=== PATIENT | female | born 1940 | race Caucasian/White ===

== ENCOUNTER 2016-11-27 14:12 | Observation (INO) | payer BC, MEDICARE ==
[~2016-11-27] VITALS: Ht 142.2 cm; Wt 46.0 kg
[~2016-11-27 14:12] MED LIST: ALBU0.63 NEB; BUDE0.5S NEB; DENO60P SQ; IPRASOL INH; OXYGENTANK NAS.CANULA; PRED20 PO; ROBIDM5S PO; TUSSSUS2 PO; ZITH500T PO
[2016-11-27 14:28] VITALS: BP 124/76; PULSE 84; RESP 18; TEMP 98.4; O2SAT 95
[2016-11-27 14:47] VITALS: BP 116/56; PULSE 105; RESP 16; TEMP 98; O2SAT 99
[2016-11-27 14:51] VITALS: BP 116/56; PULSE 107; RESP 16; O2SAT 99
--- NOTE | 2016-11-27 15:49 | RADRPT ---
EXAM DATE/TIME: 11/27/2016 15:01 [facility] COMPARISON: CHEST SINGLE AP, November 10, 2016, 5:28. CT PULMONARY ANGIOGRAM, November 11, 2016, 15:36. INDICATIONS : Short of breath MEDICAL HISTORY : Chronic obstructive pulmonary disease. Hiatal hernia. Lung infection SURGICAL HISTORY : None. ENCOUNTER: Initial ACUITY: 2 weeks PAIN SCORE: 0/10 LOCATION: Bilateral chest FINDINGS: There is extensive subcutaneous emphysema over the visualized neck and chest. Diffuse coarse fibrotic parenchymal lung disease is noted. Cardiomediastinal contours are grossly stable. CONCLUSION: Extensive subcutaneous emphysema. Extensive chronic lung disease Zane Clifford MD on November 27, 2016 at 15:44 Board Certified Radiologist. This report was verified electronically.
[2016-11-27 16:10] VITALS: BP 124/74; PULSE 102; RESP 16; O2SAT 100
--- NOTE | 2016-11-27 16:31 | PD ---
HPI Chief Complaint: Facial Pain or Swelling Time Seen by Provider: 15:51 Travel History International Travel<30 days: No Contact w/Intl Traveler<30days: No Traveled to known affect area: No History of Present Illness HPI 76-year-old female with history of pulmonary fibrosis, recent pneumonia, presents to the ER today because she states that she woke up this morning with swelling under her neck and her chin area, feels discomfort in her throat. She has baseline problems breathing and has been put on oxygen recently. She had been seen by nurse practitioner at her doctor's office and sent in for concern of air under the skin. She denies any fevers, difficulty swallowing, or other symptoms. Modifying Factors: None Associated Signs & Symptoms: Swelling of the neck and chin Risk Factors: Recent use of oxygen PFSH Past Medical History Cancer: No Cardiovascular Problems: No COPD: Yes Diabetes: No Endocrine: No Gastrointestinal Disorders: Yes (GERD) GERD: Yes Genitourinary: No Hepatitis: No Hiatal Hernia: Yes Hypertension: No Immune Disorder: No Musculoskeletal: Yes (OSTEOPEROSIS) Neurologic: No Psychiatric: No Reproductive: No Respiratory: Yes (FIBROSIS) Thyroid Disease: No Influenza Vaccination: Yes ?: Not Past Surgical History AICD: No Body Medical Devices: PINS IN L WRIST Eye Surgery: Yes Gynecologic Surgery: No Joint Replacement: No Pacemaker: No Other Surgery: Yes Social History Alcohol Use: Yes (VERY RARELY) Tobacco Use: No Substance Use: No Allergies-Medications (Allergen,Severity, Reaction): Coded Allergies: No Known Allergies (Unverified , 11/27/16) Reported Meds & Prescriptions Reported Meds & Active Scripts Active Zithromax (Azithromycin) 500 Mg Tab 500 Mg PO DAILY Guaifenesin-Dm Liq (Guaifenesin/Dextromethorphan) 100-10 Mg/5 Ml Syrp 10 Ml PO Q4H PRN 7 Days Prednisone 20 Mg Tab 40 Mg PO DAILY 1 TAB BY MOUTH TWICE A DAY FOR THREE DAYS THEN ONE TABLET DAILT UNTIL GONE Oxygen tank (Oxygen) 1 Ea Tank 2 Liter GRADY.CANULA CONTINUOUS Oxygen Concentrator Portable Gaseous 2 L/min via Nasal Cannula Continuous For 99 months Reported Budesonide Neb 0.5 Mg/2 Ml Neb 0.5 Mg NEB Q12HR NEB Duoneb (Ipratropium-Albuterol Neb) 0.5-2.5 Mg/3 Ml Neb 1 Nebule INH Q4-6H Tussionex Pennkinetic Ext 12 HR Liq (Hydrocodone-Chlorpheniramine 12 HR Liq) 10- 8 Mg/5 Ml Susp 5 Ml PO Q12H PRN Albuterol Neb (Albuterol Sulfate) 0.63 Mg/3 Ml Neb 0.63 Mg NEB BID PRN Prolia Inj (Denosumab) 60 Mg/Ml Inj 60 Mg SQ Q 6 MONTHS PRN Review of Systems Except as stated in HPI: all other systems reviewed are Neg Physical Exam Narrative GENERAL: Well-nourished, well-developed elderly white female patient in no acute distress at rest. No drooling. Airway intact. SKIN: Warm and dry. HEAD: Normocephalic. EYES: No scleral icterus. No injection or drainage. ENT: Mucosa pink and moist. No erythema or exudates. No uvular edema. No uvular , palatal, or tonsillar deviation. Airway patent. NECK: Supple, trachea midline. There is mild notable edema of the throat area, no crepitus. CARDIOVASCULAR: Regular rate and rhythm without murmurs, gallops, or rubs. RESPIRATORY: Breath sounds equal with crackles throughout bilaterally. No accessory muscle use. GASTROINTESTINAL: Abdomen soft, non-tender, nondistended. MUSCULOSKELETAL: No cyanosis, or edema. BACK: Nontender without obvious deformity. No CVA tenderness. Data Data Last Documented VS Vital Signs Date Time Temp Pulse Resp B/P Pulse Ox O2 Delivery O2 Flow Rate FiO2 11/27/16 16:10 102 16 124/74 100 Nasal Cannula 3 11/27/16 14:47 98.0 Orders Chest, Single Ap (11/27/16 14:43) Complete Blood Count With Diff (11/27/16 16:27) Basic Metabolic Panel (Bmp) (11/27/16 16:27) Prothrombin Time / Inr (Pt) (11/27/16 16:27) Act Partial Throm Time (Ptt) (11/27/16 16:27) Labs Laboratory Tests Test 11/27/16 16:30 White Blood Count 12.3 TH/MM3 Red Blood Count 3.95 MIL/MM3 Hemoglobin 11.0 GM/DL Hematocrit 34.3 % Mean Corpuscular Volume 86.8 FL Mean Corpuscular Hemoglobin 27.9 PG Mean Corpuscular Hemoglobin 32.1 % Concent Red Cell Distribution Width 16.3 % Platelet Count 254 TH/MM3 Mean Platelet Volume 8.5 FL Neutrophils (%) (Auto) 89.9 % Lymphocytes (%) (Auto) 5.8 % Monocytes (%) (Auto) 3.4 % Eosinophils (%) (Auto) 0.4 % Basophils (%) (Auto) 0.5 % Neutrophils # (Auto) 11.1 TH/MM3 Lymphocytes # (Auto) 0.7 TH/MM3 Monocytes # (Auto) 0.4 TH/MM3 Eosinophils # (Auto) 0.1 TH/MM3 Basophils # (Auto) 0.1 TH/MM3 CBC Comment DIFF FINAL Differential Comment Prothrombin Time 10.0 SEC Prothromb Time International 0.9 RATIO Ratio Activated Partial 26.3 SEC Thromboplast Time MDM Medical Decision Making Medical Screen Exam Complete: Yes Emergency Medical Condition: Yes Medical Record Reviewed: Yes Interpretation(s) Laboratory Tests Test 11/27/16 16:30 White Blood Count 12.3 TH/MM3 (4.0-11.0) Red Blood Count 3.95 MIL/MM3 (4.00-5.30) Hemoglobin 11.0 GM/DL (11.6-15.3) Hematocrit 34.3 % (35.0-46.0) Neutrophils (%) (Auto) 89.9 % (16.0-70.0) Lymphocytes (%) (Auto) 5.8 % (9.0-44.0) Neutrophils # (Auto) 11.1 TH/MM3 (1.8-7.7) Lymphocytes # (Auto) 0.7 TH/MM3 (1.0-4.8) Last 24 hours Impressions Chest X-Ray 11/27/16 1443 Signed Impressions: Service Date/Time: November 15:01 - CONCLUSION: Extensive subcutaneous emphysema. Extensive chronic lung disease Zane Clifford MD Differential Diagnosis Allergic reaction versus pneumomediastinum versus pneumothorax versus steroid side effect Narrative Course Chest x-ray shows extensive subcutaneous emphysema without signs of pneumothoraces or other acute pulmonary processes. Case was discussed with Dr. rodrigues who is the patient's work force advisor was suggested that the patient be admitted as an observation especially considering her chronic lung disease. He states that he will see the patient tomorrow and states that patient should get follow-up chest x-ray as well. Case was then discussed with Dr. Barron for admission Diagnosis Primary Impression: TRAUMATIC SUBCUTANEOUS EMPHYSEMA, INITIAL ENCOUNTER Admitting Information Admitting Physician Requests: Admit Edwin Santos MD Nov 27, 2016 16:31
[2016-11-27 16:52] LABS: AUTOMATED NEUTROPHIL # 11.1 TH/MM3 (1.8-7.7); BASOPHIL # 0.1 TH/MM3 (0-0.2); BASOPHIL % 0.5 % (0.0-2.0); EOSINOPHIL # 0.1 TH/MM3 (0-0.4); EOSINOPHIL % 0.4 % (0.0-4.0); HEMATOCRIT 34.3 % (35.0-46.0); HEMO FLAGS DIFF FINAL; LYMPH % 5.8 % (9.0-44.0); LYMPHOCYTE # 0.7 TH/MM3 (1.0-4.8); MEAN CELL VOLUME 86.8 FL (80.0-100.0); MEAN CORPUSCULAR HEMOGLOBIN 27.9 PG (27.0-34.0); MEAN CORPUSCULAR HGB CONC 32.1 % (32.0-36.0); MONO % 3.4 % (0.0-8.0); NEUT % 89.9 % (16.0-70.0); PLATELET COUNT 254 TH/MM3 (150-450); RED BLOOD COUNT 3.95 MIL/MM3 (4.00-5.30); RED CELL DISTRIBUTION WIDTH 16.3 % (11.6-17.2); WHITE BLOOD COUNT 12.3 TH/MM3 (4.0-11.0)
[2016-11-27 17:05] LABS: APTT (PATIENT) 26.3 SEC (24.3-30.1); INTERNATIONAL NORMALIZED RATIO 0.9 RATIO
[2016-11-27 17:25] LABS: BICARBONATE 30.1 MEQ/L (21.0-32.0); POTASSIUM 4.6 MEQ/L (3.5-5.1)
[2016-11-27] MEDS ORDERED: NALOXONE HCL 0.4 MG/ML AMP IV PRN (17:45)
[2016-11-27] MEDS ORDERED: ACETAMINOPHEN 325 MG TAB PO PRN (17:45)
[2016-11-27] MEDS ORDERED: ONDANSETRON HCL 4 MG/2 ML VIAL IVP PRN (17:45)
[2016-11-27] MEDS ORDERED: guaiFENesin/DEXTROMETHORPHAN 200 MG/20 MG/10 ML CUP PO PRN (18:00)
[2016-11-27] MEDS ORDERED: NON-FORMULARY DRUG (Denosumab Inj (Prolia Inj) 60 MG) SQ PRN (18:00)
[2016-11-27] MEDS ORDERED: CHLORPHENIR/HYDROCOD LIQUID 8 MG/10 MG/5 ML CUP PO PRN (18:00)
[2016-11-27] MEDS ORDERED: RESP: ALBUTEROL 0.63 MG/3 ML NEB (PRN) NEB (18:00)
[2016-11-27] MEDS ORDERED: SODIUM CHLOR 0.9% 1000 ML INJ 1,000 ML IV SCH (18:00)
--- NOTE | 2016-11-27 18:58 | MB ---
cc: Sunshine CARDENAS M.D. DATE OF CONSULTATION 11/27/16 HISTORY OF PRESENT ILLNESS Miss French is a 76-year-old white female well-known to me with extensive pulmonary fibrosis who was recently admitted with a severe exacerbation. I saw her in the office yesterday at which time she was doing much better. She was on 10 mg of prednisone, continuous oxygen and things had settled down very nicely. In addition, she has a cavity in the right upper lobe that we have been investigating. She awoke today and noticed that her voice had changed and her face felt full. She really was not any more short of breath. She had had no cough or unusual symptoms. She had no chest pain, but she went to see her primary care physician and they also noticed these changes and felt a fullness in her neck. They sent her into the ER because they also felt that she had some crepitance. She did in fact have crepitance in the neck and supraclavicular regions and a chest x-ray reveals subcutaneous emphysema. There is no pneumothorax. No real change in her x-rays otherwise. For further review of a prior history, social history, etc., please refer to recent inpatient notes. PHYSICAL EXAMINATION GENERAL: She is awake, alert. She does have a noticeable change in her voice as is common with subcu air. She is afebrile. VITAL SIGNS: Her pulse is 100, respirations are very comfortable at 16-18 and her sat on 3 liters is 100%. HEENT: Sclerae anicteric. No adenopathy palpable in the neck. She does have crepitance palpable in the neck and supraclavicular region, very little in the anterior and lateral chest regions. LUNGS: Coarse rales throughout. This is standard for her, no harsh murmur. EXTREMITIES: No edema or cyanosis. DISCUSSION Ms. French presented today with probably a spontaneous rupture of a bleb in her lung. No evidence of pneumothorax on either side and most of the air is subcutaneous without much obvious mediastinal air. She has no respiratory compromise and her sats are excellent. In light of the recent severe exacerbation and her rather marginal pulmonary status, I have recommended at least an overnight observation with a followup chest x-ray in the morning. If there is no progression, I think she could probably be safely monitored at home. Hopefully, this will seal and the air will eventually reabsorb. I have reviewed this with she and her this evening and I will see her back again tomorrow. R. MD BOUCHRA Yin/ /5:50 PM /6:36 PM
[2016-11-27] MEDS: SODIUM CHLORIDE 0.9% FLUSH 5 ML FLUSH FLUSH SCH (21:00)
[2016-11-27 22:04] VITALS: BP 115/62; PULSE 98; RESP 20; O2SAT 99
[2016-11-27] MEDS: RESP: ALBUTEROL 2.5 MG/IPRATROPIUM 0.5 MG NEB (SCH) INH (22:26)
[2016-11-27] MEDS: RESP: BUDESONIDE 0.5 MG/2 ML NEB NEB SCH (23:18)
[2016-11-28] VITALS (7 sets, daily range): BP systolic 110–137; BP diastolic 58–77; PULSE 95–108; RESP 18–20; TEMP 98–98.5; O2SAT 94–99
[2016-11-28] MEDS: RESP: ALBUTEROL 2.5 MG/IPRATROPIUM 0.5 MG NEB (SCH) INH ×2 (04:30→10:01)
[2016-11-28 05:30] LABS: AUTOMATED NEUTROPHIL # 7.6 TH/MM3 (1.8-7.7); BASOPHIL % 0.3 % (0.0-2.0); EOSINOPHIL # 0.3 TH/MM3 (0-0.4); EOSINOPHIL % 2.7 % (0.0-4.0); HEMATOCRIT 31.3 % (35.0-46.0); HEMO FLAGS DIFF FINAL; LYMPH % 11.5 % (9.0-44.0); LYMPHOCYTE # 1.1 TH/MM3 (1.0-4.8); MEAN CELL VOLUME 86.1 FL (80.0-100.0); MEAN CORPUSCULAR HEMOGLOBIN 28.5 PG (27.0-34.0); MEAN CORPUSCULAR HGB CONC 33.1 % (32.0-36.0); MONO % 5.8 % (0.0-8.0); NEUT % 79.7 % (16.0-70.0); PLATELET COUNT 218 TH/MM3 (150-450); RED BLOOD COUNT 3.63 MIL/MM3 (4.00-5.30); RED CELL DISTRIBUTION WIDTH 16.2 % (11.6-17.2); WHITE BLOOD COUNT 9.5 TH/MM3 (4.0-11.0)
[2016-11-28] MEDS: SODIUM CHLORIDE 0.9% FLUSH 5 ML FLUSH FLUSH SCH (08:18)
--- NOTE | 2016-11-28 08:44 | MH ---
cc: KAMILA BARRON DATE OF ADMISSION: 11/27/2016 DATE OF [address] Barron. REASON FOR ADMISSION Facial swelling and some hoarseness and voice change. HISTORY OF PRESENT ILLNESS The patient is a very pleasant 76-year-old patient seen and is known to me from past admission when she was admitted because of a COPD exacerbation. The patient was recently discharged . This time the patient came to the ER because she had woke up this morning with some swelling under her neck and her chin area and she is feeling some discomfort and some difference in voice. So she went to her primary care doctor who sent her over here because of the crepitance in her skin. She was evaluated by the ER physician and found out the patient has emphysema in the neck but there is no pneumothorax. The ER physician talked to a candle wicker and as per candle wicker because of her condition and her underlying pulmonary fibrosis and this spontaneous emphysema she needs to be observed further. The patient was seen in the ER. At present she has some different voice than before but she has no pain. She had some fullness in her neck which is the same as this morning. She denies any shortness of breath. There is no difficulty in swallowing. There is no nausea or vomiting. She denies any chest pain or any back pain. She denies any abdominal pain. PAST MEDICAL HISTORY/PAST SURGICAL HISTORY/FAMILY HISTORY Please see last . MEDICATIONS Reviewed. The patient ALLERGIES THE PATIENT HAS NO KNOWN DRUG ALLERGIES. REVIEW OF SYSTEMS As described in the History of Present Illness otherwise negative for 10 systems. PHYSICAL EXAMINATION GENERAL: The patient is alert and oriented, thin-built, lying on bed without any apparent distress. VITAL SIGNS: pulse between 90-100, respiratory rate 16, blood pressure 124/74, pulse ox 100 on 3 liters nasal cannula. HEENT: Head is atraumatic, normocephalic. Eyes: Negative conjunctival injection. No icterus. Mouth unremarkable. NECK: Supple. Trachea is midline. There is no lymphadenopathy noted. There is no tenderness. There is notable fullness under the chin and the neck area with crepitus positive mostly on the right side and supraclavicular area as well. Normal range of motion of neck. CHEST: Good air entry but dry crepitations which is normal for her as I remember from last time. CARDIOVASCULAR: S1 and S2 audible. Unable to hear any S3 gallop. GASTROINTESTINAL: Abdomen soft, nontender. No organomegaly. Positive bowel sounds. EXTREMITIES: No cyanosis or pedal edema appreciated. LABORATORY DATA WBC count 12.3, hemoglobin 11.0, hematocrit 34.3. Sodium 135 otherwise BMP within normal limit. PT, INR, APTT within normal limit. IMAGING Chest x-ray was done which showed extensive subcutaneous emphysema, extensive chronic lung disease. ASSESSMENT 1. Spontaneous emphysema subcutaneous on the neck and the supraclavicular area in a patient with pulmonary fibrosis. 2. Pulmonary fibrosis. 3. Recent pneumonia. 4. GERD. 5. History of malnourishment. 6. Osteoporosis. PLAN Admit under observation. Appreciate Pulmonary input. Repeat x-ray in the morning. Continue some of home medications as indicated. Monitor heart rate. Condition discussed with the patient. Further recommendation to follow as per patient progress. Kamila Barron MD JP/WINSOME /8:21 PM /8:37 AM
[2016-11-28] MEDS: SODIUM CHLORIDE 0.9% FLUSH 5 ML FLUSH FLUSH PRN (09:00)
[2016-11-28] MEDS ORDERED: AZITHROMYCIN 250 MG TAB PO SCH (09:00)
[2016-11-28] MEDS ORDERED: predniSONE 20 MG TAB PO SCH (09:00)
--- NOTE | 2016-11-28 09:39 | HHI.PR ---
Subjective Subjective Remarks resting comfortably no cp no sob, some with activity no fever subq emphysema improving, less on anterior neck no distress overnight Review of Systems Constitutional Constitutional Remarks 12 point ROS completed, negative except as noted above Vitals/Results Vital Signs Vital Signs Date Time Temp Pulse Resp B/P Pulse Ox O2 Delivery O2 Flow Rate FiO2 11/28/16 07:20 98.5 102 20 119/66 99 Nasal Cannula 3 11/28/16 07:20 102 20 11/28/16 06:33 95 20 114/69 96 Nasal Cannula 3 11/28/16 02:41 97 18 112/66 97 Nasal Cannula 3 11/27/16 22:04 98 20 115/62 99 Nasal Cannula 3 11/27/16 16:10 102 16 124/74 100 Nasal Cannula 3 11/27/16 14:51 107 16 116/56 99 Nasal Cannula 3 11/27/16 14:47 98.0 105 16 116/56 99 11/27/16 14:28 98.4 84 18 124/76 95 Nasal Cannula 3 CBC/BMP: 11/28/16 0503 11/27/16 1630 Lab Results Laboratory Tests Test 11/27/16 11/28/16 16:30 05:03 White Blood Count 12.3 TH/MM3 9.5 TH/MM3 Red Blood Count 3.95 MIL/MM3 3.63 MIL/MM3 Hemoglobin 11.0 GM/DL 10.4 GM/DL Hematocrit 34.3 % 31.3 % Mean Corpuscular Volume 86.8 FL 86.1 FL Mean Corpuscular Hemoglobin 27.9 PG 28.5 PG Mean Corpuscular Hemoglobin 32.1 % 33.1 % Concent Red Cell Distribution Width 16.3 % 16.2 % Platelet Count 254 TH/MM3 218 TH/MM3 Mean Platelet Volume 8.5 FL 7.7 FL Neutrophils (%) (Auto) 89.9 % 79.7 % Lymphocytes (%) (Auto) 5.8 % 11.5 % Monocytes (%) (Auto) 3.4 % 5.8 % Eosinophils (%) (Auto) 0.4 % 2.7 % Basophils (%) (Auto) 0.5 % 0.3 % Neutrophils # (Auto) 11.1 TH/MM3 7.6 TH/MM3 Lymphocytes # (Auto) 0.7 TH/MM3 1.1 TH/MM3 Monocytes # (Auto) 0.4 TH/MM3 0.5 TH/MM3 Eosinophils # (Auto) 0.1 TH/MM3 0.3 TH/MM3 Basophils # (Auto) 0.1 TH/MM3 0.0 TH/MM3 CBC Comment DIFF FINAL DIFF FINAL Differential Comment Prothrombin Time 10.0 SEC Prothromb Time International 0.9 RATIO Ratio Activated Partial 26.3 SEC Thromboplast Time Sodium Level 135 MEQ/L Potassium Level 4.6 MEQ/L Chloride Level 98 MEQ/L Carbon Dioxide Level 30.1 MEQ/L Anion Gap 7 MEQ/L Blood Urea Nitrogen 14 MG/DL Creatinine 0.55 MG/DL Estimat Glomerular Filtration 108 ML/MIN Rate Random Glucose 96 MG/DL Calcium Level 8.5 MG/DL Physical Exam General General Appearance: Well Developed, No Acute Distress, Comfortable Eyes Eye Exam: Pupils Equal, Pupils Reactive Ears & Nose Ears & Nose Exam: Nasal Mucosa Hartwick Throat Throat Exam: Oral Mucosa Hartwick & Moist Neck Neck Remarks sub q emphysema, neck, improved Pulmonary Resp Exam: Rhonchi Resp Remarks coarse, mild wheezing Cardiology CV Exam: Regular, Good Perfusion, Tachycardia Gastrointestinal/Abdomen GI Exam: Soft, Non-Tender, Bowel Sounds Present, Non-Distended Musculoskeletal MS Exam: Joints Intact Integumentary Skin Exam: Warm, Dry Extremeties Extremities Exam: No Edema, Pedal Pulses Palpable Neurologic Neuro Exam: Alert, Awake, Oriented, Speech Clear, No Focal Deficits Psychiatric Psych Exam: Appropriate Responses VTE Prophylaxis VTE Prophylaxis Device: SCDs Assessment/Plan Problem List: (1) Nontraumatic subcutaneous emphysema (2) Interstitial fibrosis (3) COPD exacerbation (4) GERD (gastroesophageal reflux disease) (5) Osteoporosis Assessment/Plan appreciate pulm input continue with oxygen 2L/NC Duonebs PO steroids repeat CXR today, f/u results overall improved, less subq emphysema HR elevated, telemetry monitoring Continue empiric abx Possible discharge today D/W RN D/W Dr. Barron D/W pt. This pt. was seen by myself and Dr. Barron, this note is written on his behalf Problem Qualifiers (1) GERD (gastroesophageal reflux disease): Qualified Code: K21.9 - Gastroesophageal reflux disease without esophagitis Samreen Serrano Nov 28, 2016 09:39
[2016-11-28] MEDS: RESP: BUDESONIDE 0.5 MG/2 ML NEB NEB SCH (10:01)
--- NOTE | 2016-11-28 10:26 | RADRPT ---
EXAM DATE/TIME: 11/28/2016 09:42 [facility] COMPARISON: CHEST SINGLE AP, November 27, 2016, 15:01. INDICATIONS : Cough, subcutaneous,emphysema MEDICAL HISTORY : Chronic obstructive pulmonary disease. Lung infections SURGICAL HISTORY : None. ENCOUNTER: Subsequent ACUITY: 1 day PAIN SCORE: 0/10 LOCATION: Bilateral chest FINDINGS: There is extensive subcutaneous air which is stable to slightly increased from November 27. Extensive l jackeline fibrotic changes are present with patchy airspace disease and stable cavitary lesion on the right identified on recent chest CT. Aorta tortuous and atherosclerotic. Capsular calcifications around br east implants. CONCLUSION: 1. Extensive subcutaneous emphysema, stable to increased since prior exam. Stable lung fibrotic chaves es and cavitary lesion on the right since November 27. No infiltrate. No effusion. Jaylan Jimenez MD on November 28, 2016 at 10:20 Board Certified Radiologist. This report was verified electronically.
--- NOTE | 2016-11-28 13:37 | HHI.DCPOC ---
Discharge Care Plan Diagnosis: (1) Nontraumatic subcutaneous emphysema (2) COPD exacerbation (3) Interstitial fibrosis Your Health Problems Are: Cough Shortness of Breath Goals to Promote Your Health * To prevent worsening of your condition and complications * To maintain your health at the optimal level Directions to Meet Your Goals Take your medications as prescribed Follow your dietary instruction Follow activity as directed Keep your appointments as scheduled Take your immunizations and boosters as scheduled If your symptoms worsen call your PCP, if no PCP go to Urgent Care Center or Emergency Room Smoking is Dangerous to Your Health. Avoid second hand smoke Call the 24-hour hour crisis hotline for domestic abuse at Samreen Serrano Nov 28, 2016 13:37
--- NOTE | 2016-12-01 08:49 | MD ---
cc: Sunshine CARDENAS ADMISSION DATE: 11/27/2016 DISCHARGE DATE: 11/28/2016 PULMONARY DISCHARGE: Miss French was kept in observation last night for subcutaneous air noted on chest x-ray and on exam. She is a 76-year-old white female known to me with pulmonary fibrosis and a cavity in the right upper lobe that we been evaluating recently. She presented with change in voice feeling of swelling in her neck and subcutaneous crepitance as well as the subcutaneous emphysema noted on x-rays. She was kept overnight her vitals were stable. Her sats have remained stable at 100% on 3 liters. She has oxygen at home and we taper down to 10 mg of prednisone for recent acute severe exacerbation of her underlying pulmonary fibrosis. I spoke to Dr. Barron there really is not any reason to keep her in the hospital. She knows that if she develops increasing subcutaneous emphysema or shortness of breath. She has returned the emergency room. We have her scheduled to be seen at the [facility] for further evaluation later this month. In the meantime we will keep her on a low dose of prednisone and her oxygen and I have told her not to be involved in any heavy physical activities. We will see her back in the office if stable after the [facility] evaluation, but she knows she can call prior to that if problems arise. MD BOUCHRA Cardoso/stewart /1:38 PM /8:50 AM
[2017-05-11] MEDS ORDERED: DENOSUMAB 60 MG SQ PRN (09:00)
== END 2016-11-28 14:05 | disposition home or self-care (01) ==
LOC: NEPE 14:12 → NEDA 17:09 → NEDH 21:09
PROVIDERS: ADMIT Specialist; ATTEND Specialist
DX: J98.2 Interstitial emphysema (principal); J44.1 Chronic obstructive pulmonary disease with (acute) exacerbation; J84.10 Pulmonary fibrosis, unspecified; K21.9 Gastro-esophageal reflux disease without esophagitis; M81.0 Age-related osteoporosis without current pathological fracture; J98.4 Other disorders of lung; R22.1 Localized swelling, mass and lump, neck; J02.9 Acute pharyngitis, unspecified; R49.0 Dysphonia; Z87.01 Personal history of pneumonia (recurrent); Z99.81 Dependence on supplemental oxygen
CPT/HCPCS: 71010; 71020; 80048; 85025; 85610; 85730; 94640; 94664; 99285; G0378; J7030; J7512; J7626

== ENCOUNTER 2016-12-09 15:30 | Inpatient (IN) | payer BC, MEDICARE ==
[2016-12-09] VITALS (9 sets, daily range): BP systolic 93–124; BP diastolic 62–73; PULSE 106–137; RESP 18–28; TEMP 97.5; O2SAT 85–97
[~2016-12-09] VITALS: Ht 142.2 cm; Wt 50.0 kg
[~2016-12-09 15:30] MED LIST changes: -ZITH500T PO
[2016-12-09 16:15] LABS: BASOPHIL # 0.1 TH/MM3 (0-0.2); BASOPHIL % 0.7 % (0.0-2.0); EOSINOPHIL % 0.1 % (0.0-4.0); HEMATOCRIT 28.8 % (35.0-46.0); LYMPH % 6.3 % (9.0-44.0); LYMPHOCYTE # 1.1 TH/MM3 (1.0-4.8); MEAN CELL VOLUME 83.6 FL (80.0-100.0); MEAN CORPUSCULAR HEMOGLOBIN 27.1 PG (27.0-34.0); MEAN CORPUSCULAR HGB CONC 32.4 % (32.0-36.0); MONO % 5.8 % (0.0-8.0); NEUT % 87.1 % (16.0-70.0); PLATELET COUNT 20 TH/MM3 (150-450); RED BLOOD COUNT 3.45 MIL/MM3 (4.00-5.30); RED CELL DISTRIBUTION WIDTH 15.9 % (11.6-17.2); WHITE BLOOD COUNT 17.2 TH/MM3 (4.0-11.0)
[2016-12-09 16:17] LABS: HEMO FLAGS AUTO DIFF
--- NOTE | 2016-12-09 16:25 | RADRPT ---
EXAM DATE/TIME: 12/09/2016 16:07 [facility] COMPARISON: CHEST PA & LAT, November 28, 2016, 9:42. CT PULMONARY ANGIOGRAM, November 11, 2016, 15:36. CHEST SIN GLE AP, November 27, 2016, 15:01. INDICATIONS : Shortness of breath. MEDICAL HISTORY : Chronic obstructive pulmonary disease. Pulmonary fibrosis. SURGICAL HISTORY : None. ENCOUNTER: Initial ACUITY: 4 - 6 days PAIN SCORE: 0/10 LOCATION: Bilateral chest FINDINGS: Diffuse parenchymal lung disease remains evident. There are chronic interstitial lung changes and pat lucy areas of airspace disease. A cavitary lesion remains evident laterally within the right upper lob e. Subcutaneous emphysema described on previous study has completely resolved. There is no evidence of pneumothorax. 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 Moderate congestion would be difficult to exclude. Paramjit Parada MD on December 09, 2016 at 16:20 Board Certified Radiologist. This report was verified electronically.
[2016-12-09 16:28] LABS: BANDS 18 % (0-6); METAMYELOCYTES 1 % (0-1); POLYS (SEG NEUTROPHILS) 74 % (16-70); WBC DIFF SAMPLE 100
[2016-12-09 16:29] LABS: PLATELET ESTIMATE SMEAR LOW (NORMAL); PLATELET MORPHOLOGY NORMAL (NORMAL); SCAN/DIFF FINAL DIFF MANUAL
[2016-12-09 17:13] LABS: ALKALINE PHOSPHATASE 86 U/L (45-117); ALT (GPT) 45 U/L (10-53); ANION GAP 9 MEQ/L (5-15); AST (GOT) 53 U/L (15-37); BICARBONATE 26.2 MEQ/L (21.0-32.0); BLOOD UREA NITROGEN 15 MG/DL (7-18); CHLORIDE 97 MEQ/L (98-107); GLOMERULAR FILTRATION RATE 69 ML/MIN (>89); SODIUM (NA) 132 MEQ/L (136-145); TOTAL BILIRUBIN ADULT 0.4 MG/DL (0.2-1.0)
[2016-12-09 17:14] LABS: POTASSIUM 4.5 MEQ/L (3.5-5.1)
[2016-12-09] MEDS ORDERED: methylPREDNISolone SOD SUCC 125 MG/2 ML VIAL IV PUSH ONE (17:30)
[2016-12-09] MEDS ORDERED: LEVOFLOXACIN 750 MG PREMIX INJ 150 ML IV ONE (17:30)
--- NOTE | 2016-12-09 18:51 | PD ---
HPI Chief Complaint: Respiratory Distress Time Seen by Provider: 15:37 Travel History International Travel<30 days: No Contact w/Intl Traveler<30days: No History of Present Illness HPI To 76 year-old woman presents to the emergency department with worsening of breath. She is a history of pulmonary fibrosis. This began progressively worse over the past several weeks. She was admitted to the emergency department recently with symptoms is emphysema thought to be related to pulmonary fibrosis. This resolved. She is on home oxygen. She's been having nosebleeds probably related to the oxygen. She just started humidified oxygen today. States she's got progressively more short of breath with cough and dropping down into the 70s even with her oxygen with movement. She sees Dr. José Antonio rodrigues. She was referred to the emergency department by his office. Some cough, no fevers or chills. Otherwise well. History Past Medical History Narrative Medical Pulmonary fibrosis Osteoporosis GERD Malnourishment Tetanus Vaccination: Unknown Influenza Vaccination: Yes : 4 Para: 3 Social History Alcohol Use: Yes (VERY RARELY) Tobacco Use: No Allergies-Medications (Allergen,Severity, Reaction): Coded Allergies: No Known Allergies (Unverified , 11/27/16) Reported Meds & Prescriptions Reported Meds & Active Scripts Active Guaifenesin-Dm Liq (Guaifenesin/Dextromethorphan) 100-10 Mg/5 Ml Syrp 10 Ml PO Q4H PRN 7 Days Prednisone 20 Mg Tab 40 Mg PO DAILY 1 TAB BY MOUTH TWICE A DAY FOR THREE DAYS THEN ONE TABLET DAILT UNTIL GONE Oxygen tank (Oxygen) 1 Ea Tank 2 Liter GRADY.CANULA CONTINUOUS Oxygen Concentrator Portable Gaseous 2 L/min via Nasal Cannula Continuous For 99 months Reported Budesonide Neb 0.5 Mg/2 Ml Neb 0.5 Mg NEB Q12HR NEB Duoneb (Ipratropium-Albuterol Neb) 0.5-2.5 Mg/3 Ml Neb 1 Nebule INH Q4-6H Tussionex Pennkinetic Ext 12 HR Liq (Hydrocodone-Chlorpheniramine 12 HR Liq) 10- 8 Mg/5 Ml Susp 5 Ml PO Q12H PRN Albuterol Neb (Albuterol Sulfate) 0.63 Mg/3 Ml Neb 0.63 Mg NEB BID PRN Prolia Inj (Denosumab) 60 Mg/Ml Inj 60 Mg SQ Q 6 MONTHS PRN Review of Systems Except as stated in HPI: all other systems reviewed are Neg Physical Exam Narrative GENERAL: Well-appearing 76 year-old woman, moderate respiratory distress. SKIN: Warm and dry. HEAD: Atraumatic. Normocephalic. EYES: Pupils equal and round. No scleral icterus. No injection or drainage. ENT: No nasal bleeding or discharge. Mucous membranes pink and moist. NECK: Trachea midline. No JVD. CARDIOVASCULAR: Regular rate and rhythm. No murmur appreciated. RESPIRATORY: Moderate moderate respiratory distress. Fine Rales throughout the posterior lung davis. GASTROINTESTINAL: Abdomen soft, non-tender, nondistended. Hepatic and splenic margins not palpable. MUSCULOSKELETAL: No obvious deformities. No edema. NEUROLOGICAL: Awake and alert. No obvious cranial nerve deficits. Motor grossly within normal limits. Normal speech. PSYCHIATRIC: Appropriate mood and affect; insight and judgment normal. Data Data Last Documented VS Vital Signs Date Time Temp Pulse Resp B/P Pulse Ox O2 Delivery O2 Flow Rate FiO2 12/09/16 18:48 113 22 93/64 95 Nasal Cannula 6 12/09/16 15:32 97.5 Orders Electrocardiogram (12/09/16 ) Chest, Single Ap (12/09/16 ) Complete Blood Count With Diff (12/09/16 15:49) Comprehensive Metabolic Panel (12/09/16 15:49) Iv Access Insert/Monitor (12/09/16 15:49) Ct Pulmonary Angiogram (12/09/16 ) Methylprednisolone So Succ Inj (Solumedr (12/09/16 17:30) Levofloxacin 750 Mg Premix Inj (Levaquin (12/09/16 17:30) Iohexol 350 Inj (Omnipaque 350 Inj) (12/09/16 19:10) Admit Order (Ed Use Only) (12/09/16 ) Labs Laboratory Tests Test 12/09/16 16:00 White Blood Count 17.2 TH/MM3 Red Blood Count 3.45 MIL/MM3 Hemoglobin 9.3 GM/DL Hematocrit 28.8 % Mean Corpuscular Volume 83.6 FL Mean Corpuscular Hemoglobin 27.1 PG Mean Corpuscular Hemoglobin 32.4 % Concent Red Cell Distribution Width 15.9 % Platelet Count 20 TH/MM3 Mean Platelet Volume 13.8 FL Neutrophils (%) (Auto) 87.1 % Lymphocytes (%) (Auto) 6.3 % Monocytes (%) (Auto) 5.8 % Eosinophils (%) (Auto) 0.1 % Basophils (%) (Auto) 0.7 % Neutrophils # (Auto) 15.0 TH/MM3 Lymphocytes # (Auto) 1.1 TH/MM3 Monocytes # (Auto) 1.0 TH/MM3 Eosinophils # (Auto) 0.0 TH/MM3 Basophils # (Auto) 0.1 TH/MM3 CBC Comment AUTO DIFF Differential Total Cells 100 Counted Neutrophils % (Manual) 74 % Band Neutrophils % 18 % Lymphocytes % 4 % Monocytes % 3 % Neutrophils # (Manual) 16.0 TH/MM3 Metamyelocytes 1 % Differential Comment FINAL DIFF MANUAL Platelet Estimate LOW Platelet Morphology Comment NORMAL Sodium Level 132 MEQ/L Potassium Level 4.5 MEQ/L Chloride Level 97 MEQ/L Carbon Dioxide Level 26.2 MEQ/L Anion Gap 9 MEQ/L Blood Urea Nitrogen 15 MG/DL Creatinine 0.81 MG/DL Estimat Glomerular Filtration 69 ML/MIN Rate Random Glucose 128 MG/DL Calcium Level 8.3 MG/DL Total Bilirubin 0.4 MG/DL Aspartate Amino Transf 53 U/L (AST/SGOT) Alanine Aminotransferase 45 U/L (ALT/SGPT) Alkaline Phosphatase 86 U/L Total Protein 7.0 GM/DL Albumin 2.5 GM/DL [facility] Medical Decision Making Medical Screen Exam Complete: Yes Emergency Medical Condition: Yes Interpretation(s) LABS: CBC remarkable for mild leukocytosis. We have 18%. CMP unremarkable. Chest x-ray: Continued evidence of diffuse bilateral pressure, lung disease there is a chronic unchanged back to pneumonitis. Moderate congestion or be difficult to exclude. Differential Diagnosis Pulmonary fibrosis, pneumonia, PE, other Narrative Course Medical decision making 76-year-old with worsening pulmonary fibrosis. This is likely her underlying pulmonary fibrosis is likely worsening. Some concern for PE. We'll check CT pulmonary angiogram. X-ray shows diffuse infiltrates, difficulttoexcludepneumonia.IspokewithDr.Shasta,oncallforDr.Y.We' lldosteroidsantibiotics.We'llplanonadmission. Diagnosis Primary Impression: Pulmonary fibrosis Additional Impression: Hypoxia Castro Nelson MD Dec 09, 2016 18:51
[2016-12-09] MEDS ORDERED: IOHEXOL 350 MG/ML 10 ML VIAL (for RAD DIAG) IV ONE (19:10)
--- NOTE | 2016-12-09 19:31 | RADRPT ---
EXAM DATE/TIME: 12/09/2016 19:05 [place] COMPARISON: CT PULMONARY ANGIOGRAM, November 11, 2016, 15:36. INDICATIONS : Short of breath. Evaluate for embolism. IV CONTRAST: 65 cc Omnipaque 350 (iohexol) IV RADIATION DOSE: 9.97 CTDIvol (mGy) MEDICAL HISTORY : Chronic obstructive pulmonary disease. Gastroesophageal reflux disease. SURGICAL HISTORY : None. ENCOUNTER: Initial ACUITY: 3 days PAIN SCALE: 0/10 LOCATION: Chest TECHNIQUE: Volumetric scanning of the chest was performed using a pulmonary embolism protocol MIP images were reconstructed. Using automated exposure control and adjustment of the mA and/or kV acco rding to patient size, radiation dose was kept as low as reasonably achievable to obtain optimal diag nostic quality images. FINDINGS: Coarse interstitial changes are present in both lungs that have progressed in the inter sammy. Thin walled cavity with consolidations is again seen in the right upper lobe. The amount of consolida tion has increased. There is no evidence for central pulmonary emboli. Portion of the liver and spl een identified are free of focal defects. CONCLUSION: 1. Increasing mass-like opacity with cavitation right upper lobe. 2. Increasing interstitial changes in both lungs. 3. There is no central pulmonary emboli. José Antonio Hamilton MD FACR on December 09, 2016 at 19:20 Board Certified Radiologist. This report was verified electronically.
[2016-12-09] MEDS: RESP: ALBUTEROL 2.5 MG/IPRATROPIUM 0.5 MG NEB (SCH) NEB ×2 (20:56→23:48)
[2016-12-10] VITALS (13 sets, daily range): BP systolic 96–131; BP diastolic 56–77; PULSE 104–137; RESP 18–45; TEMP 97.4–97.8; O2SAT 87–98
[2016-12-10] MEDS: CHLORPHENIR/HYDROCOD LIQUID 8 MG/10 MG/5 ML CUP PO PRN ×2 (00:29→21:35)
[2016-12-10] MEDS: methylPREDNISolone SOD SUCC 40 MG/1 ML VIAL IV SCH ×4 (02:16→21:10)
[2016-12-10] MEDS: RESP: ALBUTEROL 2.5 MG/IPRATROPIUM 0.5 MG NEB (SCH) NEB ×5 (03:22→19:36)
--- NOTE | 2016-12-10 07:24 | HHI.HP ---
[facility]Staff Admission Diagnosis pulmonary fibrosis, hypoxia Diagnoses: Chief Complaint: sob, low sats (Samreen Serrano) Travel History International Travel<30 Days: No Contact w/Intl Traveler <30 Da: No (Samreen Serrano) History of Present Illness This is a pleasant 76-year-old white female with significant past medical history of COPD, pulmonary fibrosis oxygen dependent,PNA, bronchiectasis. Pt. recently admitted 11/28 with non-traumatic subq emphysema secondary to pulm fibrosis. She follows up with Dr. Lofton. She is on chronic steroids, takes Prednisone and is on oxygen at 3.5L/NC. States she had been doing well, looking forward to seeing pulmonology at [facility] for further work up for pulmonary fibrosis. Over the last couple of day, she had increase SOB, sats 91% at rest. She has had nosebleed possibly due to oxygen as she just obtained humidifier. She has been coughing, little sputum, wheezing. No fever, but has noted waking up sweating at night. Yesterday she got up to go to bathroom and became extremely SOB, sats dropped to 70% on oxygen. She called Dr. Lofton's office and was instructed to come to ED. Denies any CP but has felt her "heart pounding". In the ED, pt. evaluated, laboratory work up remarkable for leukocytosis WBC 17.1, however pt. on steroids, no fever. Platelets 20,000, which is a new finding. BMP unremarkable. Imaging studies done Last Impressions Chest X-Ray 12/09/16 0000 Signed Impressions: Service Date/Time: Friday, December 09, 2016 16:07 - CONCLUSION: Continued evidence of diffuse bilateral parenchymal lung disease characteristic of chronic lung changes with active pneumonitis. Moderate congestion would be difficult to exclude. Paramjit Parada MD CT Angiography 12/09/16 0000 Signed Impressions: Service Date/Time: Friday, December 09, 2016 19:05 - CONCLUSION: 1. Increasing mass-like opacity with cavitation right upper lobe. 2. Increasing interstitial changes in both lungs. 3. There is no central pulmonary emboli. José Antonio Hamilton MD FACR Pt. was given IV steroids, duonebs and empiric antibiotics. Was initially on oxygen at 6L/NC, and was just decreased to 4L/NC. She is still SOB with activity and conversation, able to finish sentences. She has not had any more nosebleeds. She is concerned about missing her appointment at the [facility]. Dr. Lofton has been consulted. Pt. admitted for further evaluation and treatment. (Samreen Serrano) Review of Systems Constitutional: COMPLAINS OF: Diaphoretic episodes, Chills, DENIES: Fatigue, Fever, Weight gain, Weight loss, Dizziness, Change in appetite, Night Sweats Endocrine: DENIES: Abnorml menstrual pattern, Heat/cold intolerance, Polydipsia , Polyuria, Polyphagia Eyes: DENIES: Blurred vision, Diplopia, Eye inflammation, Eye pain, Vision loss , Photosensitivity, Double Vision Ears, nose, mouth, throat: DENIES: Tinnitus, Hearing loss, Vertigo, Nasal discharge, Oral lesions, Throat pain, Hoarseness, Ear Pain, Running Nose, Epistaxis, Sinus Pain, Toothache, Odynophagia Respiratory: COMPLAINS OF: Cough, Shortness of breath, DENIES: Apneas, Snoring , Wheezing, Hemoptysis, Sputum production Cardiovascular: COMPLAINS OF: Chest pain, Palpitations, DENIES: Syncope, Dyspnea on Exertion, PND, Lower Extremity Edema, Orthopnea, Claudication Gastrointestinal: DENIES: Abdominal pain, Black stools, Bloody stools, Constipation, Diarrhea, Nausea, Vomiting, Difficulty Swallowing, Anorexia Genitourinary: DENIES: Abnormal vaginal bleeding, Dysmenorrhea, Dyspareunia, Sexual dysfunction, Urinary frequency, Urinary incontinence, Urgency, Hematuria , Dysuria, Nocturia, Vaginal discharge Musculoskeletal: DENIES: Joint pain, Muscle aches, Stiffness, Joint Swelling, Back pain, Neck pain Integumentary: DENIES: Abnormal pigmentation, Pruritus, Rash, Nail changes, Breast masses, Breast skin changes, Nipple discharge Hematologic/lymphatic: DENIES: Bruising, Lymphadenopathy Immunologic/allergic: DENIES: Eczema, Urticaria Neurologic: DENIES: Abnormal gait, Headache, Localized weakness, Paresthesias, Seizures, Speech Problems, Tremor, Poor Balance Psychiatric: DENIES: Anxiety, Confusion, Mood changes, Depression, Hallucinations, Agitation, Suicidal Ideation, Homicidal Ideation, Delusions ( Samreen Serrano) Past Family Social History Past Medical History COPD Interstitial fibrosis Osteoporosis GERD Cataracts PNA x 3 this year, + pseudomona in sputum recently admitted 11/28/2016 with non traumatic subq emphysema Past Surgical History Recent cataract surgery Pins to left wrist Reported Medications Reported Meds & Active Scripts Active Guaifenesin-Dm Liq (Guaifenesin/Dextromethorphan) 100-10 Mg/5 Ml Syrp 10 Ml PO Q4H PRN 7 Days Prednisone 20 Mg Tab 40 Mg PO DAILY 1 TAB BY MOUTH TWICE A DAY FOR THREE DAYS THEN ONE TABLET DAILT UNTIL GONE Oxygen tank (Oxygen) 1 Ea Tank 2 Liter GRADY.CANULA CONTINUOUS Oxygen Concentrator Portable Gaseous 2 L/min via Nasal Cannula Continuous For 99 months Reported Budesonide Neb 0.5 Mg/2 Ml Neb 0.5 Mg NEB Q12HR NEB Duoneb (Ipratropium-Albuterol Neb) 0.5-2.5 Mg/3 Ml Neb 1 Nebule INH Q4-6H Tussionex Pennkinetic Ext 12 HR Liq (Hydrocodone-Chlorpheniramine 12 HR Liq) 10- 8 Mg/5 Ml Susp 5 Ml PO Q12H PRN Albuterol Neb (Albuterol Sulfate) 0.63 Mg/3 Ml Neb 0.63 Mg NEB BID PRN Prolia Inj (Denosumab) 60 Mg/Ml Inj 60 Mg SQ Q 6 MONTHS PRN (Samreen Serrano) Allergies: Coded Allergies: No Known Allergies (Unverified , 11/27/16) Active Ordered Medications Inpatient Medications Albuterol/ Ipratropium (Duoneb Neb) 1 ampule Q4HR NEB NEB Last administered on 12/10/16 03:22; Start 12/09/16 at 20:20 Chlorphenir/ Hydrocodone Polistirex (Tussionex Liq) 5 ml HS PRN PO COUGH Last administered on 12/10/16 00:29; Start 12/09/16 at 23:45 Levofloxacin/ Dextrose (Levaquin 750 Mg Premix Inj) 150 ml @ 100 mls/hr ONCE ONCE IV Last administered on 12/09/16 18:21; Start 12/09/16 at 17:30; Stop at 18:59; Status DC Methylprednisolone Sodium Succinate (SoluMEDROL INJ) 40 mg Q6H IV Last administered on 1/18/17at 02:16; Start 12/10/16 at 02:00 Methylprednisolone Sodium Succinate 125 mg 125 mg ONCE ONCE IV PUSH Last administered on 12/09/16t 18:22; Start 12/09/16 at 17:30; Stop 12/09/16 at 17:31 ; Status DC Family History Mother, , hx HTN Father , ETOH abuse Social History , has grown children. 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 No ETOH, no substance abuse (Samreen Serrano) Physical Exam Vital Signs Vital Signs Date Time Temp Pulse Resp B/P Pulse Ox O2 Delivery O2 Flow Rate FiO2 12/10/16 04:14 97.6 104 18 97/57 95 12/09/16 23:35 94 Nasal Cannula 6.00 12/09/16 23:30 112 96 12/09/16 23:08 97.5 109 18 110/62 91 12/09/16 21:51 20 97 Nasal Cannula 6 12/09/16 21:13 106 20 124/73 97 Venturi Mask 6 50 12/09/16 19:32 108 22 121/70 95 Nasal Cannula 6 12/09/16 18:48 113 22 93/64 95 Nasal Cannula 6 12/09/16 15:51 123 28 111/63 91 Nasal Cannula 6 12/09/16 15:38 127 28 86 Nasal Cannula 4 12/09/16 15:32 97.5 137 20 123/64 85 Nasal Cannula 4 Physical Exam GENERAL: This is a thin build female, slight SOB with conversation. SKIN: No rashes, ecchymoses or lesions. Cool and dry. HEAD: Atraumatic. Normocephalic. No temporal or scalp tenderness. EYES: Pupils equal round and reactive. Extraocular motions intact. No scleral icterus. No injection or drainage. ENT: Nose without bleeding, purulent drainage or septal hematoma. Throat without erythema, tonsillar hypertrophy or exudate. Oropharynx with small amount of blood. Uvula midline. Airway patent. NECK: Trachea midline. No JVD or lymphadenopathy. Supple, nontender, no meningeal signs. CARDIOVASCULAR: Regular rate and rhythm without murmurs, gallops, or rubs. RESPIRATORY: Coarse breath sounds. GASTROINTESTINAL: Abdomen soft, non-tender, nondistended. No hepato-splenomegaly , or palpable masses. No guarding. MUSCULOSKELETAL: Extremities without clubbing, cyanosis, or edema. No joint tenderness, effusion, or edema noted. No calf tenderness. Negative Homans sign bilaterally. NEUROLOGICAL: Awake and alert. Cranial nerves II through XII intact. Motor and sensory grossly within normal limits. Five out of 5 muscle strength in all muscle groups. Normal speech. Laboratory Laboratory Tests Test 12/09/16 16:00 White Blood Count 17.2 Red Blood Count 3.45 Hemoglobin 9.3 Hematocrit 28.8 Mean Corpuscular Volume 83.6 Mean Corpuscular Hemoglobin 27.1 Mean Corpuscular Hemoglobin 32.4 Concent Red Cell Distribution Width 15.9 Platelet Count 20 Mean Platelet Volume 13.8 Neutrophils (%) (Auto) 87.1 Lymphocytes (%) (Auto) 6.3 Monocytes (%) (Auto) 5.8 Eosinophils (%) (Auto) 0.1 Basophils (%) (Auto) 0.7 Neutrophils # (Auto) 15.0 Lymphocytes # (Auto) 1.1 Monocytes # (Auto) 1.0 Eosinophils # (Auto) 0.0 Basophils # (Auto) 0.1 CBC Comment AUTO DIFF Differential Total Cells 100 Counted Neutrophils % (Manual) 74 Band Neutrophils % 18 Lymphocytes % 4 Monocytes % 3 Neutrophils # (Manual) 16.0 Metamyelocytes 1 Differential Comment FINAL DIFF MANUAL Platelet Estimate LOW Platelet Morphology Comment NORMAL Sodium Level 132 Potassium Level 4.5 Chloride Level 97 Carbon Dioxide Level 26.2 Anion Gap 9 Blood Urea Nitrogen 15 Creatinine 0.81 Estimat Glomerular Filtration 69 Rate Random Glucose 128 Calcium Level 8.3 Total Bilirubin 0.4 Aspartate Amino Transf 53 (AST/SGOT) Alanine Aminotransferase 45 (ALT/SGPT) Alkaline Phosphatase 86 Total Protein 7.0 Albumin 2.5 (Samreen Serrano) Result Diagram: 12/09/16 1600 12/09/16 1600 Imaging Last Impressions Chest X-Ray 12/09/16 0000 Signed Impressions: Service Date/Time: Friday, December 09, 2016 16:07 - CONCLUSION: Continued evidence of diffuse bilateral parenchymal lung disease characteristic of chronic lung changes with active pneumonitis. Moderate congestion would be difficult to exclude. Paramjit Parada MD CT Angiography 12/09/16 0000 Signed Impressions: Service Date/Time: Friday, December 09, 2016 19:05 - CONCLUSION: 1. Increasing mass-like opacity with cavitation right upper lobe. 2. Increasing interstitial changes in both lungs. 3. There is no central pulmonary emboli. José Antonio Hamilton MD FACR (Samreen Serrano) Assessment and Plan Problem List: (1) Pulmonary fibrosis (2) Thrombocytopenia (3) Hypoxia (4) COPD exacerbation (5) Osteoporosis (6) GERD (gastroesophageal reflux disease) (7) Dyspnea Assessment and Plan Admit to Dr. Malave 76 year old female with hx pulmonary fibrosis on oxygen at home, presented to ED with inc. SOB, cough and hypoxia. Evaluated in the ED and now admitted for Pulm. fibrosis exacerbation -Consult Dr. Lofton -Levaquin 500 mg PO daily -Duonebs - Solumedrol 40 mg IV q 6 -Antitussives PRN -Pt. has appointment at [facility] tomorrow, hopefully we can discharge later today if stable and cleared by pulmonology. Thrombocytopenia, platelets 20,000, new finding, unclear etiology. Had recent epistaxis which has stopped. -Monitor CBC -Monitor for bleeding Underweight, malnourished, weight loss -Boost 1 can PO TID Home medications reviewed, initiated as indicated SCD for DVT prophylaxis, avoid anticoagulants on account of low platelets. Pepcid for GI prophylaxis Plan of care has been discussed with the patient and her son, their questions have been answered detail. Plan of care discussed with attending and registered nurse. Further management of the patient will be dependent on the hospital course This patient was seen by myself and . This H&P is written on his behalf (Samreen Serrano) Assessment and Plan pt is seen & examined d/w PT & her family & warehouse unloader at bedside [w her permission ] d/w Samreen RUL cavitary lesion +ve Mycobacterium fortuitum, progressing radiologically & clinically progressive SOB/MADRID/intermittent cough / night sweats/ hypoxemia now worsening leukocytosis w bandemia & severe thrombocytopenia cont Levaquin 750 mg qd/add cefoxitin obtain ID consult will d/w Dr Lofton also repeat CBC pt has appointment at [facility] in am, she is hoping to get out of here today ??? will f/u (Skyla Malave MD) Problem Qualifiers (1) GERD (gastroesophageal reflux disease): Qualified Code: K21.9 - Gastroesophageal reflux disease, esophagitis presence not specified (2) Dyspnea: Qualified Code: R06.09 - Dyspnea on exertion Samreen Serrano Dec 10, 2016 07:24 Skyla Malave MD Dec 10, 2016 10:19
[2016-12-10] MEDS: PANTOPRAZOLE SOD 40 MG DELAYED RELEASE TAB PO SCH (08:31)
[2016-12-10] MEDS ORDERED: LEVOFLOXACIN 500 MG TAB PO SCH (09:00)
[2016-12-10] MEDS ORDERED: RESP: BUDESONIDE 0.5 MG/2 ML NEB NEB SCH (09:00)
[2016-12-10] MEDS: ceFOXitin INJ 2 GM in SODIUM CHLORIDE 0.9% INJ 100 ML IV SCH ×2 (11:52→18:42)
[2016-12-10 12:02] LABS: HEMATOCRIT 28.3 % (35.0-46.0); MEAN CORPUSCULAR HGB CONC 32.2 % (32.0-36.0); RED BLOOD COUNT 3.37 MIL/MM3 (4.00-5.30); RED CELL DISTRIBUTION WIDTH 15.7 % (11.6-17.2); WHITE BLOOD COUNT 20.7 TH/MM3 (4.0-11.0)
[2016-12-10 12:11] LABS: PLATELET COUNT 6 TH/MM3 (150-450); REVIEW FLAG FINAL
[2016-12-10] MEDS ORDERED: SODIUM CHLOR 0.9% 250 ML INJ 250 ML IV ONE (12:30)
[2016-12-10] MEDS: ALPRAZolam 0.25 MG TAB PO PRN ×2 (14:15→21:10)
[2016-12-10 15:32] LABS: APTT (PATIENT) 24.3 SEC (24.3-30.1); PROTHROMBIN TIME - PATIENT 10.7 SEC (9.8-11.6)
--- NOTE | 2016-12-10 17:09 | MB ---
cc: Sunshine CARDENAS M.D. DATE OF : 42 DATE OF CONSULTATION: 12/10/2016 REASON FOR CONSULTATION: HISTORY OF PRESENT ILLNESS: Ms. French is a 76 year-old white female whom I first saw in 5-year-old white female whom I first saw in May of this year with an abnormal CT scan, chronic interstitial fibrosis but a newly developing nodular cavitary density in the right upper lobe. I bronchoscoped her and no specific etiology could be identified. A sputum prior to the bronchoscopy had revealed pseudomonas and once M. Fortuitum. In the midst of the ongoing evaluation she developed what I think is an acute exacerbation of underlying pulmonary fibrosis and she was hospitalized through the , treated with high-dose steroids and improved considerably. At that point she required continuous oxygen which was new. After discharge, we made arrangements to have her seen at the [facility] because it was not at all clear whether she had two distinct diseases and whether the M. Fortuitum was actually an infection related to underlying bronchiectasis or whether or not she merely had pulmonary fibrosis with cystic changes and this was a colonization. She actually had a scheduled appointment to be seen at the [facility] tomorrow but yesterday called and was having what I felt was excessive nasal bleeding even though she had been on oxygen regularly, and so she came into the emergency room at my suggestion. Initial labs were remarkable because she had a platelet count of 20,000 and today her platelet count is down to 6000. We have asked for an urgent hematology consultation as that is dramatic change from previous. She has been on a nebulizer as well, has been clearing some mucous without blood from her chest. She has also been on low dose prednisone after the high-dose steroids in her hospitalization. A subsequent sputum during the last hospital stay has also now been reported and she again has M. Fortuitum. Her breathing has been fairly stable with the current regimen and she has had minimal cough. The real issue that brought her into the ER yesterday was the fact that she was having very extensive nasal bleeding. PAST MEDICAL HISTORY, SOCIAL HISTORY, FAMILY HISTORY: Please refer to prior notes. Those things have not changed. ALLERGIES: NONE. MEDICATIONS: Reviewed in the EMR. PHYSICAL EXAMINATION: Ms. French is comfortable at rest, afebrile. VITAL SIGNS: Blood pressure is 110/60, pulse is 100, respiratory rate 18, sats are adequate on 2 to 3 liters. No active bleeding from the nose now. Neck: No adenopathy in the neck, supraclavicular region. Chest: Bibasilar rales, scattered congestion. Heart: Regular rhythm. No harsh murmur. Abdomen: Soft, no pitting edema or cyanosis. ASSESSMENT AND PLAN: Ms. French presents with severe thrombocytopenia that is new. Hematology has been asked to see her. It may very well be that the oxygen initiated some dryness of the mucous membranes with bleeding. That is not unusual but with the severe thrombocytopenia became quite excessive. Her CT scan on admission here is also worse than previous. 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 How this is related to the M. Fortuitum at this point is not clear, but she has now grown that twice and Infectious Disease is going to see her, consider initiating therapy. Will also reintroduce high-dose steroids which she did do well on during October for the chronic interstitial lung disease with exacerbation. We will have to cancel the appointment at the [facility] for now, that can be followed up later as needed. Further diagnostic and/or therapeutic intervention will depend on her ongoing clinical course and response to therapy. R. MD BOUCHRA Yin/GRADY /4:18 PM /4:29 PM
--- NOTE | 2016-12-10 18:34 | PD.ID.CON ---
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 Primary Care Physician Non-Staff Diagnoses: History of Present Illness Mrs. French is a 76 year-old woman who has had progressive symptoms of shortness of breath. She is under the care of Dr. José Antonio Lofton for working diagnosis of Pulmonary fibrosis. Patient reports that in Aug 2016 she was admitted to the hospital and even prior to admission noticed worsening shortness of breath. She was treated for presumed pneumonia. Sputum cultures from this admission were negative at first but are reported in Sep 2016 as positive for Mycobacterium fortuitum. Patient and spouse report that this was not treated and they have not seen any ID physician prior to this inpatient or outpatient. She was discharge in Aug 2016 on no oxygen, but oral antibiotics. She then reports ongoing worsening of shortness of breath with admission again in Oct 2016 with IV antibiotics and imaging plus bronchoscopy. Again cultures initially did not grow any bacteria but now growing Mycobacterium fortuitum. Mycobacteria can have delayed growth upto [address] scan of the chest on October 30, 2016, showed chronic interstitial lung disease with advancement of the thin walled cavitary lesion in the right upper lobe. Patient reports this time in Oct 2016 she was discharged on home oxygen 3L and oral antibiotics including cephalosporins. There was a 3.8 x 2.4 cm thick walled cavitary lesion in the right upper lobe. She was treated for pneumonia and was placed on antibiotic therapy, combination of azithromycin, Piperacillin/tazobactam. It was also noted she was treated with Levaquin on an outpatient basis which she continued. Upon review of meds it appears she recd antibiotics, heparin and was started on steroids. Patient reports she had an appt with [facility] for further workup scheduled for 12/11/2016. She has been unable to be weaned off the oxygen therapy since being home. She is frustrated with her inability to perform activities of daily living. She becomes very fatigued with activity such as just going to the bathroom or changing position. She noticed nosebleeds related to her oxygen use. Due to significant amount of nasal bleeding and worsening shortness of breath patient was admitted to the hospital for further evaluation. In the emergency room she was found to have a platelet count of 20,000 and later repeat at 7000 only. Review of the electronic medical record shows her platelet count was normal until her admission at 218,000. She describes no fevers, chills or night sweats. Reports eay bruising multiple sites. Denies any bleeding from any other orifices other than nose. Denies fever, chills or night sweats. reports this is her 3rd pneumonia in last 4 months and she is progressively getting worse. ID consulted for M.fortuitum lung infection. Review of Systems Constitutional: COMPLAINS OF: Fatigue, DENIES: Diaphoretic episodes, Fever, Weight gain, Weight loss, Chills, Dizziness, Change in appetite, Night Sweats Endocrine: DENIES: Abnorml menstrual pattern, Heat/cold intolerance, Polydipsia , Polyuria, Polyphagia Eyes: DENIES: Blurred vision, Diplopia, Eye inflammation, Eye pain, Vision loss , Photosensitivity, Double Vision Ears, nose, mouth, throat: COMPLAINS OF: Epistaxis, DENIES: Tinnitus, Hearing loss, Vertigo, Nasal discharge, Oral lesions, Throat pain, Hoarseness, Ear Pain , Running Nose, Sinus Pain, Toothache, Odynophagia Respiratory: COMPLAINS OF: Wheezing, Sputum production, Shortness of breath, DENIES: Apneas, Cough, Snoring, Hemoptysis Cardiovascular: COMPLAINS OF: Dyspnea on Exertion, DENIES: Chest pain, Palpitations, Syncope, PND, Lower Extremity Edema, Orthopnea, Claudication Gastrointestinal: DENIES: Abdominal pain, Black stools, Bloody stools, Constipation, Diarrhea, Nausea, Vomiting, Difficulty Swallowing, Anorexia Genitourinary: DENIES: Abnormal vaginal bleeding, Dysmenorrhea, Dyspareunia, Sexual dysfunction, Urinary frequency, Urinary incontinence, Urgency, Hematuria , Dysuria, Nocturia, Vaginal discharge Musculoskeletal: DENIES: Joint pain, Muscle aches, Stiffness, Joint Swelling, Back pain, Neck pain Integumentary: DENIES: Abnormal pigmentation, Pruritus, Rash, Nail changes, Breast masses, Breast skin changes, Nipple discharge Hematologic/lymphatic: COMPLAINS OF: Bruising, DENIES: Lymphadenopathy Immunologic/allergic: DENIES: Eczema, Urticaria Neurologic: DENIES: Abnormal gait, Headache, Localized weakness, Paresthesias, Seizures, Speech Problems, Tremor, Poor Balance Psychiatric: COMPLAINS OF: Anxiety, DENIES: Confusion, Mood changes, Depression, Hallucinations, Agitation, Suicidal Ideation, Homicidal Ideation, Delusions Past Family Social History Allergies: Coded Allergies: No Known Allergies (Unverified , 11/27/16) Past Medical History 1. COPD. 2. Interstitial fibrosis. 3. Cavitary lung lesion. 4. Severe osteoporosis. 5. Gastroesophageal reflux. 6. Cataract. 7. Pneumonia. Past Surgical History 1. Bronchoscopy. 2. Pins in the left wrist. Reported Medications Reported Meds & Active Scripts Active Guaifenesin-Dm Liq (Guaifenesin/Dextromethorphan) 100-10 Mg/5 Ml Syrp 10 Ml PO Q4H PRN 7 Days Prednisone 20 Mg Tab 40 Mg PO DAILY 1 TAB BY MOUTH TWICE A DAY FOR THREE DAYS THEN ONE TABLET DAILT UNTIL GONE Oxygen tank (Oxygen) 1 Ea Tank 2 Liter [employer] CONTINUOUS Oxygen Concentrator Portable Gaseous 2 L/min via Nasal Cannula Continuous For 99 months Reported Budesonide Neb 0.5 Mg/2 Ml Neb 0.5 Mg NEB Q12HR NEB Duoneb (Ipratropium-Albuterol Neb) 0.5-2.5 Mg/3 Ml Neb 1 Nebule INH Q4-6H Tussionex Pennkinetic Ext 12 HR Liq (Hydrocodone-Chlorpheniramine 12 HR Liq) 10- 8 Mg/5 Ml Susp 5 Ml PO Q12H PRN Albuterol Neb (Albuterol Sulfate) 0.63 Mg/3 Ml Neb 0.63 Mg NEB BID PRN Prolia Inj (Denosumab) 60 Mg/Ml Inj 60 Mg SQ Q 6 MONTHS PRN Active Ordered Medications Current Medications Medications (Trade) Dose Ordered Sig/Sam Route Start Time Stop Time Status Last Admin (SoluMEDROL INJ) 40 mg Q6H IV 12/10/16 02:00 12/10/16 21:10 (Tussionex Liq) 5 ml HS PRN PO 12/09/16 23:45 12/10/16 21:35 Pantoprazole Sodium 40 mg 40 mg DAILY PO 12/10/16 09:00 12/10/16 08:31 (Mefoxin Inj/NS Inj) 100 ml @ 200 mls/hr Q6H IV 12/10/16 12:00 12/10/16 18:42 Levofloxacin 750 mg 750 mg DAILY PO 12/11/16 09:00 (NS 250 ml Inj) 250 ml @ 15 mls/hr ONCE ONCE IV 12/10/16 12:30 12/11/16 05:09 (Xanax) 0.25 mg Q8H PRN PO 12/10/16 14:00 12/10/16 21:10 Miscellaneous Information Patient in critical care unit? Ass... Q361D XX 12/10/16 22:00 (Chlorhexidine 2% Cloth) 3 pack DAILY@04 TOP 12/11/16 04:00 12/15/16 04:01 (Chlorhexidine 2% Cloth) 3 pack UNSCH PRN TOP 12/10/16 22:00 12/15/16 21:53 Family History Significant for mother who with history of hypertension, father of alcohol abuse. Social History Lives with her at home. 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 Past history of smoking 1-2 ppd. No alcohol No IVDA. Physical Exam Vital Signs Vital Signs Date Time Temp Pulse Resp B/P Pulse Ox O2 Delivery O2 Flow Rate FiO2 12/10/16 16:42 97.8 132 20 110/75 98 12/10/16 16:34 97.8 132 18 110/75 98 12/10/16 16:21 97.6 135 18 111/67 96 12/10/16 16:10 97.7 135 18 111/64 98 12/10/16 15:51 97 Non-Rebreather 15.00 12/10/16 12:01 97.8 132 22 105/75 87 12/10/16 10:13 130 22 119/71 91 12/10/16 07:49 97.6 115 24 96/56 92 12/10/16 07:25 98 Nasal Cannula 4.00 12/10/16 04:14 97.6 104 18 97/57 95 12/09/16 23:35 94 Nasal Cannula 6.00 12/09/16 23:30 112 96 12/09/16 23:08 97.5 109 18 110/62 91 12/09/16 21:51 20 97 Nasal Cannula 6 12/09/16 21:13 106 20 124/73 97 Venturi Mask 6 50 12/09/16 19:32 108 22 121/70 95 Nasal Cannula 6 12/09/16 18:48 113 22 93/64 95 Nasal Cannula 6 Physical Exam GENERAL: Thin built CF patient, in no apparent distress. SKIN: No rashes, ecchymoses or lesions. Cool and dry. HEAD: Atraumatic. Normocephalic. No temporal or scalp tenderness. EYES: Pupils equal round and reactive. Extraocular motions intact. No scleral icterus. No injection or drainage. ENT: Nose with dried blood in both nares. Throat without erythema, tonsillar hypertrophy or exudate. Uvula midline. Airway patent. NECK: Trachea midline. Supple, nontender, no meningeal signs. CARDIOVASCULAR: HS audible. No murmur appreciated. RESPIRATORY: Bibasilar crackles posteriorly. GASTROINTESTINAL: Abdomen soft, non-tender, nondistended. MUSCULOSKELETAL: Extremities without clubbing, cyanosis, or edema. No joint tenderness, effusion, or edema noted. No calf tenderness. Negative Homans sign bilaterally. NEUROLOGICAL: Awake and alert. Grossly non focal Psych: cooperative, anxious IV line sites with no e/o infection. Laboratory Laboratory Tests Test 12/10/16 12/10/16 12/10/16 11:14 14:06 14:19 White Blood Count 20.7 Red Blood Count 3.37 Hemoglobin 9.1 Hematocrit 28.3 Mean Corpuscular Volume 84.0 Mean Corpuscular Hemoglobin 27.0 Mean Corpuscular Hemoglobin 32.2 Concent Red Cell Distribution Width 15.7 Platelet Count 6 Mean Platelet Volume 10.6 Blood Smear Pathologist Review Lactate Dehydrogenase 587 Blood Type O POSITIVE O POSITIVE Antibody Screen NEGATIVE Blood Bank Comment Prothrombin Time 10.7 Prothromb Time International 1.0 Ratio Activated Partial 24.3 Thromboplast Time Fibrinogen 539 Result Diagram: 12/10/16 1114 12/09/16 1600 Imaging Last Impressions Chest X-Ray 12/09/16 0000 Signed Impressions: Service Date/Time: Friday, December 09, 2016 16:07 - CONCLUSION: Continued evidence of diffuse bilateral parenchymal lung disease characteristic of chronic lung changes with active pneumonitis. Moderate congestion would be difficult to exclude. Paramjit Parada MD CT Angiography 12/09/16 0000 Signed Impressions: Service Date/Time: Friday, December 09, 2016 19:05 - CONCLUSION: 1. Increasing mass-like opacity with cavitation right upper lobe. 2. Increasing interstitial changes in both lungs. 3. There is no central pulmonary emboli. José Antonio Hamilton MD FACR Assessment and Plan Assessment and Plan Mycobacterium fortuitum lung infection with cavity. 3rd episode of pneumonia in last 4 months. Progressive resp worsening. Pulm fibrosis. 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 HIT. Less likely ITP or antibiotic induced. Leucocytosis: infection, steroids. Recs Will await Hemonc evaluation Will follow platelet trends. Discussed with patient and spouse will likely follow platelet trend. Address etiology. No emergency in starting M.fortuitum treatment although she definitely needs to be treated for it. Continue Cefoxitin and Levaquin for now. Regimen will be with multiple antibiotics and so would like to see better platelet counts. d.w Micro: to call State dept to request susceptibility on M.Fortuitum from 2016 or later cultures. Usually kept in state lab for 6 months. Follow cultures Follow clinically Dw pt, spouse and Samreen DE LEÓN. Beatriz Dodson MD Dec 10, 2016 18:33
--- NOTE | 2016-12-10 20:11 | MB ---
cc: Sunshine CARDENAS RUBY ANNE E. M.D. DATE OF : 1940 DATE OF CONSULTATION: 12/10/2016 REFERRING PHYSICIAN: Dr. José Antonio Cardenas REASON FOR CONSULTATION: Dr. Cardenas requested consultation for Mrs. French regarding new thrombocytopenia. HISTORY OF PRESENT ILLNESS: Mrs. French is a 76 year-old woman who has had progressive symptoms of shortness of breath. She came under the care of Dr. José Antonio Cardenas. Dr. Cardenas coordinated imaging study on an outpatient basis. CT scan of the chest on October 30, 2016, showed chronic interstitial lung disease. There is a thin walled cavitary lesion in the right upper lobe. There is new consolidation and traction bronchiectasis in the inferior aspect of the right upper lobe. The cavitary lesion has been compared to CT scan of the chest from July 23, 2016, has not changed. She had a bronchoscopic evaluation, cytology from September 30, which was negative. She is pending a consultation at [facility] in [place]. She had decompensation with increasing shortness of breath, November 10, 2016. She was admitted to the hospital. CT angiogram then showed no pulmonary embolus. There is, however, advanced interstitial fibrotic change within the pulmonary parenchyma, 3.8 x 2.4 cm thick walled cavitary lesion in the right upper lobe. She was treated for pneumonia and was placed on antibiotic therapy, combination of azithromycin, Piperacillin/tazobactam. It was also noted she was treated with Levaquin on an outpatient basis which she continued. She has cefoxitin antibiotic therapy. During her hospitalization she was given unfractionated heparin 5000 units q12 hours as DVT prophylaxis. She is maintained on steroids. After going home, she continued her antibiotic therapy as prescribed and her steroids. She was placed on oxygen therapy. She has been unable to wean off the oxygen therapy since being home. She is frustrated with her inability to perform activities of daily living. She becomes very fatigued with activity such as just going to the bathroom. She noticed nosebleeds related to her oxygen use. She and her describe a significant amount of nose bleeds, bleeding for over a day. She noted some bruising and with the above was referred to the hospital for evaluation by Dr. Cardenas. In the emergency room she was found to have a platelet count of 20,000 at 4 p.m. This shows leukocytosis predominantly neutrophils, hemoglobin 9.3. Review of the electronic medical record available at [facility] shows baseline anemia dating back to October 2016. Her hemoglobin was normal on September 30, 2016. She had mild anemia in 2012. Her platelet count was normal until her admission. Her platelet count on discharge was 218,000. She was admitted with a platelet count of 420,000 in October. PT/PTT are normal. D-Dimer is significantly elevated. Fibrinogen is elevated. Her LDH is high. BUN and creatinine are normal. Bilirubin is normal. She describes no fevers, chills or night sweats. She is disappointed about missing her appointment at [facility]. She denies any bowel changes. She denies having a propensity for bleeding. She has no change in bowel habits, no diarrhea. No melena, no bright red blood per rectum. She is bruised at the site where she was given her unfractionated heparin injection. She has noticed more bruising with pubic area bruising, bruising in her right arm where she wears her watch. She has bruising in her chin where she is wearing her mask. She denies any other bleeding episode. The rest of her review of systems is negative. PAST MEDICAL HISTORY: 1. COPD. 2. Interstitial fibrosis. 3. Cavitary lung lesion. 4. Severe osteoporosis. 5. Gastroesophageal reflux. 6. Cataract. 7. Pneumonia. PAST SURGICAL HISTORY: 1. Bronchoscopy. 2. Pins in the left wrist. ALLERGIES: NO KNOWN DRUG ALLERGIES. FAMILY HISTORY: Significant for mother who with history of hypertension, father of alcohol abuse. SOCIAL HISTORY: She is , lives with her . 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 She smoked one to two packs per week, quit in . She denies any alcohol or illicit drug use. PHYSICAL EXAMINATION: VITAL SIGNS: Temperature 97.8, heart rate 132, respiratory rate 20, blood pressure 110/75. Saturation 98%. GENERAL: Mrs. French is a slender woman who is in moderate distress when talking. HEENT: Pupils are round, reactive to light and accommodation. Sclera is nonicteric. Oropharynx is dry. NECK: Supple. LUNGS: Diminished breath sounds throughout. CARDIOVASCULAR: Reveals a tachycardia. ABDOMEN: Benign and soft. She has kyphotic posture with head posturing. LOWER EXTREMITIES: No edema, just some calf tenderness. NEUROLOGIC: Nonfocal. She is appropriate. LABORATORY DATA: As described above. Additional labs include sodium of 132, repeat platelet count is 6000. ASSESSMENT AND PLAN: Mrs. French is a 76 year-old woman with history of increasing shortness of breath and COPD with interstitial lung disease. She became progressively worse, presumably from exacerbation and pneumonia. She has not recovered from her pneumonia as yet. Hematology/oncology is consulted for her thrombocytopenia. A review of the electronic medical record showed that her platelet count is 420,000 on admission to the hospital November 10, 2016. Her platelet count on discharge on November 16, was decreased. Her platelet count was 353,000. Further platelet count evaluation showed a continued decline of platelet count to 250,000 on November 27, and 218,000 on November 28. Her platelet count presumably continued to decrease. I am unable to exclude drug effect from the antibiotic therapy. She was given cephalosporin and continued on cephalosporin on an outpatient basis. I am most concerned about unfractionated heparin that she received for DVT prophylaxis. Her platelet count had decreased during her admission and the timing of the thrombocytopenia with the platelet count half that of her presentation, is approximately 7 to 14 days after in keeping with the heparin-induced thrombocytopenia. The thrombocytopenia is severe, however, she did have episodes of bleeding which may have consumed her platelets. She still has bruising. She has been transfused two units of platelets and, therefore, a post transfusion platelet count would be very helpful. Peripheral smear would be reviewed to exclude the possibility of pseudo thrombocytopenia. In light of the bruising and bleeding, it seems that the thrombocytopenia is indeed real. Will await the results of the heparin-induced thrombocytopenia antibody. If she has some recovery of her platelet count after platelet transfusion, I will start her empirically on argatroban, pending heparin-induced thrombocytopenia antibody test. Hypersplenism is unlikely as her liver appears to be normal and spleen is small in size. A microangiopathic process unlikely although her LDH is elevated, the bilirubin is normal. Ahsan will be checked. The possibility of heparin-induced thrombocytopenia is concerning. Doppler ultrasound of the lower extremity will be obtained to rule out the source of DVT. Pulmonary embolism was negative from the CT angiogram as she spent a great deal of time in her recliner which portends immobility and possibility of thrombotic event. Mrs. French's questions were answered to her satisfactory. MD XIMENA Wilson /7:34 PM /7:50 PM
--- NOTE | 2016-12-10 20:35 | EKG ---
Date Performed: 12/09/2016 Time Performed: 15:48:40 PTAGE: 76 years EKG: SINUS TACHYCARDIA WITH SHORT MD INTERVAL ABNORMAL RHYTHM ECG PREVIOUS TRACING : 09/30/2016 12.25 Compared to the previous tracing, rate faster DOCTOR: Conrad Sheridan Interpretating Date/Time 12/10/2016 20:34:29
[2016-12-10] MEDS ORDERED: CHLORHEXIDINE GLUCONATE 2 % 1 PACK (2 CLOTHS)(extra cloths) TOP PRN (22:00)
[2016-12-11] VITALS (14 sets, daily range): BP systolic 105–122; BP diastolic 56–93; PULSE 109–134; RESP 18–27; TEMP 97.2–98.2; O2SAT 86–95
[2016-12-11] MEDS: ceFOXitin INJ 2 GM in SODIUM CHLORIDE 0.9% INJ 100 ML IV SCH ×4 (00:28→17:17)
[2016-12-11] MEDS: methylPREDNISolone SOD SUCC 40 MG/1 ML VIAL IV SCH ×4 (00:29→20:11)
[2016-12-11] MEDS: RESP: ALBUTEROL 2.5 MG/IPRATROPIUM 0.5 MG NEB (SCH) NEB ×3 (04:00→06:29)
[2016-12-11] MEDS: CHLORHEXIDINE GLUCONATE 2 % 1 PACK (2 CLOTHS)(taper/protocol) TOP SCH (04:00)
[2016-12-11] MEDS: ALPRAZolam 0.25 MG TAB PO PRN ×2 (06:14→20:11)
[2016-12-11] MEDS: LEVOFLOXACIN 750 MG TAB PO SCH (08:09)
[2016-12-11] MEDS: PANTOPRAZOLE SOD 40 MG DELAYED RELEASE TAB PO SCH (08:09)
--- NOTE | 2016-12-11 08:55 | HHI.IDPN ---
Subjective Subjective Remarks Mrs. French is a 76 year-old woman who has had progressive symptoms of shortness of breath and nasal bleed on presentation. She is being treated for COPD and Pulm fibrosis by . Reviewed IDSA/ATS recs: patient has clinical symptoms, meets radiological criteria and grew M.fortuitum twice one of which is bronch specimen. Overnight events reviewed. Recd platelets and now counts upto 138. No further active nasal bleed or any other sites. No fevers No rash No diarrhea UO ok. Antibiotics Cefoxitin IV Levaquin Lines Line sites with no evidence of infection. 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 Allergies: Coded Allergies: No Known Allergies (Unverified , 11/27/16) Objective . Vital Signs Date Time Temp Pulse Resp B/P Pulse Ox O2 Delivery O2 Flow Rate FiO2 12/11/16 06:00 117 12/11/16 04:00 109 12/11/16 04:00 97.8 109 18 105/60 95 12/11/16 02:00 116 12/11/16 00:00 97.6 124 20 107/58 95 12/11/16 00:00 124 12/10/16 22:00 129 12/10/16 20:00 137 12/10/16 20:00 97.4 137 45 131/77 90 12/10/16 19:36 92 Nasal Cannula 6.00 12/10/16 16:42 97.8 132 20 110/75 98 12/10/16 16:34 97.8 132 18 110/75 98 12/10/16 16:21 97.6 135 18 111/67 96 12/10/16 16:10 97.7 135 18 111/64 98 12/10/16 15:51 97 Non-Rebreather 15.00 12/10/16 12:01 97.8 132 22 105/75 87 12/10/16 10:13 130 22 119/71 91 12/10/16 12/10/16 12/11/16 15:00 23:00 07:00 Intake Total 692 ml Output Total 1100 ml Balance -408 ml Intake Oral 120 ml IV Total 572 ml Output Urine Total 1100 ml . Laboratory Tests Test 12/09/16 12/10/16 12/10/16 16:00 11:14 19:52 White Blood Count 17.2 TH/MM3 20.7 TH/MM3 Red Blood Count 3.45 MIL/MM3 3.37 MIL/MM3 Hemoglobin 9.3 GM/DL 9.1 GM/DL Hematocrit 28.8 % 28.3 % Mean Corpuscular Volume 83.6 FL 84.0 FL Mean Corpuscular Hemoglobin 27.1 PG 27.0 PG Mean Corpuscular Hemoglobin 32.4 % 32.2 % Concent Red Cell Distribution Width 15.9 % 15.7 % Platelet Count 20 TH/MM3 6 TH/MM3 138 TH/MM3 Mean Platelet Volume 13.8 FL 10.6 FL Neutrophils (%) (Auto) 87.1 % Lymphocytes (%) (Auto) 6.3 % Monocytes (%) (Auto) 5.8 % Eosinophils (%) (Auto) 0.1 % Basophils (%) (Auto) 0.7 % Neutrophils # (Auto) 15.0 TH/MM3 Lymphocytes # (Auto) 1.1 TH/MM3 Monocytes # (Auto) 1.0 TH/MM3 Eosinophils # (Auto) 0.0 TH/MM3 Basophils # (Auto) 0.1 TH/MM3 CBC Comment AUTO DIFF Differential Total Cells 100 Counted Neutrophils % (Manual) 74 % Band Neutrophils % 18 % Lymphocytes % 4 % Monocytes % 3 % Neutrophils # (Manual) 16.0 TH/MM3 Metamyelocytes 1 % Differential Comment FINAL DIFF MANUAL Platelet Estimate LOW Platelet Morphology Comment NORMAL Blood Smear Pathologist Review Laboratory Tests Test 12/09/16 12/10/16 16:00 14:06 Sodium Level 132 MEQ/L Potassium Level 4.5 MEQ/L Chloride Level 97 MEQ/L Carbon Dioxide Level 26.2 MEQ/L Anion Gap 9 MEQ/L Blood Urea Nitrogen 15 MG/DL Creatinine 0.81 MG/DL Estimat Glomerular Filtration 69 ML/MIN Rate Random Glucose 128 MG/DL Calcium Level 8.3 MG/DL Total Bilirubin 0.4 MG/DL Aspartate Amino Transf 53 U/L (AST/SGOT) Alanine Aminotransferase 45 U/L (ALT/SGPT) Alkaline Phosphatase 86 U/L Total Protein 7.0 GM/DL Albumin 2.5 GM/DL Lactate Dehydrogenase 587 U/L Imaging Last Impressions Chest X-Ray 12/09/16 0000 Signed Impressions: Service Date/Time: Friday, December 09, 2016 16:07 - CONCLUSION: Continued evidence of diffuse bilateral parenchymal lung disease characteristic of chronic lung changes with active pneumonitis. Moderate congestion would be difficult to exclude. Paramjit Parada MD CT Angiography 12/09/16 0000 Signed Impressions: Service Date/Time: Friday, December 09, 2016 19:05 - CONCLUSION: 1. Increasing mass-like opacity with cavitation right upper lobe. 2. Increasing interstitial changes in both lungs. 3. There is no central pulmonary emboli. José Antonio Hamilton MD FACR Physical Exam GENERAL: Thin built CF patient, in no apparent distress. SKIN: No rashes, ecchymoses or lesions. Cool and dry. HEAD: Atraumatic. Normocephalic. No temporal or scalp tenderness. EYES: Pupils equal round and reactive. Extraocular motions intact. No scleral icterus. No injection or drainage. ENT: Nose with dried blood in both nares. Throat without erythema, tonsillar hypertrophy or exudate. Uvula midline. Airway patent. NECK: Trachea midline. Supple, nontender, no meningeal signs. CARDIOVASCULAR: HS audible. No murmur appreciated. RESPIRATORY: Bibasilar crackles posteriorly. GASTROINTESTINAL: Abdomen soft, non-tender, nondistended. MUSCULOSKELETAL: Extremities without clubbing, cyanosis, or edema. No joint tenderness, effusion, or edema noted. No calf tenderness. Negative Homans sign bilaterally. NEUROLOGICAL: Awake and alert. Grossly non focal Psych: cooperative, anxious IV line sites with no e/o infection. 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 3rd episode of pneumonia in last 4 months. Progressive resp worsening. Pulm fibrosis. 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 HIT. Less likely ITP or antibiotic induced. Leucocytosis: infection, steroids. Oxygen-dependent respiratory failure Recs Noted hemonc evaluation. Will follow platelet trends. M.fortuitum treatment: she definitely needs to be treated for it. Meets IDSA as well as ATS societies criteria for treatment of Mycobacterium. Continue Cefoxitin and Levaquin for now. d.w Micro: to call State dept to request susceptibility on M.Fortuitum from 2016 or later cultures. Usually kept in state lab for 6 months. Follow cultures Follow clinically Dw pt. Beatriz Dodson MD Dec 11, 2016 08:55
[2016-12-11 10:04] LABS: AUTOMATED NEUTROPHIL # 31.3 TH/MM3 (1.8-7.7); BASOPHIL % 0.1 % (0.0-2.0); HEMATOCRIT 26.3 % (35.0-46.0); LYMPH % 2.5 % (9.0-44.0); LYMPHOCYTE # 0.8 TH/MM3 (1.0-4.8); MEAN CORPUSCULAR HGB CONC 32.2 % (32.0-36.0); MONO % 2.7 % (0.0-8.0); NEUT % 94.7 % (16.0-70.0); PLATELET COUNT 118 TH/MM3 (150-450); RED BLOOD COUNT 3.13 MIL/MM3 (4.00-5.30); RED CELL DISTRIBUTION WIDTH 15.8 % (11.6-17.2)
[2016-12-11 10:09] LABS: HEMO FLAGS AUTO DIFF
--- NOTE | 2016-12-11 10:41 | RADRPT ---
EXAM DATE/TIME: 12/11/2016 09:33 [facility] COMPARISON: No previous studies available for comparison. INDICATIONS : Bilateral leg pain. MEDICAL HISTORY : Gastroesophageal reflux disease. Osteoporosis. Pulmonary fibrosis. Dyspnea. Measles. SURGICAL HISTORY : Cataracts surgery. ENCOUNTER: Initial ACUITY: 1 day PAIN SCORE: 2/10 LOCATION: Bilateral legs. TECHNIQUE: Venous ultrasound of the left and right leg was performed from the inguinal ligament to the proximal calf. Real-time, color Doppler and spectral tracing, compression and augmentation techniques were us ed. FINDINGS: RIGHT LEG: There is normal compressibility of the deep venous system from the inguinal region to the proximal ca lf. No echogenic clot is seen in the lumen of the common femoral, femoral, popliteal, and posterior tibial veins. There is a normal response of the venous system to proximal and distal augmentation an d respiration. LEFT LEG: There is normal compressibility of the deep venous system from the inguinal region to the proximal ca lf. No echogenic clot is seen in the lumen of the common femoral, femoral, popliteal, and posterior tibial veins. There is a normal response of the venous system to proximal and distal augmentation an d respiration. CONCLUSION: Negative exam with no evidence of deep venous thrombosis. Bishop Rivero MD on December 11, 2016 at 10:39 Board Certified Radiologist. This report was verified electronically.
[2016-12-11 10:42] LABS: BANDS 2 % (0-6); MYELOCYTES 3 % (0-0); NEUTROPHIL # MANUAL DIFF 32.3 TH/MM3 (1.8-7.7); POLYS (SEG NEUTROPHILS) 93 % (16-70); SCAN/DIFF FINAL DIFF MANUAL; WBC DIFF SAMPLE 100
[2016-12-11 10:43] LABS: PLATELET ESTIMATE SMEAR LOW (NORMAL); PLATELET MORPHOLOGY NORMAL (NORMAL)
--- NOTE | 2016-12-11 11:52 | PD.ONC.PN ---
Subjective Subjective Remarks Afebrile overnight. Patient denies bleeding today. She is resting comfortably with daughter and at bedside. Objective Data Date Time Temp Pulse Resp B/P Pulse Ox O2 Delivery O2 Flow Rate FiO2 12/11/16 10:00 130 12/11/16 08:00 97.2 124 27 117/60 86 12/11/16 08:00 112 12/11/16 08:00 124 12/11/16 06:00 117 12/11/16 04:00 109 12/11/16 04:00 97.8 109 18 105/60 95 12/11/16 02:00 116 12/11/16 00:00 97.6 124 20 107/58 95 12/11/16 00:00 124 12/10/16 22:00 129 12/10/16 20:00 137 12/10/16 20:00 97.4 137 45 131/77 90 12/10/16 19:36 92 Nasal Cannula 6.00 12/10/16 16:42 97.8 132 20 110/75 98 12/10/16 16:34 97.8 132 18 110/75 98 12/10/16 16:21 97.6 135 18 111/67 96 12/10/16 16:10 97.7 135 18 111/64 98 12/10/16 15:51 97 Non-Rebreather 15.00 12/10/16 12:01 97.8 132 22 105/75 87 Result Diagram: 12/11/16 0923 12/09/16 1600 Laboratory Results Laboratory Tests Test 12/10/16 12/10/16 12/10/16 12/10/16 14:06 14:19 18:00 19:52 Lactate Dehydrogenase 587 U/L Blood Type O POSITIVE O POSITIVE O POSITIVE Antibody Screen NEGATIVE Blood Bank Comment Prothrombin Time 10.7 SEC Prothromb Time International 1.0 RATIO Ratio Activated Partial 24.3 SEC Thromboplast Time Fibrinogen 539 mg/dL Nasal Screen MRSA (PCR) NEGATIVE Platelet Count 138 TH/MM3 Direct Antiglobulin Test NEGATIVE (Mega) Test 12/11/16 09:23 White Blood Count 33.0 TH/MM3 Red Blood Count 3.13 MIL/MM3 Hemoglobin 8.4 GM/DL Hematocrit 26.3 % Mean Corpuscular Volume 84.0 FL Mean Corpuscular Hemoglobin 27.0 PG Mean Corpuscular Hemoglobin 32.2 % Concent Red Cell Distribution Width 15.8 % Platelet Count 118 TH/MM3 Mean Platelet Volume 10.8 FL Neutrophils (%) (Auto) 94.7 % Lymphocytes (%) (Auto) 2.5 % Monocytes (%) (Auto) 2.7 % Eosinophils (%) (Auto) 0.0 % Basophils (%) (Auto) 0.1 % Neutrophils # (Auto) 31.3 TH/MM3 Lymphocytes # (Auto) 0.8 TH/MM3 Monocytes # (Auto) 0.9 TH/MM3 Eosinophils # (Auto) 0.0 TH/MM3 Basophils # (Auto) 0.0 TH/MM3 CBC Comment AUTO DIFF Differential Total Cells 100 Counted Neutrophils % (Manual) 93 % Band Neutrophils % 2 % Monocytes % 2 % Neutrophils # (Manual) 32.3 TH/MM3 Myelocytes 3 % Differential Comment FINAL DIFF MANUAL Platelet Estimate LOW Platelet Morphology Comment NORMAL Imaging Studies Last 24 hours Impressions Lower Extremity Ultrasound 12/11/16 0600 Signed Impressions: Service Date/Time: November 09:33 - CONCLUSION: Negative exam with no evidence of deep venous thrombosis. Bishop Rivero MD Administered Medications Medications (Trade) Dose Ordered Sig/Sam Route PRN Reason Start Time Stop Time Status Last Admin Dose Admin Methylprednisolone Sodium Succinate (SoluMEDROL INJ) 40 mg Q6H IV 12/10/16 02:00 12/11/16 08:09 Chlorphenir/ Hydrocodone Polistirex (Tussionex Liq) 5 ml HS PRN PO COUGH 12/09/16 23:45 12/10/16 21:35 Pantoprazole Sodium 40 mg 40 mg DAILY PO 12/10/16 09:00 12/11/16 08:09 Cefoxitin Sodium/ Sodium Chloride (Mefoxin Inj/NS Inj) 100 ml @ 200 mls/hr Q6H IV 12/10/16 12:00 12/11/16 11:08 Levofloxacin (Levaquin) 750 mg DAILY PO 12/11/16 09:00 12/11/16 08:09 Alprazolam (Xanax) 0.25 mg Q8H PRN PO anxiety 12/10/16 14:00 12/11/16 06:14 Chlorhexidine Gluconate (Chlorhexidine 2% Cloth) 3 pack DAILY@04 TOP 12/11/16 04:00 12/15/16 04:01 12/11/16 04:00 Objective Remarks GENERAL: Elderly female, very kind and polite, sitting up in bed in nad. SKIN: Warm and dry. fading bruise on abdomen. HEAD: Normocephalic. EYES: No injection or drainage. NECK: Supple, trachea midline. CARDIOVASCULAR: +S1/S2 RESPIRATORY: diminished at bases. visibly dyspneic. On 6L O2 via NC GASTROINTESTINAL: Abdomen soft, non-tender, nondistended. EXTREMITIES: No cyanosis NEUROLOGICAL: awake and alert, normal speech. Assessment/Plan Problem List: (1) Thrombocytopenia Status: Acute Plan: --post transfusion platelet count shows response to transfusion --HIT pending --peripheral smear pending. --LDH mildly elevated, but microangiopathic process is unlikely. --mega negative -- No melena, no bright red blood per rectum. --u/s LE, no dvt --Hypersplenism unlikely as her liver appears to be normal and spleen is small in size. Assessment 76y/o admitted with dyspnea. hematology consulted for thrombocytopenia. h/o COPD. Interstitial fibrosis. Cavitary lung lesion. Severe osteoporosis. Gastroesophageal reflux. Cataract. Pneumonia. Bronchoscopy. Pins in the left wrist Plan 1. monitor CBC 2. await HIT, peripheral smear Attending Statement The exam, history, and the medical decision-making described in the above note were completed with the assistance of the mid-level provider. I reviewed and agree with the findings presented. I attest that I had a [id number] encounter with the patient on the same day, and personally performed and documented my assessment and findings in the medical record. Pt seen and examined, clinically much improved, still sob but sat 92% on 2L NC. Platelet count stable. No bleeding. No evidence of DVT. Continue to follow for HIT antibodies. Karolina Gray Dec 11, 2016 11:52 Annamaria Larson MD Dec 11, 2016 14:07
--- NOTE | 2016-12-11 13:20 | HHI.PR ---
Subjective History of Present Illness I am okay "breathing is okay as long as, I stay still", become short of breath after talking Positive cough, no sputum production No fever or chills No hemoptysis No more epistaxis. No hematemesis Denies chest pain Remain slightly anxious Appetite is okay Offers no other complaints Son is at bedside Vitals/Results Intake & Output 12/10/16 12/10/16 12/11/16 15:00 23:00 07:00 Intake Total 692 ml Output Total 1100 ml Balance -408 ml Intake Oral 120 ml IV Total 572 ml Output Urine Total 1100 ml Vital Signs Vital Signs Date Time Temp Pulse Resp B/P Pulse Ox O2 Delivery O2 Flow Rate FiO2 12/11/16 10:00 130 12/11/16 08:00 97.2 124 27 117/60 86 12/11/16 08:00 112 12/11/16 08:00 124 12/11/16 06:00 117 12/11/16 04:00 109 12/11/16 04:00 97.8 109 18 105/60 95 12/11/16 02:00 116 12/11/16 00:00 97.6 124 20 107/58 95 12/11/16 00:00 124 12/10/16 22:00 129 12/10/16 20:00 137 12/10/16 20:00 97.4 137 45 131/77 90 12/10/16 19:36 92 Nasal Cannula 6.00 12/10/16 16:42 97.8 132 20 110/75 98 12/10/16 16:34 97.8 132 18 110/75 98 12/10/16 16:21 97.6 135 18 111/67 96 12/10/16 16:10 97.7 135 18 111/64 98 12/10/16 15:51 97 Non-Rebreather 15.00 CBC/BMP: 12/11/16 0923 12/09/16 1600 Lab Results Laboratory Tests Test 12/10/16 12/10/16 12/10/16 12/10/16 14:06 14:19 18:00 19:52 Lactate Dehydrogenase 587 U/L Blood Type O POSITIVE O POSITIVE O POSITIVE Antibody Screen NEGATIVE Blood Bank Comment Prothrombin Time 10.7 SEC Prothromb Time International 1.0 RATIO Ratio Activated Partial 24.3 SEC Thromboplast Time Fibrinogen 539 mg/dL Nasal Screen MRSA (PCR) NEGATIVE Platelet Count 138 TH/MM3 Direct Antiglobulin Test NEGATIVE (Ahsan) Test 12/11/16 09:23 White Blood Count 33.0 TH/MM3 Red Blood Count 3.13 MIL/MM3 Hemoglobin 8.4 GM/DL Hematocrit 26.3 % Mean Corpuscular Volume 84.0 FL Mean Corpuscular Hemoglobin 27.0 PG Mean Corpuscular Hemoglobin 32.2 % Concent Red Cell Distribution Width 15.8 % Platelet Count 118 TH/MM3 Mean Platelet Volume 10.8 FL Neutrophils (%) (Auto) 94.7 % Lymphocytes (%) (Auto) 2.5 % Monocytes (%) (Auto) 2.7 % Eosinophils (%) (Auto) 0.0 % Basophils (%) (Auto) 0.1 % Neutrophils # (Auto) 31.3 TH/MM3 Lymphocytes # (Auto) 0.8 TH/MM3 Monocytes # (Auto) 0.9 TH/MM3 Eosinophils # (Auto) 0.0 TH/MM3 Basophils # (Auto) 0.0 TH/MM3 CBC Comment AUTO DIFF Differential Total Cells 100 Counted Neutrophils % (Manual) 93 % Band Neutrophils % 2 % Monocytes % 2 % Neutrophils # (Manual) 32.3 TH/MM3 Myelocytes 3 % Differential Comment FINAL DIFF MANUAL Platelet Estimate LOW Platelet Morphology Comment NORMAL Physical Exam General General Appearance: Comfortable, Anxious Appearance Remarks Thinly built elderly frail appearing female Eyes Eye Exam: Pupils Reactive, Sclera White, Extraocular Movement Intact Ears & Nose Ears & Nose Exam: Tympanic Membranes Normal, Auditory Canals Normal Throat Throat Exam: Oral Mucosa Mccoy & Moist Neck Neck Exam: Neck Supple, Trachea Midline Pulmonary Resp Exam: Crackles Resp Remarks Coarse breath sounds scattered fine crackles, Cardiology CV Exam: Regular, Normal Sinus Rhythm, Tachycardia Gastrointestinal/Abdomen GI Exam: Soft, Non-Tender, Bowel Sounds Present Musculoskeletal MS Exam: Joints Intact, Normal Tone Integumentary Skin Exam: Warm, Dry Extremeties Extremities Exam: No Edema, Pedal Pulses Palpable Neurologic Neuro Exam: Alert, Awake, Oriented, Speech Clear, Moving All Extremities Psychiatric Psych Exam: Appropriate Responses VTE Prophylaxis VTE Prophylaxis Device: SCDs PUD Prophylasis PUD Prophylaxis: Protonix Assessment/Plan Assessment/Plan Assessment and Plan Problem List: (1) Progressive Pulmonary fibrosis (2) Thrombocytopenia ? 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 SOB, cough and hypoxia. Evaluated in the ED and now admitted for Pulm. fibrosis exacerbation Rule out superimposed bacterial infection -Levaquin 750 mg PO daily/ IV cefoxicitin -ID input appreciated -Duonebs - Solumedrol 40 mg IV q 6 - Dr. Lofton's input appreciated, discussed with him yesterday -Antitussives PRN . Thrombocytopenia ? etiology platelets dropped yesterday to 6000, Status post platelet transfusion Hematology consultation appreciated , no signs of hemolysis , HIT antibody pending Platelet counts are better no more bleeding - Monitor CBC worsening Leukocytosis,likley d/t steroids IVF Underweight, malnourished, weight loss -Encourage by mouth intake -Boost 1 can PO TID xanax for anxiety Home medications reviewed, initiated as indicated SCD for DVT prophylaxis, avoid anticoagulants on account of low platelets. PPI for GI prophylaxis d/w PT & her son at bedside in detail /answered all of their questions am labs will f/u Skyla Malave MD Dec 11, 2016 13:20
[2016-12-11 15:33] LABS: HEPARIN AB OD 0.183 O.D. (0.000-0.300); HEPARIN INDUCED PLATELET AB NEGATIVE (NEGATIVE)
[2016-12-11] MEDS: RESP: IPRATROPIUM 0.5 MG/2.5 ML NEB NEB SCH ×2 (16:19→20:57)
[2016-12-11] MEDS: RESP: ALBUTEROL 2.5 MG/IPRATROPIUM 0.5 MG NEB (PRN) NEB (18:44)
[2016-12-11] MEDS: CHLORPHENIR/HYDROCOD LIQUID 8 MG/10 MG/5 ML CUP PO PRN (20:10)
[2016-12-12] VITALS (14 sets, daily range): BP systolic 113–133; BP diastolic 63–80; PULSE 101–134; RESP 18–35; TEMP 97.8–98.5; O2SAT 88–97
[2016-12-12] MEDS: ceFOXitin INJ 2 GM in SODIUM CHLORIDE 0.9% INJ 100 ML IV SCH ×2 (00:21→05:50)
[2016-12-12] MEDS: methylPREDNISolone SOD SUCC 40 MG/1 ML VIAL IV SCH ×3 (03:21→21:01)
[2016-12-12] MEDS: RESP: IPRATROPIUM 0.5 MG/2.5 ML NEB NEB SCH ×4 (03:33→20:57)
[2016-12-12] MEDS: CHLORHEXIDINE GLUCONATE 2 % 1 PACK (2 CLOTHS)(taper/protocol) TOP SCH (04:00)
[2016-12-12 05:55] LABS: HEMATOCRIT 24.9 % (35.0-46.0); MEAN CELL VOLUME 84.4 FL (80.0-100.0); MEAN CORPUSCULAR HEMOGLOBIN 27.5 PG (27.0-34.0); MEAN CORPUSCULAR HGB CONC 32.6 % (32.0-36.0); PLATELET COUNT 95 TH/MM3 (150-450); RED BLOOD COUNT 2.95 MIL/MM3 (4.00-5.30); RED CELL DISTRIBUTION WIDTH 16.1 % (11.6-17.2); WHITE BLOOD COUNT 33.5 TH/MM3 (4.0-11.0)
[2016-12-12 06:02] LABS: REVIEW FLAG FINAL
[2016-12-12 06:25] LABS: BICARBONATE 27.3 MEQ/L (21.0-32.0); POTASSIUM 4.7 MEQ/L (3.5-5.1)
[2016-12-12] MEDS: PANTOPRAZOLE SOD 40 MG DELAYED RELEASE TAB PO SCH (08:10)
[2016-12-12] MEDS: ALPRAZolam 0.25 MG TAB PO PRN ×2 (08:10→21:01)
[2016-12-12] MEDS: LEVOFLOXACIN 750 MG TAB PO SCH (08:16)
[2016-12-12] MEDS ORDERED: ASP: Other exception documentation: ( ) XX PRN (08:30)
[2016-12-12] MEDS ORDERED: MISCELLANEOUS PHARMACY INFORMATION XX PRN (08:30)
[2016-12-12] MEDS ORDERED: Amikacin Consult Pharmacy 1 EA OTHER SCH (08:45)
[2016-12-12] MEDS: IMIPENEM/CILASTATIN INJ 500 MG in SODIUM CHLORIDE 0.9% INJ 100 ML IV SCH ×2 (10:05→18:12)
[2016-12-12] MEDS: SODIUM CHLOR 0.9% IV SCH (12:40)
[2016-12-12] MEDS: AMIKACIN IV SCH (12:40)
--- NOTE | 2016-12-12 14:10 | HHI.IDPN ---
Subjective Subjective Remarks Mrs. French is a 76 year-old woman who has had progressive symptoms of shortness of breath and nasal bleed on presentation. She is being treated for COPD and Pulm fibrosis by . Overnight events reviewed. No further active nasal bleed or any other sites. No fevers No rash No diarrhea WBC trending downwards. Sitting in bed with feet dangling, breathing much better appears to be less anxious. Not much cough UO ok. Antibiotics Imipenem IV Amikacin IV Levaquin Lines Line sites with no evidence of infection. 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 Allergies: Coded Allergies: No Known Allergies (Unverified , 11/27/16) Objective . Vital Signs Date Time Temp Pulse Resp B/P Pulse Ox O2 Delivery O2 Flow Rate FiO2 12/12/16 12:00 98.3 124 26 123/76 95 12/12/16 12:00 124 12/12/16 10:00 124 12/12/16 09:48 93 Nasal Cannula 6.00 12/12/16 08:00 115 12/12/16 08:00 98.5 115 26 133/78 88 12/12/16 06:00 101 12/12/16 04:00 111 12/12/16 04:00 98.1 111 21 113/63 97 12/12/16 02:00 118 12/12/16 00:00 98.4 115 18 117/67 97 12/12/16 00:00 115 12/11/16 22:00 133 12/11/16 20:59 93 Nasal Cannula 6.00 12/11/16 20:00 98.2 130 27 122/73 92 12/11/16 20:00 124 12/11/16 18:00 134 12/11/16 16:21 92 Nasal Cannula 6.00 12/11/16 16:00 98.2 124 26 118/93 93 12/11/16 16:00 124 12/11/16 12/11/16 12/12/16 15:00 23:00 07:00 Intake Total 720 ml 676 ml 404 ml Output Total 550 ml 1150 ml 650 ml Balance 170 ml -474 ml -246 ml Intake Oral 480 ml 500 ml 240 ml IV Total 240 ml 176 ml 164 ml Output Urine Total 550 ml 1150 ml 650 ml # Bowel Movements 0 0 . Laboratory Tests Test 12/10/16 12/11/16 12/12/16 19:52 09:23 04:38 Platelet Count 138 TH/MM3 118 TH/MM3 95 TH/MM3 White Blood Count 33.0 TH/MM3 33.5 TH/MM3 Red Blood Count 3.13 MIL/MM3 2.95 MIL/MM3 Hemoglobin 8.4 GM/DL 8.1 GM/DL Hematocrit 26.3 % 24.9 % Mean Corpuscular Volume 84.0 FL 84.4 FL Mean Corpuscular Hemoglobin 27.0 PG 27.5 PG Mean Corpuscular Hemoglobin 32.2 % 32.6 % Concent Red Cell Distribution Width 15.8 % 16.1 % Mean Platelet Volume 10.8 FL 10.3 FL Neutrophils (%) (Auto) 94.7 % Lymphocytes (%) (Auto) 2.5 % Monocytes (%) (Auto) 2.7 % Eosinophils (%) (Auto) 0.0 % Basophils (%) (Auto) 0.1 % Neutrophils # (Auto) 31.3 TH/MM3 Lymphocytes # (Auto) 0.8 TH/MM3 Monocytes # (Auto) 0.9 TH/MM3 Eosinophils # (Auto) 0.0 TH/MM3 Basophils # (Auto) 0.0 TH/MM3 CBC Comment AUTO DIFF Differential Total Cells 100 Counted Neutrophils % (Manual) 93 % Band Neutrophils % 2 % Monocytes % 2 % Neutrophils # (Manual) 32.3 TH/MM3 Myelocytes 3 % Differential Comment FINAL DIFF MANUAL Platelet Estimate LOW Platelet Morphology Comment NORMAL Laboratory Tests Test 12/10/16 12/12/16 14:06 04:38 Lactate Dehydrogenase 587 U/L Sodium Level 136 MEQ/L Potassium Level 4.7 MEQ/L Chloride Level 102 MEQ/L Carbon Dioxide Level 27.3 MEQ/L Anion Gap 7 MEQ/L Blood Urea Nitrogen 18 MG/DL Creatinine 0.80 MG/DL Estimat Glomerular Filtration 70 ML/MIN Rate Random Glucose 123 MG/DL Calcium Level 8.1 MG/DL Microbiology Date/Time Procedure Status Source Growth 12/12/16 09:35 Aerobic Blood Culture Received Blood Other Pending 12/12/16 09:35 Anaerobic Blood Culture Received Blood Other Pending 12/12/16 09:48 Aerobic Blood Culture Received Blood Other Pending 12/12/16 09:48 Anaerobic Blood Culture Received Blood Other Pending Imaging Last Impressions Chest X-Ray 12/09/16 0000 Signed Impressions: Service Date/Time: Friday, December 09, 2016 16:07 - CONCLUSION: Continued evidence of diffuse bilateral parenchymal lung disease characteristic of chronic lung changes with active pneumonitis. Moderate congestion would be difficult to exclude. Paramjit Parada MD CT Angiography 12/09/16 0000 Signed Impressions: Service Date/Time: Friday, December 09, 2016 19:05 - CONCLUSION: 1. Increasing mass-like opacity with cavitation right upper lobe. 2. Increasing interstitial changes in both lungs. 3. There is no central pulmonary emboli. José Antonio Hamilton MD FACR Physical Exam GENERAL: Thin built CF patient, in no apparent distress. SKIN: No rashes, ecchymoses or lesions. Cool and dry. HEAD: Atraumatic. Normocephalic. No temporal or scalp tenderness. EYES: Pupils equal round and reactive. Extraocular motions intact. No scleral icterus. No injection or drainage. ENT: Nose with dried blood in both nares. Throat without erythema, tonsillar hypertrophy or exudate. Uvula midline. Airway patent. NECK: Trachea midline. Supple, nontender, no meningeal signs. CARDIOVASCULAR: HS audible. No murmur appreciated. RESPIRATORY: Bibasilar crackles posteriorly. GASTROINTESTINAL: Abdomen soft, non-tender, nondistended. MUSCULOSKELETAL: Extremities without clubbing, cyanosis, or edema. No joint tenderness, effusion, or edema noted. No calf tenderness. Negative Homans sign bilaterally. NEUROLOGICAL: Awake and alert. Grossly non focal Psych: cooperative, anxious IV line sites with no e/o infection. 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 3rd episode of pneumonia in last 4 months. Progressive resp worsening. Pulm fibrosis. 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 HIT. Less likely ITP or antibiotic induced. Leucocytosis: infection, steroids. Oxygen-dependent respiratory failure Recs M.fortuitum treatment: she definitely needs to be treated for it. Meets IDSA as well as ATS societies criteria for treatment of Mycobacterium. Continue following regimen 1. Imipenem (which will cover MFortutitum plus any resistant GNR; 100% susceptible per review of literature) 2. Amikacin (2nd agent for M.fortuitum: 100% susceptible per review of literature) 3. Continue Levaquin for now (as 3rd agent plus also has atypical as well as some GNR coverage for Stenomalto etc which can be expected in cases with advanced lung disease) patricia Micro: await susceptibility on M.Fortuitum from 08/2016 or later cultures. Usually kept in state lab for 6 months. Follow cultures Follow clinically Discussed with patient and RN. Will follow when necessary over the weekend. If any change in clinical condition or questions please call me sooner. Beatriz Dodson MD Dec 12, 2016 14:10 Discussed plan to monitor with labs and clinically. Time spent in excess of 60 mins,dCoryw RN, pt and family, clinical pharmacist and review of literature (IDSA guidelines and other literature). Critical thinking, decision making and coordination for arrangement of Imipenem and Amikacin (both are in stock despite national shortage). Beatriz Dodson MD Dec 12, 2016 14:10
--- NOTE | 2016-12-12 14:54 | PD.ONC.PN ---
Subjective Subjective Remarks Afebrile overnight. Remains very dyspneic, but states she feels well today. Multiple family members at bedside. No bleeding. No new bruises. Objective Data Date Time Temp Pulse Resp B/P Pulse Ox O2 Delivery O2 Flow Rate FiO2 12/12/16 14:00 134 12/12/16 12:00 98.3 124 26 123/76 95 12/12/16 12:00 124 12/12/16 10:00 124 12/12/16 09:48 93 Nasal Cannula 6.00 12/12/16 08:00 115 12/12/16 08:00 98.5 115 26 133/78 88 12/12/16 06:00 101 12/12/16 04:00 111 12/12/16 04:00 98.1 111 21 113/63 97 12/12/16 02:00 118 12/12/16 00:00 98.4 115 18 117/67 97 12/12/16 00:00 115 12/11/16 22:00 133 12/11/16 20:59 93 Nasal Cannula 6.00 12/11/16 20:00 98.2 130 27 122/73 92 12/11/16 20:00 124 12/11/16 18:00 134 12/11/16 16:21 92 Nasal Cannula 6.00 12/11/16 16:00 98.2 124 26 118/93 93 12/11/16 16:00 124 12/12/16 12/12/16 12/12/16 07:00 15:00 23:00 Intake Total 404 ml 1048 ml Output Total 650 ml 1110 ml Balance -246 ml -62 ml Result Diagram: 12/12/16 0438 12/12/16 0438 Laboratory Results Laboratory Tests Test 12/12/16 04:38 White Blood Count 33.5 TH/MM3 Red Blood Count 2.95 MIL/MM3 Hemoglobin 8.1 GM/DL Hematocrit 24.9 % Mean Corpuscular Volume 84.4 FL Mean Corpuscular Hemoglobin 27.5 PG Mean Corpuscular Hemoglobin 32.6 % Concent Red Cell Distribution Width 16.1 % Platelet Count 95 TH/MM3 Mean Platelet Volume 10.3 FL Sodium Level 136 MEQ/L Potassium Level 4.7 MEQ/L Chloride Level 102 MEQ/L Carbon Dioxide Level 27.3 MEQ/L Anion Gap 7 MEQ/L Blood Urea Nitrogen 18 MG/DL Creatinine 0.80 MG/DL Estimat Glomerular Filtration 70 ML/MIN Rate Random Glucose 123 MG/DL Calcium Level 8.1 MG/DL Culture Results Microbiology Date/Time Procedure Status Source Growth 12/12/16 09:35 Aerobic Blood Culture Received Blood Other Pending 12/12/16 09:35 Anaerobic Blood Culture Received Blood Other Pending 12/12/16 09:48 Aerobic Blood Culture Received Blood Other Pending 12/12/16 09:48 Anaerobic Blood Culture Received Blood Other Pending Administered Medications Medications (Trade) Dose Ordered Sig/Sam Route PRN Reason Start Time Stop Time Status Last Admin Dose Admin Chlorphenir/ Hydrocodone Polistirex (Tussionex Liq) 5 ml HS PRN PO COUGH 12/09/16 23:45 12/11/16 20:10 Pantoprazole Sodium (Protonix) 40 mg DAILY PO 12/10/16 09:00 12/12/16 08:10 Levofloxacin (Levaquin) 750 mg DAILY PO 12/11/16 09:00 12/12/16 08:16 Alprazolam (Xanax) 0.25 mg Q8H PRN PO anxiety 12/10/16 14:00 12/12/16 08:10 Chlorhexidine Gluconate 3 pack 3 pack DAILY@04 TOP 12/11/16 04:00 12/15/16 04:01 12/11/16 04:00 Imipenem/ Cilastatin Sodium 500 mg/Sodium Chloride 100 ml @ 200 mls/hr Q8H IV 12/12/16 11:00 12/12/16 10:05 Amikacin Sulfate/ Sodium Chloride (Amikin Inj/NS 250 ml Inj) 252 ml @ 250 mls/hr Q24H IV 12/12/16 13:00 12/12/16 12:40 Objective Remarks GENERAL: Elderly female, sitting up in bed in [facility]. Jovial atmosphere in room. Multiple family members at bedside. SKIN: Warm and dry. bruise on abdomen, quarter sized, right side. HEAD: Normocephalic. EYES: No injection or drainage. NECK: Supple, trachea midline. CARDIOVASCULAR: +S1/S2 RESPIRATORY: diminished at bases. +crackles all lung davis. GASTROINTESTINAL: Abdomen soft, non-tender, nondistended. EXTREMITIES: No cyanosis NEUROLOGICAL: awake and alert, normal speech. Assessment/Plan Problem List: (1) Thrombocytopenia Status: Acute Plan: ?peripheral consumption, ?drug effect --HIT negative --post transfusion platelet count shows response to transfusion --HIT pending --peripheral smear showed scattered giant platelet forms, leukocytosis, severe thrombocytopenia --LDH mildly elevated, but microangiopathic process is unlikely. --mega negative -- No melena, no bright red blood per rectum. --u/s LE, no dvt --Hypersplenism unlikely as her liver appears to be normal and spleen is small in size. Assessment 76y/o admitted with dyspnea. hematology consulted for thrombocytopenia. h/o COPD. Interstitial fibrosis. Cavitary lung lesion. Severe osteoporosis. Gastroesophageal reflux. Cataract. Pneumonia. Bronchoscopy. Pins in the left wrist Plan 1. monitor CBC 2. check coags today. 3. transfuse for platelet count less than 20K. Attending Statement The exam, history, and the medical decision-making described in the above note were completed with the assistance of the mid-level provider. I reviewed and agree with the findings presented. I attest that I had a [id number] encounter with the patient on the same day, and personally performed and documented my assessment and findings in the medical record. Pt seen and examined, pt family at bedside. Pt denies any bleeding wants to resume her xyral- concern that this and thrombocytopenia contributed to nose bleed. Review her antihistamine with other docs. Discussed bone marrow biopsy if pt cytopenia persist. Unlikely ITP due to response to platelet transfusion, HIT neg, DIC neg pt/ptt, TTP unlikely, renal function stable. Suspect drug effect- monitor. Karolina Gray Dec 12, 2016 14:54 Annamaria Larson MD Dec 12, 2016 20:05
--- NOTE | 2016-12-12 17:58 | HHI.PR ---
Subjective History of Present Illness still sob. remained on 6 lite NC desaturate very easily anxious / xanax is helping Positive cough, no sputum production No fever or chills No hemoptysis No more epistaxis. No hematemesis Denies chest pain scraty throat Offers no other complaints Son is at bedside Vitals/Results Intake & Output 12/11/16 12/11/16 12/12/16 15:00 23:00 07:00 Intake Total 720 ml 676 ml 404 ml Output Total 550 ml 1150 ml 650 ml Balance 170 ml -474 ml -246 ml Intake Oral 480 ml 500 ml 240 ml IV Total 240 ml 176 ml 164 ml Output Urine Total 550 ml 1150 ml 650 ml # Bowel Movements 0 0 Vital Signs Vital Signs Date Time Temp Pulse Resp B/P Pulse Ox O2 Delivery O2 Flow Rate FiO2 12/12/16 16:00 129 12/12/16 16:00 98.3 129 27 121/80 90 12/12/16 14:00 134 12/12/16 12:00 98.3 124 26 123/76 95 12/12/16 12:00 124 12/12/16 10:00 124 12/12/16 09:48 93 Nasal Cannula 6.00 12/12/16 08:00 115 12/12/16 08:00 98.5 115 26 133/78 88 12/12/16 06:00 101 12/12/16 04:00 111 12/12/16 04:00 98.1 111 21 113/63 97 12/12/16 02:00 118 12/12/16 00:00 98.4 115 18 117/67 97 12/12/16 00:00 115 12/11/16 22:00 133 12/11/16 20:59 93 Nasal Cannula 6.00 12/11/16 20:00 98.2 130 27 122/73 92 12/11/16 20:00 124 12/11/16 18:00 134 CBC/BMP: 12/12/16 0438 12/12/16 0438 Lab Results Laboratory Tests Test 12/12/16 04:38 White Blood Count 33.5 TH/MM3 Red Blood Count 2.95 MIL/MM3 Hemoglobin 8.1 GM/DL Hematocrit 24.9 % Mean Corpuscular Volume 84.4 FL Mean Corpuscular Hemoglobin 27.5 PG Mean Corpuscular Hemoglobin 32.6 % Concent Red Cell Distribution Width 16.1 % Platelet Count 95 TH/MM3 Mean Platelet Volume 10.3 FL Sodium Level 136 MEQ/L Potassium Level 4.7 MEQ/L Chloride Level 102 MEQ/L Carbon Dioxide Level 27.3 MEQ/L Anion Gap 7 MEQ/L Blood Urea Nitrogen 18 MG/DL Creatinine 0.80 MG/DL Estimat Glomerular Filtration 70 ML/MIN Rate Random Glucose 123 MG/DL Calcium Level 8.1 MG/DL Microbiology Microbiology 12/12/16 Aerobic Blood Culture, Received Pending 12/12/16 Anaerobic Blood Culture, Received Pending 12/12/16 Aerobic Blood Culture, Received Pending 12/12/16 Anaerobic Blood Culture, Received Pending Physical Exam General General Appearance: Comfortable, Anxious Appearance Remarks Thinly built elderly frail appearing female Eyes Eye Exam: Pupils Reactive, Sclera White, Extraocular Movement Intact Ears & Nose Ears & Nose Exam: Tympanic Membranes Normal, Auditory Canals Normal Throat Throat Exam: Oral Mucosa [place] & Moist Neck Neck Exam: Neck Supple, Trachea Midline Pulmonary Resp Exam: Crackles Resp Remarks Coarse breath sounds scattered fine crackles, Cardiology CV Exam: Regular, Normal Sinus Rhythm, Tachycardia Gastrointestinal/Abdomen GI Exam: Soft, Non-Tender, Bowel Sounds Present Musculoskeletal MS Exam: Joints Intact, Normal Tone Integumentary Skin Exam: Warm, Dry Extremeties Extremities Exam: No Edema, Pedal Pulses Palpable Neurologic Neuro Exam: Alert, Awake, Oriented, Speech Clear, Moving All Extremities Psychiatric Psych Exam: Appropriate Responses VTE Prophylaxis VTE Prophylaxis Device: SCDs PUD Prophylasis PUD Prophylaxis: Protonix Assessment/Plan Assessment/Plan Assessment and Plan Problem List: (1) Progressive Pulmonary fibrosis (2) Thrombocytopenia ? 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 SOB, cough and hypoxia. Evaluated in the ED and now admitted for Pulm. fibrosis exacerbation Rule out superimposed bacterial infection abx changed to Imipenem/Amikacin & levaquin -ID f/u -Duonebs -IV Solumedrol - d/w Dr. Lofton today -Antitussives PRN . Thrombocytopenia ? etiology Status post platelet transfusion Hematology consultation appreciated , no signs of hemolysis , HIT antibody negative Platelet counts are better no more bleeding - Monitor platelet counts worsening Leukocytosis,likley d/t steroids IVF Underweight, malnourished, weight loss -Encourage by mouth intake -Boost 1 can PO TID inc xanax q 6 hrs prn for anxiety chloroseptic spray Home medications reviewed, initiated as indicated SCD for DVT prophylaxis, PPI for GI prophylaxis d/w PT will f/u Skyla Malave MD Dec 12, 2016 17:58
[2016-12-12] MEDS ORDERED: PHENOL 1.4% SOLN 180 ML BTL OROPHARYNG PRN (18:45)
[2016-12-12] MEDS ORDERED: MAGNESIUM HYDROXIDE SUSP 30 ML CUP PO PRN (18:45)
[2016-12-12] MEDS: CHLORPHENIR/HYDROCOD LIQUID 8 MG/10 MG/5 ML CUP PO PRN (21:01)
[2016-12-12 21:03] LABS: INDIRECT BILIRUBIN 0.3 MG/DL (0.0-0.8); TOTAL BILIRUBIN ADULT 0.4 MG/DL (0.2-1.0)
[2016-12-12 21:12] LABS: APTT (PATIENT) 22.1 SEC (24.3-30.1); PROTHROMBIN TIME - PATIENT 10.9 SEC (9.8-11.6)
[2016-12-13] VITALS (14 sets, daily range): BP systolic 103–130; BP diastolic 68–79; PULSE 94–144; RESP 16–27; TEMP 98–98.3; O2SAT 88–99
[2016-12-13] MEDS: RESP: ALBUTEROL 2.5 MG/IPRATROPIUM 0.5 MG NEB (PRN) NEB (00:41)
[2016-12-13] MEDS: IMIPENEM/CILASTATIN INJ 500 MG in SODIUM CHLORIDE 0.9% INJ 100 ML IV SCH ×3 (03:13→18:11)
[2016-12-13] MEDS: CHLORHEXIDINE GLUCONATE 2 % 1 PACK (2 CLOTHS)(taper/protocol) TOP SCH (03:14)
[2016-12-13 05:16] LABS: AUTOMATED NEUTROPHIL # 27.2 TH/MM3 (1.8-7.7); BASOPHIL % 0.1 % (0.0-2.0); EOSINOPHIL % 0.1 % (0.0-4.0); HEMATOCRIT 26.5 % (35.0-46.0); LYMPH % 4.3 % (9.0-44.0); LYMPHOCYTE # 1.3 TH/MM3 (1.0-4.8); MEAN CELL VOLUME 84.5 FL (80.0-100.0); MEAN CORPUSCULAR HEMOGLOBIN 27.6 PG (27.0-34.0); MEAN CORPUSCULAR HGB CONC 32.6 % (32.0-36.0); MONO % 3.2 % (0.0-8.0); NEUT % 92.3 % (16.0-70.0); PLATELET COUNT 97 TH/MM3 (150-450); RED BLOOD COUNT 3.14 MIL/MM3 (4.00-5.30); RED CELL DISTRIBUTION WIDTH 15.8 % (11.6-17.2); WHITE BLOOD COUNT 29.5 TH/MM3 (4.0-11.0)
[2016-12-13 05:45] LABS: BICARBONATE 28.5 MEQ/L (21.0-32.0); POTASSIUM 4.8 MEQ/L (3.5-5.1)
[2016-12-13 06:04] LABS: HEMO FLAGS AUTO DIFF
[2016-12-13] MEDS: RESP: IPRATROPIUM 0.5 MG/2.5 ML NEB NEB SCH ×3 (07:55→20:21)
[2016-12-13 07:58] LABS: BANDS 2 % (0-6); CORRECTED NUCLEATED RBC 3 /100 WBC (0-0); MYELOCYTES 5 % (0-0); NEUTROPHIL # MANUAL DIFF 28.3 TH/MM3 (1.8-7.7); PLATELET ESTIMATE SMEAR LOW (NORMAL); PLATELET MORPHOLOGY NORMAL (NORMAL); POLYS (SEG NEUTROPHILS) 89 % (16-70); SCAN/DIFF FINAL DIFF MANUAL; WBC DIFF SAMPLE 100
[2016-12-13] MEDS: PANTOPRAZOLE SOD 40 MG DELAYED RELEASE TAB PO SCH (08:08)
[2016-12-13] MEDS: LEVOFLOXACIN 750 MG TAB PO SCH (08:08)
[2016-12-13] MEDS: methylPREDNISolone SOD SUCC 40 MG/1 ML VIAL IV SCH ×2 (08:08→20:05)
[2016-12-13] MEDS: ALPRAZolam 0.25 MG TAB PO PRN ×3 (08:09→21:18)
--- NOTE | 2016-12-13 10:23 | RADRPT ---
EXAM DATE/TIME: 12/13/2016 09:03 [place] COMPARISON: CHEST SINGLE AP, November 10, 2016, 5:28. CHEST SINGLE AP, December 09, 2016, 16:07. INDICATIONS : Short of Breath, Evaluate for Pneumonia. MEDICAL HISTORY : Chronic obstructive pulmonary disease. Gastroesophageal reflux disease. SURGICAL HISTORY : None. ENCOUNTER: Initial ACUITY: 1 day PAIN SCORE: 0/10 LOCATION: Bilateral chest FINDINGS: Portable AP view of the chest demonstrates a normal-sized cardiac silhouette. Lungs are underinflated . There is patchy bilateral airspace consolidation diffusely throughout the right lung and in the lef t lower lung zone. No pleural effusion or pneumothorax is identified. Bones demonstrate no acute find ing. Breast implants are present. CONCLUSION: Stable chest x-ray with bilateral patchy airspace consolidation, right greater than left. In the appr opriate clinical setting this could represent infection/pneumonia. There is likely some degree of chr onic background interstitial lung disease as well. Zane Sierra MD on December 13, 2016 at 10:20 Board Certified Radiologist. This report was verified electronically.
--- NOTE | 2016-12-13 10:59 | PD.ONC.PN ---
Subjective Subjective Remarks Afebrile overnight. Patient sitting up on side of bed in moderate respiratory distress. RN states that this is common for her when she does any exertion. Heart rate is in the 140s. She is on 6 L nasal cannula. She denies any chest pain. During my exam she recovered and was less short of breath with O2 sats at 92%. Objective Data Date Time Temp Pulse Resp B/P Pulse Ox O2 Delivery O2 Flow Rate FiO2 12/13/16 08:00 113 12/13/16 08:00 98.3 113 25 119/79 99 12/13/16 07:55 94 Nasal Cannula 5.00 12/13/16 06:00 94 12/13/16 04:00 98.3 102 16 103/68 98 12/13/16 04:00 102 12/13/16 02:00 109 12/13/16 00:00 106 12/13/16 00:00 98.2 106 22 130/74 96 12/12/16 22:00 109 12/12/16 21:01 95 Nasal Cannula 6.00 12/12/16 20:00 123 12/12/16 20:00 97.8 123 35 132/80 94 12/12/16 18:00 118 12/12/16 16:00 129 12/12/16 16:00 98.3 129 27 121/80 90 12/12/16 14:00 134 12/12/16 12:00 98.3 124 26 123/76 95 12/12/16 12:00 124 12/13/16 12/13/16 12/13/16 07:00 15:00 23:00 Intake Total 317 ml Output Total 750 ml Balance -433 ml Result Diagram: 12/13/16 0432 12/13/16 0432 Laboratory Results Laboratory Tests Test 12/12/16 12/12/16 12/13/16 19:25 19:40 04:32 Prothrombin Time 10.9 SEC Prothromb Time International 1.0 RATIO Ratio Activated Partial 22.1 SEC Thromboplast Time Fibrinogen 415 mg/dL Total Bilirubin 0.4 MG/DL Direct Bilirubin 0.1 MG/DL Indirect Bilirubin 0.3 MG/DL Aspartate Amino Transf 40 U/L (AST/SGOT) Alanine Aminotransferase 62 U/L (ALT/SGPT) Alkaline Phosphatase 118 U/L Lactate Dehydrogenase 691 U/L Total Protein 6.4 GM/DL Albumin 2.5 GM/DL White Blood Count 29.5 TH/MM3 Red Blood Count 3.14 MIL/MM3 Hemoglobin 8.7 GM/DL Hematocrit 26.5 % Mean Corpuscular Volume 84.5 FL Mean Corpuscular Hemoglobin 27.6 PG Mean Corpuscular Hemoglobin 32.6 % Concent Red Cell Distribution Width 15.8 % Platelet Count 97 TH/MM3 Mean Platelet Volume 9.9 FL Neutrophils (%) (Auto) 92.3 % Lymphocytes (%) (Auto) 4.3 % Monocytes (%) (Auto) 3.2 % Eosinophils (%) (Auto) 0.1 % Basophils (%) (Auto) 0.1 % Neutrophils # (Auto) 27.2 TH/MM3 Lymphocytes # (Auto) 1.3 TH/MM3 Monocytes # (Auto) 0.9 TH/MM3 Eosinophils # (Auto) 0.0 TH/MM3 Basophils # (Auto) 0.0 TH/MM3 CBC Comment AUTO DIFF Differential Total Cells 100 Counted Neutrophils % (Manual) 89 % Band Neutrophils % 2 % Lymphocytes % 2 % Monocytes % 2 % Neutrophils # (Manual) 28.3 TH/MM3 Myelocytes 5 % Nucleated Red Blood Cells 3 /100 WBC Differential Comment FINAL DIFF MANUAL Platelet Estimate LOW Platelet Morphology Comment NORMAL Red Cell Morphology Comment NORMAL Sodium Level 136 MEQ/L Potassium Level 4.8 MEQ/L Chloride Level 102 MEQ/L Carbon Dioxide Level 28.5 MEQ/L Anion Gap 6 MEQ/L Blood Urea Nitrogen 20 MG/DL Creatinine 0.63 MG/DL Estimat Glomerular Filtration 92 ML/MIN Rate Random Glucose 116 MG/DL Calcium Level 8.1 MG/DL Culture Results Microbiology Date/Time Procedure Status Source Growth 12/12/16 09:35 Aerobic Blood Culture Received Blood Other Pending 12/12/16 09:35 Anaerobic Blood Culture Received Blood Other Pending 12/12/16 09:48 Aerobic Blood Culture Received Blood Other Pending 12/12/16 09:48 Anaerobic Blood Culture Received Blood Other Pending Imaging Studies Last 24 hours Impressions Chest X-Ray 12/13/16 0800 Signed Impressions: Service Date/Time: Tuesday, December 13, 2016 09:03 - CONCLUSION: Stable chest x-ray with bilateral patchy airspace consolidation, right greater than left. In the appropriate clinical setting this could represent infection/pneumonia. There is likely some degree of chronic background interstitial lung disease as well. Zane Sierra MD Administered Medications Medications (Trade) Dose Ordered Sig/Sam Route PRN Reason Start Time Stop Time Status Last Admin Dose Admin Chlorphenir/ Hydrocodone Polistirex (Tussionex Liq) 5 ml HS PRN PO COUGH 12/09/16 23:45 12/12/16 21:01 Pantoprazole Sodium (Protonix) 40 mg DAILY PO 12/10/16 09:00 12/13/16 08:08 Levofloxacin (Levaquin) 750 mg DAILY PO 12/11/16 09:00 12/13/16 08:08 Chlorhexidine Gluconate 3 pack 3 pack DAILY@04 TOP 12/11/16 04:00 12/15/16 04:01 12/13/16 03:14 Imipenem/ Cilastatin Sodium 500 mg/Sodium Chloride 100 ml @ 200 mls/hr Q8H IV 12/12/16 11:00 12/13/16 10:27 Amikacin Sulfate/ Sodium Chloride (Amikin Inj/NS 250 ml Inj) 252 ml @ 250 mls/hr Q24H IV 12/12/16 13:00 12/12/16 12:40 Methylprednisolone Sodium Succinate (SoluMEDROL INJ) 40 mg BID IV 12/12/16 21:00 12/13/16 08:08 Alprazolam (Xanax) 0.25 mg Q6H PRN PO anxiety 12/12/16 20:00 12/13/16 08:09 Objective Remarks GENERAL: Elderly female, sitting up on side of bed in moderate respiratory distress. SKIN: Warm and dry. No ecchymoses noted to bilateral upper arms. HEAD: Normocephalic. EYES: No injection or drainage. NECK: Supple, trachea midline. CARDIOVASCULAR: +S1/S2 RESPIRATORY: diminished at bases. +crackles all lung davis. GASTROINTESTINAL: Abdomen soft, non-tender, nondistended. EXTREMITIES: No cyanosis NEUROLOGICAL: awake and alert, normal speech. Assessment/Plan Problem List: (1) Thrombocytopenia Status: Acute Plan: ?peripheral consumption, ?drug effect --HIT negative --post transfusion platelet count shows response to transfusion --peripheral smear showed scattered giant platelet forms, leukocytosis, severe thrombocytopenia --LDH mildly elevated, but microangiopathic process is unlikely. --mega negative -- No melena, no bright red blood per rectum. --u/s LE, no dvt --Hypersplenism unlikely as her liver appears to be normal and spleen is small in size. Assessment 76y/o admitted with dyspnea. hematology consulted for thrombocytopenia. h/o COPD. Interstitial fibrosis. Cavitary lung lesion. Severe osteoporosis. Gastroesophageal reflux. Cataract. Pneumonia. Bronchoscopy. Pins in the left wrist Plan 1. Platelets 97k today. 2. Monitor daily CBC 3. Transfuse for platelet count less than 20K. 4. Thrombocytopenia is likely medication side effect. If this persists we will do a bone marrow biopsy to determine cause. Attending Statement The exam, history, and the medical decision-making described in the above note were completed with the assistance of the mid-level provider. I reviewed and agree with the findings presented. I attest that I had a [id number] encounter with the patient on the same day, and personally performed and documented my assessment and findings in the medical record. Betty Nicolas Dec 13, 2016 10:59 Zaki Pierce MD Dec 13, 2016 23:37
[2016-12-13] MEDS: SODIUM CHLOR 0.9% IV SCH (12:18)
[2016-12-13] MEDS: AMIKACIN IV SCH (12:18)
[2016-12-13] MEDS ORDERED: PHARMACY ORDERED LAB XX ONE (12:30)
--- NOTE | 2016-12-13 18:26 | HHI.PR ---
Subjective History of Present Illness feels lttle better still on 6 liter NC Positive cough, no sputum production No fever or chills xanax is helping No hemoptysis No more epistaxis. No hematemesis Denies chest pain Offers no other complaints Son is at bedside Vitals/Results Intake & Output 12/12/16 12/12/16 12/13/16 15:00 23:00 07:00 Intake Total 1048 ml 598 ml 317 ml Output Total 1110 ml 950 ml 750 ml Balance -62 ml -352 ml -433 ml Intake Oral 600 ml 400 ml 200 ml IV Total 448 ml 198 ml 117 ml Output Urine Total 1110 ml 950 ml 750 ml # Bowel Movements 1 0 Vital Signs Vital Signs Date Time Temp Pulse Resp B/P Pulse Ox O2 Delivery O2 Flow Rate FiO2 12/13/16 16:00 128 12/13/16 16:00 98.0 128 27 113/77 91 12/13/16 14:00 115 12/13/16 12:00 98.0 127 27 107/72 88 12/13/16 10:00 144 12/13/16 08:00 113 12/13/16 08:00 98.3 113 25 119/79 99 12/13/16 07:55 94 Nasal Cannula 5.00 12/13/16 06:00 94 12/13/16 04:00 98.3 102 16 103/68 98 12/13/16 04:00 102 12/13/16 02:00 109 12/13/16 00:00 106 12/13/16 00:00 98.2 106 22 130/74 96 12/12/16 22:00 109 12/12/16 21:01 95 Nasal Cannula 6.00 12/12/16 20:00 123 12/12/16 20:00 97.8 123 35 132/80 94 CBC/BMP: 12/13/16 0432 12/13/16 0432 Lab Results Laboratory Tests Test 12/12/16 12/12/16 12/13/16 19:25 19:40 04:32 Prothrombin Time 10.9 SEC Prothromb Time International 1.0 RATIO Ratio Activated Partial 22.1 SEC Thromboplast Time Fibrinogen 415 mg/dL Total Bilirubin 0.4 MG/DL Direct Bilirubin 0.1 MG/DL Indirect Bilirubin 0.3 MG/DL Aspartate Amino Transf 40 U/L (AST/SGOT) Alanine Aminotransferase 62 U/L (ALT/SGPT) Alkaline Phosphatase 118 U/L Lactate Dehydrogenase 691 U/L Total Protein 6.4 GM/DL Albumin 2.5 GM/DL White Blood Count 29.5 TH/MM3 Red Blood Count 3.14 MIL/MM3 Hemoglobin 8.7 GM/DL Hematocrit 26.5 % Mean Corpuscular Volume 84.5 FL Mean Corpuscular Hemoglobin 27.6 PG Mean Corpuscular Hemoglobin 32.6 % Concent Red Cell Distribution Width 15.8 % Platelet Count 97 TH/MM3 Mean Platelet Volume 9.9 FL Neutrophils (%) (Auto) 92.3 % Lymphocytes (%) (Auto) 4.3 % Monocytes (%) (Auto) 3.2 % Eosinophils (%) (Auto) 0.1 % Basophils (%) (Auto) 0.1 % Neutrophils # (Auto) 27.2 TH/MM3 Lymphocytes # (Auto) 1.3 TH/MM3 Monocytes # (Auto) 0.9 TH/MM3 Eosinophils # (Auto) 0.0 TH/MM3 Basophils # (Auto) 0.0 TH/MM3 CBC Comment AUTO DIFF Differential Total Cells 100 Counted Neutrophils % (Manual) 89 % Band Neutrophils % 2 % Lymphocytes % 2 % Monocytes % 2 % Neutrophils # (Manual) 28.3 TH/MM3 Myelocytes 5 % Nucleated Red Blood Cells 3 /100 WBC Differential Comment FINAL DIFF MANUAL Platelet Estimate LOW Platelet Morphology Comment NORMAL Red Cell Morphology Comment NORMAL Sodium Level 136 MEQ/L Potassium Level 4.8 MEQ/L Chloride Level 102 MEQ/L Carbon Dioxide Level 28.5 MEQ/L Anion Gap 6 MEQ/L Blood Urea Nitrogen 20 MG/DL Creatinine 0.63 MG/DL Estimat Glomerular Filtration 92 ML/MIN Rate Random Glucose 116 MG/DL Calcium Level 8.1 MG/DL Physical Exam General General Appearance: Comfortable, Anxious Appearance Remarks Thinly built elderly frail appearing female Eyes Eye Exam: Pupils Reactive, Sclera White, Extraocular Movement Intact Ears & Nose Ears & Nose Exam: Tympanic Membranes Normal, Auditory Canals Normal Throat Throat Exam: Oral Mucosa [place] & Moist Neck Neck Exam: Neck Supple, Trachea Midline Pulmonary Resp Exam: Crackles Resp Remarks Coarse breath sounds scattered fine crackles, Cardiology CV Exam: Regular, Normal Sinus Rhythm, Tachycardia Gastrointestinal/Abdomen GI Exam: Soft, Non-Tender, Bowel Sounds Present Musculoskeletal MS Exam: Joints Intact, Normal Tone Integumentary Skin Exam: Warm, Dry Extremeties Extremities Exam: No Edema, Pedal Pulses Palpable Neurologic Neuro Exam: Alert, Awake, Oriented, Speech Clear, Moving All Extremities Psychiatric Psych Exam: Appropriate Responses VTE Prophylaxis VTE Prophylaxis Device: SCDs PUD Prophylasis PUD Prophylaxis: Protonix Assessment/Plan Assessment/Plan Assessment and Plan Problem List: (1) Progressive Pulmonary fibrosis (2) Thrombocytopenia ? 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 SOB, cough and hypoxia. Evaluated in the ED and now admitted for Pulm. fibrosis exacerbation Rule out superimposed bacterial infection abx changed to Imipenem/Amikacin & levaquin -Duonebs -IV Solumedrol - ID f/u -Antitussives PRN . Thrombocytopenia ? etiology Status post platelet transfusion Hematology consultation appreciated , no signs of hemolysis , HIT antibody negative Platelet counts are better no more bleeding - Monitor platelet counts worsening Leukocytosis,likley d/t steroids IVF Underweight, malnourished, weight loss -Encourage by mouth intake -Boost 1 can PO TID xanax q 6 hrs prn for anxiety chloroseptic spray Home medication SCD for DVT prophylaxis, PPI for GI prophylaxis d/w PT will f/u Skyla Malave MD Dec 13, 2016 18:26 Skyla Malave MD Dec 13, 2016 18:26
[2016-12-13] MEDS: CHLORPHENIR/HYDROCOD LIQUID 8 MG/10 MG/5 ML CUP PO PRN (20:05)
[2016-12-14] VITALS (14 sets, daily range): BP systolic 105–119; BP diastolic 66–73; PULSE 96–138; RESP 17–33; TEMP 97.9–98.6; O2SAT 91–100
[2016-12-14] MEDS: ALPRAZolam 0.25 MG TAB PO PRN ×4 (02:42→20:23)
[2016-12-14] MEDS: IMIPENEM/CILASTATIN INJ 500 MG in SODIUM CHLORIDE 0.9% INJ 100 ML IV SCH ×3 (02:42→20:22)
[2016-12-14] MEDS: RESP: ALBUTEROL 2.5 MG/IPRATROPIUM 0.5 MG NEB (PRN) NEB (02:43)
[2016-12-14] MEDS: CHLORHEXIDINE GLUCONATE 2 % 1 PACK (2 CLOTHS)(taper/protocol) TOP SCH ×2 (02:45→20:23)
[2016-12-14 05:20] LABS: AUTOMATED NEUTROPHIL # 24.8 TH/MM3 (1.8-7.7); BASOPHIL # 0.1 TH/MM3 (0-0.2); BASOPHIL % 0.4 % (0.0-2.0); EOSINOPHIL % 0.1 % (0.0-4.0); LYMPH % 4.3 % (9.0-44.0); LYMPHOCYTE # 1.2 TH/MM3 (1.0-4.8); MEAN CELL VOLUME 85.1 FL (80.0-100.0); MEAN CORPUSCULAR HEMOGLOBIN 27.1 PG (27.0-34.0); MEAN CORPUSCULAR HGB CONC 31.8 % (32.0-36.0); MONO % 2.8 % (0.0-8.0); NEUT % 92.4 % (16.0-70.0); PLATELET COUNT 118 TH/MM3 (150-450); RED BLOOD COUNT 3.29 MIL/MM3 (4.00-5.30); WHITE BLOOD COUNT 26.8 TH/MM3 (4.0-11.0)
[2016-12-14 05:30] LABS: HEMO FLAGS AUTO DIFF
[2016-12-14 05:33] LABS: BICARBONATE 28.8 MEQ/L (21.0-32.0); POTASSIUM 4.7 MEQ/L (3.5-5.1)
[2016-12-14] MEDS: RESP: IPRATROPIUM 0.5 MG/2.5 ML NEB NEB SCH ×3 (07:40→20:35)
[2016-12-14] MEDS: PANTOPRAZOLE SOD 40 MG DELAYED RELEASE TAB PO SCH (08:35)
[2016-12-14] MEDS: LEVOFLOXACIN 750 MG TAB PO SCH (08:35)
[2016-12-14] MEDS: methylPREDNISolone SOD SUCC 40 MG/1 ML VIAL IV SCH ×2 (08:35→20:23)
[2016-12-14 10:14] LABS: BANDS 5 % (0-6); CORRECTED NUCLEATED RBC 1 /100 WBC (0-0); MYELOCYTES 9 % (0-0); POLYS (SEG NEUTROPHILS) 72 % (16-70); WBC DIFF SAMPLE 100
[2016-12-14 10:15] LABS: OVALOCYTES 1+ (NORMAL); PLATELET ESTIMATE SMEAR LOW (NORMAL); PLATELET MORPHOLOGY NORMAL (NORMAL); SCAN/DIFF FINAL DIFF MANUAL
[2016-12-14] MEDS: SODIUM CHLOR 0.9% IV SCH (11:50)
[2016-12-14] MEDS: AMIKACIN IV SCH (11:50)
--- NOTE | 2016-12-14 17:43 | HHI.PR ---
Subjective History of Present Illness feels better still on 6 liter NC Positive cough, no sputum production No fever or chills No hemoptysis No more epistaxis. No hematemesis Denies chest pain Offers no other complaints daughter is at bedside Vitals/Results Intake & Output 12/13/16 12/13/16 12/14/16 15:00 23:00 07:00 Intake Total 1122 ml 116 ml Output Total 1950 ml 550 ml Balance -828 ml -434 ml Intake Oral 590 ml 45 ml IV Total 532 ml 71 ml Output Urine Total 1950 ml 550 ml # Bowel Movements 1 0 Vital Signs Vital Signs Date Time Temp Pulse Resp B/P Pulse Ox O2 Delivery O2 Flow Rate FiO2 12/14/16 16:00 128 12/14/16 16:00 98.1 128 32 106/70 100 12/14/16 14:00 131 12/14/16 12:00 98.2 126 20 114/72 100 12/14/16 12:00 126 12/14/16 10:00 138 12/14/16 08:00 113 12/14/16 08:00 98.6 113 18 115/73 100 12/14/16 07:40 91 Nasal Cannula 6.00 12/14/16 06:00 96 12/14/16 04:00 104 12/14/16 04:00 98.2 104 17 119/69 100 12/14/16 02:00 103 12/14/16 00:00 97.9 112 33 105/66 98 12/14/16 00:00 112 12/13/16 22:00 111 12/13/16 20:26 94 Nasal Cannula 6.00 12/13/16 20:00 126 12/13/16 20:00 98.1 126 27 116/69 90 12/13/16 18:00 129 CBC/BMP: 12/14/16 0450 12/14/16 0450 Lab Results Laboratory Tests Test 12/14/16 04:50 White Blood Count 26.8 TH/MM3 Red Blood Count 3.29 MIL/MM3 Hemoglobin 8.9 GM/DL Hematocrit 28.0 % Mean Corpuscular Volume 85.1 FL Mean Corpuscular Hemoglobin 27.1 PG Mean Corpuscular Hemoglobin 31.8 % Concent Red Cell Distribution Width 16.0 % Platelet Count 118 TH/MM3 Mean Platelet Volume 9.3 FL Neutrophils (%) (Auto) 92.4 % Lymphocytes (%) (Auto) 4.3 % Monocytes (%) (Auto) 2.8 % Eosinophils (%) (Auto) 0.1 % Basophils (%) (Auto) 0.4 % Neutrophils # (Auto) 24.8 TH/MM3 Lymphocytes # (Auto) 1.2 TH/MM3 Monocytes # (Auto) 0.8 TH/MM3 Eosinophils # (Auto) 0.0 TH/MM3 Basophils # (Auto) 0.1 TH/MM3 CBC Comment AUTO DIFF Differential Total Cells 100 Counted Neutrophils % (Manual) 72 % Band Neutrophils % 5 % Lymphocytes % 10 % Monocytes % 4 % Neutrophils # (Manual) 23.0 TH/MM3 Myelocytes 9 % Nucleated Red Blood Cells 1 /100 WBC Differential Comment FINAL DIFF MANUAL Platelet Estimate LOW Platelet Morphology Comment NORMAL Basophilic Stippling MOD Ovalocytes 1+ Sodium Level 137 MEQ/L Potassium Level 4.7 MEQ/L Chloride Level 100 MEQ/L Carbon Dioxide Level 28.8 MEQ/L Anion Gap 8 MEQ/L Blood Urea Nitrogen 21 MG/DL Creatinine 0.65 MG/DL Estimat Glomerular Filtration 89 ML/MIN Rate Random Glucose 121 MG/DL Calcium Level 7.7 MG/DL Physical Exam General General Appearance: Comfortable, Anxious Appearance Remarks Thinly built elderly frail appearing female Eyes Eye Exam: Pupils Reactive, Sclera White, Extraocular Movement Intact Ears & Nose Ears & Nose Exam: Tympanic Membranes Normal, Auditory Canals Normal Throat Throat Exam: Oral Mucosa [place] & Moist Neck Neck Exam: Neck Supple, Trachea Midline Pulmonary Resp Exam: Crackles Resp Remarks Coarse breath sounds scattered fine crackles, Cardiology CV Exam: Regular, Normal Sinus Rhythm, Tachycardia Gastrointestinal/Abdomen GI Exam: Soft, Non-Tender, Bowel Sounds Present Musculoskeletal MS Exam: Joints Intact, Normal Tone Integumentary Skin Exam: Warm, Dry Extremeties Extremities Exam: No Edema, Pedal Pulses Palpable Neurologic Neuro Exam: Alert, Awake, Oriented, Speech Clear, Moving All Extremities Psychiatric Psych Exam: Appropriate Responses VTE Prophylaxis VTE Prophylaxis Device: SCDs PUD Prophylasis PUD Prophylaxis: Protonix Assessment/Plan Assessment/Plan Assessment and Plan Problem List: (1) Progressive Pulmonary fibrosis (2) Thrombocytopenia ? 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 SOB, cough and hypoxia. Evaluated in the ED and now admitted for Pulm. fibrosis exacerbation Rule out superimposed bacterial infection abx changed to Imipenem/Amikacin & levaquin -Duonebs -taper IV Solumedrol - ID f/u -Antitussives PRN -d/w Dr Dodson , . Thrombocytopenia ? etiology Status post platelet transfusion Hematology consultation appreciated , no signs of hemolysis , HIT antibody negative Platelet counts are better no more bleeding - Monitor platelet counts Leukocytosis,likley d/t steroids IVF Underweight, malnourished, weight loss -Encourage by mouth intake -Boost 1 can PO TID xanax q 6 hrs prn for anxiety chloroseptic spray Home medication SCD for DVT prophylaxis, PPI for GI prophylaxis transfer to step down d/w PT & her daughter will f/u Skyla Malave MD Dec 14, 2016 17:43
[2016-12-14] MEDS: CHLORPHENIR/HYDROCOD LIQUID 8 MG/10 MG/5 ML CUP PO PRN (20:23)
[2016-12-15] VITALS (11 sets, daily range): BP systolic 96–131; BP diastolic 59–76; PULSE 96–137; RESP 15–33; TEMP 97.3–98.3; O2SAT 95–100
[2016-12-15] MEDS: IMIPENEM/CILASTATIN INJ 500 MG in SODIUM CHLORIDE 0.9% INJ 100 ML IV SCH ×3 (02:57→17:17)
[2016-12-15] MEDS: ALPRAZolam 0.25 MG TAB PO PRN ×3 (02:57→21:10)
[2016-12-15] MEDS: RESP: ALBUTEROL 2.5 MG/IPRATROPIUM 0.5 MG NEB (PRN) NEB (02:59)
[2016-12-15 07:56] LABS: BASOPHIL % 0.2 % (0.0-2.0); EOSINOPHIL # 0.1 TH/MM3 (0-0.4); EOSINOPHIL % 0.4 % (0.0-4.0); HEMATOCRIT 29.7 % (35.0-46.0); LYMPH % 6.5 % (9.0-44.0); LYMPHOCYTE # 1.5 TH/MM3 (1.0-4.8); MEAN CELL VOLUME 85.4 FL (80.0-100.0); MEAN CORPUSCULAR HEMOGLOBIN 27.4 PG (27.0-34.0); MEAN CORPUSCULAR HGB CONC 32.1 % (32.0-36.0); MONO % 3.2 % (0.0-8.0); NEUT % 89.7 % (16.0-70.0); PLATELET COUNT 183 TH/MM3 (150-450); RED BLOOD COUNT 3.48 MIL/MM3 (4.00-5.30); RED CELL DISTRIBUTION WIDTH 16.6 % (11.6-17.2); WHITE BLOOD COUNT 23.4 TH/MM3 (4.0-11.0)
[2016-12-15 07:59] LABS: HEMO FLAGS AUTO DIFF
[2016-12-15] MEDS: RESP: IPRATROPIUM 0.5 MG/2.5 ML NEB NEB SCH (08:46)
[2016-12-15] MEDS: methylPREDNISolone SOD SUCC 40 MG/1 ML VIAL IV SCH (08:58)
[2016-12-15] MEDS: PANTOPRAZOLE SOD 40 MG DELAYED RELEASE TAB PO SCH (08:58)
[2016-12-15] MEDS: LEVOFLOXACIN 750 MG TAB PO SCH (09:00)
--- NOTE | 2016-12-15 09:21 | HHI.PR ---
Subjective Subjective Remarks ambulated to chair, minimal SOB smiling, states she feels much better no cp some cough little wheezing eating okay no N/V no fever Xanax working with anxiety Review of Systems Constitutional Constitutional Remarks 12 point ROS completed, negative except as noted above Vitals/Results Intake & Output 12/14/16 12/14/16 12/15/16 15:00 23:00 07:00 Intake Total 600 ml 961 ml 219 ml Output Total 950 ml 850 ml 650 ml Balance -350 ml 111 ml -431 ml Intake Oral 320 ml 350 ml 90 ml IV Total 280 ml 611 ml 129 ml Output Urine Total 950 ml 850 ml 650 ml # Bowel Movements 1 0 0 Vital Signs Vital Signs Date Time Temp Pulse Resp B/P Pulse Ox O2 Delivery O2 Flow Rate FiO2 12/15/16 06:00 99 12/15/16 04:00 109 12/15/16 04:00 98.0 109 15 96/59 100 12/15/16 02:00 96 12/15/16 00:00 98.1 107 33 109/71 99 12/15/16 00:00 107 12/14/16 22:00 124 12/14/16 20:36 95 Nasal Cannula 6.00 12/14/16 20:00 97.9 125 23 109/67 95 12/14/16 20:00 125 12/14/16 18:00 121 12/14/16 16:00 128 12/14/16 16:00 98.1 128 32 106/70 100 12/14/16 14:00 131 12/14/16 12:00 98.2 126 20 114/72 100 12/14/16 12:00 126 12/14/16 10:00 138 CBC/BMP: 12/15/16 0713 12/15/16 0713 Lab Results Laboratory Tests Test 12/15/16 07:13 White Blood Count 23.4 TH/MM3 Red Blood Count 3.48 MIL/MM3 Hemoglobin 9.6 GM/DL Hematocrit 29.7 % Mean Corpuscular Volume 85.4 FL Mean Corpuscular Hemoglobin 27.4 PG Mean Corpuscular Hemoglobin 32.1 % Concent Red Cell Distribution Width 16.6 % Platelet Count 183 TH/MM3 Mean Platelet Volume 9.0 FL Neutrophils (%) (Auto) 89.7 % Lymphocytes (%) (Auto) 6.5 % Monocytes (%) (Auto) 3.2 % Eosinophils (%) (Auto) 0.4 % Basophils (%) (Auto) 0.2 % Neutrophils # (Auto) 21.0 TH/MM3 Lymphocytes # (Auto) 1.5 TH/MM3 Monocytes # (Auto) 0.7 TH/MM3 Eosinophils # (Auto) 0.1 TH/MM3 Basophils # (Auto) 0.0 TH/MM3 CBC Comment AUTO DIFF Creatinine 0.57 MG/DL Estimat Glomerular Filtration 103 ML/MIN Rate Physical Exam General General Appearance: Well Developed, No Acute Distress, Comfortable Eyes Eye Exam: Pupils Equal, Pupils Reactive Ears & Nose Ears & Nose Exam: Nasal Mucosa [place] Throat Throat Exam: Oral Mucosa [place] & Moist Neck Neck Exam: Neck Supple, Trachea Midline Pulmonary Resp Exam: Crackles, Rhonchi Resp Remarks mild exp. wheeze Cardiology CV Exam: Regular, Normal Sinus Rhythm, Tachycardia Gastrointestinal/Abdomen GI Exam: Soft, Non-Tender, Bowel Sounds Present Genitourinary Exam: Clear Urine Remarks NEWELL Musculoskeletal MS Exam: Joints Intact, Normal Tone Integumentary Skin Exam: Warm, Dry Extremeties Extremities Exam: No Edema, Pedal Pulses Palpable Neurologic Neuro Exam: Alert, Awake, Oriented, Speech Clear, Moving All Extremities, No Focal Deficits Psychiatric Psych Exam: Appropriate Responses VTE Prophylaxis VTE Prophylaxis Device: SCDs PUD Prophylasis PUD Prophylaxis: Protonix Assessment/Plan Problem List: (1) Pulmonary fibrosis Plan: worsening (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 SOB, cough and hypoxia. Evaluated in the ED and now admitted for Pulm. fibrosis exacerbation Rule out superimposed bacterial infection -abx changed to Imipenem/Amikacin & levaquin -Duonebs -taper IV Solumedrol -Appreciate ID input, D/W Dr. Dodson, will need IV abx as OP -Antitussives PRN . Thrombocytopenia ? etiology ? med induced, no more bleeding. Plat. improving. -Status post platelet transfusion -Hematology consultation appreciated , no signs of hemolysis , -HIT antibody negative - Platelet counts are better Leukocytosis,likely d/t steroids -monitor CBC Underweight, malnourished, weight loss -Encourage by mouth intake -Boost 1 can PO TID Anxiety, better -continue with xanax q 6 hrs prn for anxiety Tachycardia -Cardizem PO added Case management consult for IV abx, dc planning, 2-3 days when ok by consultants PT eval and tx D/C newell improving, stable, ok to tx to telemetry SCD for DVT prophylaxis, PPI for GI prophylaxis Labs in am D/W RN D/W Dr. Malave D/W pt. This patient was seen by myself and Dr. Malave, this note is written on his behalf. Problem Qualifiers (1) Dyspnea: Qualified Code: R06.09 - Dyspnea on exertion (2) GERD (gastroesophageal reflux disease): Qualified Code: K21.9 - Gastroesophageal reflux disease, esophagitis presence not specified Samreen Serrano Dec 15, 2016 09:21
[2016-12-15 09:27] LABS: BANDS 7 % (0-6); METAMYELOCYTES 2 % (0-1); MYELOCYTES 5 % (0-0); NEUTROPHIL # MANUAL DIFF 22.2 TH/MM3 (1.8-7.7); PLATELET ESTIMATE SMEAR NORMAL (NORMAL); PLATELET MORPHOLOGY NORMAL (NORMAL); POLYS (SEG NEUTROPHILS) 81 % (16-70); SCAN/DIFF FINAL DIFF MANUAL; WBC DIFF SAMPLE 100
[2016-12-15 10:34] LABS: BLOOD, URINE TRACE (NEG); GLUCOSE,URINE NEG (NEG); KETONE, URINE NEG (NEG); NITRITE,URINE NEG (NEG); URINE COLOR YELLOW (YELLW/STRAW)
[2016-12-15] MEDS: SODIUM CHLOR 0.9% IV SCH (13:07)
[2016-12-15] MEDS: DILTIAZEM HCL 30 MG TAB PO SCH ×3 (13:07→21:10)
[2016-12-15] MEDS: AMIKACIN IV SCH (13:07)
--- NOTE | 2016-12-15 13:50 | PD.ONC.PN ---
Subjective Subjective Remarks Afebrile overnight. Patient resting comfortably. She says she feels well today. No bleeding. Objective Data Date Time Temp Pulse Resp B/P Pulse Ox O2 Delivery O2 Flow Rate FiO2 12/15/16 12:00 130 12/15/16 11:26 95 Nasal Cannula 6.00 12/15/16 10:00 137 12/15/16 08:00 97.3 114 28 107/70 95 12/15/16 08:00 108 12/15/16 06:00 99 12/15/16 04:00 109 12/15/16 04:00 98.0 109 15 96/59 100 12/15/16 02:00 96 12/15/16 00:00 98.1 107 33 109/71 99 12/15/16 00:00 107 12/14/16 22:00 124 12/14/16 20:36 95 Nasal Cannula 6.00 12/14/16 20:00 97.9 125 23 109/67 95 12/14/16 20:00 125 12/14/16 18:00 121 12/14/16 16:00 128 12/14/16 16:00 98.1 128 32 106/70 100 12/14/16 14:00 131 12/15/16 12/15/16 12/15/16 07:00 15:00 23:00 Intake Total 219 ml Output Total 650 ml Balance -431 ml Result Diagram: 12/15/1613 12/15/16712 Laboratory Results Laboratory Tests Test 12/15/16 12/15/16 07:13 09:45 White Blood Count 23.4 TH/MM3 Red Blood Count 3.48 MIL/MM3 Hemoglobin 9.6 GM/DL Hematocrit 29.7 % Mean Corpuscular Volume 85.4 FL Mean Corpuscular Hemoglobin 27.4 PG Mean Corpuscular Hemoglobin 32.1 % Concent Red Cell Distribution Width 16.6 % Platelet Count 183 TH/MM3 Mean Platelet Volume 9.0 FL Neutrophils (%) (Auto) 89.7 % Lymphocytes (%) (Auto) 6.5 % Monocytes (%) (Auto) 3.2 % Eosinophils (%) (Auto) 0.4 % Basophils (%) (Auto) 0.2 % Neutrophils # (Auto) 21.0 TH/MM3 Lymphocytes # (Auto) 1.5 TH/MM3 Monocytes # (Auto) 0.7 TH/MM3 Eosinophils # (Auto) 0.1 TH/MM3 Basophils # (Auto) 0.0 TH/MM3 CBC Comment AUTO DIFF Differential Total Cells 100 Counted Neutrophils % (Manual) 81 % Band Neutrophils % 7 % Lymphocytes % 3 % Monocytes % 2 % Neutrophils # (Manual) 22.2 TH/MM3 Metamyelocytes 2 % Myelocytes 5 % Differential Comment FINAL DIFF MANUAL Platelet Estimate NORMAL Platelet Morphology Comment NORMAL Red Cell Morphology Comment NORMAL Creatinine 0.57 MG/DL Estimat Glomerular Filtration 103 ML/MIN Rate Urine Color YELLOW Urine Turbidity CLEAR Urine pH 7.0 Urine Specific [place] 1.011 Urine Protein NEG mg/dL Urine Glucose (UA) NEG mg/dL Urine Ketones NEG mg/dL Urine Occult Blood TRACE Urine Nitrite NEG Urine Bilirubin NEG Urine Urobilinogen 2.0 MG/DL Urine Leukocyte Esterase NEG Administered Medications Medications (Trade) Dose Ordered Sig/Sam Route PRN Reason Start Time Stop Time Status Last Admin Dose Admin Chlorphenir/ Hydrocodone Polistirex (Tussionex Liq) 5 ml HS PRN PO COUGH 12/09/16 23:45 12/14/16 20:23 Pantoprazole Sodium (Protonix) 40 mg DAILY PO 12/10/16 09:00 12/15/16 08:58 Levofloxacin 750 mg 750 mg DAILY PO 12/11/16 09:00 12/15/16 09:00 Imipenem/ Cilastatin Sodium 500 mg/Sodium Chloride 100 ml @ 200 mls/hr Q8H IV 12/12/16 11:00 12/15/16 10:45 Amikacin Sulfate/ Sodium Chloride (Amikin Inj/NS 250 ml Inj) 252 ml @ 250 mls/hr Q24H IV 12/12/16 13:00 12/15/16 13:07 Alprazolam (Xanax) 0.25 mg Q6H PRN PO anxiety 12/12/16 20:00 12/15/16 10:07 Diltiazem HCl (Cardizem) 30 mg QID PO 12/15/16 13:00 12/15/16 13:07 Objective Remarks GENERAL: Elderly female, sitting up in chair next to bed in nad. SKIN: Warm and dry. occasional bruises on arms. HEAD: Normocephalic. EYES: No injection or drainage. NECK: Supple, trachea midline. CARDIOVASCULAR: +S1/S2 RESPIRATORY: diminished at bases. +coarse rhonchi GASTROINTESTINAL: Abdomen soft, non-tender, nondistended. EXTREMITIES: No cyanosis NEUROLOGICAL: awake and alert, normal speech. Assessment/Plan Problem List: (1) Thrombocytopenia Status: Resolved Plan: -- ?drug effect --HIT negative --post transfusion platelet count shows response to transfusion --peripheral smear showed scattered giant platelet forms, leukocytosis, severe thrombocytopenia --LDH mildly elevated, but microangiopathic process is unlikely. --mega negative -- No melena, no bright red blood per rectum. --u/s LE, no dvt --Hypersplenism unlikely as her liver appears to be normal and spleen is small in size. Assessment 76y/o admitted with dyspnea. hematology consulted for thrombocytopenia. h/o COPD. Interstitial fibrosis. Cavitary lung lesion. Severe osteoporosis. Gastroesophageal reflux. Cataract. Pneumonia. Bronchoscopy. Pins in the left wrist Plan 1. platelet count recovered. Hematology will sign off please call or reconsult if needed. Attending Statement Discussed above, noted platelet recovery which suggest drug effect now resolved. Continue treatment for lung infection per ID. Will sign off. Karolina Gray Dec 15, 2016 13:50 Annamaria Larson MD Dec 15, 2016 19:23
--- NOTE | 2016-12-15 15:01 | HHI.IDPN ---
Subjective Subjective Remarks Mrs. French is a 76 year-old woman who has had progressive symptoms of shortness of breath and nasal bleed on presentation. She is being treated for COPD and Pulm fibrosis by . Overnight events reviewed. No further active nasal bleed or any other sites. No fevers No rash No diarrhea WBC trending downwards. Sitting in chair, Walked in the room. Breathing much better appears to be less anxious. Not much cough UO ok. Antibiotics Imipenem IV Amikacin IV Levaquin Lines Line sites with no evidence of infection. 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 Allergies: Coded Allergies: No Known Allergies (Unverified , 11/27/16) Objective . Vital Signs Date Time Temp Pulse Resp B/P Pulse Ox O2 Delivery O2 Flow Rate FiO2 12/15/16 12:00 97.6 130 24 118/76 98 12/15/16 12:00 130 12/15/16 11:26 95 Nasal Cannula 6.00 12/15/16 10:00 137 12/15/16 08:00 97.3 114 28 107/70 95 12/15/16 08:00 108 12/15/16 06:00 99 12/15/16 04:00 109 12/15/16 04:00 98.0 109 15 96/59 100 12/15/16 02:00 96 12/15/16 00:00 98.1 107 33 109/71 99 12/15/16 00:00 107 12/14/16 22:00 124 12/14/16 20:36 95 Nasal Cannula 6.00 12/14/16 20:00 97.9 125 23 109/67 95 12/14/16 20:00 125 12/14/16 18:00 121 12/14/16 16:00 128 12/14/16 16:00 98.1 128 32 106/70 100 12/14/16 12/14/16 12/15/16 15:00 23:00 07:00 Intake Total 600 ml 961 ml 219 ml Output Total 950 ml 850 ml 650 ml Balance -350 ml 111 ml -431 ml Intake Oral 320 ml 350 ml 90 ml IV Total 280 ml 611 ml 129 ml Output Urine Total 950 ml 850 ml 650 ml # Bowel Movements 1 0 0 . Laboratory Tests Test 12/14/16 12/15/16 04:50 07:13 White Blood Count 26.8 TH/MM3 23.4 TH/MM3 Red Blood Count 3.29 MIL/MM3 3.48 MIL/MM3 Hemoglobin 8.9 GM/DL 9.6 GM/DL Hematocrit 28.0 % 29.7 % Mean Corpuscular Volume 85.1 FL 85.4 FL Mean Corpuscular Hemoglobin 27.1 PG 27.4 PG Mean Corpuscular Hemoglobin 31.8 % 32.1 % Concent Red Cell Distribution Width 16.0 % 16.6 % Platelet Count 118 TH/MM3 183 TH/MM3 Mean Platelet Volume 9.3 FL 9.0 FL Neutrophils (%) (Auto) 92.4 % 89.7 % Lymphocytes (%) (Auto) 4.3 % 6.5 % Monocytes (%) (Auto) 2.8 % 3.2 % Eosinophils (%) (Auto) 0.1 % 0.4 % Basophils (%) (Auto) 0.4 % 0.2 % Neutrophils # (Auto) 24.8 TH/MM3 21.0 TH/MM3 Lymphocytes # (Auto) 1.2 TH/MM3 1.5 TH/MM3 Monocytes # (Auto) 0.8 TH/MM3 0.7 TH/MM3 Eosinophils # (Auto) 0.0 TH/MM3 0.1 TH/MM3 Basophils # (Auto) 0.1 TH/MM3 0.0 TH/MM3 CBC Comment AUTO DIFF AUTO DIFF Differential Total Cells 100 100 Counted Neutrophils % (Manual) 72 % 81 % Band Neutrophils % 5 % 7 % Lymphocytes % 10 % 3 % Monocytes % 4 % 2 % Neutrophils # (Manual) 23.0 TH/MM3 22.2 TH/MM3 Myelocytes 9 % 5 % Nucleated Red Blood Cells 1 /100 WBC Differential Comment FINAL DIFF FINAL DIFF MANUAL MANUAL Platelet Estimate LOW NORMAL Platelet Morphology Comment NORMAL NORMAL Basophilic Stippling MOD Ovalocytes 1+ Metamyelocytes 2 % Red Cell Morphology Comment NORMAL Laboratory Tests Test 12/14/16 12/15/16 04:50 07:13 Sodium Level 137 MEQ/L Potassium Level 4.7 MEQ/L Chloride Level 100 MEQ/L Carbon Dioxide Level 28.8 MEQ/L Anion Gap 8 MEQ/L Blood Urea Nitrogen 21 MG/DL Creatinine 0.65 MG/DL 0.57 MG/DL Estimat Glomerular Filtration 89 ML/MIN 103 ML/MIN Rate Random Glucose 121 MG/DL Calcium Level 7.7 MG/DL Imaging Last Impressions Chest X-Ray 12/09/16 0000 Signed Impressions: Service Date/Time: Friday, December 09, 2016 16:07 - CONCLUSION: Continued evidence of diffuse bilateral parenchymal lung disease characteristic of chronic lung changes with active pneumonitis. Moderate congestion would be difficult to exclude. Paramjit Parada MD CT Angiography 12/09/16 0000 Signed Impressions: Service Date/Time: Friday, December 09, 2016 19:05 - CONCLUSION: 1. Increasing mass-like opacity with cavitation right upper lobe. 2. Increasing interstitial changes in both lungs. 3. There is no central pulmonary emboli. José Antonio Hamilton MD FACR Physical Exam GENERAL: Thin built CF patient, in no apparent distress. SKIN: No rashes, ecchymoses or lesions. Cool and dry. HEAD: Atraumatic. Normocephalic. No temporal or scalp tenderness. EYES: Pupils equal round and reactive. Extraocular motions intact. No scleral icterus. No injection or drainage. ENT: Nose with dried blood in both nares. Throat without erythema, tonsillar hypertrophy or exudate. Uvula midline. Airway patent. NECK: Trachea midline. Supple, nontender, no meningeal signs. CARDIOVASCULAR: HS audible. No murmur appreciated. RESPIRATORY: Bibasilar crackles posteriorly. GASTROINTESTINAL: Abdomen soft, non-tender, nondistended. MUSCULOSKELETAL: Extremities without clubbing, cyanosis, or edema. No joint tenderness, effusion, or edema noted. No calf tenderness. Negative Homans sign bilaterally. NEUROLOGICAL: Awake and alert. Grossly non focal Psych: cooperative, anxious IV line sites with no e/o infection. 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 3rd episode of pneumonia in last 4 months. Progressive resp worsening. Pulm fibrosis. 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 HIT. Less likely ITP or antibiotic induced. Leucocytosis: infection, steroids. Oxygen-dependent respiratory failure Recs M.fortuitum treatment: she definitely needs to be treated for it. Meets IDSA as well as ATS societies criteria for treatment of Mycobacterium. Continue following regimen 1. Imipenem (which will cover MFortutitum plus any resistant GNR; 100% susceptible per review of literature) 2. Amikacin (2nd agent for M.fortuitum: 100% susceptible per review of literature) 3. Continue Levaquin for now (as 3rd agent plus also has atypical as well as some GNR coverage for Stenomalto etc which can be expected in cases with advanced lung disease) d.w Micro: await susceptibility on M.Fortuitum from 08/2016 or later cultures. Usually kept in state lab for 6 months. Follow cultures Follow clinically Discussed with patient and RN and primary team. Transfer to floor today. Asked Micro lab to follow up on AFB susceptibility. Beatriz Dodson MD Dec 15, 2016 15:01
[2016-12-15] MEDS ORDERED: RESP: IPRATROPIUM 0.5 MG/2.5 ML NEB NEB PRN (16:00)
[2016-12-15] MEDS: CHLORPHENIR/HYDROCOD LIQUID 8 MG/10 MG/5 ML CUP PO PRN (21:10)
[2016-12-15] MEDS: predniSONE 20 MG TAB PO SCH (21:10)
[2016-12-16] VITALS (12 sets, daily range): BP systolic 100–121; BP diastolic 57–68; PULSE 95–142; RESP 16–20; TEMP 97.3–98.3; O2SAT 92–99
[2016-12-16] MEDS: RESP: ALBUTEROL 2.5 MG/IPRATROPIUM 0.5 MG NEB (PRN) NEB (00:44)
[2016-12-16] MEDS: IMIPENEM/CILASTATIN INJ 500 MG in SODIUM CHLORIDE 0.9% INJ 100 ML IV SCH ×3 (04:38→19:00)
[2016-12-16 07:21] LABS: AUTOMATED NEUTROPHIL # 19.4 TH/MM3 (1.8-7.7); BASOPHIL # 0.1 TH/MM3 (0-0.2); BASOPHIL % 0.2 % (0.0-2.0); HEMATOCRIT 28.1 % (35.0-46.0); LYMPH % 3.9 % (9.0-44.0); LYMPHOCYTE # 0.8 TH/MM3 (1.0-4.8); MEAN CELL VOLUME 84.5 FL (80.0-100.0); MEAN CORPUSCULAR HEMOGLOBIN 27.1 PG (27.0-34.0); MEAN CORPUSCULAR HGB CONC 32.1 % (32.0-36.0); MONO % 2.2 % (0.0-8.0); NEUT % 93.7 % (16.0-70.0); PLATELET COUNT 191 TH/MM3 (150-450); RED BLOOD COUNT 3.33 MIL/MM3 (4.00-5.30); RED CELL DISTRIBUTION WIDTH 16.5 % (11.6-17.2); WHITE BLOOD COUNT 20.7 TH/MM3 (4.0-11.0)
[2016-12-16 07:26] LABS: HEMO FLAGS AUTO DIFF
[2016-12-16 08:35] LABS: BANDS 6 % (0-6); CORRECTED NUCLEATED RBC 1 /100 WBC (0-0); METAMYELOCYTES 3 % (0-1); MYELOCYTES 2 % (0-0); NEUTROPHIL # MANUAL DIFF 19.3 TH/MM3 (1.8-7.7); PLATELET ESTIMATE SMEAR NORMAL (NORMAL); PLATELET MORPHOLOGY NORMAL (NORMAL); POLYS (SEG NEUTROPHILS) 82 % (16-70); SCAN/DIFF FINAL DIFF MANUAL; WBC DIFF SAMPLE 100
[2016-12-16] MEDS: predniSONE 20 MG TAB PO SCH ×2 (09:27→22:19)
[2016-12-16] MEDS: PANTOPRAZOLE SOD 40 MG DELAYED RELEASE TAB PO SCH (09:27)
[2016-12-16] MEDS: DILTIAZEM HCL 30 MG TAB PO SCH (09:27)
[2016-12-16] MEDS: LEVOFLOXACIN 750 MG TAB PO SCH (09:27)
[2016-12-16] MEDS: ALPRAZolam 0.25 MG TAB PO PRN ×2 (09:27→22:20)
[2016-12-16] MEDS ORDERED: DILTIAZEM HCL 30 MG TAB PO ONE (11:00)
--- NOTE | 2016-12-16 13:55 | HHI.FF ---
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 My clinical findings support the need for the requested home health care services because: Ltd mobility - disease progression Patient has SOB Deconditioned w/ increased weakness I certify that my clinical findings support that this patient is homebound because: Hx COPD- exertion dyspnea/weakness Need for psychosocial assistance Samreen Serrano Dec 16, 2016 13:55
--- NOTE | 2016-12-16 13:55 | HHI.PR ---
Subjective Subjective Remarks tx out of ICU yesterday feels better, optimistic about possible discharge on oxygen at 3L/NC, sats 97% less SOB with activity had small blood clot from nose yesterday, only one, no epistaxis no cp eating okay anxiety improving still tachycardic, HR up to 140s with activity while at rest, HR 110-120s, ST wants to get up and walk around, discussed need to increase activity slowly. Review of Systems Constitutional Constitutional Remarks 12 point ROS completed, negative except as noted above Vitals/Results Intake & Output 12/15/16 12/15/16 12/16/16 15:00 23:00 07:00 Intake Total 876 ml 360 ml 240 ml Output Total 400 ml 150 ml 550 ml Balance 476 ml 210 ml -310 ml Intake Oral 620 ml 360 ml 240 ml IV Total 256 ml Output Urine Total 400 ml 150 ml 550 ml # Voids 1 # Bowel Movements 1 1 Vital Signs Vital Signs Date Time Temp Pulse Resp B/P Pulse Ox O2 Delivery O2 Flow Rate FiO2 12/16/16 12:00 97.3 120 16 121/64 97 12/16/16 10:48 96 Nasal Cannula 3.00 12/16/16 10:11 142 12/16/16 09:00 104 12/16/16 08:00 97.8 95 16 100/62 99 12/16/16 04:00 Nasal Cannula 3.00 Humidified 12/16/16 04:00 97.3 113 20 119/68 92 12/16/16 00:40 97 Nasal Cannula 3.00 12/16/16 00:00 98.1 104 18 115/57 98 12/16/16 00:00 Nasal Cannula 4.00 Humidified 12/15/16 21:48 106 12/15/16 20:00 96 Nasal Cannula 2.00 12/15/16 20:00 Nasal Cannula 5.00 Humidified 12/15/16 20:00 97.6 112 18 113/70 96 12/15/16 16:00 98.3 120 24 111/63 96 12/15/16 16:00 120 12/15/16 16:00 97.6 110 20 131/70 98 CBC/BMP: 12/16/16 0634 12/16/16 0634 Lab Results Laboratory Tests Test 12/16/16 06:34 White Blood Count 20.7 TH/MM3 Red Blood Count 3.33 MIL/MM3 Hemoglobin 9.0 GM/DL Hematocrit 28.1 % Mean Corpuscular Volume 84.5 FL Mean Corpuscular Hemoglobin 27.1 PG Mean Corpuscular Hemoglobin 32.1 % Concent Red Cell Distribution Width 16.5 % Platelet Count 191 TH/MM3 Mean Platelet Volume 8.7 FL Neutrophils (%) (Auto) 93.7 % Lymphocytes (%) (Auto) 3.9 % Monocytes (%) (Auto) 2.2 % Eosinophils (%) (Auto) 0.0 % Basophils (%) (Auto) 0.2 % Neutrophils # (Auto) 19.4 TH/MM3 Lymphocytes # (Auto) 0.8 TH/MM3 Monocytes # (Auto) 0.5 TH/MM3 Eosinophils # (Auto) 0.0 TH/MM3 Basophils # (Auto) 0.1 TH/MM3 CBC Comment AUTO DIFF Differential Total Cells 100 Counted Neutrophils % (Manual) 82 % Band Neutrophils % 6 % Lymphocytes % 4 % Monocytes % 3 % Neutrophils # (Manual) 19.3 TH/MM3 Metamyelocytes 3 % Myelocytes 2 % Nucleated Red Blood Cells 1 /100 WBC Differential Comment FINAL DIFF MANUAL Platelet Estimate NORMAL Platelet Morphology Comment NORMAL Red Cell Morphology Comment NORMAL Creatinine 0.55 MG/DL Estimat Glomerular Filtration 108 ML/MIN Rate Physical Exam General General Appearance: Well Developed, No Acute Distress, Comfortable Eyes Eye Exam: Pupils Equal, Pupils Reactive Ears & Nose Ears & Nose Exam: Nasal Mucosa [place] Throat Throat Exam: Oral Mucosa [place] & Moist Neck Neck Exam: Neck Supple, Trachea Midline Pulmonary Resp Exam: Crackles, Rhonchi Resp Remarks mild exp. 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 SOB, cough and hypoxia. Evaluated in the ED and now admitted for Pulm. fibrosis exacerbation -+ mycobacterium fortuitim in sputum, sens. pending, may take a couple of week. -abx changed to Imipenem/Amikacin & levaquin -Duonebs -Prednisone 30 mg PO BID, taper per pulmonary -Appreciate ID input, D/W Dr. Dodson, will need IV abx as OP -Antitussives PRN . Thrombocytopenia ? etiology ? med induced, no more bleeding. Plat. improving. -Status post platelet transfusion -Hematology consultation appreciated , no signs of hemolysis , -HIT antibody negative - Platelet counts are better-today 191. Had one small blood clot from nose yesterday, none today. Leukocytosis,likely d/t steroids -monitor CBC Underweight, malnourished, weight loss -Encourage by mouth intake -Boost 1 can PO TID Anxiety, better -continue with xanax q 6 hrs prn for anxiety Tachycardia -Cardizem increased to 60 mg PO QID -continue to monitor Case management consult for IV abx, dc planning, 2-3 days when ok by consultants PT eval and tx improving slowly discussed need to adv activity slowly, HR elevated with minimal activity SCD for DVT prophylaxis, PPI for GI prophylaxis improving slowly D/W RN D/W Dr. Malave D/W pt., , hopeful that she can f/u at [facility] with pulmonology. D/W CM This patient was seen by myself and Dr. Malave, this note is written on his behalf. Problem Qualifiers (1) Dyspnea: Qualified Code: R06.09 - Dyspnea on exertion (2) GERD (gastroesophageal reflux disease): Qualified Code: K21.9 - Gastroesophageal reflux disease, esophagitis presence not specified Samreen Serrano Dec 16, 2016 13:55
[2016-12-16] MEDS: SODIUM CHLOR 0.9% IV SCH (15:35)
[2016-12-16] MEDS: AMIKACIN IV SCH (15:35)
[2016-12-16] MEDS: DILTIAZEM HCL 60 MG TAB PO SCH ×2 (16:31→22:19)
[2016-12-16] MEDS: CHLORPHENIR/HYDROCOD LIQUID 8 MG/10 MG/5 ML CUP PO PRN (22:20)
[2016-12-17] VITALS (7 sets, daily range): BP systolic 100–119; BP diastolic 58–66; PULSE 87–104; RESP 16–20; TEMP 97.4–98; O2SAT 93–98
[2016-12-17] MEDS: IMIPENEM/CILASTATIN INJ 500 MG in SODIUM CHLORIDE 0.9% INJ 100 ML IV SCH ×3 (02:45→19:16)
[2016-12-17] MEDS: DILTIAZEM HCL 60 MG TAB PO SCH ×4 (04:42→21:30)
[2016-12-17] MEDS: ALPRAZolam 0.25 MG TAB PO PRN ×2 (09:02→19:16)
[2016-12-17] MEDS: LEVOFLOXACIN 750 MG TAB PO SCH (09:02)
[2016-12-17] MEDS: predniSONE 20 MG TAB PO SCH ×2 (09:02→21:30)
[2016-12-17] MEDS: PANTOPRAZOLE SOD 40 MG DELAYED RELEASE TAB PO SCH (09:02)
--- NOTE | 2016-12-17 15:27 | HHI.PR ---
Subjective History of Present Illness I'm okay breathing is improving No able to ambulate short distance/ on 3 liter NC less cough, no sputum production No fever or chills No hemoptysis No more epistaxis. No hematemesis Denies chest pain Offers no other complaints is at bedside Vitals/Results Intake & Output 12/16/16 12/16/16 12/17/16 15:00 23:00 07:00 Intake Total 571 ml 480 ml 240 ml Output Total 400 ml 150 ml 650 ml Balance 171 ml 330 ml -410 ml Intake Oral 477 ml 480 ml 240 ml IV Total 94 ml Output Urine Total 400 ml 150 ml 650 ml # Bowel Movements 1 0 0 Vital Signs Vital Signs Date Time Temp Pulse Resp B/P Pulse Ox O2 Delivery O2 Flow Rate FiO2 12/17/16 12:00 97.7 91 16 100/59 96 12/17/16 10:37 93 Nasal Cannula 3.00 12/17/16 08:00 87 12/17/16 08:00 97.8 97 16 106/58 97 12/17/16 07:00 Nasal Cannula 3.00 Humidified 12/17/16 04:10 97.4 87 16 103/59 98 12/16/16 23:45 97.7 96 16 109/66 97 12/16/16 22:02 94 Nasal Cannula 3.00 12/16/16 20:07 97.5 108 18 103/61 99 12/16/16 20:00 Nasal Cannula 6.00 Humidified 12/16/16 16:00 98.3 106 16 112/68 97 CBC/BMP: 12/16/16 0634 12/17/16 0748 Lab Results Laboratory Tests Test 12/17/16 07:48 Creatinine 0.58 MG/DL Estimat Glomerular Filtration 101 ML/MIN Rate Physical Exam General General Appearance: Well Developed, No Acute Distress, Comfortable Appearance Remarks Thinly built elderly frail appearing female Eyes Eye Exam: Pupils Equal, Pupils Reactive Ears & Nose Ears & Nose Exam: Nasal Mucosa [place] Throat Throat Exam: Oral Mucosa [place] & Moist Neck Neck Exam: Neck Supple, Trachea Midline Pulmonary Resp Exam: Crackles, Rhonchi Resp Remarks Coarse breath sounds scattered fine crackles, Cardiology CV Exam: Regular, Tachycardia Gastrointestinal/Abdomen GI Exam: Soft, Non-Tender, Bowel Sounds Present Musculoskeletal MS Exam: Joints Intact, Normal Tone Integumentary Skin Exam: Warm, Dry Extremeties Extremities Exam: No Edema, Pedal Pulses Palpable Neurologic Neuro Exam: Alert, Awake, Oriented, Speech Clear, Moving All Extremities, No Focal Deficits Psychiatric Psych Exam: Appropriate Responses VTE Prophylaxis VTE Prophylaxis Device: SCDs PUD Prophylasis PUD Prophylaxis: Protonix Assessment/Plan Problem List: (1) Pulmonary fibrosis Plan: worsening (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 SOB, cough and hypoxia. Evaluated in the ED and now admitted for Pulm. fibrosis exacerbation -+ mycobacterium fortuitim in sputum, sens. pending, may take a couple of week. -IV Abx per ID Imipenem/Amikacin & levaquin -Duonebs -Prednisone 20 mg PO BID, taper per pulmonary --Antitussives PRN . Thrombocytopenia ? etiology ? med induced, no more bleeding. Plat. improving. -Status post platelet transfusion -Hematology consultation appreciated , no signs of hemolysis , -HIT antibody negative - Platelet counts are better-today 191. Had one small blood clot from nose yesterday, none today. Leukocytosis,likely d/t steroids -monitor CBC Underweight, malnourished, weight loss -Encourage by mouth intake -Boost 1 can PO TID Anxiety, better -continue with xanax q 6 hrs prn for anxiety Tachycardia -Cardizem increased to 60 mg PO QID -continue to monitor Case management consult for IV abx, dc planning, 2-3 days when ok by consultants PT freddy and tx improving slowly d/w Dr. Dodson , she is planning to discharge her home on IV imipenem. Trying to get it approved by her insurance Patient also need PICC line will order tomorrow Discussed patient Will follow Problem Qualifiers (1) Dyspnea: Qualified Code: R06.09 - Dyspnea on exertion (2) GERD (gastroesophageal reflux disease): Qualified Code: K21.9 - Gastroesophageal reflux disease, esophagitis presence not specified Skyla Malave MD Dec 17, 2016 15:27 (1) Dyspnea: Qualified Code: R06.09 - Dyspnea on exertion (2) GERD (gastroesophageal reflux disease): Qualified Code: K21.9 - Gastroesophageal reflux disease, esophagitis presence not specified Skyla Malave MD Dec 17, 2016 15:27
[2016-12-17] MEDS: AMIKACIN IV SCH (16:36)
[2016-12-17] MEDS: SODIUM CHLOR 0.9% IV SCH (16:36)
[2016-12-17] MEDS: CHLORPHENIR/HYDROCOD LIQUID 8 MG/10 MG/5 ML CUP PO PRN (19:16)
--- NOTE | 2016-12-17 19:49 | HHI.IDPN ---
Subjective Subjective Remarks Mrs. French is a 76 year-old woman who has had progressive symptoms of shortness of breath and nasal bleed on presentation. She is being treated for COPD and Pulm fibrosis by . Overnight events reviewed. No further active nasal bleed or any other sites. No fevers No rash No diarrhea WBC trending downwards. Sitting in chair, Walked in the room. Breathing much better appears to be less anxious. Not much cough UO ok. Antibiotics Imipenem IV Amikacin IV Levaquin Lines Line sites with no evidence of infection. 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 Allergies: Coded Allergies: No Known Allergies (Unverified , 11/27/16) Objective . Vital Signs Date Time Temp Pulse Resp B/P Pulse Ox O2 Delivery O2 Flow Rate FiO2 12/17/16 16:00 98.0 104 20 116/62 96 12/17/16 12:00 97.7 91 16 100/59 96 12/17/16 10:37 93 Nasal Cannula 3.00 12/17/16 08:00 87 12/17/16 08:00 97.8 97 16 106/58 97 12/17/16 07:00 Nasal Cannula 3.00 Humidified 12/17/16 04:10 97.4 87 16 103/59 98 12/16/16 23:45 97.7 96 16 109/66 97 12/16/16 22:02 94 Nasal Cannula 3.00 12/16/16 20:07 97.5 108 18 103/61 99 12/16/16 20:00 Nasal Cannula 6.00 Humidified 12/16/16 12/16/16 12/17/16 15:00 23:00 07:00 Intake Total 571 ml 480 ml 240 ml Output Total 400 ml 150 ml 650 ml Balance 171 ml 330 ml -410 ml Intake Oral 477 ml 480 ml 240 ml IV Total 94 ml Output Urine Total 400 ml 150 ml 650 ml # Bowel Movements 1 0 0 . Laboratory Tests Test 12/16/16 06:34 White Blood Count 20.7 TH/MM3 Red Blood Count 3.33 MIL/MM3 Hemoglobin 9.0 GM/DL Hematocrit 28.1 % Mean Corpuscular Volume 84.5 FL Mean Corpuscular Hemoglobin 27.1 PG Mean Corpuscular Hemoglobin 32.1 % Concent Red Cell Distribution Width 16.5 % Platelet Count 191 TH/MM3 Mean Platelet Volume 8.7 FL Neutrophils (%) (Auto) 93.7 % Lymphocytes (%) (Auto) 3.9 % Monocytes (%) (Auto) 2.2 % Eosinophils (%) (Auto) 0.0 % Basophils (%) (Auto) 0.2 % Neutrophils # (Auto) 19.4 TH/MM3 Lymphocytes # (Auto) 0.8 TH/MM3 Monocytes # (Auto) 0.5 TH/MM3 Eosinophils # (Auto) 0.0 TH/MM3 Basophils # (Auto) 0.1 TH/MM3 CBC Comment AUTO DIFF Differential Total Cells 100 Counted Neutrophils % (Manual) 82 % Band Neutrophils % 6 % Lymphocytes % 4 % Monocytes % 3 % Neutrophils # (Manual) 19.3 TH/MM3 Metamyelocytes 3 % Myelocytes 2 % Nucleated Red Blood Cells 1 /100 WBC Differential Comment FINAL DIFF MANUAL Platelet Estimate NORMAL Platelet Morphology Comment NORMAL Red Cell Morphology Comment NORMAL Laboratory Tests Test 12/16/16 12/17/16 06:34 07:48 Creatinine 0.55 MG/DL 0.58 MG/DL Estimat Glomerular Filtration 108 ML/MIN 101 ML/MIN Rate C-Reactive Protein 0.41 MG/DL Imaging Last Impressions Chest X-Ray 12/09/16 0000 Signed Impressions: Service Date/Time: Friday, December 09, 2016 16:07 - CONCLUSION: Continued evidence of diffuse bilateral parenchymal lung disease characteristic of chronic lung changes with active pneumonitis. Moderate congestion would be difficult to exclude. Paramjit Parada MD CT Angiography 12/09/16 0000 Signed Impressions: Service Date/Time: Friday, December 09, 2016 19:05 - CONCLUSION: 1. Increasing mass-like opacity with cavitation right upper lobe. 2. Increasing interstitial changes in both lungs. 3. There is no central pulmonary emboli. José Antonio Hamilton MD FACR Physical Exam GENERAL: Thin built CF patient, in no apparent distress. SKIN: No rashes, ecchymoses or lesions. Cool and dry. HEAD: Atraumatic. Normocephalic. No temporal or scalp tenderness. EYES: Pupils equal round and reactive. Extraocular motions intact. No scleral icterus. No injection or drainage. ENT: Nose with dried blood in both nares. Throat without erythema, tonsillar hypertrophy or exudate. Uvula midline. Airway patent. NECK: Trachea midline. Supple, nontender, no meningeal signs. CARDIOVASCULAR: HS audible. No murmur appreciated. RESPIRATORY: Bibasilar crackles posteriorly. GASTROINTESTINAL: Abdomen soft, non-tender, nondistended. MUSCULOSKELETAL: Extremities without clubbing, cyanosis, or edema. No joint tenderness, effusion, or edema noted. No calf tenderness. Negative Homans sign bilaterally. NEUROLOGICAL: Awake and alert. Grossly non focal Psych: cooperative, anxious IV line sites with no e/o infection. 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 3rd episode of pneumonia in last 4 months. Progressive resp worsening. Pulm fibrosis. 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 HIT. Less likely ITP or antibiotic induced. Leucocytosis: infection, steroids. Oxygen-dependent respiratory failure Recs M.fortuitum treatment: she definitely needs to be treated for it. Meets IDSA as well as ATS societies criteria for treatment of Mycobacterium. Continue following regimen 1. Imipenem (which will cover MFortutitum plus any resistant GNR; 100% susceptible per review of literature) 2. Amikacin (2nd agent for M.fortuitum: 100% susceptible per review of literature) 3. Continue Levaquin for now (as 3rd agent plus also has atypical as well as some GNR coverage for Stenomalto etc which can be expected in cases with advanced lung disease) d.w Micro: await susceptibility on M.Fortuitum from 08/2016 or later cultures. Usually kept in state lab for 6 months. Follow cultures Follow clinically Discussed with patient and RN and primary team. Asked Micro lab to follow up on AFB susceptibility. d/w case planner: medication regimen provided to see if we can get insurance approval d/w . Beatriz Dodson MD Dec 17, 2016 19:49
[2016-12-18] VITALS (7 sets, daily range): BP systolic 100–124; BP diastolic 60–74; PULSE 84–111; RESP 18–20; TEMP 97.2–98.5; O2SAT 92–97
[2016-12-18] MEDS: DILTIAZEM HCL 60 MG TAB PO SCH ×4 (03:49→20:35)
[2016-12-18] MEDS: IMIPENEM/CILASTATIN INJ 500 MG in SODIUM CHLORIDE 0.9% INJ 100 ML IV SCH ×3 (03:49→20:35)
[2016-12-18] MEDS: predniSONE 20 MG TAB PO SCH ×2 (09:26→20:35)
[2016-12-18] MEDS: PANTOPRAZOLE SOD 40 MG DELAYED RELEASE TAB PO SCH (09:26)
[2016-12-18] MEDS: LEVOFLOXACIN 750 MG TAB PO SCH (09:26)
[2016-12-18] MEDS: ALPRAZolam 0.25 MG TAB PO PRN ×2 (09:26→15:56)
[2016-12-18] MEDS: AMIKACIN IV SCH (14:20)
[2016-12-18] MEDS: SODIUM CHLOR 0.9% IV SCH (14:20)
--- NOTE | 2016-12-18 15:25 | HHI.PR ---
Subjective History of Present Illness In good spirits able to walk short distance , gets out of breath less cough, no sputum production No fever or chills No hemoptysis No more epistaxis. No hematemesis Denies chest pain good appetite Offers no other complaints Vitals/Results Intake & Output 12/17/16 12/17/16 12/18/16 15:00 23:00 07:00 Intake Total 600 ml 660 ml 120 ml Balance 600 ml 660 ml 120 ml Intake Oral 600 ml 360 ml 120 ml IV Total 300 ml # Voids 5 2 3 # Bowel Movements 0 0 0 Vital Signs Vital Signs Date Time Temp Pulse Resp B/P Pulse Ox O2 Delivery O2 Flow Rate FiO2 12/18/16 12:00 98.4 111 20 100/61 97 12/18/16 09:34 Nasal Cannula 3.00 Humidified 12/18/16 09:34 84 12/18/16 07:40 97.6 96 20 124/66 93 12/18/16 04:00 97.2 87 18 105/60 96 12/18/16 00:00 97.9 90 18 101/65 97 12/17/16 21:22 93 Nasal Cannula 3.00 12/17/16 21:00 Nasal Cannula 3.00 50 12/17/16 20:00 93 12/17/16 20:00 97.9 94 18 119/66 96 12/17/16 16:00 98.0 104 20 116/62 96 CBC/BMP: 12/16/16 0634 12/18/16 0526 Lab Results Laboratory Tests Test 12/17/16 12/18/16 19:35 05:26 Erythrocyte Sedimentation Rate 36 mm/hr Creatinine 0.55 MG/DL Estimat Glomerular Filtration 108 ML/MIN Rate Physical Exam General General Appearance: Well Developed, No Acute Distress, Comfortable Appearance Remarks Thinly built elderly frail appearing female Eyes Eye Exam: Pupils Equal, Pupils Reactive Ears & Nose Ears & Nose Exam: Nasal Mucosa [place] Throat Throat Exam: Oral Mucosa [place] & Moist Neck Neck Exam: Neck Supple, Trachea Midline Pulmonary Resp Exam: Crackles, Rhonchi Resp Remarks Coarse breath sounds scattered fine crackles, Cardiology CV Exam: Regular, Tachycardia Gastrointestinal/Abdomen GI Exam: Soft, Non-Tender, Bowel Sounds Present Musculoskeletal MS Exam: Joints Intact, Normal Tone Integumentary Skin Exam: Warm, Dry Extremeties Extremities Exam: No Edema, Pedal Pulses Palpable Neurologic Neuro Exam: Alert, Awake, Oriented, Speech Clear, Moving All Extremities, No Focal Deficits Psychiatric Psych Exam: Appropriate Responses VTE Prophylaxis VTE Prophylaxis Device: SCDs PUD Prophylasis PUD Prophylaxis: Protonix Assessment/Plan Problem List: (1) Pulmonary fibrosis Plan: worsening (2) GERD (gastroesophageal reflux disease) (3) Dyspnea (4) Thrombocytopenia (5) Hypoxia (6) GERD (gastroesophageal reflux disease) (7) COPD exacerbation (8) Epistaxis (9) Anxiety (10) s/p recent sq emphysema Assessment/Plan 76 year old female with hx pulmonary fibrosis on oxygen at home, presented to ED with inc. SOB, cough and hypoxia. Evaluated in the ED and now admitted for Pulm. fibrosis exacerbation -+ mycobacterium fortuitim in sputum, sens. pending, may take a couple of week. -IV Abx per ID Imipenem/Amikacin -Duonebs -Prednisone 20 mg PO BID, taper per pulmonary --Antitussives PRN . s/p Thrombocytopenia ? etiology ? med induced, no more bleeding. Plat. improving. -Status post platelet transfusion -Hematology consultation appreciated , no signs of hemolysis , -HIT antibody negative - Platelet counts are better-today Leukocytosis,likely d/t steroids -monitor CBC Underweight, malnourished, weight loss -Encourage by mouth intake -Boost 1 can PO TID Anxiety, better -continue with xanax q 6 hrs prn for anxiety Tachycardia -Cardizem increased to 60 mg PO QID -continue to monitor PT eval and tx improving slowly d/w Dr. Dodson again order PICC line ss for d/c planning possible d/c to SNF or Home w HHC Discussed patient again Will follow Problem Qualifiers (1) Dyspnea: Qualified Code: R06.09 - Dyspnea on exertion (2) GERD (gastroesophageal reflux disease): Qualified Code: K21.9 - Gastroesophageal reflux disease, esophagitis presence not specified Skyla Malave MD Dec 18, 2016 15:25 Skyla Malave MD Dec 18, 2016 15:25
--- NOTE | 2016-12-18 18:22 | HHI.IDPN ---
Subjective Subjective Remarks Mrs. French is a 76 year-old woman who has had progressive symptoms of shortness of breath and nasal bleed on presentation. She is being treated for COPD and Pulm fibrosis by . Overnight events reviewed. No further active nasal bleed or any other sites. No fevers No rash No diarrhea WBC trending downwards. Sitting in chair, Walked in the room. Breathing much better appears to be less anxious. Not much cough UO ok. Antibiotics Imipenem IV Amikacin IV Levaquin Lines Line sites with no evidence of infection. 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 Allergies: Coded Allergies: No Known Allergies (Unverified , 11/27/16) Objective . Vital Signs Date Time Temp Pulse Resp B/P Pulse Ox O2 Delivery O2 Flow Rate FiO2 12/18/16 16:00 98.5 109 18 111/64 92 12/18/16 12:00 98.4 111 20 100/61 97 12/18/16 09:34 Nasal Cannula 3.00 Humidified 12/18/16 09:34 84 12/18/16 07:40 97.6 96 20 124/66 93 12/18/16 04:00 97.2 87 18 105/60 96 12/18/16 00:00 97.9 90 18 101/65 97 12/17/16 21:22 93 Nasal Cannula 3.00 12/17/16 21:00 Nasal Cannula 3.00 50 12/17/16 20:00 93 12/17/16 20:00 97.9 94 18 119/66 96 12/17/16 12/17/16 12/18/16 15:00 23:00 07:00 Intake Total 600 ml 660 ml 120 ml Balance 600 ml 660 ml 120 ml Intake Oral 600 ml 360 ml 120 ml IV Total 300 ml # Voids 5 2 3 # Bowel Movements 0 0 0 . Laboratory Tests Test 12/17/16 19:35 Erythrocyte Sedimentation Rate 36 mm/hr Laboratory Tests Test 12/17/16 12/18/16 07:48 05:26 Creatinine 0.58 MG/DL 0.55 MG/DL Estimat Glomerular Filtration 101 ML/MIN 108 ML/MIN Rate C-Reactive Protein 0.41 MG/DL Imaging Last Impressions Chest X-Ray 12/09/16 0000 Signed Impressions: Service Date/Time: Friday, December 09, 2016 16:07 - CONCLUSION: Continued evidence of diffuse bilateral parenchymal lung disease characteristic of chronic lung changes with active pneumonitis. Moderate congestion would be difficult to exclude. Paramjit Parada MD CT Angiography 12/09/16 0000 Signed Impressions: Service Date/Time: Friday, December 09, 2016 19:05 - CONCLUSION: 1. Increasing mass-like opacity with cavitation right upper lobe. 2. Increasing interstitial changes in both lungs. 3. There is no central pulmonary emboli. José Antonio Hamilton MD FACR Physical Exam GENERAL: Thin built CF patient, in no apparent distress. SKIN: No rashes, ecchymoses or lesions. Cool and dry. HEAD: Atraumatic. Normocephalic. No temporal or scalp tenderness. EYES: Pupils equal round and reactive. Extraocular motions intact. No scleral icterus. No injection or drainage. ENT: Nose with dried blood in both nares. Throat without erythema, tonsillar hypertrophy or exudate. Uvula midline. Airway patent. NECK: Trachea midline. Supple, nontender, no meningeal signs. CARDIOVASCULAR: HS audible. No murmur appreciated. RESPIRATORY: Bibasilar crackles posteriorly. GASTROINTESTINAL: Abdomen soft, non-tender, nondistended. MUSCULOSKELETAL: Extremities without clubbing, cyanosis, or edema. No joint tenderness, effusion, or edema noted. No calf tenderness. Negative Homans sign bilaterally. NEUROLOGICAL: Awake and alert. Grossly non focal Psych: cooperative, anxious IV line sites with no e/o infection. 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 3rd episode of pneumonia in last 4 months. Progressive resp worsening. Pulm fibrosis. 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 HIT. Less likely ITP or antibiotic induced. Leucocytosis: infection, steroids. Oxygen-dependent respiratory failure Recs M.fortuitum treatment: she definitely needs to be treated for it. Meets IDSA as well as ATS societies criteria for treatment of Mycobacterium. Continue following regimen 1. Imipenem (which will cover MFortutitum plus any resistant GNR; 100% susceptible per review of literature) 2. Amikacin (2nd agent for M.fortuitum: 100% susceptible per review of literature) DC Levaquin Follow cultures Discussed with patient. d/w employment case manager: medication regimen provided to see if we can get insurance approval d/w . Will visit in am. Would like to discuss discharge plan with : 1. ID follow up with Dr.Reba Lobo 2. Labs and toxicity of meds. 3. Audiogram if patient remains on Amikacin for extended periods of time. 4. possibility of neuropathy with Amikacin. 5. Follow up on Myco fortuitum susceptibility. 6. Need for follow up CT. Need for patient and family to be involved in making sure appointments with are arranged for follow ups. Notified office follow up on Thursday next week. d/w PICC team. Time > 40 mins critical thinking and decision making, DC planning. Beatriz Dodson MD Dec 18, 2016 18:22
--- NOTE | 2016-12-18 18:33 | HHI.FF ---
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 COPD exacerbation. Osteoporosis. Coded Allergies: No Known Allergies (Unverified , 11/27/16) Administer Medication Amikacin 700 mg IV q24hrs Start Treatment: Dec 18, 2016 Stop Treatment: Jan 20, 2017 Administer Medication Imipenem 500 mg IV q8hrs Start Treatment: Dec 18, 2016 Stop Treatment: Jan 20, 2017 Additional Information Venous access: PICC Line Additional Instructions [x] Peripheral flush and dressing changes per protocol [x] Implanted port and central online media buyer: * Implanted port: 10 ml Normal Saline followed by 5 ml Heparin 100 units/ml Heparin flush after each use and monthly to maintain. [] May leave port accessed during therapy. [] May leave peripheral site accessed for duration of therapy. [x] If patient has SOB or respiratory distress, check oxygen saturation. If less than 90% or clinical signs of respiratory distress, administer oxygen at 2 L/min. via nasal cannula and notify physician. [x] Anaphylaxis/Reaction orders: * Stop infusion. * Keep IV line open with saline flush. * Notify physician. * Monitor vital signs every 15 minutes until symptoms resolve. * Check Oxygen saturation; Oxygen at 2 L/min. via nasal cannula if less than 90% or clinical signs of respiratory distress. * Administer diphenhydramine (Benadryl) 25 mg IV STAT, (unless patient has received as pre-med). May repeat once, if necessary. * Solu-Cortef 250 mg IVP over 30-60 seconds, use 100 mg vials for each dissolution. * Epinephrine (1mg/1 ml) 0.3 mg subcutaneously or IVP now with any signs of respiratory distress. * Check with physician for new additional pre-med orders if patient is re- challenged or re-treated. [x] May remove PICC line when treatment complete, after confirming with Physician. [x] If the patient is admitted to the hospital, the ED, or transferred via [facility] , complete transfer form including medication reconciliation order sheet. Laboratory Tests Weekly Labs: Amikacin Level (trough), CBC w/diff, Creatinine, CRP, LFT's ( Hepatic function test) Additional Information Please draw weekly labs and Call with abnormals, change in clinical condition or problems to: Dr.Reba Lobo or or covering ID Physician Follow up appt: Patient to schedule follow up appt with Dr.Reba Lobo within 1 week post discharge. Follow up with PCP Follow up with other MDs as planned. Counseling: Counseled about medication side effects Counseled about PICC line care and hand hygiene. Beatriz Dodson MD Dec 18, 2016 18:32
[2016-12-18] MEDS ORDERED: [UNRECOGNIZED DRUG - CODE] IV (18:38)
[2016-12-18] MEDS ORDERED: AMIK4INJ2 IV (18:38)
[2016-12-18] MEDS ORDERED: EPIN1INJ21 IV PUSH (19:08)
[2016-12-18] MEDS ORDERED: SOLU250I IV PUSH (19:08)
[2016-12-18] MEDS ORDERED: EPIN1INJ21 SQ (19:08)
--- NOTE | 2016-12-18 19:44 | RADRPT ---
EXAM DATE/TIME: 12/18/2016 19:18 [facility] COMPARISON: CHEST SINGLE AP, December 13, 2016, 9:03. INDICATIONS : Picc line placement. MEDICAL HISTORY : Chronic obstructive pulmonary disease. Pulmonary fibrosis. SURGICAL HISTORY : None. ENCOUNTER: Subsequent ACUITY: 1 day PAIN SCORE: 0/10 LOCATION: chest FINDINGS: Prior PICC line is present good position with tip at the atriocaval junction level. There has been li ttle change in diffuse parenchymal lung disease. Cardiac contours are stable. CONCLUSION: PICC line good position. Otherwise stable Zane Clifford MD on December 18, 2016 at 19:42 Board Certified Radiologist. This report was verified electronically.
[2016-12-18] MEDS ORDERED: ADULT - PICC FLUSH PRN FOR HEPARIN ALLERGY OR HIT DIAGNOSIS IVF (19:45)
[2016-12-18] MEDS: CHLORPHENIR/HYDROCOD LIQUID 8 MG/10 MG/5 ML CUP PO PRN (20:36)
[2016-12-18] MEDS: [UNRECOGNIZED DRUG - REMARK] IVF SCH (20:40)
[2016-12-19] VITALS (7 sets, daily range): BP systolic 105–127; BP diastolic 58–67; PULSE 74–110; RESP 18; TEMP 96–98.4; O2SAT 91–97
[2016-12-19] MEDS: IMIPENEM/CILASTATIN INJ 500 MG in SODIUM CHLORIDE 0.9% INJ 100 ML IV SCH ×3 (04:01→18:36)
[2016-12-19] MEDS: DILTIAZEM HCL 60 MG TAB PO SCH ×3 (04:01→15:48)
[2016-12-19] MEDS: ALPRAZolam 0.25 MG TAB PO PRN ×2 (04:10→17:52)
[2016-12-19] MEDS: [UNRECOGNIZED DRUG - REMARK] IVF SCH ×2 (05:01→14:00)
[2016-12-19 05:08] LABS: HEMATOCRIT 25.8 % (35.0-46.0); MEAN CELL VOLUME 84.3 FL (80.0-100.0); MEAN CORPUSCULAR HEMOGLOBIN 27.9 PG (27.0-34.0); MEAN CORPUSCULAR HGB CONC 33.1 % (32.0-36.0); PLATELET COUNT 261 TH/MM3 (150-450); RED BLOOD COUNT 3.06 MIL/MM3 (4.00-5.30); RED CELL DISTRIBUTION WIDTH 17.5 % (11.6-17.2); REVIEW FLAG FINAL; WHITE BLOOD COUNT 17.2 TH/MM3 (4.0-11.0)
[2016-12-19] MEDS: PANTOPRAZOLE SOD 40 MG DELAYED RELEASE TAB PO SCH (08:50)
[2016-12-19] MEDS: predniSONE 20 MG TAB PO SCH (08:50)
--- NOTE | 2016-12-19 11:24 | HHI.IDPN ---
Note Infectious Disease Note I called provided him all contact information for Dr.Reba Lobo as well as the call center here at [place] in case there are any problems. I also d.w him the DC treatment and monitoring plan in detail. He was thankful of care provided. Will sign off please call back if any change in clinical condition or questions, . Vital Signs Date Time Temp Pulse Resp B/P Pulse Ox O2 Delivery O2 Flow Rate FiO2 12/19/16 08:58 91 Nasal Cannula 2.00 12/19/16 08:30 Nasal Cannula 2.00 Humidified 12/19/16 08:00 74 12/19/16 08:00 96.0 93 18 105/62 93 12/19/16 05:07 97 Nasal Cannula 1.00 12/19/16 04:00 97.1 104 18 109/58 94 12/19/16 00:00 98.2 91 18 110/59 96 12/18/16 21:00 Nasal Cannula 3.00 50 Humidified 12/18/16 20:00 107 12/18/16 20:00 97.3 109 18 123/74 97 12/18/16 16:00 98.5 109 18 111/64 92 12/18/16 12:00 98.4 111 20 100/61 97 Laboratory Tests Test 12/19/16 04:50 White Blood Count 17.2 TH/MM3 Red Blood Count 3.06 MIL/MM3 Hemoglobin 8.5 GM/DL Hematocrit 25.8 % Mean Corpuscular Volume 84.3 FL Mean Corpuscular Hemoglobin 27.9 PG Mean Corpuscular Hemoglobin 33.1 % Concent Red Cell Distribution Width 17.5 % Platelet Count 261 TH/MM3 Mean Platelet Volume 8.0 FL Creatinine 0.56 MG/DL Estimat Glomerular Filtration 106 ML/MIN Rate Beatriz Dodson MD Dec 19, 2016 11:24
[2016-12-19] MEDS: SODIUM CHLOR 0.9% IV SCH (12:21)
[2016-12-19] MEDS: AMIKACIN IV SCH (12:21)
--- NOTE | 2016-12-19 13:02 | HHI.PR ---
Subjective History of Present Illness In good spirits able to walk short distance , gets out of breath less cough, no sputum production No fever or chills No hemoptysis No more epistaxis. No hematemesis Denies chest pain good appetite Offers no other complaints Vitals/Results Intake & Output 12/18/16 12/18/16 12/19/16 15:00 23:00 07:00 Intake Total 960 ml 360 ml 240 ml Balance 960 ml 360 ml 240 ml Intake Oral 960 ml 360 ml 240 ml # Voids 3 2 2 # Bowel Movements 1 1 0 Vital Signs Vital Signs Date Time Temp Pulse Resp B/P Pulse Ox O2 Delivery O2 Flow Rate FiO2 12/19/16 12:00 98.1 108 18 127/60 92 12/19/16 08:58 91 Nasal Cannula 2.00 12/19/16 08:30 Nasal Cannula 2.00 Humidified 12/19/16 08:00 74 12/19/16 08:00 96.0 93 18 105/62 93 12/19/16 05:07 97 Nasal Cannula 1.00 12/19/16 04:00 97.1 104 18 109/58 94 12/19/16 00:00 98.2 91 18 110/59 96 12/18/16 21:00 Nasal Cannula 3.00 50 Humidified 12/18/16 20:00 107 12/18/16 20:00 97.3 109 18 123/74 97 12/18/16 16:00 98.5 109 18 111/64 92 CBC/BMP: 12/19/16 0450 12/19/16 0450 Lab Results Laboratory Tests Test 12/19/16 04:50 White Blood Count 17.2 TH/MM3 Red Blood Count 3.06 MIL/MM3 Hemoglobin 8.5 GM/DL Hematocrit 25.8 % Mean Corpuscular Volume 84.3 FL Mean Corpuscular Hemoglobin 27.9 PG Mean Corpuscular Hemoglobin 33.1 % Concent Red Cell Distribution Width 17.5 % Platelet Count 261 TH/MM3 Mean Platelet Volume 8.0 FL Creatinine 0.56 MG/DL Estimat Glomerular Filtration 106 ML/MIN Rate Physical Exam General General Appearance: Well Developed, No Acute Distress, Comfortable Appearance Remarks Thinly built elderly frail appearing female Eyes Eye Exam: Pupils Equal, Pupils Reactive Ears & Nose Ears & Nose Exam: Nasal Mucosa [place] Throat Throat Exam: Oral Mucosa [place] & Moist Neck Neck Exam: Neck Supple, Trachea Midline Pulmonary Resp Exam: Crackles, Rhonchi Resp Remarks Coarse breath sounds scattered fine crackles, Cardiology CV Exam: Regular, Tachycardia Gastrointestinal/Abdomen GI Exam: Soft, Non-Tender, Bowel Sounds Present Musculoskeletal MS Exam: Joints Intact, Normal Tone Integumentary Skin Exam: Warm, Dry Extremeties Extremities Exam: No Edema, Pedal Pulses Palpable Neurologic Neuro Exam: Alert, Awake, Oriented, Speech Clear, Moving All Extremities, No Focal Deficits Psychiatric Psych Exam: Appropriate Responses VTE Prophylaxis VTE Prophylaxis Device: SCDs PUD Prophylasis PUD Prophylaxis: Protonix Assessment/Plan Problem List: (1) Pulmonary fibrosis Plan: worsening (2) GERD (gastroesophageal reflux disease) (3) Dyspnea (4) Thrombocytopenia (5) Hypoxia (6) GERD (gastroesophageal reflux disease) (7) COPD exacerbation (8) Epistaxis (9) Anxiety (10) s/p recent sq emphysema Assessment/Plan 76 year old female with hx pulmonary fibrosis on oxygen at home, presented to ED with inc. SOB, cough and hypoxia. Evaluated in the ED and now admitted for Pulm. fibrosis exacerbation -+ mycobacterium fortuitim in sputum, 1. Amikacin 700 mg IV q24hrs Start Treatment: Dec 18, 2016 Stop Treatment: Jan 20, 2017 2. Imipenem 500 mg IV q8hrs Start Treatment: Dec 18, 2016 Stop Treatment: Jan 20, 2017 Weekly Labs: Amikacin Level (trough), CBC w/diff, Creatinine, CRP, LFT's (Hepatic function test) -Duonebs -Prednisone 20 mg PO BID, -d/w Dr Lofton reduce prednisone to 30 mg po qd x 7 days than 20 mg po daily f/u Dr lofton in 2 wks , he will assess & make further rec --Antitussives PRN . s/p Thrombocytopenia ? etiology ? med induced, no more bleeding. Plat. improving. -Status post platelet transfusion -Hematology consultation appreciated , no signs of hemolysis , -HIT antibody negative - Platelet counts are normal Leukocytosis,likely d/t steroids & infection, improving -monitor CBC Underweight, malnourished, weight loss -Encourage by mouth intake -Boost 1 can PO TID Anxiety, better -continue with xanax q 6 hrs prn for anxiety Tachycardia - change card to CD 180 PO QD PT eval and tx improving slowly d/w Dr. Nemani again / ok to d/c to SNF when arrangements are made PICC line in place RUExt D/c to SNF when arrangements are made d/w [facility] [place],await Insurance authorization Discussed patient again If pt remained In house Dr harris Will follow Problem Qualifiers (1) Dyspnea: Qualified Code: R06.09 - Dyspnea on exertion (2) GERD (gastroesophageal reflux disease): Qualified Code: K21.9 - Gastroesophageal reflux disease, esophagitis presence not specified Skyal Malave MD Dec 19, 2016 13:02
[2016-12-19] MEDS ORDERED: TUSSSUS2 PO (16:07)
[2016-12-19] MEDS ORDERED: ALPR.25 PO (16:07)
[2016-12-19] MEDS ORDERED: PRED20 PO (16:07)
[2016-12-19] MEDS ORDERED: CARD180C5 PO (16:08)
[2016-12-19] MEDS ORDERED: DILTIAZEM-CD 180 MG CAP ER PO ONE (17:00)
[2016-12-19] MEDS: CHLORPHENIR/HYDROCOD LIQUID 8 MG/10 MG/5 ML CUP PO PRN (18:40)
[2016-12-20] MEDS ORDERED: DILTIAZEM-CD 180 MG CAP ER PO SCH (09:00)
--- NOTE | 2016-12-28 10:08 | MD ---
cc: Sunshine CARDENAS M.D. ADMISSION DATE: 12/09/2016 DISCHARGE DATE: 12/19/2016 BRIEF HISTORY Ms. French is a 76-year-old white female whom I have followed now for about 6 months with interstitial lung disease and a developing cavitary infiltrate in the right upper lobe. She was admitted for increasing shortness of breath. She had an exacerbation of her interstitial lung disease in October that was quite significant. We had her set up as an outpatient for review at the [facility] but she missed that due to this admission. HOSPITAL COURSE On admission she was short of breath and febrile. She was also severely thrombocytopenic and was having nasal bleeding. Infectious disease and hematology saw her. Her platelet counts recovered with really no specific intervention and no specific etiology was identified. Platelet count was 261,000 on 12/19. Infectious disease recommended going ahead with treatment for the Mycobacterium fortuitum infection that we had identified now on two or three different specimens. She was also treated with IV corticosteroids for the underlying interstitial lung disease of uncertain significance, although it is felt probably to be idiopathic. At the time of discharge the patient was awake, alert, comfortable on oxygen at 2-3 liters with sats of 94%. She was afebrile. Her blood pressure 112/67, pulse was running a little on the high side throughout the hospital stay 90-110. Chest revealed diffuse dry rales and squeaks, no rhonchi, no wheezes. She had a regular heart rhythm, although rapid, no edema and no cyanosis. Her last chest x-ray was on 12/18 for PICC line placement, nothing new radiographically and the PICC line was in good position. She had blood cultures during this admission which were negative. Hemoglobin was 8 to 9. Nasal screen for MRSA was negative. BUN and creatinine were normal. I will see the patient back in the office in 2 weeks for interstitial lung disease. She is on 30 mg of prednisone to taper to 20 which she will stay on until I see her. Dr. Dodson arranged for her to see Dr. Klaudia Lobo for infectious disease as an outpatient and to continue her IV therapy with Amikacin and Impienem. Arrangements were made for the patient to be at a senior living facility at least initially while she is receiving her IV therapy with Amikacin. R. MD BOUCHRA Yin/PINA /12:22 PM /9:53 AM
== END 2016-12-19 19:12 | DRG 196 ==
LOC: NEPE 15:30 → INTOOBSV 19:14 → UNDOADMOB 19:14 → OBSVTOIN 19:14 → NEDA 19:14 → NEPFCDU 22:02 → NEDA 22:02 → OBSVTOIN 12-10 12:16 → NEPFCDU 12-10 17:05 → HIME 12-10 17:05 → N04B 12-15 18:25 → HIME 12-15 18:25 → N04B 12-15 18:25 → UNDODISOB 12-19 19:12
PROVIDERS: ADMIT Specialist; ATTEND Specialist
PROC: 6A550Z2 Pheresis of Platelets, Single (ICD-10-PCS; principal; 2016-12-10)
PROC: 0T9B70Z Drainage of Bladder with Drainage Device, Via Natural or Artificial Opening (ICD-10-PCS; 2016-12-10)
DX: J84.10 Pulmonary fibrosis, unspecified (principal); J18.9 Pneumonia, unspecified organism; E46 Unspecified protein-calorie malnutrition; D69.6 Thrombocytopenia, unspecified; A31.0 Pulmonary mycobacterial infection; Z99.81 Dependence on supplemental oxygen; D64.9 Anemia, unspecified; J44.1 Chronic obstructive pulmonary disease with (acute) exacerbation; R04.0 Epistaxis; M81.0 Age-related osteoporosis without current pathological fracture; K21.0 Gastro-esophageal reflux disease with esophagitis; Z79.52 Long term (current) use of systemic steroids; Z87.891 Personal history of nicotine dependence; Z57.5 Occupational exposure to toxic agents in other industries; F41.9 Anxiety disorder, unspecified; T38.0X5A Adverse effect of glucocorticoids and synthetic analogues, initial encounter
CPT/HCPCS: 36430; 36569; 71010; 71275; 76937; 80048; 80053; 80076; 80150; 81003; 82565; 83615; 85007; 85027; 85049; 85060; 85384; 85610; 85652; 85730; 86022; 86140; 86850; 86880; 86900; 86901; 87040; 87641; 93005; 93970; 94640; 94664; 96365; 96375; J0278; J0694; J0743; J1956; J2920; J2930; J7050; J7512; J7644; P9035; Q9967

== ENCOUNTER 2017-01-06 12:26 | Inpatient (IN) | payer BC, MEDICARE ==
[~2017-01-06] VITALS: Ht 152.4 cm; Wt 46.5 kg
[2017-01-06] VITALS (11 sets, daily range): BP systolic 89–114; BP diastolic 55–70; PULSE 88–124; RESP 20–36; TEMP 99.1–99.2; O2SAT 95–100
[~2017-01-06 12:26] MED LIST changes: +ALPR.25 PO; +AMIK4INJ2 IV; +CARD180C5 PO; -DENO60P SQ; +EPIN1INJ21 IV PUSH; +EPIN1INJ21 SQ; +SOLU250I IV PUSH; +[UNRECOGNIZED DRUG - CODE] IV
[2017-01-06] MEDS ORDERED: SODIUM CHLORIDE 0.9% FLUSH 5 ML FLUSH IVF PRN (13:00)
--- NOTE | 2017-01-06 13:07 | PD ---
HPI Chief Complaint: Respiratory Distress Time Seen by Provider: 12:49 Travel History International Travel<30 days: No Contact w/Intl Traveler<30days: No Traveled to known affect area: No History of Present Illness HPI This patient was sent from the assisted for shortness of breath. She arrives critically ill. She wears oxygen around the clock and has significant interstitial lung disease and COPD. Currently receiving IV antibiotics through a PICC line for pulmonary infection. She today was 99.8. She denies any chest pain or syncope. Severity is severe. Duration one day. No alleviating factors. PFSH Past Medical History Asthma: No Blood Disorders: No Cancer: No Cardiovascular Problems: No Chemotherapy: No COPD: No Diabetes: No Endocrine: No Gastrointestinal Disorders: Yes (GERD) GERD: Yes Genitourinary: No Hepatitis: No Hiatal Hernia: Yes Hypertension: No Immune Disorder: No Implanted Vascular Access Dvce: No Medical other: No Musculoskeletal: Yes Neurologic: No Psychiatric: No Reproductive: No Respiratory: Yes (pulmonary fibrosis) Radiation Therapy: No Sleep Apnea: No Thyroid Disease: No ?: Not : 4 Para: 3 Miscarriage: 1 Past Surgical History AICD: No Body Medical Devices: PINS IN L WRIST Eye Surgery: Yes (atiya cataracts) Gynecologic Surgery: No Joint Replacement: No Neurologic Surgery: No Pacemaker: No Other Surgery: Yes Social History Alcohol Use: Yes (VERY RARELY) Tobacco Use: No Substance Use: No Allergies-Medications (Allergen,Severity, Reaction): Coded Allergies: No Known Allergies (Unverified , 01/06/17) Reported Meds & Prescriptions Reported Meds & Active Scripts Active Cardizem CD 24 HR (Diltiazem CD 24 HR) 180 Mg Caper 180 Mg PO DAILY Reported Tussionex Pennkinetic Ext 12 HR Liq (Hydrocodone-Chlorpheniramine 12 HR Liq) 10- 8 Mg/5 Ml Susp 5 Ml PO HS PRN Prednisone 10 Mg Tab 10 Mg PO DAILY Primaxin Inj (Imipenem-Cilastatin Inj) 500-500 mg Inj 1 Vial IVPB Q8HR Robafen Dm 100-10 mg/5Ml (Dextromethorphan-Guaifenesin) 1 Syp Syp 5 Ml PO Q4HR PRN Amikacin Inj (Amikacin Sulfate) 500 Mg/2 Ml Inj 500 Mg IVPB Q12HR Xanax (Alprazolam) 0.25 Mg Tab 0.25 Mg PO Q4H PRN Budesonide Neb 0.5 Mg/2 Ml Neb 0.5 Mg NEB Q12HR NEB Albuterol Neb (Albuterol Sulfate) 0.63 Mg/3 Ml Neb 0.63 Mg NEB BID PRN Review of Systems General / Constitutional: Positive: Fever Eyes: No: Visual changes HENT: No: Headaches Cardiovascular: No: Chest Pain or Discomfort Respiratory: Positive: Cough, Shortness of Breath Gastrointestinal: No: Abdominal Pain Genitourinary: No: Dysuria Musculoskeletal: No: Pain Skin: No Rash Neurologic: No: Weakness Psychiatric: No: Depression Endocrine: No: Polydipsia Hematologic/Lymphatic: No: Easy Bruising Physical Exam Narrative GENERAL: Elderly well-developed patient in respiratory distress SKIN: Warm and dry. HEAD: Atraumatic. Normocephalic. EYES: Pupils equal and round. No scleral icterus. No injection or drainage. ENT: No nasal bleeding or discharge. Mucous membranes pink and moist. NECK: Trachea midline. No JVD. CARDIOVASCULAR: Regular rate and rhythm. No murmur appreciated. RESPIRATORY: Positive accessory muscle use. Diffuse crackling noted. Breath sounds equal bilaterally. No wheezing. Respiratory rate is 50 GASTROINTESTINAL: Abdomen soft, non-tender, nondistended. Hepatic and splenic margins not palpable. MUSCULOSKELETAL: No obvious deformities. No clubbing. No cyanosis. No edema. NEUROLOGICAL: Awake and alert. No obvious cranial nerve deficits. Motor grossly within normal limits. Normal speech. PSYCHIATRIC: Appropriate mood and affect; insight and judgment normal. Data Data Last Documented VS Vital Signs Date Time Temp Pulse Resp B/P Pulse Ox O2 Delivery O2 Flow Rate FiO2 01/06/17 13:35 99 BiPAP 01/06/17 13:35 112 24 113/61 15 100 01/06/17 12:44 99.2 Orders Complete Blood Count With Diff (01/06/17 12:59) Basic Metabolic Panel (Bmp) (01/06/17 12:59) Arterial Blood Gas (Abg) (01/06/17 12:59) Iv Access Insert/Monitor (01/06/17 12:59) Electrocardiogram (01/06/17 12:59) Ecg Monitoring (01/06/17 12:59) Oximetry (01/06/17 12:59) Oxygen Administration (01/06/17 12:59) Chest, Single Ap (01/06/17 12:59) Sodium Chloride 0.9% Flush (Ns Flush) (01/06/17 13:00) Albuterol-Ipratropium Neb (Duoneb Neb) (01/06/17 13:00) Resp Bipap / Cpap Non Invas Vt (01/06/17 ) Methylprednisolone So Succ Inj (Solumedr (01/06/17 14:15) Labs Laboratory Tests Test 01/06/17 01/06/17 13:10 13:59 White Blood Count 11.4 TH/MM3 Red Blood Count 3.31 MIL/MM3 Hemoglobin 8.9 GM/DL Hematocrit 27.7 % Mean Corpuscular Volume 83.7 FL Mean Corpuscular Hemoglobin 27.0 PG Mean Corpuscular Hemoglobin 32.3 % Concent Red Cell Distribution Width 17.9 % Platelet Count 271 TH/MM3 Mean Platelet Volume 7.6 FL Neutrophils (%) (Auto) 90.9 % Lymphocytes (%) (Auto) 4.6 % Monocytes (%) (Auto) 2.9 % Eosinophils (%) (Auto) 0.9 % Basophils (%) (Auto) 0.7 % Neutrophils # (Auto) 10.4 TH/MM3 Lymphocytes # (Auto) 0.5 TH/MM3 Monocytes # (Auto) 0.3 TH/MM3 Eosinophils # (Auto) 0.1 TH/MM3 Basophils # (Auto) 0.1 TH/MM3 CBC Comment DIFF FINAL Differential Comment Sodium Level 135 MEQ/L Potassium Level 4.6 MEQ/L Chloride Level 99 MEQ/L Carbon Dioxide Level 27.4 MEQ/L Anion Gap 9 MEQ/L Blood Urea Nitrogen 9 MG/DL Creatinine 0.67 MG/DL Estimat Glomerular Filtration 86 ML/MIN Rate Random Glucose 161 MG/DL Calcium Level 7.8 MG/DL Blood Gas Puncture Site RT RADIAL Blood Gas Patient Temperature 98.6 Blood Gas HCO3 28 mmol/L Blood Gas Base Excess 3.7 mmol/L Blood Gas Oxygen Saturation 95 % Arterial Blood pH 7.44 Arterial Blood Partial 42 mmHg Pressure CO2 Arterial Blood Partial 156 mmHG Pressure O2 Arterial Blood Oxygen Content 11.9 Vol % Arterial Blood 2.5 % Carboxyhemoglobin Arterial Blood Methemoglobin 1.6 % Blood Gas Hemoglobin 8.6 G/DL Oxygen Delivery Device BIPAP Blood Gas Ventilator Setting IPAP10/EPAP5 Blood Gas Inspired Oxygen 50 % MDM Medical Decision Making Medical Screen Exam Complete: Yes Emergency Medical Condition: Yes Medical Record Reviewed: Yes Differential Diagnosis Pneumonia, pneumothorax, COPD Narrative Course I have reviewed the patient's electronic medical record. Reviewed her discharge summary from extensive hospitalization which ended recently Patient is critically ill. IV placed I placed her on BiPAP to try to ease the work of breathing. If that fail she will require mechanical ventilation and intubation CBC shows anemia but no leukocytosis Metabolic profile reasonably normal I Reviewed her chest x-ray which looks bad and has diffuse interstitial pattern. However when I compared to the most recent x-ray looks fairly identical Patient is much improved on BiPAP. She is still needing intensive care and BiPAP support but no longer in danger of intubation Respiratory rate is decreased from 50-30 I reviewed with the shark biologist will admit. He requests CT of the chest without contrast be done as well as a dose of Zosyn given Critical Care Narrative Aggregate critical care time was 40 minutes. Time to perform other separately billable procedures was not included in the critical care time. My time did not include minutes spent treating any other patients simultaneously or on activities that did not directly contribute to the patient's treatment. The services I provided to this patient were to treat and/or prevent clinically significant deterioration that could result in: Cardiopulmonary arrest, respiratory failure, hypoxic brain injury I provided critical care services requiring my management, as noted below: Chart data review, documentation time, medication orders and management, vital sign assessments/reviewing monitor data, ordering and reviewing lab tests, ordering and interpreting/reviewing x-rays and diagnostic studies, care of the patient and discussion of the patient with the admitting physicians. Diagnosis Primary Impression: Acute respiratory failure with hypoxia Additional Impressions: Interstitial fibrosis COPD exacerbation Admitting Information Admitting Physician Requests: Tommie Shelton MD Jan 06, 2017 13:07
[2017-01-06] MEDS ORDERED: ALPR.25 PO (13:09)
[2017-01-06] MEDS ORDERED: AMIK4INJ2 IVPB (13:11)
[2017-01-06] MEDS ORDERED: ROBA100S PO (13:15)
[2017-01-06] MEDS ORDERED: [UNRECOGNIZED DRUG - CODE] IVPB (13:19)
[2017-01-06] MEDS ORDERED: PRED10 PO (13:23)
[2017-01-06] MEDS: RESP: ALBUTEROL 2.5 MG/IPRATROPIUM 0.5 MG NEB (SCH) INH ×3 (13:25→15:46)
[2017-01-06] MEDS ORDERED: TUSSSUS2 PO (13:29)
[2017-01-06 13:44] LABS: AUTOMATED NEUTROPHIL # 10.4 TH/MM3 (1.8-7.7); BASOPHIL # 0.1 TH/MM3 (0-0.2); BASOPHIL % 0.7 % (0.0-2.0); EOSINOPHIL # 0.1 TH/MM3 (0-0.4); EOSINOPHIL % 0.9 % (0.0-4.0); HEMATOCRIT 27.7 % (35.0-46.0); HEMO FLAGS DIFF FINAL; LYMPH % 4.6 % (9.0-44.0); LYMPHOCYTE # 0.5 TH/MM3 (1.0-4.8); MEAN CELL VOLUME 83.7 FL (80.0-100.0); MEAN CORPUSCULAR HGB CONC 32.3 % (32.0-36.0); MONO % 2.9 % (0.0-8.0); NEUT % 90.9 % (16.0-70.0); PLATELET COUNT 271 TH/MM3 (150-450); RED BLOOD COUNT 3.31 MIL/MM3 (4.00-5.30); RED CELL DISTRIBUTION WIDTH 17.9 % (11.6-17.2); WHITE BLOOD COUNT 11.4 TH/MM3 (4.0-11.0)
[2017-01-06 13:57] LABS: BICARBONATE 27.4 MEQ/L (21.0-32.0); POTASSIUM 4.6 MEQ/L (3.5-5.1)
--- NOTE | 2017-01-06 14:04 | RADRPT ---
EXAM DATE/TIME: 01/06/2017 13:23 [facility] COMPARISON: CHEST SINGLE AP, December 18, 2016, 19:18. INDICATIONS : Shortness of breath. MEDICAL HISTORY : Chronic obstructive pulmonary disease. SURGICAL HISTORY : Pulmonary fibrosis ENCOUNTER: Initial ACUITY: 1 day PAIN SCORE: 0/10 LOCATION: Bilateral chest FINDINGS: A single AP erect portable view the chest was obtained and again demonstrates a right-sided PICC line in place. Coarse opacities remain in both lungs greatest in the right upper lobe. The heart size is at the upper limits of normal. There is no definite effusion. Multiple overlying electrocardiogram le ads are present. The bony thorax remains intact. There are atherosclerotic calcifications in the aort a. CONCLUSION: Coarse opacities remain in both lungs. Bishop Rivero MD on January 06, 2017 at 14:00 Board Certified Radiologist. This report was verified electronically.
[2017-01-06 14:07] LABS: BLOOD GAS BASE EXCESS 3.7 mmol/L (-2-2); BLOOD GAS CARBOXYHEMOGLOBIN 2.5 % (0-4); BLOOD GAS HCO3 28 mmol/L (22-26); BLOOD GAS METHEMOGLOBIN 1.6 % (0-2); BLOOD GAS O2 HGB SATURATION 95 % (90-100); BLOOD GAS OXYGEN CONTENT 11.9 Vol % (12.0-20.0); BLOOD GAS PCO2 42 mmHg (38-42); BLOOD GAS PO2 156 mmHG (61-120); BLOOD GAS TOTAL HGB 8.6 G/DL (12.0-16.0); CRITICAL VALUE NO; DRAW SITE RT RADIAL; FIO2 50 %; NUMBER OF ARTERIAL PUNCTURES 1; OXYGEN DEVICE BIPAP; STAT YES; TEMP CORR TO 98.6; ULNAR PULSE PRESENT; VENT SETTINGS IPAP10/EPAP5
[2017-01-06] MEDS ORDERED: methylPREDNISolone SOD SUCC 125 MG/2 ML VIAL IV PUSH ONE (14:15)
[2017-01-06] MEDS ORDERED: PIPERACIL-TAZO 2.25 GM PREMIX 50 ML IV ONE (14:30)
[2017-01-06] MEDS ORDERED: SODIUM CHLOR 0.9% 1000 ML INJ 1,000 ML IV SCH (15:02)
[2017-01-06] MEDS ORDERED: RESP: ALBUTEROL 2.5 MG/IPRATROPIUM 0.5 MG NEB (PRN) INH (15:15)
[2017-01-06] MEDS ORDERED: CHLORHEXIDINE GLUCONATE 2 % 1 PACK (2 CLOTHS) TOP PRN (15:15)
[2017-01-06] MEDS ORDERED: MISCELLANEOUS NURSING INFORMATION XX SCH (15:15)
--- NOTE | 2017-01-06 15:25 | RADRPT ---
EXAM DATE/TIME: 01/06/2017 14:55 [facility] COMPARISON: CT PULMONARY ANGIOGRAM, December 09, 2016, 19:05. CHEST SINGLE AP, January 06, 2017, 13:23. INDICATIONS : Shortness of breath, fever, tachycardia. Coarse infiltrate in both lungs and known chronic lung disea se. RADIATION DOSE: 6.32 CTDIvol (mGy) MEDICAL HISTORY : Hernia, hiatal. SURGICAL HISTORY : None. ENCOUNTER: Initial ACUITY: 1 day PAIN SCALE: 0/10 LOCATION: chest TECHNIQUE: Volumetric scanning of the chest was performed. Using automated exposure control and adjustment of t he mA and/or kV according to patient size, radiation dose was kept as low as reasonably achievable to obtain optimal diagnostic quality images. FINDINGS: LUNGS: There is no pneumothorax. The cavitary lesion in the right upper lobe is not significantly changed an d measures approximately 2.4 x 1.8 cm. This contains a mildly thickened wall with no air-fluid level. There has been interval increase in the diffuse alveolar opacities in both lungs. This remains great est in the right upper lobe and perihilar regions. PLEURAE: There is no pleural thickening or pleural effusion. MEDIASTINUM: The heart and great vessels demonstrate no acute abnormality. There are stable pretracheal lymph node s. Coronary artery calcifications are present. AXILLAE: Within normal limits. No lymphadenopathy. MUSCULOSKELETAL: Within normal limits for patient age. MISCELLANEOUS: The visualized upper abdominal organs demonstrate no acute abnormality. Partially calcified bilateral breast implants are again noted. A small hiatal hernia is again noted. CONCLUSION: 1. Interval worsening of coarse interstitial opacities in both lungs 2. Stable appearance of the cavitary lesion right upper lobe. Bishop Rivero MD on January 06, 2017 at 15:13 Board Certified Radiologist. This report was verified electronically.
[2017-01-06] MEDS ORDERED: POTASSIUM CHLOR 20 MEQ PREMIX 100 ML IV PRN ×2 (15:30)
[2017-01-06] MEDS ORDERED: SODIUM PHOSPHATE INJ 30 MMOL in SODIUM CHLOR 0.9% 250 ML INJ 240 ML IV PRN (15:30)
[2017-01-06] MEDS ORDERED: POTASSIUM CL 40 MEQ/30 ML LIQ UDC PO/TUBE PRN ×2 (15:30)
[2017-01-06] MEDS ORDERED: POTASSIUM CHLOR 40 MEQ PREMIX 100 ML IV PRN ×2 (15:30)
[2017-01-06] MEDS ORDERED: GLUCAGON 1 MG/ML VIAL OTHER PRN (15:30)
[2017-01-06] MEDS ORDERED: POTASSIUM PHOSPHATE MONOBASIC 500 MG TAB PO/TUBE PRN (15:30)
[2017-01-06] MEDS ORDERED: DEXTROSE 50% IN WATER 50 ML VIAL(D50) IV PUSH PRN (15:30)
[2017-01-06] MEDS ORDERED: MAGNESIUM SULFATE INJ 4 GM in SODIUM CHLORIDE 0.9% INJ 92 ML IV PRN (15:30)
[2017-01-06] MEDS ORDERED: MAGNESIUM SULFATE INJ 2 GM in SODIUM CHLORIDE 0.9% INJ 96 ML IV PRN (15:30)
[2017-01-06] MEDS ORDERED: POTASSIUM PHOSPHATE INJ 30 MMOL in SODIUM CHLOR 0.9% 250 ML INJ 250 ML IV PRN (15:30)
[2017-01-06] MEDS ORDERED: MAGNESIUM OXIDE 400 MG TAB PO PRN (15:30)
[2017-01-06] MEDS ORDERED: POTASSIUM PHOSPHATE MONOBASIC 500 MG TAB PO PRN (15:30)
[2017-01-06] MEDS ORDERED: ASP: ID consult, note reason in consult order XX ONE (16:00)
[2017-01-06] MEDS: INSULIN NovoLIN REGULAR SUPPLEMENTAL SCALE SQ SCH ×2 (16:00→18:00)
[2017-01-06] MEDS ORDERED: Amikacin Consult Pharmacy 1 EA OTHER SCH (16:15)
--- NOTE | 2017-01-06 16:28 | MH ---
cc: JAZLYN HOWELL M.D. 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 The patient was transferred from a local nursing facility to [facility] Emergency Department with a one day history of worsening shortness of breath associated with a productive cough. In the emergency room she was placed on BiPAP 10/5 with FIO2 of 50% and an ABG showed a pH of 7.44, CO2 42, paO2 156, bicarbonate 28 and saturations of 95%. On arrival she was tachycardic and tachypneic. The patient had a temperature of 99.2 and her WBC is 11.4. Initial chest x-ray showed coarse opacities bilaterally. The patient subsequently had a CT scan of the chest without contrast which showed interval worsening of coarse interstitial opacities in both lungs and stable appearance of the cavitary lesion measuring 2.4 x 1.8 cm in the right upper lobe. The patient is being followed by Dr. Lofton from pulmonary service. She denies any nausea or vomiting or abdominal pain. In the emergency room she was given Solu-Medrol 60 milligrams IV push, Zosyn and bronchodilator treatments. PAST MEDICAL HISTORY Significant for: 1. Chronic interstitial lung disease. 2. Chronic obstructive pulmonary disease. 3. Gastroesophageal reflux disease. 4. Osteoporosis. PAST SURGICAL HISTORY 1. Previous bilateral cataract surgery. 2. Previous pins in the left wrist. SOCIAL HISTORY A remote history of tobacco use. Non-smoker. The patient is a resident of a local nursing facility. ALLERGIES NO KNOWN DRUG ALLERGIES. FAMILY HISTORY Noncontributory. REVIEW OF SYSTEMS As per the history of present illness. The rest of the review of systems is unremarkable. MEDICATIONS Include: 1. Prednisone 10 milligrams daily. 2. Primaxin. 3. Amikacin. 4. Xanax. 5. Budesonide. 6. Albuterol. 7. Cardizem CD 180 milligrams daily. PHYSICAL EXAMINATION GENERAL: A 76-year-old female lying in bed in mild respiratory distress. VITAL SIGNS: Temperature 99.2, pulse of 112, blood pressure 113/61. Saturation 97% on BiPAP 10/5 with 50% FIO2. HEENT: Atraumatic, normocephalic. Pupils equal, round, reactive to light and accommodation. Extraocular muscles intact. Conjunctivae pink. Nonicteric. Oral mucosa within normal. NECK: Supple. No JVD, adenopathy, or thyromegaly. Trachea is midline. CARDIOVASCULAR: Tachycardic. Normal S1-S2. No murmurs, rubs, or gallops noted. LUNGS: Bilateral equal air entry with scattered coarse breath sounds, rhonchi and crackles. ABDOMEN: Soft and nontender. No distention. Positive bowel sounds. EXTREMITIES: No clubbing, cyanosis or edema. NEUROLOGICAL: No focal sensory deficits. LABORATORY DATA Sodium 135, potassium 4.6. Chloride 99. CO2 27. BUN of 9. Creatinine 0.67. Glucose 161. WBC 11.4, hemoglobin 8.9, hematocrit 27, platelet count 271. IMAGING Radiographic studies CT scan of the chest showed coarse interstitial opacities and stable appearance of a cavitary lesion in the right upper lobe. IMPRESSION 1. Acute hypoxemic respiratory failure. 2. Exacerbation of pulmonary fibrosis. 3. History of chronic interstitial lung disease. 4. Chronic obstructive pulmonary disease, oxygen dependent. 5. Mycobacterium fortuitum infection of the lung. 6. Right upper lobe cavitary lesion measuring 2.4 x 1.8 cm. 7. Mild leukocytosis. 8. Gastroesophageal reflux disease. 9. Osteoporosis. RECOMMENDATIONS 1. [place] [facility] [place]. 2. Monitor neurological status and avoid any sedatives. 3. Wean down oxygen as tolerated and maintain saturations above 92%. 4. Bronchodilators in the form of DuoNeb q.4h plus q.2h as needed for shortness of breath. In addition we will place on Symbicort 160/4.5 two puffs q.12h and IV steroids Solu-Medrol 60 milligrams IV q.6h. 5. We will consult Dr. Lofton from pulmonary service as the patient is known to him. 6. Non invasive positive pressure ventilation as needed for respiratory distress. If there is any worsening in clinical condition we will proceed with intubation and mechanical ventilation. CT scan of the chest and ABG reviewed. 7. Monitor heart rate and blood pressure closely and maintain mean arterial pressure greater than 65 mmHg. 8. Monitor renal function ins and outs and electrolyte replacement per protocol. 9. Place on normal saline 50 ml an hour. 10. Keep n.p.o. until respiratory status improves and place on Protonix 40 milligrams IV daily given history of gastroesophageal reflux disease. 11. Continue with broad-spectrum antibiotics. We will continue with Amikacin 500 milligrams IV q.12h and Primaxin one gram IV q.8h for mycobacterium fortuitum. We will consult infectious disease service and we will obtain a sputum culture with Gram stain. We will check a strep pneumoniae and Legionella urinary antigen. 12. Monitor CBC. 13. Sliding scale insulin with Accu-Chek q.6h for glycemic control while on steroids. 14. GI prophylaxis with Protonix 40 milligrams daily and deep venous thrombosis prophylaxis with sequential compression devices and Lovenox 40 milligrams subcutaneous daily. The case discussed with Dr. Jimmie Dodson from infectious disease. Critical care time of 40 minutes excluding procedures. MD LILY Lopez/YANI /3:36 PM /3:49 PM
--- NOTE | 2017-01-06 16:50 | PD.ID.CON ---
History of Present Illness Service Infectious disease Consult Requested By Dr. Ham Reason for Consult Evaluation and management of Mycobacterium fortuitum lung infection patient with pulmonary fibrosis. Primary Care Physician Non-Staff Diagnoses: History of Present Illness Mrs. Jaramillo is a 76-year-old female with past medical history significant for pulmonary fibrosis, Mycobacterium fortuitum lung infection which was treated on her last admission although identified in August 2016. Patient was seen by me on the last admission which time she was in the ICU admitted for acute respiratory failure. She initially did not respond to cefoxitin and then eventually was switched to a regimen of imipenem as well as amikacin IV. She was discharged to [facility] for physical therapy as well as IV antibiotic administration given the complicated regimen. She has followed up with Dr. Klaudia Lobo as outpatient for infectious disease, I discussed the case with Dr. Lobo. Her last visit with Dr. Lobo was on December 25, 2016 at which time it was determined that susceptibility was still pending the patient be continued on imipenem as well as amikacin IV ~end of December 2016. Reportedly post discharge patient has an okay but hasn't remarkably improved. Patient does report that her sputum had turned white eventually but in the last to 3 days prior to admission and has now again changed to a dark yellow color. She reports she is coughing more frequently now. She also reports that although she would desat even after discharge but more recently seems she seems to be desaturating with the least amount of exertion. She then developed a fever of 102 Fahrenheit and due to concern for new infection patient was sent to [facility]. Dr. Ham critical care medicine and asked me to evaluate the patient since patient is known to me from prior admission. Infectious disease is consulted for evaluation and management of Mycobacterium fortuitum lung infection in a patient with pulmonary fibrosis. Patient's spouse reported that he still hasn't had a chance to take her to [facility] for further evaluation of pulmonary fibrosis. Of note patient is oxygen dependent at 3-4 L at baseline. Patient was not aware of her she had a rash on her torso as well as her back as well as her thighs which is maculopapular and according to the this is new. Patient denies any hearing problems or any gait problems. Patient has not had an audiogram as asked to since she is on amikacin IV. Review of Systems Constitutional: COMPLAINS OF: Fever, DENIES: Diaphoretic episodes, Fatigue, Weight gain, Weight loss, Chills, Dizziness, Change in appetite, Night Sweats Endocrine: DENIES: Abnorml menstrual pattern, Heat/cold intolerance, Polydipsia , Polyuria, Polyphagia Eyes: DENIES: Blurred vision, Diplopia, Eye inflammation, Eye pain, Vision loss , Photosensitivity, Double Vision Ears, nose, mouth, throat: DENIES: Tinnitus, Hearing loss, Vertigo, Nasal discharge, Oral lesions, Throat pain, Hoarseness, Ear Pain, Running Nose, Epistaxis, Sinus Pain, Toothache, Odynophagia Respiratory: COMPLAINS OF: Cough, Sputum production, Shortness of breath, DENIES: Apneas, Snoring, Wheezing, Hemoptysis Cardiovascular: DENIES: Chest pain, Palpitations, Syncope, Dyspnea on Exertion , PND, Lower Extremity Edema, Orthopnea, Claudication Gastrointestinal: DENIES: Abdominal pain, Black stools, Bloody stools, Constipation, Diarrhea, Nausea, Vomiting, Difficulty Swallowing, Anorexia Genitourinary: DENIES: Abnormal vaginal bleeding, Dysmenorrhea, Dyspareunia, Sexual dysfunction, Urinary frequency, Urinary incontinence, Urgency, Hematuria , Dysuria, Nocturia, Vaginal discharge Musculoskeletal: DENIES: Joint pain, Muscle aches, Stiffness, Joint Swelling, Back pain, Neck pain Integumentary: DENIES: Abnormal pigmentation, Pruritus, Rash, Nail changes, Breast masses, Breast skin changes, Nipple discharge Hematologic/lymphatic: DENIES: Bruising, Lymphadenopathy Immunologic/allergic: DENIES: Eczema, Urticaria Neurologic: DENIES: Abnormal gait, Headache, Localized weakness, Paresthesias, Seizures, Speech Problems, Tremor, Poor Balance Psychiatric: DENIES: Anxiety, Confusion, Mood changes, Depression, Hallucinations, Agitation, Suicidal Ideation, Homicidal Ideation, Delusions Except as stated in HPI: all other systems reviewed are Neg Past Family Social History Allergies: Coded Allergies: No Known Allergies (Unverified , 01/06/17) Past Medical History 1. COPD. 2. Interstitial fibrosis. 3. Cavitary lung lesion. 4. Severe osteoporosis. 5. Gastroesophageal reflux. 6. Cataract. 7. Recurrent pneumonia 8. Mycobacterium fortuitum lung infection. Past Surgical History 1. Bronchoscopy. 2. Pins in the left wrist. Reported Medications Reported Meds & Active Scripts Active Cardizem CD 24 HR (Diltiazem CD 24 HR) 180 Mg Caper 180 Mg PO DAILY Reported Tussionex Pennkinetic Ext 12 HR Liq (Hydrocodone-Chlorpheniramine 12 HR Liq) 10- 8 Mg/5 Ml Susp 5 Ml PO HS PRN Prednisone 10 Mg Tab 10 Mg PO DAILY Primaxin Inj (Imipenem-Cilastatin Inj) 500-500 mg Inj 1 Vial IVPB Q8HR Robafen Dm 100-10 mg/5Ml (Dextromethorphan-Guaifenesin) 1 Syp Syp 5 Ml PO Q4HR PRN Amikacin Inj (Amikacin Sulfate) 500 Mg/2 Ml Inj 500 Mg IVPB Q12HR Xanax (Alprazolam) 0.25 Mg Tab 0.25 Mg PO Q4H PRN Budesonide Neb 0.5 Mg/2 Ml Neb 0.5 Mg NEB Q12HR NEB Albuterol Neb (Albuterol Sulfate) 0.63 Mg/3 Ml Neb 0.63 Mg NEB BID PRN Active Ordered Medications Current Medications Medications (Trade) Dose Ordered Sig/Sam Route Start Time Stop Time Status Last Admin IV Flush 2 ml 2 ml UNSCH PRN IVF 01/06/17 13:00 (NS 1000 ml Inj) 1,000 ml @ 50 mls/hr Q20H IV 01/06/17 15:02 01/06/17 15:24 (Protonix Inj) 40 mg DAILY IV 01/06/17 15:30 01/06/17 18:00 (Lovenox Inj) 40 mg Q24H SQ 01/06/17 16:00 01/06/17 18:01 Miscellaneous Information 1 Q361D XX 01/06/17 15:15 (Chlorhexidine 2% Cloth) 3 pack Taper DAILY@04 TOP 01/07/17 04:00 01/03/18 03:59 (Chlorhexidine 2% Cloth) 3 pack UNSCH PRN TOP 01/06/17 15:15 (SoluMEDROL INJ) 60 mg Q6HR IV PUSH 01/06/17 18:00 (D50w (Vial) Inj) 25 ml UNSCH PRN IV PUSH 01/06/17 15:30 (Glucagon Inj) 1 mg UNSCH PRN OTHER 01/06/17 15:30 Insulin Human Regular 1 1 Q6HR SQ 01/06/17 16:00 (Primaxin Inj/NS Inj) 100 ml @ 100 mls/hr Q8H IV 01/06/17 17:00 01/06/17 18:02 Budesonide/ Formoterol Fumarate 2 puff 2 puff Q12HR INH 01/06/17 21:00 Potassium Chloride 100 ml @ 50 mls/hr Q2H PRN IV 01/06/17 15:30 (KCl 20 Meq Premix Inj) 100 ml @ 50 mls/hr Q2H PRN IV 01/06/17 15:30 Potassium Chloride 40 meq 40 meq UNSCH PRN PO/TUBE 01/06/17 15:30 Potassium Chloride 100 ml @ 25 mls/hr UNSCH PRN IV 01/06/17 15:30 Potassium Chloride 100 ml @ 50 mls/hr Q2H PRN IV 01/06/17 15:30 (Magnesium Sulfate Inj/NS Inj) 100 ml @ 50 mls/hr UNSCH PRN IV 01/06/17 15:30 Magnesium Oxide 800 mg 800 mg UNSCH PRN PO 01/06/17 15:30 (Magnesium Sulfate Inj/NS Inj) 100 ml @ 50 mls/hr UNSCH PRN IV 01/06/17 15:30 Potassium Phosphate 2000 mg 2,000 mg Q4H PRN PO 01/06/17 15:30 (Sodium Phosphate Inj/NS 250 ml Inj) 250 ml @ 42 mls/hr UNSCH PRN IV 01/06/17 15:30 (KCl 40 Meq/30 ml Liq) 40 meq UNSCH PRN PO/TUBE 01/06/17 15:30 Potassium Phosphate 2000 mg 2,000 mg UNSCH PRN PO/TUBE 01/06/17 15:30 Potassium Phosphate 30 mmol/ Sodium Chloride 260 ml @ 42 mls/hr UNSCH PRN IV 01/06/17 15:30 Pharmacy Profile Note 0 ml @ 0 mls/hr UNSCH OTHER 01/06/17 16:15 (Amikin Inj/NS 250 ml Inj) 252.76 ml @ 250 mls/ hr Q24H IV 01/06/17 21:00 Miscellaneous Information SPECIFIC LAB TO BE ... ONCE ONCE XX 01/07/17 08:45 01/07/17 08:46 Family History Significant for mother who with history of hypertension, father of alcohol abuse. Social History Admitted from [facility]. at bedside. 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 Past history of smoking 1-2 ppd. No alcohol No IVDA. Physical Exam Vital Signs Vital Signs Date Time Temp Pulse Resp B/P Pulse Ox O2 Delivery O2 Flow Rate FiO2 01/06/17 15:46 97 50 01/06/17 14:30 107 20 112/70 99 BiPAP 15 01/06/17 13:35 99 BiPAP 01/06/17 13:35 112 24 113/61 99 BiPAP 15 100 01/06/17 13:17 100 50 01/06/17 12:44 124 36 96 Non-Rebreather 15 01/06/17 12:44 99.2 120 36 113/61 96 Non-Rebreather 15 01/06/17 12:36 99.1 124 29 110/61 98 Physical Exam GENERAL: Thin built, undernourished female patient, in mild respiratory distress. SKIN: No rashes, ecchymoses or lesions. HEAD: Atraumatic. Normocephalic. No temporal or scalp tenderness. EYES: Pupils equal round and reactive. Extraocular motions intact. No scleral icterus. No injection or drainage. ENT: Was on a BiPAP mask. NECK: Trachea midline.Supple, nontender, no meningeal signs. CARDIOVASCULAR: Heart sounds audible. No murmur appreciated. RESPIRATORY: Bilateral coarse crackles. Air entry decreased in the bases. GASTROINTESTINAL: Abdomen soft, non-tender, nondistended. MUSCULOSKELETAL: Extremities without clubbing, cyanosis, or edema. No joint tenderness, effusion, or edema noted. No calf tenderness. Negative Homans sign bilaterally. NEUROLOGICAL: Awake and alert. Grossly nonfocal. Psych cooperative IV line sites with no evidence of infection. Laboratory Laboratory Tests Test 01/06/17 01/06/17 13:10 13:59 White Blood Count 11.4 Red Blood Count 3.31 Hemoglobin 8.9 Hematocrit 27.7 Mean Corpuscular Volume 83.7 Mean Corpuscular Hemoglobin 27.0 Mean Corpuscular Hemoglobin 32.3 Concent Red Cell Distribution Width 17.9 Platelet Count 271 Mean Platelet Volume 7.6 Neutrophils (%) (Auto) 90.9 Lymphocytes (%) (Auto) 4.6 Monocytes (%) (Auto) 2.9 Eosinophils (%) (Auto) 0.9 Basophils (%) (Auto) 0.7 Neutrophils # (Auto) 10.4 Lymphocytes # (Auto) 0.5 Monocytes # (Auto) 0.3 Eosinophils # (Auto) 0.1 Basophils # (Auto) 0.1 CBC Comment DIFF FINAL Differential Comment Sodium Level 135 Potassium Level 4.6 Chloride Level 99 Carbon Dioxide Level 27.4 Anion Gap 9 Blood Urea Nitrogen 9 Creatinine 0.67 Estimat Glomerular Filtration 86 Rate Random Glucose 161 Calcium Level 7.8 Blood Gas Puncture Site RT RADIAL Blood Gas Patient Temperature 98.6 Blood Gas HCO3 28 Blood Gas Base Excess 3.7 Blood Gas Oxygen Saturation 95 Arterial Blood pH 7.44 Arterial Blood Partial 42 Pressure CO2 Arterial Blood Partial 156 Pressure O2 Arterial Blood Oxygen Content 11.9 Arterial Blood 2.5 Carboxyhemoglobin Arterial Blood Methemoglobin 1.6 Blood Gas Hemoglobin 8.6 Oxygen Delivery Device BIPAP Blood Gas Ventilator Setting IPAP10/EPAP5 Blood Gas Inspired Oxygen 50 Result Diagram: 01/06/17 1310 01/06/17 1310 Imaging Last Impressions Chest X-Ray 01/06/17 1259 Signed Impressions: Service Date/Time: Friday, January 06, 2017 13:23 - CONCLUSION: Coarse opacities remain in both lungs. Bishop Rivero MD Chest CT 01/06/17 0000 Signed Impressions: Service Date/Time: Friday, January 06, 2017 14:55 - CONCLUSION: 1. Interval worsening of coarse interstitial opacities in both lungs 2. Stable appearance of the cavitary lesion right upper lobe. Bishop Rivero MD Assessment and Plan Assessment and Plan Possible Sepsis present on admission (Immune compromised host: Fever 102 F at home, tachycardia, leucocytosis) Community acquired/HCAP associated pneumonia/CABP Mycobacterium fortuitum lung infection Acute COPD exacerbation: advanced Pulm fibrosis Acute resp failure on BiPAP Fever and Rash: ? Drug fever from Imipenem Recs DC Imipenem IV Start Moxifloxacin IV (ASP criteria for CABP/HCAP as well as Myco fortuitum infection Start Zyvox oral (for MRSA pneumonia) Continue Amikacin IV (pharmacy consult: for Mycobacterium fortuitum IV) Mycobacterium fortuitum infection: Cefoxitin I, Azithro R, Imipenem S, Amikacin S, Bactrim S, Cipro S, Moxifloxacin S, Kanamycin S, Clofazimine S. Sputum culture. Blood cultures x 2 Follow cultures Follow clinically. d/w . d.w patient. Beatriz Dodson MD Jan 06, 2017 16:50
[2017-01-06] MEDS ORDERED: IMIPENEM IV SCH (17:00)
[2017-01-06] MEDS ORDERED: CILASTATIN IV SCH (17:00)
[2017-01-06] MEDS ORDERED: SODIUM CHLORIDE 0.9% IV SCH (17:00)
[2017-01-06] MEDS: PANTOPRAZOLE SODIUM 40 MG VIAL IV SCH (18:00)
[2017-01-06] MEDS: ENOXAPARIN SODIUM 40 MG/0.4 ML SYRINGE SQ SCH (18:01)
[2017-01-06] MEDS: methylPREDNISolone SOD SUCC 40 MG/1 ML VIAL IV PUSH SCH (19:24)
--- NOTE | 2017-01-06 20:32 | MB ---
cc: SKIP VALDIVIA M.D. DATE OF CONSULTATION 01/06/2017 REASON FOR CONSULTATION Atypical tuberculosis, chronic obstructive pulmonary disease. HISTORY OF THE PRESENT ILLNESS Mrs. French is a 76-year-old female with known history of chronic pulmonary fibrosis as well as COPD. The patient has mycobacterium fortuitum infection as well. She has been followed by infectious disease for the same and treated as an outpatient since August of 2016. The patient is admitted with increasing shortness of breath and wheezing which has been intermittently worse for two to three days at rehab, however, today has becoming severe when she came to the emergency room. The patient was placed on BiPAP therapy as well as bronchodilator therapy which has resulted in significant improvement. PAST MEDICAL HISTORY Is that of: 1. Chronic obstructive pulmonary disease. 2. Chronic pulmonary fibrosis. 3. Cavitary lesion due to mycobacterium fortuitum infection. 4. Osteoporosis. 5. Acid reflux disease. 6. Previous cataract surgery. 7. Wrist fracture in the past. MEDICATIONS At home: 1. Tussionex. 2. Budesonide. 3. Albuterol nebulizer. 4. Xanax as needed. 5. Prednisone 10 milligrams daily. 6. Presently on Amikacin. 7. Potassium. 8. Magnesium. 9. Formoterol budesonide nebulizer. 10. As needed albuterol inhaler. 11. As needed albuterol. 12. Solu-Medrol intravenously. 13. Protonix. 14. Lovenox. FAMILY HISTORY Noncontributory. SOCIAL HISTORY Does not smoke and does not drink. However, used to smoke 1, 2, 3 packs a day, however, stopped for several years. REVIEW OF SYSTEMS Systems review, a 12 point review of systems as per the history of present illness and past history, otherwise negative. PHYSICAL EXAMINATION GENERAL: The patient is alert. VITAL SIGNS: Temperature 99 degrees Fahrenheit. Pulse 100. Respiratory rate 20. Blood pressure 112/70. Oxygen saturation 97%, 0.5 inspired oxygen fraction. HEENT: Unremarkable. Eyes without icterus. NECK: Without adenopathy or thyroid enlargement. CHEST: Scattered rhonchi bilaterally. CARDIAC: Point of maximal impulse distant. S1, S2 audible. No murmur, no rub. ABDOMEN: Lax. Bowel sounds audible. EXTREMITIES: No clubbing, cyanosis or edema. LABORATORY DATA White count 11,000, hemoglobin 8.9, hematocrit 27. Platelets 271,000. Arterial blood gas pH 7.44, PCO2 42, PO2 156 on BiPAP therapy 0.5 inspired oxygen fraction. IMPRESSION 1. Chronic obstructive pulmonary disease exacerbation. 2. Atypical mycobacterium infection. 3. Pulmonary fibrosis. PLAN The patient will be maintained on bronchodilator therapy, oxygen therapy, antibiotic therapy. Steroids have been helpful as well. We will follow her course along with you. When stable hopefully we will be able to change to oral therapy. I do thank you for asking me to partake in Mrs. French's care. Skip Valdivia MD WWW/YANI /8:02 PM /8:08 PM
[2017-01-06] MEDS ORDERED: AMIKACIN INJ 500 MG in SODIUM CHLORIDE 0.9% INJ 100 ML IV SCH (21:00)
[2017-01-06] MEDS: MOXIFLOXACIN 400 MG PREMIX 250 ML IV SCH (21:11)
[2017-01-06] MEDS: AMIKACIN IV SCH (21:12)
[2017-01-06] MEDS: SODIUM CHLOR 0.9% IV SCH (21:12)
[2017-01-06] MEDS: LINEZOLID 600 MG TAB PO SCH (21:37)
[2017-01-06] MEDS: BUDESONIDE-FORMOTEROL 160/4.5 MCG INHALER INH SCH (22:44)
[2017-01-07] VITALS (16 sets, daily range): BP systolic 85–116; BP diastolic 54–74; PULSE 101–123; RESP 22–32; TEMP 97.5–98.3; O2SAT 92–100
[2017-01-07] MEDS: methylPREDNISolone SOD SUCC 40 MG/1 ML VIAL IV PUSH SCH ×4 (01:06→21:30)
[2017-01-07] MEDS: RESP: ALBUTEROL 2.5 MG/IPRATROPIUM 0.5 MG NEB (SCH) INH ×6 (01:09→20:40)
[2017-01-07] MEDS: CHLORHEXIDINE GLUCONATE 2 % 1 PACK (2 CLOTHS) TOP SCH (03:55)
[2017-01-07 04:20] LABS: AUTOMATED NEUTROPHIL # 8.1 TH/MM3 (1.8-7.7); BASOPHIL % 0.1 % (0.0-2.0); HEMATOCRIT 25.5 % (35.0-46.0); HEMO FLAGS DIFF FINAL; LYMPH % 8.9 % (9.0-44.0); LYMPHOCYTE # 0.8 TH/MM3 (1.0-4.8); MEAN CELL VOLUME 83.4 FL (80.0-100.0); MEAN CORPUSCULAR HEMOGLOBIN 26.9 PG (27.0-34.0); MEAN CORPUSCULAR HGB CONC 32.3 % (32.0-36.0); MONO % 1.2 % (0.0-8.0); NEUT % 89.8 % (16.0-70.0); PLATELET COUNT 269 TH/MM3 (150-450); RED BLOOD COUNT 3.06 MIL/MM3 (4.00-5.30); RED CELL DISTRIBUTION WIDTH 17.8 % (11.6-17.2)
[2017-01-07 04:38] LABS: ALT (GPT) 20 U/L (10-53); ANION GAP 10 MEQ/L (5-15); AST (GOT) 14 U/L (15-37); BICARBONATE 26.5 MEQ/L (21.0-32.0); BLOOD UREA NITROGEN 9 MG/DL (7-18); CHLORIDE 103 MEQ/L (98-107); GLOMERULAR FILTRATION RATE 108 ML/MIN (>89); MAGNESIUM 2.2 MG/DL (1.5-2.5); POTASSIUM 3.4 MEQ/L (3.5-5.1); SODIUM (NA) 139 MEQ/L (136-145)
[2017-01-07 04:40] LABS: ALKALINE PHOSPHATASE 56 U/L (45-117); TOTAL BILIRUBIN ADULT 0.3 MG/DL (0.2-1.0)
[2017-01-07] MEDS: INSULIN NovoLIN REGULAR SUPPLEMENTAL SCALE SQ SCH ×4 (06:00→17:42)
[2017-01-07] MEDS ORDERED: PHARMACY ORDERED LAB XX ONE (08:45)
[2017-01-07] MEDS: PANTOPRAZOLE SODIUM 40 MG VIAL IV SCH (10:21)
[2017-01-07] MEDS: BUDESONIDE-FORMOTEROL 160/4.5 MCG INHALER INH SCH ×2 (10:21→21:30)
[2017-01-07] MEDS: LINEZOLID 600 MG TAB PO SCH ×2 (10:22→21:30)
--- NOTE | 2017-01-07 12:01 | HHI.CCPN ---
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 The patient was transferred from a local nursing facility to [facility] Emergency [facility] with a one day history of worsening shortness of breath associated with a productive cough. In the emergency room she was placed on BiPAP 10/5 with FIO2 of 50% and an ABG showed a pH of 7.44, CO2 42, paO2 156 , bicarbonate 28 and saturations of 95%. On arrival she was tachycardic and tachypneic. The patient had a temperature of 99.2 and her WBC is 11.4. Initial chest x-ray showed coarse opacities bilaterally. The patient subsequently had a CT scan of the chest without contrast which showed interval worsening of coarse interstitial opacities in both lungs and stable appearance of the cavitary lesion measuring 2.4 x 1.8 cm in the right upper lobe. The patient is being followed by Dr. Lofton from pulmonary service. She denies any nausea or vomiting or abdominal pain. In the emergency room she was given Solu-Medrol 60 milligrams IV push, Zosyn and bronchodilator treatments. 01/07 No acute events overnight. On BIPAP 10/5 with 40% FIO2. Afebrile. Objective Vital Signs Date Time Temp Pulse Resp B/P Pulse Ox O2 Delivery O2 Flow Rate FiO2 01/07/17 08:00 118 22 97/62 94 Nasal Cannula 5 01/06/17 15:46 50 01/06/17 12:44 99.2 Result Diagram: 01/07/17 0402 01/07/17 0402 Other Results Laboratory Tests Test 01/06/17 01/06/17 01/07/17 13:10 13:59 04:02 White Blood Count 11.4 TH/MM3 9.0 TH/MM3 Red Blood Count 3.31 MIL/MM3 3.06 MIL/MM3 Hemoglobin 8.9 GM/DL 8.2 GM/DL Hematocrit 27.7 % 25.5 % Mean Corpuscular Volume 83.7 FL 83.4 FL Mean Corpuscular Hemoglobin 27.0 PG 26.9 PG Mean Corpuscular Hemoglobin 32.3 % 32.3 % Concent Red Cell Distribution Width 17.9 % 17.8 % Platelet Count 271 TH/MM3 269 TH/MM3 Mean Platelet Volume 7.6 FL 7.1 FL Neutrophils (%) (Auto) 90.9 % 89.8 % Lymphocytes (%) (Auto) 4.6 % 8.9 % Monocytes (%) (Auto) 2.9 % 1.2 % Eosinophils (%) (Auto) 0.9 % 0.0 % Basophils (%) (Auto) 0.7 % 0.1 % Neutrophils # (Auto) 10.4 TH/MM3 8.1 TH/MM3 Lymphocytes # (Auto) 0.5 TH/MM3 0.8 TH/MM3 Monocytes # (Auto) 0.3 TH/MM3 0.1 TH/MM3 Eosinophils # (Auto) 0.1 TH/MM3 0.0 TH/MM3 Basophils # (Auto) 0.1 TH/MM3 0.0 TH/MM3 CBC Comment DIFF FINAL DIFF FINAL Differential Comment Sodium Level 135 MEQ/L 139 MEQ/L Potassium Level 4.6 MEQ/L 3.4 MEQ/L Chloride Level 99 MEQ/L 103 MEQ/L Carbon Dioxide Level 27.4 MEQ/L 26.5 MEQ/L Anion Gap 9 MEQ/L 10 MEQ/L Blood Urea Nitrogen 9 MG/DL 9 MG/DL Creatinine 0.67 MG/DL 0.55 MG/DL Estimat Glomerular Filtration 86 ML/MIN 108 ML/MIN Rate Random Glucose 161 MG/DL 168 MG/DL Calcium Level 7.8 MG/DL 7.7 MG/DL Blood Gas Puncture Site RT RADIAL Blood Gas Patient Temperature 98.6 Blood Gas HCO3 28 mmol/L Blood Gas Base Excess 3.7 mmol/L Blood Gas Oxygen Saturation 95 % Arterial Blood pH 7.44 Arterial Blood Partial 42 mmHg Pressure CO2 Arterial Blood Partial 156 mmHG Pressure O2 Arterial Blood Oxygen Content 11.9 Vol % Arterial Blood 2.5 % Carboxyhemoglobin Arterial Blood Methemoglobin 1.6 % Blood Gas Hemoglobin 8.6 G/DL Oxygen Delivery Device BIPAP Blood Gas Ventilator Setting IPAP10/EPAP5 Blood Gas Inspired Oxygen 50 % Phosphorus Level 2.1 MG/DL Magnesium Level 2.2 MG/DL Total Bilirubin 0.3 MG/DL Aspartate Amino Transf 14 U/L (AST/SGOT) Alanine Aminotransferase 20 U/L (ALT/SGPT) Alkaline Phosphatase 56 U/L Total Protein 6.2 GM/DL Albumin 2.2 GM/DL Imaging Last Impressions Chest X-Ray 01/06/17 1259 Signed Impressions: Service Date/Time: Friday, January 06, 2017 13:23 - CONCLUSION: Coarse opacities remain in both lungs. Bishop Rivero MD Chest CT 01/06/17 0000 Signed Impressions: Service Date/Time: Friday, January 06, 2017 14:55 - CONCLUSION: 1. Interval worsening of coarse interstitial opacities in both lungs 2. Stable appearance of the cavitary lesion right upper lobe. Bishop Rivero MD Objective Remarks GENERAL: Patient is 76yo on BIPAP 10/5 with 40% FIO2. SKIN: Warm and dry. HEAD: Normocephalic. EYES: No scleral icterus. No injection or drainage. NECK: Supple, trachea midline. No JVD or lymphadenopathy. CARDIOVASCULAR: Tachycardic without murmurs, gallops, or rubs. RESPIRATORY: Breath sounds equal bilaterally. No accessory muscle use. GASTROINTESTINAL: Abdomen soft, non-tender, nondistended. MUSCULOSKELETAL: No cyanosis, or edema. Neuro: Awake and alert A/P Assessment and Plan 1. Acute hypoxemic respiratory failure. 2. Exacerbation of pulmonary fibrosis. 3. History of chronic interstitial lung disease. 4. COPD, oxygen dependent. 5. Mycobacterium fortuitum infection of the lung. 6. Right upper lobe cavitary lesion measuring 2.4 x 1.8 cm. 7. Anemia 8. GERD 9. Osteoporosis. Plan Neuro: Monitor neuro and avoid any sedatives. Pulm: Wean down oxygen as nicole and maintain sats > 92%. Bronchodilators, Symbicort, Solu-Medrol 60 mg IV q.6h. NIPPV PRN for respiratory distress. Pulm is following CV: Monitor HR and BP keep MAP>65 mmHg. : Monitor renal function ins and outs and electrolyte replacement per protocol. d/c IVF, will need K, Phos replacement today GI: on Protonix 40 mg IV daily, on PO diet ID: Continue abx per ID ( Amikacin, Avelox)monitor for signs of infections( Fever, WBC) Strep pneumonia and Legionella urinary Ag negative Heme: Monitor CBC. Endo: SSI with Accu-Chek q.6h for glycemic control while on steroids. GI prophylaxis with Protonix 40 mg daily and DVT prophylaxis with SCD and Lovenox 40mg subq daily Level 3 Adriana Ham MD Jan 07, 2017 12:01
[2017-01-07] MEDS: ENOXAPARIN SODIUM 40 MG/0.4 ML SYRINGE SQ SCH (17:25)
--- NOTE | 2017-01-07 18:21 | HHI.IDPN ---
Subjective Subjective Remarks Mrs. Jaramillo is a 76-year-old female with past medical history significant for pulmonary fibrosis, Mycobacterium fortuitum lung infection. Admitted with resp issues, COPD exacerbation possible pneumonia. Overnight events reviewed. No fever Rash resolved. No diarrhea. Antibiotics Moxifloxacin IV amikacin IV Zyvox oral. Lines Line sites with no e/o infection. Past Medical History reviewed Allergies: Coded Allergies: No Known Allergies (Unverified , 01/06/17) Objective . Vital Signs Date Time Temp Pulse Resp B/P Pulse Ox O2 Delivery O2 Flow Rate FiO2 01/07/17 17:23 119 29 109/74 100 Non-Rebreather 15 01/07/17 15:42 93 40 01/07/17 14:14 119 29 101/59 95 BiPAP 40 01/07/17 13:00 122 32 104/61 96 BiPAP 40 01/07/17 12:00 118 28 102/68 97 BiPAP 40 01/07/17 11:40 97 40 01/07/17 10:00 122 24 101/60 93 Nasal Cannula 2 01/07/17 08:00 118 22 97/62 94 Nasal Cannula 5 01/07/17 07:57 95 Nasal Cannula 4.00 01/07/17 06:01 101 22 99/56 94 Nasal Cannula 5 01/06/17 21:09 88 20 89/55 100 Nasal Cannula 5 01/06/17 18:47 102 20 114/65 95 Nasal Cannula 5 01/06/17 18:43 95 Nasal Cannula 6.00 01/06/17 01/06/17 01/07/17 15:00 23:00 07:00 Output Total 1000 ml Balance -1000 ml Output Urine Total 1000 ml # Voids 5 # Bowel Movements 2 . Laboratory Tests Test 01/06/17 01/07/17 13:10 04:02 White Blood Count 11.4 TH/MM3 9.0 TH/MM3 Red Blood Count 3.31 MIL/MM3 3.06 MIL/MM3 Hemoglobin 8.9 GM/DL 8.2 GM/DL Hematocrit 27.7 % 25.5 % Mean Corpuscular Volume 83.7 FL 83.4 FL Mean Corpuscular Hemoglobin 27.0 PG 26.9 PG Mean Corpuscular Hemoglobin 32.3 % 32.3 % Concent Red Cell Distribution Width 17.9 % 17.8 % Platelet Count 271 TH/MM3 269 TH/MM3 Mean Platelet Volume 7.6 FL 7.1 FL Neutrophils (%) (Auto) 90.9 % 89.8 % Lymphocytes (%) (Auto) 4.6 % 8.9 % Monocytes (%) (Auto) 2.9 % 1.2 % Eosinophils (%) (Auto) 0.9 % 0.0 % Basophils (%) (Auto) 0.7 % 0.1 % Neutrophils # (Auto) 10.4 TH/MM3 8.1 TH/MM3 Lymphocytes # (Auto) 0.5 TH/MM3 0.8 TH/MM3 Monocytes # (Auto) 0.3 TH/MM3 0.1 TH/MM3 Eosinophils # (Auto) 0.1 TH/MM3 0.0 TH/MM3 Basophils # (Auto) 0.1 TH/MM3 0.0 TH/MM3 CBC Comment DIFF FINAL DIFF FINAL Differential Comment Laboratory Tests Test 01/06/17 01/07/17 13:10 04:02 Sodium Level 135 MEQ/L 139 MEQ/L Potassium Level 4.6 MEQ/L 3.4 MEQ/L Chloride Level 99 MEQ/L 103 MEQ/L Carbon Dioxide Level 27.4 MEQ/L 26.5 MEQ/L Anion Gap 9 MEQ/L 10 MEQ/L Blood Urea Nitrogen 9 MG/DL 9 MG/DL Creatinine 0.67 MG/DL 0.55 MG/DL Estimat Glomerular Filtration 86 ML/MIN 108 ML/MIN Rate Random Glucose 161 MG/DL 168 MG/DL Calcium Level 7.8 MG/DL 7.7 MG/DL Phosphorus Level 2.1 MG/DL Magnesium Level 2.2 MG/DL Total Bilirubin 0.3 MG/DL Aspartate Amino Transf 14 U/L (AST/SGOT) Alanine Aminotransferase 20 U/L (ALT/SGPT) Alkaline Phosphatase 56 U/L Total Protein 6.2 GM/DL Albumin 2.2 GM/DL Microbiology Date/Time Procedure Status Source Growth 01/06/17 16:10 Legionella Antigen - Final Complete Urine Catheterized Urine PRESUMPTIVE NEGATIVE FOR LEGIONELLA P... 01/06/17 16:10 Streptococcus pneumoniae Antigen (M - Final Complete Urine Catheterized Urine PRESUMPTIVE NEGATIVE FOR STREPTOCOCCU... 01/06/17 19:15 Aerobic Blood Culture - Preliminary Resulted Blood Line NO GROWTH IN 1 DAY 01/06/17 19:15 Anaerobic Blood Culture - Preliminary Resulted Blood Line NO GROWTH IN 1 DAY 01/06/17 19:20 Aerobic Blood Culture - Preliminary Resulted Blood Peripheral NO GROWTH IN 1 DAY 01/06/17 19:20 Anaerobic Blood Culture - Preliminary Resulted Blood Peripheral NO GROWTH IN 1 DAY 01/07/17 01:00 Cancelled Sputum Expectorated Sputum Imaging Last Impressions Chest X-Ray 01/06/17 1259 Signed Impressions: Service Date/Time: Friday, January 06, 2017 13:23 - CONCLUSION: Coarse opacities remain in both lungs. Bishop Rivero MD Chest CT 01/06/17 0000 Signed Impressions: Service Date/Time: Friday, January 06, 2017 14:55 - CONCLUSION: 1. Interval worsening of coarse interstitial opacities in both lungs 2. Stable appearance of the cavitary lesion right upper lobe. Bishop Rivero MD Physical Exam GENERAL: Thin built, undernourished female patient, in mild respiratory distress. SKIN: No rashes, ecchymoses or lesions. HEAD: Atraumatic. Normocephalic. No temporal or scalp tenderness. EYES: Pupils equal round and reactive. Extraocular motions intact. No scleral icterus. No injection or drainage. ENT: Was on a BiPAP mask. NECK: Trachea midline.Supple, nontender, no meningeal signs. CARDIOVASCULAR: Heart sounds audible. No murmur appreciated. RESPIRATORY: Bilateral coarse crackles. Air entry decreased in the bases. GASTROINTESTINAL: Abdomen soft, non-tender, nondistended. MUSCULOSKELETAL: Extremities without clubbing, cyanosis, or edema. No joint tenderness, effusion, or edema noted. No calf tenderness. Negative Homans sign bilaterally. NEUROLOGICAL: Awake and alert. Grossly nonfocal. Psych cooperative IV line sites with no evidence of infection. Assessment & Plan Remarks Possible Sepsis present on admission (Immune compromised host: Fever 102 F at home, tachycardia, leucocytosis) Community acquired/HCAP associated pneumonia/CABP Mycobacterium fortuitum lung infection Acute COPD exacerbation: advanced Pulm fibrosis Acute resp failure on BiPAP Fever and Rash: ? Drug fever from Imipenem Recs Continue Moxifloxacin IV (ASP criteria for CABP/HCAP as well as Myco fortuitum infection Continue Zyvox oral (for MRSA pneumonia) Continue Amikacin IV (pharmacy consult: for Mycobacterium fortuitum IV) Mycobacterium fortuitum infection: Cefoxitin I, Azithro R, Imipenem S, Amikacin S, Bactrim S, Cipro S, Moxifloxacin S, Kanamycin S, Clofazimine S. Sputum culture cancel. Follow blood cultures x 2 Follow cultures. Follow clinically. d.w patient: that I would like her to talk to palliative care team to address some goals of care such as code status, intubation, tracheostomy and PEG tube. I d/w her that given her advanced disease if she were to get intubated she would be hard to extubate and may end up getting trach and PEG. Beatriz Dodson MD Jan 07, 2017 18:21
--- NOTE | 2017-01-07 19:13 | HHI.PR ---
Subjective Remarks ON O2 LESS SOB NRMASK SAT 100% Objective GENERAL: SKIN: Warm and dry. HEAD: Atraumatic. Normocephalic. EYES: Pupils equal and round. No scleral icterus. No injection or drainage. ENT: No nasal bleeding or discharge. Mucous membranes pink and moist. NECK: Trachea midline. No JVD. CARDIOVASCULAR: Regular rate and rhythm. RESPIRATORY: No accessory muscle use. Clear to auscultation. Breath sounds equal bilaterally. GASTROINTESTINAL: Abdomen soft, non-tender, nondistended. Hepatic and splenic margins not palpable. MUSCULOSKELETAL: Extremities without clubbing, cyanosis, or edema. No obvious deformities. NEUROLOGICAL: Awake and alert. No obvious cranial nerve deficits. Motor grossly within normal limits. Five out of 5 muscle strength in the arms and legs. Normal speech. PSYCHIATRIC: Appropriate mood and affect; insight and judgment normal. Vital Signs Date Time Temp Pulse Resp B/P Pulse Ox O2 Delivery O2 Flow Rate FiO2 01/07/17 17:30 98.3 118 28 85/54 100 01/07/17 17:23 119 29 109/74 100 Non-Rebreather 15 01/07/17 15:42 93 40 01/07/17 14:14 119 29 101/59 95 BiPAP 40 01/07/17 13:00 122 32 104/61 96 BiPAP 40 01/07/17 12:00 118 28 102/68 97 BiPAP 40 01/07/17 11:40 97 40 01/07/17 10:00 122 24 101/60 93 Nasal Cannula 2 01/07/17 08:00 118 22 97/62 94 Nasal Cannula 5 01/07/17 07:57 95 Nasal Cannula 4.00 01/07/17 06:01 101 22 99/56 94 Nasal Cannula 5 01/06/17 21:09 88 20 89/55 100 Nasal Cannula 5 I/O 01/06/17 01/06/17 01/06/17 01/07/17 01/07/17 01/07/17 07:00 15:00 23:00 07:00 15:00 23:00 Output Total 1000 ml Balance -1000 ml Output Urine Total 1000 ml # Voids 5 # Bowel Movements 2 Result Diagram: 01/07/1740101/07/172 Medications and IVs GENERAL: SKIN: Warm and dry. HEAD: Atraumatic. Normocephalic. EYES: Pupils equal and round. No scleral icterus. No injection or drainage. ENT: No nasal bleeding or discharge. Mucous membranes pink and moist. NECK: Trachea midline. No JVD. CARDIOVASCULAR: Regular rate and rhythm. RESPIRATORY: No accessory muscle use. Clear to auscultation. Breath sounds equal bilaterally. GASTROINTESTINAL: Abdomen soft, non-tender, nondistended. Hepatic and splenic margins not palpable. MUSCULOSKELETAL: Extremities without clubbing, cyanosis, or edema. No obvious deformities. NEUROLOGICAL: Awake and alert. No obvious cranial nerve deficits. Motor grossly within normal limits. Five out of 5 muscle strength in the arms and legs. Normal speech. PSYCHIATRIC: Appropriate mood and affect; insight and judgment normal. Assessment and Plan Assessment and Plan 1-COPD 2-PULM FIBROSIS 3-ATYPICAL TB PLAN O2 NEEDED BRONCHODILATOR THERAPY ANTIBIOTIC THERAPY INCREASE ACTIVITY START FEEDING PROGNOSIS LENAED Skip Valdivia MD Jan 07, 2017 19:13
[2017-01-07] MEDS: AMIKACIN IV SCH (21:30)
[2017-01-07] MEDS: SODIUM CHLOR 0.9% IV SCH (21:30)
[2017-01-07] MEDS: CHLORPHENIR/HYDROCOD LIQUID 8 MG/10 MG/5 ML CUP PO PRN (21:30)
[2017-01-07] MEDS: MOXIFLOXACIN 400 MG PREMIX 250 ML IV SCH (21:31)
--- NOTE | 2017-01-07 23:08 | EKG ---
Date Performed: 01/06/2017 Time Performed: 13:14:51 PTAGE: 76 years EKG: SINUS TACHYCARDIA ABNORMAL RHYTHM ECG NO PREVIOUS TRACING DOCTOR: Marilou Laureano Interpretating Date/Time 01/07/2017 23:02:23
[2017-01-08] VITALS (16 sets, daily range): BP systolic 90–120; BP diastolic 55–67; PULSE 111–133; RESP 21–30; TEMP 97.5–98.8; O2SAT 86–98
[2017-01-08] MEDS: methylPREDNISolone SOD SUCC 40 MG/1 ML VIAL IV PUSH SCH ×5 (00:03→23:33)
[2017-01-08] MEDS: RESP: ALBUTEROL 2.5 MG/IPRATROPIUM 0.5 MG NEB (SCH) INH ×4 (00:58→11:46)
[2017-01-08] MEDS: ALPRAZolam 0.25 MG TAB PO PRN ×4 (01:48→21:41)
[2017-01-08] MEDS: CHLORHEXIDINE GLUCONATE 2 % 1 PACK (2 CLOTHS) TOP SCH (04:00)
[2017-01-08] MEDS: INSULIN NovoLIN REGULAR SUPPLEMENTAL SCALE SQ SCH ×5 (05:41→23:32)
[2017-01-08 06:05] LABS: AUTOMATED NEUTROPHIL # 19.1 TH/MM3 (1.8-7.7); HEMATOCRIT 24.9 % (35.0-46.0); HEMO FLAGS DIFF FINAL; LYMPH % 3.6 % (9.0-44.0); LYMPHOCYTE # 0.7 TH/MM3 (1.0-4.8); MEAN CELL VOLUME 82.3 FL (80.0-100.0); MEAN CORPUSCULAR HEMOGLOBIN 26.7 PG (27.0-34.0); MEAN CORPUSCULAR HGB CONC 32.4 % (32.0-36.0); MONO % 2.8 % (0.0-8.0); NEUT % 93.6 % (16.0-70.0); PLATELET COUNT 385 TH/MM3 (150-450); RED BLOOD COUNT 3.02 MIL/MM3 (4.00-5.30); RED CELL DISTRIBUTION WIDTH 17.7 % (11.6-17.2); WHITE BLOOD COUNT 20.4 TH/MM3 (4.0-11.0)
[2017-01-08 06:38] LABS: BICARBONATE 29.8 MEQ/L (21.0-32.0); MAGNESIUM 2.5 MG/DL (1.5-2.5); POTASSIUM 3.6 MEQ/L (3.5-5.1)
--- NOTE | 2017-01-08 07:55 | HHI.PR ---
Subjective Remarks ON O2 LESS SOB Now on N/C O2 sat 94% Objective Vital Signs Date Time Temp Pulse Resp B/P Pulse Ox O2 Delivery O2 Flow Rate FiO2 01/08/17 06:00 112 01/08/17 04:10 98 50 01/08/17 04:00 97.9 111 30 107/61 98 01/08/17 04:00 111 01/08/17 02:00 122 01/08/17 00:59 94 50 01/08/17 00:00 111 01/08/17 00:00 98.8 111 21 111/66 98 01/07/17 22:28 98 50 01/07/17 22:00 121 01/07/17 20:42 92 BiPAP 60 01/07/17 20:42 94 60 01/07/17 20:00 97.5 123 31 116/63 93 01/07/17 20:00 123 01/07/17 18:00 120 01/07/17 17:30 98.3 118 28 85/54 100 01/07/17 17:23 119 29 109/74 100 Non-Rebreather 15 01/07/17 15:42 93 40 01/07/17 14:14 119 29 101/59 95 BiPAP 40 01/07/17 13:00 122 32 104/61 96 BiPAP 40 01/07/17 12:00 118 28 102/68 97 BiPAP 40 01/07/17 11:40 97 40 01/07/17 10:00 122 24 101/60 93 Nasal Cannula 2 01/07/17 08:00 118 22 97/62 94 Nasal Cannula 5 01/07/17 07:57 95 Nasal Cannula 4.00 I/O 01/07/17 01/07/17 01/07/17 01/08/17 01/08/17 01/08/17 07:00 15:00 23:00 07:00 15:00 23:00 Intake Total 745 ml 240 ml Output Total 1000 ml 500 ml 400 ml Balance -1000 ml 245 ml -160 ml Intake Oral 480 ml 240 ml IV Total 265 ml Output Urine Total 1000 ml 500 ml 400 ml Stool Total 0 ml 0 ml # Voids 5 # Bowel Movements 2 Result Diagram: 01/08/17 0535 01/08/17 0535 Assessment and Plan Assessment and Plan 1-COPD 2-PULM FIBROSIS 3-ATYPICAL TB PLAN O2 NEEDED BRONCHODILATOR THERAPY ANTIBIOTIC THERAPY INCREASE ACTIVITY START FEEDING PROGNOSIS GUARDED Skip Valdivia MD Jan 08, 2017 07:55
[2017-01-08] MEDS: BUDESONIDE-FORMOTEROL 160/4.5 MCG INHALER INH SCH ×3 (09:00→21:00)
[2017-01-08] MEDS: LINEZOLID 600 MG TAB PO SCH ×2 (09:11→21:42)
[2017-01-08] MEDS: PANTOPRAZOLE SODIUM 40 MG VIAL IV SCH (09:11)
[2017-01-08] MEDS: DILTIAZEM HCL 60 MG TAB PO SCH ×3 (10:17→23:33)
--- NOTE | 2017-01-08 11:23 | PD.CONS ---
Consult Service Palliative Care Consult Requested By Dr. Jimmie Dodson MD. Primary Care Physician Non-Staff Reason for Consultation a. To assist with evaluation and management of symptoms including: shortness of breath. b. To assist medical decision maker(s) with: better understanding of current medical conditions; weighing benefits/burdens of medical treatment options; making medical treatment decisions. (Nidia Zurita) HPI History of Present Illness Mrs. French is a 76 y/o female with a medical history significant for pulmonary fibrosis, COPD oxygen dependent and atypical TB. Patient [facility] ED [facility] from [facility] with shortness of breath. Upon ED presentation, patient was tachypneic with RR in the 50's and tachycardic, she was subsequently placed on BiPAP and transferred to ICU for further monitoring and management given her high risk for intubation and mechanical ventilation. CXR suggesting coarse opacities in both lungs. CT of chest showing worsening of coarse interstitial opacities in both lungs and stable cavitary lesion in right upper lung. ID -Dr. 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 Patient known to their services secondary to previous hospitalizations. Most recently from to 12/19/16 secondary to acute respiratory failure. At that time, patient was discharge to [facility] for PT and IV antibiotic administration given her complicated regimen. Pulmonology -Dr. Garvey consulted, recommended to continue on bronchodilator therapy, O2 and antibiotic therapy as per ID. Patient remains at high risk for further complications, continue decline and . Palliative care has been consulted for goals of care clarification and discuss treatment options such code status. Patient seen in ICU, at bedside. Palliative care was introduced over the phone by Dr. Dodson, patient and receptive. In this first visit, reviewed the role of palliative care in advanced illness in regard to symptom management as well as support surrounding goals of care and advance care planning. Patient tells me that she was first diagnosed with pulmonary fibrosis approximately a year ago; however, very symptomatic for the past 2 years. Reviewed recent hospitalizations, progression of disease and complications. Patient tells me that she has an appointment at [facility] on February 06 for evaluation and hopefully find a cure. Reviewed likely disease trajectory and current treatment plan. Discussed that pulmonary fibrosis is not curable but symptoms can be managed. with a very good understanding of patient's clinical condition to include high risk for further complications, continue decline and . Patient reports that her main goal is for prolongation of survival but that her quality of life is also important. Discuss with patient CPR, intubation and mechanical ventilation in the setting of patient's progressive illness and current clinical condition. Discussed concerns of patient requiring tracheostomy and PEG in the setting of intubation and mechanical ventilation given her progression of disease. Encourage patient and family to discuss treatment options in order to formulate a treatment plan. Patient will like to remain full code at this time while goals of care are discuss with her family. Patient and family appreciative of my visit. . Function/Cognitive Trajectory Resident of [facility] since 12/19/16. Previously residing with in home setting. O2 dependent. Independent with all ADL's prior to hospitalization in . . (Nidia Zurita) Review of Systems Constitutional: COMPLAINS OF: Weight loss, Change in appetite, Generalized weakness, DENIES: Diaphoretic episodes Eyes: DENIES: Blurred vision Ears, nose, mouth, throat: DENIES: Vertigo, Nasal discharge Respiratory: COMPLAINS OF: Cough, Shortness of breath Cardiovascular: COMPLAINS OF: Dyspnea on Exertion, DENIES: Lower Extremity Edema Gastrointestinal: DENIES: Abdominal pain, Constipation, Diarrhea, Nausea, Vomiting Genitourinary: COMPLAINS OF: Urinary frequency, DENIES: Urinary incontinence Musculoskeletal: DENIES: Joint pain, Joint Swelling Integumentary: COMPLAINS OF: Rash (back) Hematologic/Lymphatics: COMPLAINS OF: Bruising Immunologic/Allergic: DENIES: Eczema Neurologic: DENIES: Tremor, Poor Balance Psychiatric: COMPLAINS OF: Anxiety (Nidia Zurita) Past Family Social History Coded Allergies: No Known Allergies (Unverified , 01/06/17) Past Medical History Pulmonary fibrosis COPD 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 Past Surgical History Bilateral cataract surgery Orthopedic surgery to left wrist . Reported Medications Cardizem CD 24 HR (Diltiazem CD 24 HR) 180 Mg Caper 180 Mg PO DAILY Tussionex Pennkinetic Ext 12 HR Liq (Hydrocodone-Chlorpheniramine 12 HR Liq) 10- 8 Mg/5 Ml Susp 5 Ml PO HS PRN Prednisone 10 Mg Tab 10 Mg PO DAILY Primaxin Inj (Imipenem-Cilastatin Inj) 500-500 mg Inj 1 Vial IVPB Q8HR Robafen Dm 100-10 mg/5Ml (Dextromethorphan-Guaifenesin) 1 Syp Syp 5 Ml PO Q4HR PRN Amikacin Inj (Amikacin Sulfate) 500 Mg/2 Ml Inj 500 Mg IVPB Q12HR Xanax (Alprazolam) 0.25 Mg Tab 0.25 Mg PO Q4H PRN Budesonide Neb 0.5 Mg/2 Ml Neb 0.5 Mg NEB Q12HR NEB Albuterol Neb (Albuterol Sulfate) 0.63 Mg/3 Ml Neb 0.63 Mg NEB BID PRN . Current Medications Medications (Trade) Dose Ordered Sig/Sam Route Start Time Stop Time Status Last Admin (NS Flush) 2 ml UNSCH PRN IVF 01/06/17 13:00 (Protonix Inj) 40 mg DAILY IV 01/06/17 15:30 01/08/17 09:11 (Lovenox Inj) 40 mg Q24H SQ 01/06/17 16:00 01/07/17 17:25 Miscellaneous Information 1 Q361D XX 01/06/17 15:15 01/06/17 15:15 (Chlorhexidine 2% Cloth) 3 pack Taper DAILY@04 TOP 01/07/17 04:00 01/03/18 03:59 (Chlorhexidine 2% Cloth) 3 pack UNSCH PRN TOP 01/06/17 15:15 (SoluMEDROL INJ) 60 mg Q6HR IV PUSH 01/06/17 18:00 01/08/17 10:18 (D50w (Vial) Inj) 25 ml UNSCH PRN IV PUSH 01/06/17 15:30 (Glucagon Inj) 1 mg UNSCH PRN OTHER 01/06/17 15:30 (NovoLIN R SUPPLEMENTAL SCALE) 1 Q6HR SQ 01/06/17 16:00 01/07/17 13:05 Budesonide/ Formoterol Fumarate 2 puff 2 puff Q12HR INH 01/06/17 21:00 01/07/17 21:30 Potassium Chloride 100 ml @ 50 mls/hr Q2H PRN IV 01/06/17 15:30 (KCl 20 Meq Premix Inj) 100 ml @ 50 mls/hr Q2H PRN IV 01/06/17 15:30 Potassium Chloride 40 meq 40 meq UNSCH PRN PO/TUBE 01/06/17 15:30 Potassium Chloride 100 ml @ 25 mls/hr UNSCH PRN IV 01/06/17 15:30 Potassium Chloride 100 ml @ 50 mls/hr Q2H PRN IV 01/06/17 15:30 (Magnesium Sulfate Inj/NS Inj) 100 ml @ 50 mls/hr UNSCH PRN IV 01/06/17 15:30 Magnesium Oxide 800 mg 800 mg UNSCH PRN PO 01/06/17 15:30 (Magnesium Sulfate Inj/NS Inj) 100 ml @ 50 mls/hr UNSCH PRN IV 01/06/17 15:30 Potassium Phosphate 2000 mg 2,000 mg Q4H PRN PO 01/06/17 15:30 (Sodium Phosphate Inj/NS 250 ml Inj) 250 ml @ 42 mls/hr UNSCH PRN IV 01/06/17 15:30 (KCl 40 Meq/30 ml Liq) 40 meq UNSCH PRN PO/TUBE 01/06/17 15:30 Potassium Phosphate 2000 mg 2,000 mg UNSCH PRN PO/TUBE 01/06/17 15:30 Potassium Phosphate 30 mmol/ Sodium Chloride 260 ml @ 42 mls/hr UNSCH PRN IV 01/06/17 15:30 01/08/17 09:12 Pharmacy Profile Note 0 ml @ 0 mls/hr UNSCH OTHER 01/06/17 16:15 Amikacin Sulfate 690 mg/Sodium Chloride 252.76 ml @ 250 mls/ hr Q24H IV 01/06/17 21:00 01/07/17 21:30 (Avelox 400 Mg Premix) 250 ml @ 250 mls/hr Q24H IV 01/06/17 20:00 01/07/17 21:31 (Zyvox) 600 mg Q12HR PO 01/06/17 21:00 01/08/17 09:11 (Tussionex Liq) 5 ml Q12H PRN PO 01/07/17 19:30 01/07/17 21:30 (Xanax) 0.25 mg Q6H PRN PO 01/07/17 21:45 01/08/17 09:11 (Cardizem) 60 mg Q6HR PO 01/08/17 12:00 01/08/17 10:17 Family History Father secondary to ETOH abuse Mother in her 80's of old age, natural causes Pt has 3 children who are alive and well. . Substance Use Tobacco: Former smoker. Smoked for 10 years. Quit 35 years ago. Alcohol: Denies. Prescription med abuse: Denies. Illicits: Denies. . Psychosocial History for the past 30 years. Originally from [place]. 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 Has 3 children, Alondra, Mo and Calvin. All of her children live in [place]. . Spiritual/Cultural Factors Non-denomination. (Nidia Zurita) Living Will: Completed, but not made available Health Care Surrogate: Never completed Durable Power of Design Studio Consultant: Completed, but not made available Date completed: to provide copy. . Health Care Surrogate(s): As per [place] statute, healthcare proxy decision-making falls to patient's . . Documented care wishes: Living will has been completed. However, pending copies from family. Today's verbally stated goals: Full code. Patient goal at this time is for ongoing aggressive attempts at disease specific therapy. . Family/friends goals: See above. . Ethical and Legal Issues No ethical or legal issues have been identified. . (Nidia Zurita) Physical Exam Vital Signs Date Time Temp Pulse Resp B/P Pulse Ox O2 Delivery O2 Flow Rate FiO2 01/08/17 08:38 93 Nasal Cannula 5.00 01/08/17 06:00 112 01/08/17 04:10 98 50 01/08/17 04:00 97.9 111 30 107/61 98 01/08/17 04:00 111 01/08/17 02:00 122 01/08/17 00:59 94 50 01/08/17 00:00 111 01/08/17 00:00 98.8 111 21 111/66 98 01/07/17 22:28 98 50 01/07/17 22:00 121 01/07/17 20:42 92 BiPAP 60 01/07/17 20:42 94 60 01/07/17 20:00 97.5 123 31 116/63 93 01/07/17 20:00 123 01/07/17 18:00 120 01/07/17 17:30 98.3 118 28 85/54 100 01/07/17 17:23 119 29 109/74 100 Non-Rebreather 15 01/07/17 15:42 93 40 01/07/17 14:14 119 29 101/59 95 BiPAP 40 01/07/17 13:00 122 32 104/61 96 BiPAP 40 01/07/17 12:00 118 28 102/68 97 BiPAP 40 01/07/17 11:40 97 40 01/07/17 01/08/17 19:00 07:00 Intake Total 985 ml Output Total 900 ml Balance 85 ml Intake Oral 720 ml IV Total 265 ml Output Urine Total 900 ml Stool Total 0 ml Exam CONSTITUTIONAL/GENERAL: This is a thin, ill looking female in moderate distress secondary to shortness of breath. TUBES/LINES/DRAINS: PIV's. SCDs. SKIN: Scatter erythema to anterior chest. Ecchymoses on upper extremities. No wounds seen anteriorly. Skin temperature appropriate. Not diaphoretic. HEAD: Atraumatic. Normocephalic. EYES: Pupils equal and round and reactive. Extraocular motions intact. No scleral icterus. No injection or drainage. ENT: Hearing grossly normal. Nose without bleeding or purulent drainage. NECK: Trachea midline. Supple, nontender. CARDIOVASCULAR: Tachycardic with heart rate in the 120s. Regular rate and rhythm without murmurs, gallops, or rubs. Peripheral pulses symmetric. No edema. RESPIRATORY/CHEST: Symmetric, tachypnea with increased work of breathing. Clear but diminished to auscultation. Limited speech secondary to dyspnea. GASTROINTESTINAL: Abdomen soft, non-tender, nondistended. No guarding. Bowel sounds present. GENITOURINARY: Without palpable bladder distension. Using bedpan. MUSCULOSKELETAL: Extremities without clubbing, cyanosis, or edema. No mottling or clubbing. Muscle wasting noted. NEUROLOGICAL: Awake and alert. Motor and sensory grossly within normal limits. Follows commands. Cognitively sharp. Moves all extremities. PSYCHIATRIC: No obvious anxiety/depression. Calm. . (Nidia Zurita) Diagnostic Tests Laboratory Laboratory Tests Test 01/06/17 01/06/17 01/07/17 01/07/17 13:10 13:59 04:02 10:30 White Blood Count 11.4 TH/MM3 9.0 TH/MM3 (4.0-11.0) (4.0-11.0) Red Blood Count 3.31 MIL/MM3 3.06 MIL/MM3 (4.00-5.30) (4.00-5.30) Hemoglobin 8.9 GM/DL 8.2 GM/DL (11.6-15.3) (11.6-15.3) Hematocrit 27.7 % 25.5 % (35.0-46.0) (35.0-46.0) Mean Corpuscular Volume 83.7 FL 83.4 FL (80.0-100.0) (80.0-100.0) Mean Corpuscular Hemoglobin 27.0 PG 26.9 PG (27.0-34.0) (27.0-34.0) Mean Corpuscular Hemoglobin 32.3 % 32.3 % Concent (32.0-36.0) (32.0-36.0) Red Cell Distribution Width 17.9 % 17.8 % (11.6-17.2) (11.6-17.2) Platelet Count 271 TH/MM3 269 TH/MM3 (150-450) (150-450) Mean Platelet Volume 7.6 FL 7.1 FL (7.0-11.0) (7.0-11.0) Neutrophils (%) (Auto) 90.9 % 89.8 % (16.0-70.0) (16.0-70.0) Lymphocytes (%) (Auto) 4.6 % 8.9 % (9.0-44.0) (9.0-44.0) Monocytes (%) (Auto) 2.9 % (0.0-8.0) 1.2 % (0.0-8.0) Eosinophils (%) (Auto) 0.9 % (0.0-4.0) 0.0 % (0.0-4.0) Basophils (%) (Auto) 0.7 % (0.0-2.0) 0.1 % (0.0-2.0) Neutrophils # (Auto) 10.4 TH/MM3 8.1 TH/MM3 (1.8-7.7) (1.8-7.7) Lymphocytes # (Auto) 0.5 TH/MM3 0.8 TH/MM3 (1.0-4.8) (1.0-4.8) Monocytes # (Auto) 0.3 TH/MM3 0.1 TH/MM3 (0-0.9) (0-0.9) Eosinophils # (Auto) 0.1 TH/MM3 0.0 TH/MM3 (0-0.4) (0-0.4) Basophils # (Auto) 0.1 TH/MM3 0.0 TH/MM3 (0-0.2) (0-0.2) CBC Comment DIFF FINAL DIFF FINAL Differential Comment Sodium Level 135 MEQ/L 139 MEQ/L (136-145) (136-145) Potassium Level 4.6 MEQ/L 3.4 MEQ/L (3.5-5.1) (3.5-5.1) Chloride Level 99 MEQ/L 103 MEQ/L (98-107) (98-107) Carbon Dioxide Level 27.4 MEQ/L 26.5 MEQ/L (21.0-32.0) (21.0-32.0) Anion Gap 9 MEQ/L (5-15) 10 MEQ/L (5-15) Blood Urea Nitrogen 9 MG/DL (7-18) 9 MG/DL (7-18) Creatinine 0.67 MG/DL 0.55 MG/DL (0.50-1.00) (0.50-1.00) Estimat Glomerular Filtration 86 ML/MIN (>89) 108 ML/MIN Rate (>89) Random Glucose 161 MG/DL 168 MG/DL (74-106) (74-106) Calcium Level 7.8 MG/DL 7.7 MG/DL (8.5-10.1) (8.5-10.1) Blood Gas Puncture Site RT RADIAL Blood Gas Patient Temperature 98.6 Blood Gas HCO3 28 mmol/L (22-26) Blood Gas Base Excess 3.7 mmol/L (-2-2) Blood Gas Oxygen Saturation 95 % (90-100) Arterial Blood pH 7.44 (7.380-7.420) Arterial Blood Partial 42 mmHg (38-42) Pressure CO2 Arterial Blood Partial 156 mmHG Pressure O2 (61-120) Arterial Blood Oxygen Content 11.9 Vol % (12.0-20.0) Arterial Blood 2.5 % (0-4) Carboxyhemoglobin Arterial Blood Methemoglobin 1.6 % (0-2) Blood Gas Hemoglobin 8.6 G/DL (12.0-16.0) Oxygen Delivery Device BIPAP Blood Gas Ventilator Setting IPAP10/EPAP5 Blood Gas Inspired Oxygen 50 % Phosphorus Level 2.1 MG/DL (2.5-4.9) Magnesium Level 2.2 MG/DL (1.5-2.5) Total Bilirubin 0.3 MG/DL (0.2-1.0) Aspartate Amino Transf 14 U/L (15-37) (AST/SGOT) Alanine Aminotransferase 20 U/L (10-53) (ALT/SGPT) Alkaline Phosphatase 56 U/L (45-117) Total Protein 6.2 GM/DL (6.4-8.2) Albumin 2.2 GM/DL (3.4-5.0) Amikacin Level Trough Test 01/08/17 05:35 White Blood Count 20.4 TH/MM3 (4.0-11.0) Red Blood Count 3.02 MIL/MM3 (4.00-5.30) Hemoglobin 8.1 GM/DL (11.6-15.3) Hematocrit 24.9 % (35.0-46.0) Mean Corpuscular Volume 82.3 FL (80.0-100.0) Mean Corpuscular Hemoglobin 26.7 PG (27.0-34.0) Mean Corpuscular Hemoglobin 32.4 % Concent (32.0-36.0) Red Cell Distribution Width 17.7 % (11.6-17.2) Platelet Count 385 TH/MM3 (150-450) Mean Platelet Volume 7.2 FL (7.0-11.0) Neutrophils (%) (Auto) 93.6 % (16.0-70.0) Lymphocytes (%) (Auto) 3.6 % (9.0-44.0) Monocytes (%) (Auto) 2.8 % (0.0-8.0) Eosinophils (%) (Auto) 0.0 % (0.0-4.0) Basophils (%) (Auto) 0.0 % (0.0-2.0) Neutrophils # (Auto) 19.1 TH/MM3 (1.8-7.7) Lymphocytes # (Auto) 0.7 TH/MM3 (1.0-4.8) Monocytes # (Auto) 0.6 TH/MM3 (0-0.9) Eosinophils # (Auto) 0.0 TH/MM3 (0-0.4) Basophils # (Auto) 0.0 TH/MM3 (0-0.2) CBC Comment DIFF FINAL Differential Comment Sodium Level 140 MEQ/L (136-145) Potassium Level 3.6 MEQ/L (3.5-5.1) Chloride Level 103 MEQ/L (98-107) Carbon Dioxide Level 29.8 MEQ/L (21.0-32.0) Anion Gap 7 MEQ/L (5-15) Blood Urea Nitrogen 10 MG/DL (7-18) Creatinine 0.58 MG/DL (0.50-1.00) Estimat Glomerular Filtration 101 ML/MIN Rate (>89) Random Glucose 136 MG/DL (74-106) Calcium Level 7.7 MG/DL (8.5-10.1) Phosphorus Level 1.8 MG/DL (2.5-4.9) Magnesium Level 2.5 MG/DL (1.5-2.5) (Nidia Zurita) Result Diagram: 01/08/17 0535 01/08/17 0535 Microbiology Microbiology Date/Time Procedure Status Source Growth 01/06/17 16:10 Legionella Antigen - Final Complete Urine Catheterized Urine PRESUMPTIVE NEGATIVE FOR LEGIONELLA P... 01/06/17 16:10 Streptococcus pneumoniae Antigen (M - Final Complete Urine Catheterized Urine PRESUMPTIVE NEGATIVE FOR STREPTOCOCCU... 01/06/17 19:15 Aerobic Blood Culture - Preliminary Resulted Blood Line NO GROWTH IN 1 DAY 01/06/17 19:15 Anaerobic Blood Culture - Preliminary Resulted Blood Line NO GROWTH IN 1 DAY 01/06/17 19:20 Aerobic Blood Culture - Preliminary Resulted Blood Peripheral NO GROWTH IN 1 DAY 01/06/17 19:20 Anaerobic Blood Culture - Preliminary Resulted Blood Peripheral NO GROWTH IN 1 DAY 01/07/17 01:00 Cancelled Sputum Expectorated Sputum Imaging Last Impressions Chest X-Ray 01/06/17 1259 Signed Impressions: Service Date/Time: Friday, January 06, 2017 13:23 - CONCLUSION: Coarse opacities remain in both lungs. Bishop Rivero MD Chest CT 01/06/17 0000 Signed Impressions: Service Date/Time: Friday, January 06, 2017 14:55 - CONCLUSION: 1. Interval worsening of coarse interstitial opacities in both lungs 2. Stable appearance of the cavitary lesion right upper lobe. Bishop Rivero MD (Nidia Zurita) Patient/Family Conference Present at Family Conference: Patient's Ayo French. . Family Conference Time (mins): 46 Family Conference Location: Bedside Issues Discussed: * Palliative care role, purpose, approach * Additional medical, psychosocial, and spiritual history * Patients general health, functional status, and cognitive changes in the months leading up to the current hospitalization * Patient/family understanding of the current medical problems * Patient/family understanding of prognosis * Patients goals of care as best understood from advance directives and/or conversations and/or values * Current medical treatment options and benefits/burdens of those options * Risks, benefits and limitations of CPR, intubation and mechanical ventilation given patient's progression of disease and current clinical condition * Risks, benefits and limitations of tracheostomy and PEG tube * Questions answered to the best of my ability * Reviewed living well, healthcare surrogate and end-of-life wishes * Palliative care contact information provided . (Nidia Zurita) Assessment and Plan Disease Oriented Problem List: (1) Acute respiratory failure with hypoxia (2) Pulmonary fibrosis (3) COPD exacerbation (4) Atypical mycobacterial infection of lung Symptom Scale: (1) Dyspnea 0-10 Scale: Unable to quantify Comment: Secondary to pulmonary fibrosis, COPD. O2 dependent. BiPAP as medically indicated. (2) Anxiety 0-10 Scale: Unable to quantify Comment: Secondary to shortness of breath. (3) Malnourished 0-10 Scale: Unable to quantify Comment: Secondary to burden of disease, decreased oral intake. Albumin 2.2 Pertinent Non-Medical Issues Psychosocial: Spiritual: Legal: Ethical issues impacting care: Important Contacts Ayo French . Daughter Modesta Rojas . . Prognosis Mrs. French is a 76 y/o female with a medical history significant for pulmonary fibrosis, COPD oxygen dependent and atypical TB. Recent hospitalizations within the past 2 months with progression of disease and complications such as respiratory failure and pneumonia requiring IV antibiotic and BiPAP. Patient at high risk for further decline, complications and . Overall poor prognosis for an improved quality of life. . Code Status: Full Code Plan * CODE STATUS: Full code. Risks, benefits and limitations of CPR, intubation and mechanical ventilation discussed given patient's progressive illness and current clinical condition. * HEALTHCARE DECISION-MAKING: At this time , patient retains decision-making capacity. As per [place] statute, healthcare proxy decision-making falls to patient's . Patient verbalize being in agreement with this. * GOALS OF CARE: Full code. Patient goal at this time is for ongoing aggressive attempts at disease specific therapy/prolongation of survival. Patient wishing to return home post discharge with goal of attending consult at [facility] on February 06, 2017. Discussed with patient and likely trajectory and progression of disease, current treatment plan and risk for further complications, continue decline and . Discussed concerns regarding trach and PEG in the event patient requires intubation and mechanical ventilation. Encouraged patient and family to further discuss treatment options and limitations. * SYMPTOMS: == Dyspnea, secondary to acute respiratory failure due to fibrosis, COPD exacerbation, and possible pneumonia. ID and pulmonology following. Patient receiving Solu-Medrol and duonebs. Management deferred to pulmonary and web press roll tender. == Anxiety: Chronic and exacerbated by dyspnea. Taking Xanax at home. Xanax available every 6 hours when necessary. == Malnutrition, secondary to burden of disease and profound dyspnea. Albumin 2.2. Patient eating small meals and nutritional supplements. == Pressure ulcer: Patient reported pressure ulcer to coccyx secondary to bedrest and malnutrition. Wound care nurse consulted for evaluation and treatment. * Case has been discussed with Dr. Dodson and bedside RN. * Palliative care contact information has been provided to patient and family. * Palliative care will continue to follow-up for further clarifications of treatment goals and to provide emotional support. . (Nidia Zurita) Time Spent Total Floor Time (mins): 82 (Total time to include review and summarization of available medical records to include prior hospitalizations, physical exam, discussion with patient and regarding goals of care and treatment options, and case discussion with Dr. Dodson and bedside RN.) Face to Face Time (mins): 62 >50% Counseling/Coord of Care: Yes (Nidia Zurita) Thank you for the opportunity to participate in the care of Ms. French. (Nidia Zurita) Attestation To help prompt me to consider important information that might be impacting today's encounter and assessment, information from prior notes written by myself or my colleagues may have been "brought forward" into today's note. My signature on this note, however, is an attestation that I personally performed the exam, history, and/or decision-making noted today, and, unless otherwise indicated, the interactions with patient, family, and staff as well as the review of records all occurred today. I also attest that the listed assessment and stated plan reflect my best clinical judgment today based on the combination of historical information, prior notes, and today's exam/ interactions. When time spent is documented, it refers only to time spent today by the signer, or if indicated, combined time spent today by collaborating physician/nurse practitioner. (Nidia Zurita) Collaborating MD Comments Chart reviewed. Case discussed with palliative care MANAGER PLUMBING. Above MANAGER PLUMBING note reviewed and I concur. . (Tony Dodson MD) Nidia Zurita Jan 08, 2017 11:23 Tony Dodson MD Jan 11, 2017 12:27
[2017-01-08] MEDS ORDERED: RESP: LEVALBUTEROL HYDROCHLORIDE 0.63 MG/3 ML NEB (PRN) NEB (13:00)
[2017-01-08] MEDS: MORPHINE SULFATE 4 MG/ML INJ IV PUSH PRN ×2 (15:00→21:45)
[2017-01-08] MEDS: ENOXAPARIN SODIUM 40 MG/0.4 ML SYRINGE SQ SCH (15:01)
--- NOTE | 2017-01-08 15:12 | HHI.IDPN ---
Subjective Subjective Remarks Mrs. Jaramillo is a 76-year-old female with past medical history significant for pulmonary fibrosis, Mycobacterium fortuitum lung infection. Admitted with resp issues, COPD exacerbation possible pneumonia. Overnight events reviewed. No fever No rash No diarrhea. Antibiotics Moxifloxacin IV amikacin IV Zyvox oral. Lines Line sites with no e/o infection. Past Medical History reviewed Allergies: Coded Allergies: No Known Allergies (Unverified , 01/06/17) Objective . Vital Signs Date Time Temp Pulse Resp B/P Pulse Ox O2 Delivery O2 Flow Rate FiO2 01/08/17 14:00 123 01/08/17 12:00 97.9 125 26 113/58 91 01/08/17 12:00 125 01/08/17 10:00 133 01/08/17 08:38 93 Nasal Cannula 5.00 01/08/17 08:00 115 01/08/17 08:00 97.5 115 29 105/65 92 01/08/17 06:00 112 01/08/17 04:10 98 50 01/08/17 04:00 97.9 111 30 107/61 98 01/08/17 04:00 111 01/08/17 02:00 122 01/08/17 00:59 94 50 01/08/17 00:00 111 01/08/17 00:00 98.8 111 21 111/66 98 01/07/17 22:28 98 50 01/07/17 22:00 121 01/07/17 20:42 92 BiPAP 60 01/07/17 20:42 94 60 01/07/17 20:00 97.5 123 31 116/63 93 01/07/17 20:00 123 01/07/17 18:00 120 01/07/17 17:30 98.3 118 28 85/54 100 01/07/17 17:23 119 29 109/74 100 Non-Rebreather 15 01/07/17 15:42 93 40 01/07/17 01/07/17 01/08/17 15:00 23:00 07:00 Intake Total 745 ml 240 ml Output Total 500 ml 400 ml Balance 245 ml -160 ml Intake Oral 480 ml 240 ml IV Total 265 ml Output Urine Total 500 ml 400 ml Stool Total 0 ml 0 ml . Laboratory Tests Test 01/07/17 01/08/17 04:02 05:35 White Blood Count 9.0 TH/MM3 20.4 TH/MM3 Red Blood Count 3.06 MIL/MM3 3.02 MIL/MM3 Hemoglobin 8.2 GM/DL 8.1 GM/DL Hematocrit 25.5 % 24.9 % Mean Corpuscular Volume 83.4 FL 82.3 FL Mean Corpuscular Hemoglobin 26.9 PG 26.7 PG Mean Corpuscular Hemoglobin 32.3 % 32.4 % Concent Red Cell Distribution Width 17.8 % 17.7 % Platelet Count 269 TH/MM3 385 TH/MM3 Mean Platelet Volume 7.1 FL 7.2 FL Neutrophils (%) (Auto) 89.8 % 93.6 % Lymphocytes (%) (Auto) 8.9 % 3.6 % Monocytes (%) (Auto) 1.2 % 2.8 % Eosinophils (%) (Auto) 0.0 % 0.0 % Basophils (%) (Auto) 0.1 % 0.0 % Neutrophils # (Auto) 8.1 TH/MM3 19.1 TH/MM3 Lymphocytes # (Auto) 0.8 TH/MM3 0.7 TH/MM3 Monocytes # (Auto) 0.1 TH/MM3 0.6 TH/MM3 Eosinophils # (Auto) 0.0 TH/MM3 0.0 TH/MM3 Basophils # (Auto) 0.0 TH/MM3 0.0 TH/MM3 CBC Comment DIFF FINAL DIFF FINAL Differential Comment Laboratory Tests Test 01/07/17 01/08/17 04:02 05:35 Sodium Level 139 MEQ/L 140 MEQ/L Potassium Level 3.4 MEQ/L 3.6 MEQ/L Chloride Level 103 MEQ/L 103 MEQ/L Carbon Dioxide Level 26.5 MEQ/L 29.8 MEQ/L Anion Gap 10 MEQ/L 7 MEQ/L Blood Urea Nitrogen 9 MG/DL 10 MG/DL Creatinine 0.55 MG/DL 0.58 MG/DL Estimat Glomerular Filtration 108 ML/MIN 101 ML/MIN Rate Random Glucose 168 MG/DL 136 MG/DL Calcium Level 7.7 MG/DL 7.7 MG/DL Phosphorus Level 2.1 MG/DL 1.8 MG/DL Magnesium Level 2.2 MG/DL 2.5 MG/DL Total Bilirubin 0.3 MG/DL Aspartate Amino Transf 14 U/L (AST/SGOT) Alanine Aminotransferase 20 U/L (ALT/SGPT) Alkaline Phosphatase 56 U/L Total Protein 6.2 GM/DL Albumin 2.2 GM/DL Microbiology Date/Time Procedure Status Source Growth 01/06/17 16:10 Legionella Antigen - Final Complete Urine Catheterized Urine PRESUMPTIVE NEGATIVE FOR LEGIONELLA P... 01/06/17 16:10 Streptococcus pneumoniae Antigen (M - Final Complete Urine Catheterized Urine PRESUMPTIVE NEGATIVE FOR STREPTOCOCCU... 01/06/17 19:15 Aerobic Blood Culture - Preliminary Resulted Blood Line NO GROWTH IN 2 DAYS 01/06/17 19:15 Anaerobic Blood Culture - Preliminary Resulted Blood Line NO GROWTH IN 2 DAYS 01/06/17 19:20 Aerobic Blood Culture - Preliminary Resulted Blood Peripheral NO GROWTH IN 2 DAYS 01/06/17 19:20 Anaerobic Blood Culture - Preliminary Resulted Blood Peripheral NO GROWTH IN 2 DAYS 01/07/17 01:00 Cancelled Sputum Expectorated Sputum Imaging Last Impressions Chest X-Ray 01/06/17 1259 Signed Impressions: Service Date/Time: Friday, January 06, 2017 13:23 - CONCLUSION: Coarse opacities remain in both lungs. Bishop Rivero MD Chest CT 01/06/17 0000 Signed Impressions: Service Date/Time: Friday, January 06, 2017 14:55 - CONCLUSION: 1. Interval worsening of coarse interstitial opacities in both lungs 2. Stable appearance of the cavitary lesion right upper lobe. Bishop Rivero MD Physical Exam GENERAL: Thin built, undernourished female patient, in mild respiratory distress. SKIN: No rashes, ecchymoses or lesions. HEAD: Atraumatic. Normocephalic. No temporal or scalp tenderness. EYES: Pupils equal round and reactive. Extraocular motions intact. No scleral icterus. No injection or drainage. ENT: Was on a BiPAP mask. NECK: Trachea midline.Supple, nontender, no meningeal signs. CARDIOVASCULAR: Heart sounds audible. No murmur appreciated. RESPIRATORY: Bilateral coarse crackles. Air entry decreased in the bases. GASTROINTESTINAL: Abdomen soft, non-tender, nondistended. MUSCULOSKELETAL: Extremities without clubbing, cyanosis, or edema. No joint tenderness, effusion, or edema noted. No calf tenderness. Negative Homans sign bilaterally. NEUROLOGICAL: Awake and alert. Grossly nonfocal. Psych cooperative IV line sites with no evidence of infection. Assessment & Plan Remarks Possible Sepsis present on admission (Immune compromised host: Fever 102 F at home, tachycardia, leucocytosis) Community acquired/HCAP associated pneumonia/CABP Mycobacterium fortuitum lung infection Acute COPD exacerbation: advanced Pulm fibrosis Acute resp failure on BiPAP Fever and Rash: ? Drug fever from Imipenem Recs Continue Moxifloxacin IV (ASP criteria for CABP/HCAP as well as Myco fortuitum infection Continue Zyvox oral (for MRSA pneumonia) Continue Amikacin IV (pharmacy consult: for Mycobacterium fortuitum IV) Mycobacterium fortuitum infection: Cefoxitin I, Azithro R, Imipenem S, Amikacin S, Bactrim S, Cipro S, Moxifloxacin S, Kanamycin S, Clofazimine S. Follow blood cultures x 2 Sputum cultures cancelled as oral contamination. Follow clinically. patricia patient and spouse: Palliative care consult was placed when pt yday did not want PEG and trach. I spoke to he agrees palliative care consult is appropriate given her 4-5 admissions in last 2-3 months and advanced disease. Reviewed imaging and some basic oxygenation physiology in normal lung vs fibrotic lung. Encouraged them to ask questions from consultants laura about natural progression of disease and where her lung mechanisms are currently. I also discussed that in midst of infection any immunosuppressing agents (steroids or other immune modulating agents) will increase her chances of recurrent infections and the chances of her Mycobacterium fortuitum infection being effectively treated. I also informed them that ongoing fibrosis and cavitation could be from both primary lung disease as well as Mycobacterium fortuitum infection. Although there is no immediate need d/w Nidia from palliative care team. patricia GARDUNO and Dr.John LARISSA VALLE. Beatriz Dodson MD Jan 08, 2017 15:12
[2017-01-08] MEDS: RESP: LEVALBUTEROL HYDROCHLORIDE 0.63 MG/3 ML NEB (SCH) NEB ×3 (16:55→23:49)
--- NOTE | 2017-01-08 17:28 | PD.TRANSFR ---
Transfer Summary Admission Date Jan 06, 2017 at 14:30 Admitting Diagnosis acute hypoxic respiratory failure Diagnoses: (1) Acute respiratory failure with hypoxia Diagnosis: Principal (2) Atypical mycobacterial infection of lung Diagnosis: Principal (3) COPD exacerbation Diagnosis: Principal (4) Pulmonary fibrosis Diagnosis: Secondary (5) Dyspnea Diagnosis: Secondary (6) Pneumonia Diagnosis: Secondary (7) GERD (gastroesophageal reflux disease) Diagnosis: Secondary Transfer Summary/Subjective The patient is a 76-year-old female with a past medical history of chronic interstitial lung disease, COPD on continuous oxygen at the nursing facility, recent mycobacterium fortuitum infection in the sputum from November 10 being treated with IV antibiotics Amikacin and Primaxin through a PICC line. The patient was transferred from a local nursing facility to [facility] Emergency Department with a one day history of worsening shortness of breath associated with a productive cough. In the emergency room she was placed on BiPAP 10/5 with FIO2 of 50% and an ABG showed a pH of 7.44, CO2 42, paO2 156 , bicarbonate 28 and saturations of 95%. On arrival she was tachycardic and tachypneic. The patient had a temperature of 99.2 and her WBC is 11.4. Initial chest x-ray showed coarse opacities bilaterally. The patient subsequently had a CT scan of the chest without contrast which showed interval worsening of coarse interstitial opacities in both lungs and stable appearance of the cavitary lesion measuring 2.4 x 1.8 cm in the right upper lobe. The patient is being followed by Dr. Lofton from pulmonary service. She denies any nausea or vomiting or abdominal pain. In the emergency room she was given Solu-Medrol 60 milligrams IV push, Zosyn and bronchodilator treatments. 01/07 No acute events overnight. On BIPAP 10/5 with 40% FIO2. Afebrile. 01/08: Patient staying off BiPAP, on 5L NC. Patient after discussion with Dr. Lofton decided to change code status to a DNR. Overall feels slightly improved Objective Vital Signs Date Time Temp Pulse Resp B/P Pulse Ox O2 Delivery O2 Flow Rate FiO2 01/08/17 16:00 98.7 114 25 90/55 93 01/08/17 08:38 Nasal Cannula 5.00 01/08/17 04:10 50 Intake and Output 01/07/17 01/07/17 01/08/17 08:00 16:00 00:00 Intake Total 745 ml Output Total 1000 ml 500 ml Balance -1000 ml 245 ml Result Diagram: 01/08/17 0535 01/08/17 0535 Other Results Microbiology Date/Time Procedure Status Source Growth 01/06/17 16:10 Legionella Antigen - Final Complete Urine Catheterized Urine PRESUMPTIVE NEGATIVE FOR LEGIONELLA P... 01/06/17 16:10 Streptococcus pneumoniae Antigen (M - Final Complete Urine Catheterized Urine PRESUMPTIVE NEGATIVE FOR STREPTOCOCCU... Imaging Last Impressions Chest X-Ray 01/06/17 1259 Signed Impressions: Service Date/Time: Friday, January 06, 2017 13:23 - CONCLUSION: Coarse opacities remain in both lungs. Bishop Rivero MD Chest CT 01/06/17 0000 Signed Impressions: Service Date/Time: Friday, January 06, 2017 14:55 - CONCLUSION: 1. Interval worsening of coarse interstitial opacities in both lungs 2. Stable appearance of the cavitary lesion right upper lobe. Bishop Rivero MD Objective Remarks GENERAL: Patient is 76yo on FM SKIN: Warm and dry. HEAD: Normocephalic. EYES: No scleral icterus. No injection or drainage. NECK: Supple, trachea midline. No JVD or lymphadenopathy. CARDIOVASCULAR: Tachycardic without murmurs, gallops, or rubs. RESPIRATORY: Breath sounds equal bilaterally. Mild accessory muscle use. Coarse bilateral crackles and rhonchi GASTROINTESTINAL: Abdomen soft, non-tender, nondistended. MUSCULOSKELETAL: No cyanosis, or edema. Neuro: Awake and alert, no focal deficits A/P Assessment and Plan 1. Acute hypoxemic respiratory failure. 2. Exacerbation of pulmonary fibrosis/COPD 3. History of chronic interstitial lung disease. 4. COPD, oxygen dependent. 5. Mycobacterium fortuitum infection of the lung. 6. Right upper lobe cavitary lesion measuring 2.4 x 1.8 cm. 7. Anemia 8. GERD 9. Osteoporosis. Plan Neuro: Monitor neuro and minimize sedatives. Pulm: Wean down oxygen as tolerated and maintain sats > 90%. Bronchodilators, Symbicort, Solu-Medrol NIPPV PRN for respiratory distress. Pulm is following (After discussion with patient's OP [employer] consultant Dr. Lofton, patient changed Code status to DNR CV: Monitor HR and BP keep MAP>65 mmHg. Tachycardia due to SIRS and bronchodilators : Monitor renal function ins and outs and electrolyte replacement per protocol. d/cd IVF GI: on Protonix 40 mg IV daily, on PO diet ID: Continue abx per ID Dr. Dodson Amijayshree, Avelox)monitor for signs of infections( Fever, WBC) Strep pneumonia and Legionella urinary Ag negative Heme: Monitor CBC. Endo: SSI with Accu-Chek q.6h for glycemic control while on steroids. GI prophylaxis with Protonix 40 mg daily and DVT prophylaxis with SCD and Lovenox 40mg subq daily Level [address] [facility] to assume care in am 01/09/17 Elena Degroot MD Jan 08, 2017 17:28
--- NOTE | 2017-01-08 19:03 | RADRPT ---
EXAM DATE/TIME: 01/08/2017 17:23 [place] COMPARISON: CHEST SINGLE AP, January 06, 2017, 13:23. INDICATIONS : Respiratory disease MEDICAL HISTORY : Chronic obstructive pulmonary disease. SURGICAL HISTORY : Pulmonary fibrosis ENCOUNTER: Subsequent ACUITY: 3 days PAIN SCORE: 0/10 LOCATION: Bilateral chest FINDINGS: There is widespread consolidation throughout the lungs. There does appear to be some underlying chronic interstitial disease. When compared to the most recent chest x-ray the areas of c onsolidation appear worse. A significant effusion is not seen. The heart size is normal. There is a PICC line in place from the right arm with the tip overlying the SVC. Peripherally calcified breast implants are present. CONCLUSION: Diffuse pulmonary consolidations which appear worse. This likely represents some wors ening edema or consolidation/infection on top of underlying chronic interstitial disease. Zane Ashraf MD on January 08, 2017 at 18:08 Board Certified Radiologist. This report was verified electronically.
[2017-01-08] MEDS: CHLORPHENIR/HYDROCOD LIQUID 8 MG/10 MG/5 ML CUP PO PRN (21:41)
[2017-01-08] MEDS: MOXIFLOXACIN 400 MG PREMIX 250 ML IV SCH (23:30)
[2017-01-09] VITALS (14 sets, daily range): BP systolic 104–132; BP diastolic 56–69; PULSE 75–127; RESP 22–33; TEMP 97.6–98.8; O2SAT 89–100
[2017-01-09] MEDS: SODIUM CHLOR 0.9% IV SCH ×2 (00:31→20:36)
[2017-01-09] MEDS: AMIKACIN IV SCH ×2 (00:31→20:36)
[2017-01-09] MEDS: CHLORHEXIDINE GLUCONATE 2 % 1 PACK (2 CLOTHS) TOP SCH (04:00)
[2017-01-09] MEDS: RESP: LEVALBUTEROL HYDROCHLORIDE 0.63 MG/3 ML NEB (SCH) NEB ×5 (04:00→20:45)
[2017-01-09 04:29] LABS: AUTOMATED NEUTROPHIL # 19.9 TH/MM3 (1.8-7.7); HEMATOCRIT 25.8 % (35.0-46.0); HEMO FLAGS DIFF FINAL; LYMPH % 2.4 % (9.0-44.0); LYMPHOCYTE # 0.5 TH/MM3 (1.0-4.8); MEAN CELL VOLUME 82.7 FL (80.0-100.0); MEAN CORPUSCULAR HEMOGLOBIN 26.3 PG (27.0-34.0); MEAN CORPUSCULAR HGB CONC 31.8 % (32.0-36.0); MONO % 3.3 % (0.0-8.0); NEUT % 94.3 % (16.0-70.0); PLATELET COUNT 424 TH/MM3 (150-450); RED BLOOD COUNT 3.12 MIL/MM3 (4.00-5.30); WHITE BLOOD COUNT 21.1 TH/MM3 (4.0-11.0)
[2017-01-09 04:49] LABS: ALKALINE PHOSPHATASE 80 U/L (45-117); ALT (GPT) 21 U/L (10-53); ANION GAP 6 MEQ/L (5-15); AST (GOT) 17 U/L (15-37); BICARBONATE 31.6 MEQ/L (21.0-32.0); BLOOD UREA NITROGEN 17 MG/DL (7-18); CHLORIDE 102 MEQ/L (98-107); GLOMERULAR FILTRATION RATE 94 ML/MIN (>89); MAGNESIUM 2.4 MG/DL (1.5-2.5); POTASSIUM 4.2 MEQ/L (3.5-5.1); SODIUM (NA) 140 MEQ/L (136-145); TOTAL BILIRUBIN ADULT 0.2 MG/DL (0.2-1.0)
[2017-01-09] MEDS: ALPRAZolam 0.25 MG TAB PO PRN ×3 (05:45→12:31)
[2017-01-09] MEDS: DILTIAZEM HCL 60 MG TAB PO SCH ×4 (05:45→23:23)
[2017-01-09] MEDS: methylPREDNISolone SOD SUCC 40 MG/1 ML VIAL IV PUSH SCH ×4 (05:45→23:23)
[2017-01-09] MEDS: INSULIN NovoLIN REGULAR SUPPLEMENTAL SCALE SQ SCH ×4 (06:00→23:23)
[2017-01-09] MEDS: BUDESONIDE-FORMOTEROL 160/4.5 MCG INHALER INH SCH (08:43)
[2017-01-09] MEDS: PANTOPRAZOLE SODIUM 40 MG VIAL IV SCH (08:43)
[2017-01-09] MEDS: LINEZOLID 600 MG TAB PO SCH ×2 (08:43→20:48)
--- NOTE | 2017-01-09 09:04 | HHI.PR ---
Subjective Remarks ill looking- in respiratory distress and desaturates easily with just talking a few words. tachypneic and tachycardic. no fever. d/w the RN. Objective Vitals Vital Signs Date Time Temp Pulse Resp B/P Pulse Ox O2 Delivery O2 Flow Rate FiO2 01/09/17 06:00 127 01/09/17 04:00 99 01/09/17 04:00 97.6 99 22 106/57 98 01/09/17 02:00 102 01/09/17 00:00 98.8 118 22 112/61 95 01/09/17 00:00 119 01/08/17 23:37 34 01/08/17 22:00 111 01/08/17 21:56 98 Non-Rebreather 15.00 100 01/08/17 20:00 128 01/08/17 20:00 97.7 118 25 120/67 86 01/08/17 18:00 123 01/08/17 16:00 98.7 114 25 90/55 93 01/08/17 16:00 114 01/08/17 14:00 123 01/08/17 12:00 97.9 125 26 113/58 91 01/08/17 12:00 125 01/08/17 10:00 133 I/O 01/08/17 01/08/17 01/08/17 01/09/17 01/09/17 01/09/17 07:00 15:00 23:00 07:00 15:00 23:00 Intake Total 240 ml 816 ml 360 ml 875 ml Output Total 400 ml 525 ml 200 ml 275 ml Balance -160 ml 291 ml 160 ml 600 ml Intake Oral 240 ml 620 ml 360 ml 360 ml IV Total 196 ml 515 ml Output Urine Total 400 ml 525 ml 200 ml 275 ml Stool Total 0 ml # Voids 1 2 # Bowel Movements 0 1 0 Result Diagram: 01/09/17 0405 01/09/17 0405 Imaging Last Impressions Chest X-Ray 01/08/17 0000 Signed Impressions: Service Date/Time: December 17:23 - CONCLUSION: Diffuse pulmonary consolidations which appear worse. This likely represents some worsening edema or consolidation/infection on top of underlying chronic interstitial disease. Zane Ashraf MD Chest CT 01/06/17 0000 Signed Impressions: Service Date/Time: Friday, January 06, 2017 14:55 - CONCLUSION: 1. Interval worsening of coarse interstitial opacities in both lungs 2. Stable appearance of the cavitary lesion right upper lobe. Bishop Rivero MD Objective Remarks GENERAL:ill looking with respiratory distress CARDIOVASCULAR: Regular rate and irregular rhythm without murmurs, gallops, or rubs. RESPIRATORY: Clear to auscultation. Breath sounds equal bilaterally. No wheezes , rales, or rhonchi. GASTROINTESTINAL: Abdomen soft, non-tender, nondistended. Normal, active bowel sounds MUSCULOSKELETAL: Extremities without clubbing, cyanosis, or edema. NEURO: Alert & Oriented x4 to person, place, time, situation. Moves all ext x4 Medications and IVs Current Medications IV Flush (NS Flush) 2 ml UNSCH PRN IVF FLUSH AFTER USING IV ACCESS; Start 01/06 at 13:00 Albuterol/ Ipratropium (Duoneb Neb) 1 ampule Q15M INH Last administered on 01/06 13:26; Start 01/06/17 at 13:00; Stop 01/06/17 at 13:16; Status DC Methylprednisolone Sodium Succinate 60 mg 60 mg ONCE ONCE IV PUSH Last administered on 01/06/17 15:04; Start 01/06/17 at 14:15; Stop 01/06/17 at 14:16 ; Status DC Piperacillin Sod/ Tazobactam Sod 50 ml @ 100 mls/hr ONCE ONCE IV Last administered on 01/06/17 15:28; Start 01/06/17 at 14:30; Stop 01/06/17 at 14:59 ; Status DC Sodium Chloride (NS 1000 ml Inj) 1,000 ml @ 50 mls/hr Q20H IV Last administered on 01/06/17 15:24; Start 01/06/17 at 15:02; Stop 01/07/17 at 12:09 ; Status DC Pantoprazole Sodium (Protonix Inj) 40 mg DAILY IV Last administered on 08:43; Start 01/06/17 at 15:30 Albuterol/ Ipratropium (Duoneb Neb) 1 ampule Q4HR NEB INH Last administered on 01/08/17 08:37; Start 01/06/17 at 16:00; Stop 01/08/17 at 12:48; Status DC Albuterol/ Ipratropium (Duoneb Neb) 1 ampule Q2HR NEB PRN INH WHEEZING; Start 01/06/17 at 15:15; Stop 01/08/17 at 12:48; Status DC Enoxaparin Sodium (Lovenox Inj) 40 mg Q24H SQ Last administered on 01/08/17 15 :01; Start 01/06/17 at 16:00 Miscellaneous Information 1 Q361D XX Last administered on 01/06/17 15:15; Start 01/06/17 at 15:15 Chlorhexidine Gluconate (Chlorhexidine 2% Cloth) 3 pack Taper DAILY@04 TOP Last administered on 01/09/17 04:00; Start 01/07/17 at 04:00; Stop 01/03/18 at 03:59 Chlorhexidine Gluconate 3 pack 3 pack UNSCH PRN TOP HYGIENIC CARE; Start at 15:15 Amikacin Sulfate/ Sodium Chloride (Amikin Inj/NS Inj) 102 ml @ 204 mls/hr Q12H IV ; Start 01/06/17 at 21:00; Stop 01/06/17 at 21:00; Status DC Methylprednisolone Sodium Succinate (SoluMEDROL INJ) 60 mg Q6HR IV PUSH Last administered on 01/09/17 05:45; Start 01/06/17 at 18:00 Dextrose (D50w (Vial) Inj) 25 ml UNSCH PRN IV PUSH HYPOGLYCEMIA-SEE COMMENTS; Start 01/06/17 at 15:30 Glucagon (Glucagon Inj) 1 mg UNSCH PRN OTHER HYPOGLYCEMIA-SEE COMMENTS; Start 01/06/17 at 15:30 Insulin Human Regular 1 1 Q6HR SQ Last administered on 01/08/17 17:39; Start 01/06/17 at 16:00 Imipenem/ Cilastatin Sodium/ Sodium Chloride (Primaxin Inj/NS Inj) 100 ml @ 100 mls/hr Q8H IV Last administered on 01/06/17 18:02; Start 01/06/17 at 17:00 ; Stop 01/06/17 at 18:35; Status DC Budesonide/ Formoterol Fumarate 2 puff 2 puff Q12HR INH Last administered on 21:30; Start 01/06/17 at 21:00 Potassium Chloride 100 ml @ 50 mls/hr Q2H PRN IV For Potassium 2.8 - 3.2 mEq/L ; Start 01/06/17 at 15:30 Potassium Chloride (KCl 20 Meq Premix Inj) 100 ml @ 50 mls/hr Q2H PRN IV For Potassium 2.8 - 3.2 mEq/L; Start 01/06/17 at 15:30 Potassium Chloride 40 meq 40 meq UNSCH PRN PO/TUBE For Potassium 3.3 - 3.5 mEq/ L; Start 01/06/17 at 15:30 Potassium Chloride 100 ml @ 25 mls/hr UNSCH PRN IV For Potassium 3.3 - 3.5 mEq /L; Start 01/06/17 at 15:30 Potassium Chloride 100 ml @ 50 mls/hr Q2H PRN IV For Potassium 3.3 - 3.5 mEq/L ; Start 01/06/17 at 15:30 Magnesium Sulfate/ Sodium Chloride (Magnesium Sulfate Inj/NS Inj) 100 ml @ 50 mls/hr UNSCH PRN IV For Magnesium 0.9 - 1.1 mg/dL; Start 01/06/17 at 15:30 Magnesium Oxide 800 mg 800 mg UNSCH PRN PO For Magnesium 1.2 - 1.6 mg/dL; Start 01/06/17 at 15:30 Magnesium Sulfate/ Sodium Chloride (Magnesium Sulfate Inj/NS Inj) 100 ml @ 50 mls/hr UNSCH PRN IV For Magnesium 1.2 - 1.6 mg/dL; Start 01/06/17 at 15:30 Potassium Phosphate 2000 mg 2,000 mg Q4H PRN PO For Phosphorus < 2.5 mg/dL; Start 01/06/17 at 15:30 Sodium Phosphate/ Sodium Chloride (Sodium Phosphate Inj/NS 250 ml Inj) 250 ml @ 42 mls/hr UNSCH PRN IV For Phosphorus < 2.5 mg/dL; Start 01/06/17 at 15:30 Potassium Chloride (KCl 40 Meq/30 ml Liq) 40 meq UNSCH PRN PO/TUBE SEE LABEL COMMENTS; Start 01/06/17 at 15:30 Potassium Phosphate 2000 mg 2,000 mg UNSCH PRN PO/TUBE SEE LABEL COMMENTS; Start 01/06/17 at 15:30 Potassium Phosphate/Sodium Chloride (Potassium Phosphate Inj/NS 250 ml Inj) 260 ml @ 42 mls/hr UNSCH PRN IV SEE LABEL COMMENTS Last administered on 01/08/17 09:12; Start 01/06/17 at 15:30 Miscellaneous Medication 1 1 ONCE ONCE XX Last administered on 01/06/17 16:00 ; Start 01/06/17 at 16:00; Stop 01/06/17 at 16:01; Status DC Pharmacy Profile Note 0 ml @ 0 mls/hr UNSCH OTHER ; Start 01/06/17 at 16:15 Amikacin Sulfate/ Sodium Chloride (Amikin Inj/NS 250 ml Inj) 252.76 ml @ 250 mls/ hr Q24H IV Last administered on 01/09/17 00:31; Start 01/06/17 at 21:00 Miscellaneous Information SPECIFIC LAB TO BE ... ONCE ONCE XX ; Start at 08:45; Stop 01/07/17 at 08:46; Status DC Moxifloxacin HCl (Avelox 400 Mg Premix) 250 ml @ 250 mls/hr Q24H IV Last administered on 01/08/17 23:30; Start 01/06/17 at 20:00 Linezolid (Zyvox) 600 mg Q12HR PO Last administered on 01/09/17 08:43; Start 01/06/17 at 21:00 Chlorphenir/ Hydrocodone Polistirex (Tussionex Liq) 5 ml Q12H PRN PO COUGH Last administered on 01/08/17 21:41; Start 01/07/17 at 19:30 Alprazolam (Xanax) 0.25 mg Q6H PRN PO ANXIETY Last administered on 01/09/17 08 :43; Start 01/07/17 at 21:45 Diltiazem HCl (Cardizem) 60 mg Q6HR PO Last administered on 01/09/17 05:45; Start 01/08/17 at 12:00 Levalbuterol HCl (Xopenex Neb) 0.63 mg Q4HR NEB NEB Last administered on 08:38; Start 01/08/17 at 16:00 Levalbuterol HCl (Xopenex Neb) 0.63 mg Q2HR NEB PRN NEB SOB/WHEEZING; Start at 13:00 Morphine Sulfate (Morphine Inj) 3 mg Q3H PRN IV PUSH SHORTNESS OF BREATH Last administered on 01/08/17t 21:45; Start 01/08/17 at 13:00 A/P Assessment and Plan A/P 1. Acute hypoxemic respiratory failure due to Exacerbation of pulmonary fibrosis/COPD and history of chronic interstitial lung disease and Mycobacterium fortuitum infection of the lung. keep on oxygen to keep O2 sat > 90%- BiPaP as needed- continue IV steroids and neb treatment. continue antibiotics per ID. pulmonary following. 2. leukocytosis due to infection/ steroids- will monitoe 3. Anemia- stable H/H- will monitor DVT/GI prophylaxis with lovenox/ PPI. patient is ill-looking. will keep in ICU for now. palliative care consult appreciated. Lorenzo Moreau MD Jan 09, 2017 09:04
[2017-01-09 10:25] LABS: BACTERIA, URINE RARE /hpf; BLOOD, URINE TRACE (NEG); GLUCOSE,URINE NEG (NEG); HYALINE CAST, URINE 2 /lpf (RARE); KETONE, URINE NEG (NEG); NITRITE,URINE NEG (NEG); PH, URINE 6.5 (5.0-8.5); SQUAMOUS EPITHELIAL CELL URINE 2 /hpf (0-5); TRANSITIONAL EPI CELLS, URINE <1 /hpf; URINE COLOR YELLOW (YELLW/STRAW)
[2017-01-09 10:42] LABS: COMMENT (UR) CATH-CULTURE IND; CULTURE IF INDICATED CATH CULTURE IND
[2017-01-09] MEDS: MORPHINE SULFATE 4 MG/ML INJ IV PUSH PRN ×3 (10:46→23:01)
--- NOTE | 2017-01-09 11:32 | HHI.HCPN ---
Reason for visit a. To assist with evaluation and management of symptoms including: shortness of breath and anxiety. b. To assist medical decision maker(s) with: better understanding of current medical conditions; weighing benefits/burdens of medical treatment options; making medical treatment decisions. (Nidia Zurita) Subjective/Interval History Patient seen in ICU. at bedside. She was sitting up in bed eating breakfast. Nasal cannula and intermitted facemask being used in between bites of food. Increased work of breathing, tachypnea and anxious at times. Severe dyspnea at rest and on any exertion. Reports using BiPAP all night last night. Denies pain, nausea/vomiting or diarrhea. Zavaleta catheter placed yesterday secondary to severe dyspnea on any exertion and excoriated bottom. Reports feeling better with Zavaleta catheter now which is allowing her to rest. Patient remains afebrile, tachycardic with heart rate in the low 110s. Stable BP. Chest x-ray 01/08/17 revealing worsening diffuse pulmonary consolidation likely representing edema or infection on top of underlying chronic interstitial disease. Laboratory today to include WBC 21.1 which is a marked increase from 2 days ago at 9.0, Hgb 8.2, platelet count 424. Sodium 140, potassium 4.2, BUN/ creatinine 17/0.62. Albumin 2.2. UA negative for ketones and leukocytes, culture sent. Blood culture from 01/06/17 with no growth in 3 days thus far. Patient to remain in ICU setting under hospitalist services secondary to clinical respiratory condition. Patient reports that after speaking with palliative care, Dr. Dodson, Dr. rodrigues , patient electing no CODE STATUS -DNR/DNI given her advanced disease with poor prognosis. Patient verbalized understanding that intubation, mechanical ventilation, tracheostomy for PEG are not recommended secondary to the above. Discussed that goals of care continue aggressive short of no code with emphasis on symptom management. Patient's ultimate goal is to return home. Ongoing emotional support and active listening provided to patient and . . Family/friend interactions Spoke with patient's is out of the room. appropriately tearful. Verbalize knowing that patient's condition is progressing and terminal. reports that he has been in contact with her children/family are in agreement with current plan of care. asking about hospice services. Reviewed hospice philosophy and benefits. Discussed the role of hospice should patient's condition continues to worsen. Reviewed differences between hospice services at home and care center. very receptive of this conversation and asking for guidance when the time for hospice approaches. Review with the palliative care will continue to follow-up and will be in close communication with attending and consulting physicians. appreciative of my visit today. . (Nidia Zurita) Advance Directives Living Will: Completed, but not made available Health Care Surrogate: Never completed Durable Power of Hot Blaster: Completed, but not made available (Nidia Zurita) Advance Directive Specifics Date completed: 06/28/2013. . Health Care Surrogate(s): Designation of HCS provided. Patient designated her Ayo French as HCS and daughter Modesta Spring as alternate. . Documented care wishes: Living will has been completed. However, pending copies from family. Significant change in goals: NO CODE. DNR/DNI. Continue with aggressive care short of no code. (Nidia Zurita) Objective Vital Signs Date Time Temp Pulse Resp B/P Pulse Ox O2 Delivery O2 Flow Rate FiO2 01/09/17 10:00 111 01/09/17 08:00 98.0 75 23 104/56 100 01/09/17 08:00 75 01/09/17 06:00 127 01/09/17 04:00 99 01/09/17 04:00 97.6 99 22 106/57 98 01/09/17 02:00 102 01/09/17 00:00 98.8 118 22 112/61 95 01/09/17 00:00 119 01/08/17 23:37 34 01/08/17 22:00 111 01/08/17 21:56 98 Non-Rebreather 15.00 100 01/08/17 20:00 128 01/08/17 20:00 97.7 118 25 120/67 86 01/08/17 18:00 123 01/08/17 16:00 98.7 114 25 90/55 93 01/08/17 16:00 114 01/08/17 14:00 123 01/08/17 12:00 97.9 125 26 113/58 91 01/08/17 12:00 125 Physical Exam CONSTITUTIONAL/GENERAL: This is a thin, ill looking female in moderate distress secondary to shortness of breath. Using nasal cannula and intermittent facemask while eating her breakfast. TUBES/LINES/DRAINS: PIV's. SCDs. Zavaleta catheter. SKIN: Scatter erythema to anterior chest. Ecchymoses on upper extremities. No wounds seen anteriorly. Skin temperature appropriate. Not diaphoretic. HEAD: Atraumatic. Normocephalic. EYES: Pupils equal and round and reactive. No scleral icterus. No injection or drainage. ENT: Hearing grossly normal. Nose without bleeding or purulent drainage. NECK: Trachea midline. Supple, nontender. CARDIOVASCULAR: Tachycardic with heart rate in the 120s. Regular rate and rhythm without murmurs, gallops, or rubs. Peripheral pulses symmetric. No edema. RESPIRATORY/CHEST: Symmetric, tachypnea with increased work of breathing. Clear but diminished to auscultation. Limited speech secondary to dyspnea. GASTROINTESTINAL: Abdomen soft, non-tender, nondistended. No guarding. Bowel sounds present. GENITOURINARY: Without palpable bladder distension. Zavaleta catheter in place MUSCULOSKELETAL: Extremities without clubbing, cyanosis, or edema. No mottling or clubbing. Muscle wasting noted. NEUROLOGICAL: Awake and alert. Motor and sensory grossly within normal limits. Follows commands. Moves all extremities. PSYCHIATRIC: Anxious secondary to shortness of breath . (Nidia Zurita) Diagnostic Tests Laboratory Laboratory Tests Test 01/06/17 01/06/17 01/07/17 01/07/17 13:10 13:59 04:02 10:30 White Blood Count 11.4 TH/MM3 9.0 TH/MM3 (4.0-11.0) (4.0-11.0) Red Blood Count 3.31 MIL/MM3 3.06 MIL/MM3 (4.00-5.30) (4.00-5.30) Hemoglobin 8.9 GM/DL 8.2 GM/DL (11.6-15.3) (11.6-15.3) Hematocrit 27.7 % 25.5 % (35.0-46.0) (35.0-46.0) Mean Corpuscular Volume 83.7 FL 83.4 FL (80.0-100.0) (80.0-100.0) Mean Corpuscular Hemoglobin 27.0 PG 26.9 PG (27.0-34.0) (27.0-34.0) Mean Corpuscular Hemoglobin 32.3 % 32.3 % Concent (32.0-36.0) (32.0-36.0) Red Cell Distribution Width 17.9 % 17.8 % (11.6-17.2) (11.6-17.2) Platelet Count 271 TH/MM3 269 TH/MM3 (150-450) (150-450) Mean Platelet Volume 7.6 FL 7.1 FL (7.0-11.0) (7.0-11.0) Neutrophils (%) (Auto) 90.9 % 89.8 % (16.0-70.0) (16.0-70.0) Lymphocytes (%) (Auto) 4.6 % 8.9 % (9.0-44.0) (9.0-44.0) Monocytes (%) (Auto) 2.9 % (0.0-8.0) 1.2 % (0.0-8.0) Eosinophils (%) (Auto) 0.9 % (0.0-4.0) 0.0 % (0.0-4.0) Basophils (%) (Auto) 0.7 % (0.0-2.0) 0.1 % (0.0-2.0) Neutrophils # (Auto) 10.4 TH/MM3 8.1 TH/MM3 (1.8-7.7) (1.8-7.7) Lymphocytes # (Auto) 0.5 TH/MM3 0.8 TH/MM3 (1.0-4.8) (1.0-4.8) Monocytes # (Auto) 0.3 TH/MM3 0.1 TH/MM3 (0-0.9) (0-0.9) Eosinophils # (Auto) 0.1 TH/MM3 0.0 TH/MM3 (0-0.4) (0-0.4) Basophils # (Auto) 0.1 TH/MM3 0.0 TH/MM3 (0-0.2) (0-0.2) CBC Comment DIFF FINAL DIFF FINAL Differential Comment Sodium Level 135 MEQ/L 139 MEQ/L (136-145) (136-145) Potassium Level 4.6 MEQ/L 3.4 MEQ/L (3.5-5.1) (3.5-5.1) Chloride Level 99 MEQ/L 103 MEQ/L (98-107) (98-107) Carbon Dioxide Level 27.4 MEQ/L 26.5 MEQ/L (21.0-32.0) (21.0-32.0) Anion Gap 9 MEQ/L (5-15) 10 MEQ/L (5-15) Blood Urea Nitrogen 9 MG/DL (7-18) 9 MG/DL (7-18) Creatinine 0.67 MG/DL 0.55 MG/DL (0.50-1.00) (0.50-1.00) Estimat Glomerular Filtration 86 ML/MIN (>89) 108 ML/MIN Rate (>89) Random Glucose 161 MG/DL 168 MG/DL (74-106) (74-106) Calcium Level 7.8 MG/DL 7.7 MG/DL (8.5-10.1) (8.5-10.1) Blood Gas Puncture Site RT RADIAL Blood Gas Patient Temperature 98.6 Blood Gas HCO3 28 mmol/L (22-26) Blood Gas Base Excess 3.7 mmol/L (-2-2) Blood Gas Oxygen Saturation 95 % (90-100) Arterial Blood pH 7.44 (7.380-7.420) Arterial Blood Partial 42 mmHg (38-42) Pressure CO2 Arterial Blood Partial 156 mmHG Pressure O2 (61-120) Arterial Blood Oxygen Content 11.9 Vol % (12.0-20.0) Arterial Blood 2.5 % (0-4) Carboxyhemoglobin Arterial Blood Methemoglobin 1.6 % (0-2) Blood Gas Hemoglobin 8.6 G/DL (12.0-16.0) Oxygen Delivery Device BIPAP Blood Gas Ventilator Setting [id number] Blood Gas Inspired Oxygen 50 % Phosphorus Level 2.1 MG/DL (2.5-4.9) Magnesium Level 2.2 MG/DL (1.5-2.5) Total Bilirubin 0.3 MG/DL (0.2-1.0) Aspartate Amino Transf 14 U/L (15-37) (AST/SGOT) Alanine Aminotransferase 20 U/L (10-53) (ALT/SGPT) Alkaline Phosphatase 56 U/L (45-117) Total Protein 6.2 GM/DL (6.4-8.2) Albumin 2.2 GM/DL (3.4-5.0) Amikacin Level Trough Test 01/08/17 01/09/17 01/09/17 05:35 04:05 08:20 White Blood Count 20.4 TH/MM3 21.1 TH/MM3 (4.0-11.0) (4.0-11.0) Red Blood Count 3.02 MIL/MM3 3.12 MIL/MM3 (4.00-5.30) (4.00-5.30) Hemoglobin 8.1 GM/DL 8.2 GM/DL (11.6-15.3) (11.6-15.3) Hematocrit 24.9 % 25.8 % (35.0-46.0) (35.0-46.0) Mean Corpuscular Volume 82.3 FL 82.7 FL (80.0-100.0) (80.0-100.0) Mean Corpuscular Hemoglobin 26.7 PG 26.3 PG (27.0-34.0) (27.0-34.0) Mean Corpuscular Hemoglobin 32.4 % 31.8 % Concent (32.0-36.0) (32.0-36.0) Red Cell Distribution Width 17.7 % 18.0 % (11.6-17.2) (11.6-17.2) Platelet Count 385 TH/MM3 424 TH/MM3 (150-450) (150-450) Mean Platelet Volume 7.2 FL 7.2 FL (7.0-11.0) (7.0-11.0) Neutrophils (%) (Auto) 93.6 % 94.3 % (16.0-70.0) (16.0-70.0) Lymphocytes (%) (Auto) 3.6 % 2.4 % (9.0-44.0) (9.0-44.0) Monocytes (%) (Auto) 2.8 % (0.0-8.0) 3.3 % (0.0-8.0) Eosinophils (%) (Auto) 0.0 % (0.0-4.0) 0.0 % (0.0-4.0) Basophils (%) (Auto) 0.0 % (0.0-2.0) 0.0 % (0.0-2.0) Neutrophils # (Auto) 19.1 TH/MM3 19.9 TH/MM3 (1.8-7.7) (1.8-7.7) Lymphocytes # (Auto) 0.7 TH/MM3 0.5 TH/MM3 (1.0-4.8) (1.0-4.8) Monocytes # (Auto) 0.6 TH/MM3 0.7 TH/MM3 (0-0.9) (0-0.9) Eosinophils # (Auto) 0.0 TH/MM3 0.0 TH/MM3 (0-0.4) (0-0.4) Basophils # (Auto) 0.0 TH/MM3 0.0 TH/MM3 (0-0.2) (0-0.2) CBC Comment DIFF FINAL DIFF FINAL Differential Comment Sodium Level 140 MEQ/L 140 MEQ/L (136-145) (136-145) Potassium Level 3.6 MEQ/L 4.2 MEQ/L (3.5-5.1) (3.5-5.1) Chloride Level 103 MEQ/L 102 MEQ/L (98-107) (98-107) Carbon Dioxide Level 29.8 MEQ/L 31.6 MEQ/L (21.0-32.0) (21.0-32.0) Anion Gap 7 MEQ/L (5-15) 6 MEQ/L (5-15) Blood Urea Nitrogen 10 MG/DL (7-18) 17 MG/DL (7-18) Creatinine 0.58 MG/DL 0.62 MG/DL (0.50-1.00) (0.50-1.00) Estimat Glomerular Filtration 101 ML/MIN 94 ML/MIN (>89) Rate (>89) Random Glucose 136 MG/DL 135 MG/DL (74-106) (74-106) Calcium Level 7.7 MG/DL 7.7 MG/DL (8.5-10.1) (8.5-10.1) Phosphorus Level 1.8 MG/DL (2.5-4.9) Magnesium Level 2.5 MG/DL 2.4 MG/DL (1.5-2.5) (1.5-2.5) Total Bilirubin 0.2 MG/DL (0.2-1.0) Aspartate Amino Transf 17 U/L (15-37) (AST/SGOT) Alanine Aminotransferase 21 U/L (10-53) (ALT/SGPT) Alkaline Phosphatase 80 U/L (45-117) Total Protein 6.2 GM/DL (6.4-8.2) Albumin 2.2 GM/DL (3.4-5.0) Urine Color YELLOW (YELLW/STRAW) Urine Turbidity HAZY (CLEAR) Urine pH 6.5 (5.0-8.5) Urine Specific [place] 1.016 (1.002-1.035) Urine Protein 30 mg/dL (NEG-TRACE) Urine Glucose (UA) NEG mg/dL (NEG) Urine Ketones NEG mg/dL (NEG) Urine Occult Blood TRACE (NEG) Urine Nitrite NEG (NEG) Urine Bilirubin NEG (NEG) Urine Urobilinogen LESS THAN 2.0 MG/DL (LESS THAN 2.0) Urine Leukocyte Esterase NEG (NEG) Urine RBC 5 /hpf (0-3) Urine WBC LESS THAN 1 /hpf (0-5) Urine Squamous Epithelial 2 /hpf (0-5) Cells Urine Transitional Epithelial <1 /hpf (NONE) Cells Urine Amorphous Sediment FEW Urine Bacteria RARE /hpf (NONE) Urine Hyaline Casts 2 /lpf (RARE) Microscopic Urinalysis Comment CATH-CULTURE IND (Nidia Zurita) Result Diagram: 01/09/1740401/09/175 Microbiology Microbiology Date/Time Procedure Status Source Growth 01/06/17 16:10 Legionella Antigen - Final Complete Urine Catheterized Urine PRESUMPTIVE NEGATIVE FOR LEGIONELLA P... 01/06/17 16:10 Streptococcus pneumoniae Antigen (M - Final Complete Urine Catheterized Urine PRESUMPTIVE NEGATIVE FOR STREPTOCOCCU... 01/06/17 19:15 Aerobic Blood Culture - Preliminary Resulted Blood Line NO GROWTH IN 2 DAYS 01/06/17 19:15 Anaerobic Blood Culture - Preliminary Resulted Blood Line NO GROWTH IN 2 DAYS 01/06/17 19:20 Aerobic Blood Culture - Preliminary Resulted Blood Peripheral NO GROWTH IN 2 DAYS 01/06/17 19:20 Anaerobic Blood Culture - Preliminary Resulted Blood Peripheral NO GROWTH IN 2 DAYS 01/07/17 01:00 Cancelled Sputum Expectorated Sputum 01/09/17 08:20 Urine Culture Received Urine Catheterized Urine Pending Imaging Last Impressions Chest X-Ray 01/08/17 0000 Signed Impressions: Service Date/Time: December 17:23 - CONCLUSION: Diffuse pulmonary consolidations which appear worse. This likely represents some worsening edema or consolidation/infection on top of underlying chronic interstitial disease. Zane Ashraf MD Chest CT 01/06/17 0000 Signed Impressions: Service Date/Time: Friday, January 06, 2017 14:55 - CONCLUSION: 1. Interval worsening of coarse interstitial opacities in both lungs 2. Stable appearance of the cavitary lesion right upper lobe. Bishop Rivero MD (Nidia Zurita [facility]) Assessment and Plan Disease Oriented Problem List: (1) Acute respiratory failure with hypoxia (2) Pulmonary fibrosis (3) COPD exacerbation (4) Atypical mycobacterial infection of lung Symptom Scale: (1) Dyspnea 0-10 Scale: Unable to quantify Comment: Secondary to pulmonary fibrosis, COPD. O2 dependent. BiPAP as needed. (2) Anxiety 0-10 Scale: Unable to quantify Comment: Secondary to shortness of breath. (3) Malnourished 0-10 Scale: Unable to quantify Comment: Secondary to burden of disease, decreased oral intake. Albumin 2.2 Pertinent Non-Medical Issues Psychosocial: Spiritual: Legal: Ethical issues impacting care: Important Contacts Ayo French . Daughter Modesta Rojas . . Prognosis Mrs. French is a 76 y/o female with a medical history significant for pulmonary fibrosis, COPD oxygen dependent and atypical TB. Recent hospitalizations within the past 2 months with progression of disease and complications such as respiratory failure and pneumonia requiring IV antibiotic and BiPAP. Patient at high risk for further decline, complications and . Overall poor prognosis for an improved quality of life. . Code Status: No Code Plan * CODE STATUS: No code. DNR/DNI * Designation of HCS provided. Patient designated her Ayo French as HCS and daughter Modesta Spring as alternate. * GOALS OF CARE: 01/09/17 -Continue aggressive care short of no code with emphasis in symptom management. Spoke with patient's out of the room, he verbalized knowing that patient's condition is progressing and terminal. reports that he has been in contact with her children/family are in agreement with current plan of care/no code status. asking about hospice services. Reviewed hospice philosophy and benefits. Discussed the role of hospice should patient's condition continues to worsen. very receptive of this conversation and asking for guidance when the time for hospice approaches. Review with the palliative care will continue to follow-up and will be in close communication with attending and consulting physicians. * SYMPTOMS: == Dyspnea, secondary to acute respiratory failure due to fibrosis, COPD exacerbation, and possible pneumonia. ID and pulmonology following. Patient receiving Solu-Medrol and duonebs. Management deferred to pulmonary and hydroelectric station chief. Frequency of Xanax increased to every 4 hours as needed. Morphine 3 mg IV added with good effect. == Anxiety: Chronic and exacerbated by dyspnea. Taking Xanax at home. Xanax available every 4 hours when necessary. = = Malnutrition, secondary to burden of disease and profound dyspnea. Albumin 2.2. Patient eating small meals and nutritional supplements. == Pressure ulcer : Patient reported pressure ulcer to coccyx secondary to bedrest and malnutrition. Wound care nurse evaluated yesterday. * Case has been discussed with Dr. Dodson and bedside RN. * Palliative care contact information has been provided to patient and family. * Ongoing emotional support and active listening provided to patient and . very appreciative of my visit today. * Palliative care will continue to follow-up for further clarifications of treatment goals and to provide emotional support. . (Nidia Zurita) Time Spent Total Floor Time (mins): 42 (Total time to include review medical records, physical exam, bedside conversation with patient and , conversation with hospice once out of the room, his discussion with RN.) >50% Counseling/Coord of Care: Yes (Niida Zurita) Attestation To help prompt me to consider important information that might be impacting today's encounter and assessment, information from prior notes written by myself or my colleagues may have been "brought forward" into today's note. My signature on this note, however, is an attestation that I personally performed the exam, history, and/or decision-making noted today, and, unless otherwise indicated, the interactions with patient, family, and staff as well as the review of records all occurred today. I also attest that the listed assessment and stated plan reflect my best clinical judgment today based on the combination of historical information, prior notes, and today's exam/ interactions. When time spent is documented, it refers only to time spent today by the signer, or if indicated, combined time spent today by collaborating physician/nurse practitioner. (Nidia Zurita) Collaborating MD Comments Chart reviewed. Case discussed with palliative care SUBSTATION OPERATOR CHIEF. Above SUBSTATION OPERATOR CHIEF note reviewed and I concur. . (Tony Dodson MD) Nidia Zurita Jan 09, 2017 11:32 Tony Dodson MD Jan 11, 2017 12:30
[2017-01-09] MEDS: ENOXAPARIN SODIUM 40 MG/0.4 ML SYRINGE SQ SCH (16:39)
[2017-01-09] MEDS: ALPRAZolam 0.25 MG TAB PO SCH (20:34)
[2017-01-09] MEDS: MOXIFLOXACIN 400 MG PREMIX 250 ML IV SCH (20:40)
[2017-01-09] MEDS: CHLORPHENIR/HYDROCOD LIQUID 8 MG/10 MG/5 ML CUP PO PRN (23:01)
[2017-01-10] VITALS (13 sets, daily range): BP systolic 110–142; BP diastolic 64–78; PULSE 85–123; RESP 11–24; TEMP 97.7–98.3; O2SAT 87–98
[2017-01-10] MEDS: CHLORHEXIDINE GLUCONATE 2 % 1 PACK (2 CLOTHS) TOP SCH (04:00)
[2017-01-10] MEDS: RESP: LEVALBUTEROL HYDROCHLORIDE 0.63 MG/3 ML NEB (SCH) NEB ×6 (04:04→20:33)
[2017-01-10] MEDS: DILTIAZEM HCL 60 MG TAB PO SCH ×3 (05:43→18:00)
[2017-01-10] MEDS: INSULIN NovoLIN REGULAR SUPPLEMENTAL SCALE SQ SCH ×3 (05:43→18:00)
[2017-01-10] MEDS: methylPREDNISolone SOD SUCC 40 MG/1 ML VIAL IV PUSH SCH ×3 (05:43→18:00)
[2017-01-10] MEDS: ALPRAZolam 0.25 MG TAB PO SCH ×3 (05:43→19:54)
--- NOTE | 2017-01-10 08:27 | HHI.PR ---
Subjective Remarks ill looking- getting her breathing treatment. easily desaturates. d/w the RN. Objective Vitals Vital Signs Date Time Temp Pulse Resp B/P Pulse Ox O2 Delivery O2 Flow Rate FiO2 01/10/17 08:00 98.3 110 17 122/71 98 01/10/17 08:00 98 Non-Rebreather 15.00 01/10/17 08:00 103 01/10/17 06:00 100 01/10/17 04:00 85 01/10/17 04:00 98.0 85 11 110/64 96 01/10/17 02:00 96 01/10/17 00:00 97.7 96 17 110/64 96 01/10/17 00:00 96 01/09/17 23:20 29 01/09/17 22:00 105 01/09/17 21:15 95 Non-Rebreather 15.00 01/09/17 20:00 98.0 112 33 132/69 93 01/09/17 20:00 112 01/09/17 18:00 101 01/09/17 16:00 108 01/09/17 16:00 97.9 120 28 117/59 89 01/09/17 16:00 95 Non-Rebreather 15.00 01/09/17 14:00 112 01/09/17 12:00 98.1 116 28 114/59 96 01/09/17 12:00 116 01/09/17 10:00 111 01/09/17 08:55 100 Non-Rebreather 15.00 I/O 01/09/17 01/09/17 01/09/17 01/10/17 01/10/17 01/10/17 07:00 15:00 23:00 07:00 15:00 23:00 Intake Total 875 ml 600 ml 900 ml 120 ml Output Total 275 ml 500 ml 575 ml 325 ml Balance 600 ml 100 ml 325 ml -205 ml Intake Oral 360 ml 600 ml 360 ml 120 ml IV Total 515 ml 540 ml Output Urine Total 275 ml 500 ml 575 ml 325 ml # Voids 2 # Bowel Movements 0 0 0 0 Result Diagram: 01/09/17 0405 01/09/17 0405 Imaging Last Impressions Chest X-Ray 01/08/17 0000 Signed Impressions: Service Date/Time: December 17:23 - CONCLUSION: Diffuse pulmonary consolidations which appear worse. This likely represents some worsening edema or consolidation/infection on top of underlying chronic interstitial disease. Zane Ashraf MD Chest CT 01/06/17 0000 Signed Impressions: Service Date/Time: Friday, January 06, 2017 14:55 - CONCLUSION: 1. Interval worsening of coarse interstitial opacities in both lungs 2. Stable appearance of the cavitary lesion right upper lobe. Bishop Rivero MD Objective Remarks GENERAL:ill looking with respiratory distress CARDIOVASCULAR: Regular rate and irregular rhythm without murmurs, gallops, or rubs. RESPIRATORY: bilateral air entry present GASTROINTESTINAL: Abdomen soft, non-tender, nondistended. Normal, active bowel sounds MUSCULOSKELETAL: Extremities without clubbing, cyanosis, or edema. NEURO: Alert & Oriented x4 to person, place, time, situation. Moves all ext x4 Medications and IVs Current Medications IV Flush (NS Flush) 2 ml UNSCH PRN IVF FLUSH AFTER USING IV ACCESS; Start 01/06 at 13:00 Albuterol/ Ipratropium (Duoneb Neb) 1 ampule Q15M INH Last administered on 01/06 13:26; Start 01/06/17 at 13:00; Stop 01/06/17 at 13:16; Status DC Methylprednisolone Sodium Succinate 60 mg 60 mg ONCE ONCE IV PUSH Last administered on 01/06/17 15:04; Start 01/06/17 at 14:15; Stop 01/06/17 at 14:16 ; Status DC Piperacillin Sod/ Tazobactam Sod 50 ml @ 100 mls/hr ONCE ONCE IV Last administered on 01/06/17 15:28; Start 01/06/17 at 14:30; Stop 01/06/17 at 14:59 ; Status DC Sodium Chloride (NS 1000 ml Inj) 1,000 ml @ 50 mls/hr Q20H IV Last administered on 01/06/17 15:24; Start 01/06/17 at 15:02; Stop 01/07/17 at 12:09 ; Status DC Pantoprazole Sodium (Protonix Inj) 40 mg DAILY IV Last administered on 08:43; Start 01/06/17 at 15:30 Albuterol/ Ipratropium (Duoneb Neb) 1 ampule Q4HR NEB INH Last administered on 01/08/17 08:37; Start 01/06/17 at 16:00; Stop 01/08/17 at 12:48; Status DC Albuterol/ Ipratropium (Duoneb Neb) 1 ampule Q2HR NEB PRN INH WHEEZING; Start 01/06/17 at 15:15; Stop 01/08/17 at 12:48; Status DC Enoxaparin Sodium (Lovenox Inj) 40 mg Q24H SQ Last administered on 01/09/17 16 :39; Start 01/06/17 at 16:00 Miscellaneous Information 1 Q361D XX Last administered on 01/06/17 15:15; Start 01/06/17 at 15:15 Chlorhexidine Gluconate (Chlorhexidine 2% Cloth) 3 pack Taper DAILY@04 TOP Last administered on 01/10/17 04:00; Start 01/07/17 at 04:00; Stop 01/03/18 at 03:59 Chlorhexidine Gluconate 3 pack 3 pack UNSCH PRN TOP HYGIENIC CARE; Start at 15:15 Amikacin Sulfate/ Sodium Chloride (Amikin Inj/NS Inj) 102 ml @ 204 mls/hr Q12H IV ; Start 01/06/17 at 21:00; Stop 01/06/17 at 21:00; Status DC Methylprednisolone Sodium Succinate (SoluMEDROL INJ) 60 mg Q6HR IV PUSH Last administered on 01/10/17 05:43; Start 01/06/17 at 18:00 Dextrose (D50w (Vial) Inj) 25 ml UNSCH PRN IV PUSH HYPOGLYCEMIA-SEE COMMENTS; Start 01/06/17 at 15:30 Glucagon (Glucagon Inj) 1 mg UNSCH PRN OTHER HYPOGLYCEMIA-SEE COMMENTS; Start 01/06/17 at 15:30 Insulin Human Regular 1 1 Q6HR SQ Last administered on 01/09/17 12:36; Start 01/06/17 at 16:00 Imipenem/ Cilastatin Sodium/ Sodium Chloride (Primaxin Inj/NS Inj) 100 ml @ 100 mls/hr Q8H IV Last administered on 01/06/17 18:02; Start 01/06/17 at 17:00 ; Stop 01/06/17 at 18:35; Status DC Budesonide/ Formoterol Fumarate 2 puff 2 puff Q12HR INH Last administered on t 21:30; Start 01/06/17 at 21:00; Stop 01/09/17 at 14:09; Status DC Potassium Chloride 100 ml @ 50 mls/hr Q2H PRN IV For Potassium 2.8 - 3.2 mEq/L ; Start 01/06/17 at 15:30 Potassium Chloride (KCl 20 Meq Premix Inj) 100 ml @ 50 mls/hr Q2H PRN IV For Potassium 2.8 - 3.2 mEq/L; Start 01/06/17 at 15:30 Potassium Chloride 40 meq 40 meq UNSCH PRN PO/TUBE For Potassium 3.3 - 3.5 mEq/ L; Start 01/06/17 at 15:30 Potassium Chloride 100 ml @ 25 mls/hr UNSCH PRN IV For Potassium 3.3 - 3.5 mEq /L; Start 01/06/17 at 15:30 Potassium Chloride 100 ml @ 50 mls/hr Q2H PRN IV For Potassium 3.3 - 3.5 mEq/L ; Start 01/06/17 at 15:30 Magnesium Sulfate/ Sodium Chloride (Magnesium Sulfate Inj/NS Inj) 100 ml @ 50 mls/hr UNSCH PRN IV For Magnesium 0.9 - 1.1 mg/dL; Start 01/06/17 at 15:30 Magnesium Oxide 800 mg 800 mg UNSCH PRN PO For Magnesium 1.2 - 1.6 mg/dL; Start 01/06/17 at 15:30 Magnesium Sulfate/ Sodium Chloride (Magnesium Sulfate Inj/NS Inj) 100 ml @ 50 mls/hr UNSCH PRN IV For Magnesium 1.2 - 1.6 mg/dL; Start 01/06/17 at 15:30 Potassium Phosphate 2000 mg 2,000 mg Q4H PRN PO For Phosphorus < 2.5 mg/dL; Start 01/06/17 at 15:30 Sodium Phosphate/ Sodium Chloride (Sodium Phosphate Inj/NS 250 ml Inj) 250 ml @ 42 mls/hr UNSCH PRN IV For Phosphorus < 2.5 mg/dL; Start 01/06/17 at 15:30 Potassium Chloride (KCl 40 Meq/30 ml Liq) 40 meq UNSCH PRN PO/TUBE SEE LABEL COMMENTS; Start 01/06/17 at 15:30 Potassium Phosphate 2000 mg 2,000 mg UNSCH PRN PO/TUBE SEE LABEL COMMENTS; Start 01/06/17 at 15:30 Potassium Phosphate/Sodium Chloride (Potassium Phosphate Inj/NS 250 ml Inj) 260 ml @ 42 mls/hr UNSCH PRN IV SEE LABEL COMMENTS Last administered on 01/08/17 09:12; Start 01/06/17 at 15:30 Miscellaneous Medication 1 1 ONCE ONCE XX Last administered on 01/06/17 16:00 ; Start 01/06/17 at 16:00; Stop 01/06/17 at 16:01; Status DC Pharmacy Profile Note 0 ml @ 0 mls/hr UNSCH OTHER ; Start 01/06/17 at 16:15 Amikacin Sulfate/ Sodium Chloride (Amikin Inj/NS 250 ml Inj) 252.76 ml @ 250 mls/ hr Q24H IV Last administered on 01/09/17 20:36; Start 01/06/17 at 21:00 Miscellaneous Information SPECIFIC LAB TO BE JETT... ONCE ONCE XX ; Start at 08:45; Stop 01/07/17 at 08:46; Status DC Moxifloxacin HCl (Avelox 400 Mg Premix) 250 ml @ 250 mls/hr Q24H IV Last administered on 01/09/17 20:40; Start 01/06/17 at 20:00 Linezolid (Zyvox) 600 mg Q12HR PO Last administered on 01/09/17 20:48; Start 01/06/17 at 21:00 Chlorphenir/ Hydrocodone Polistirex (Tussionex Liq) 5 ml Q12H PRN PO COUGH Last administered on 01/09/17 23:01; Start 01/07/17 at 19:30 Alprazolam (Xanax) 0.25 mg Q6H PRN PO ANXIETY Last administered on 01/09/17 08 :43; Start 01/07/17 at 21:45; Stop 01/09/17 at 09:05; Status DC Diltiazem HCl (Cardizem) 60 mg Q6HR PO Last administered on 01/10/17 05:43; Start 01/08/17 at 12:00 Levalbuterol HCl (Xopenex Neb) 0.63 mg Q4HR NEB NEB Last administered on 07:58; Start 01/08/17 at 16:00 Levalbuterol HCl (Xopenex Neb) 0.63 mg Q2HR NEB PRN NEB SOB/WHEEZING; Start at 13:00 Morphine Sulfate (Morphine Inj) 3 mg Q3H PRN IV PUSH SHORTNESS OF BREATH Last administered on 01/09/17 23:01; Start 01/08/17 at 13:00 Alprazolam (Xanax) 0.25 mg Q4HR PRN PO ANXIETY Last administered on 01/09/17 12:31; Start 01/09/17 at 12:00 Alprazolam (Xanax) 0.25 mg Q8HR PO Last administered on 01/10/17 05:43; Start 01/09/17 at 22:00 A/P Assessment and Plan A/P 1. Acute hypoxemic respiratory failure due to Exacerbation of pulmonary fibrosis/COPD and history of chronic interstitial lung disease and Mycobacterium fortuitum infection of the lung. keep on oxygen to keep O2 sat > 90%- BiPaP as needed- continue IV steroids and neb treatment. xanax as needed. continue antibiotics per ID. pulmonary following. 2. leukocytosis due to infection/ steroids- will monitor 3. Anemia- stable H/H- will monitor DVT/GI prophylaxis with lovenox/ PPI. patient is ill-looking. continue to monitor in ICU. palliative care consult appreciated. Discharge Planning possible hospice? Lorenzo Moreau MD Jan 10, 2017 08:27
[2017-01-10] MEDS: PANTOPRAZOLE SODIUM 40 MG VIAL IV SCH (09:00)
[2017-01-10] MEDS: LINEZOLID 600 MG TAB PO SCH ×2 (09:00→19:53)
[2017-01-10] MEDS: ALPRAZolam 0.25 MG TAB PO PRN (12:11)
--- NOTE | 2017-01-10 12:38 | RADRPT ---
EXAM DATE/TIME: 01/10/2017 12:00 [facility] COMPARISON: CHEST SINGLE AP, January 08, 2017, 17:23. INDICATIONS : Shortness of breath. MEDICAL HISTORY : Pulmonary fibrosis. Breast augmentation. SURGICAL HISTORY : None. ENCOUNTER: Subsequent ACUITY: 4 - 6 days PAIN SCORE: 0/10 LOCATION: Bilateral chest FINDINGS: Diffuse airspace disease on both sides not significantly changed. No large effusion seen. No pneumoth orax. Partite stable, within normal limits. There is a right subclavian central venous catheter are again noted, tip at the intracaval junction. CONCLUSION: No significant change. Zane Mccann MD on January 10, 2017 at 12:36 Board Certified Radiologist. This report was verified electronically.
--- NOTE | 2017-01-10 13:47 | HHI.IDPN ---
Subjective Subjective Remarks Mrs. Jaramillo is a 76 y/o CF with PMHx significant for pulmonary fibrosis, Mycobacterium fortuitum lung infection. Admitted with resp issues, COPD exacerbation possible pneumonia. Overnight events reviewed. No fever No rash No diarrhea. Continues to have oxygen saturation fluctuations. Antibiotics Moxifloxacin IV amikacin IV Zyvox oral. Lines Line sites with no e/o infection. Past Medical History reviewed Allergies: Coded Allergies: No Known Allergies (Unverified , 01/06/17) Objective . Vital Signs Date Time Temp Pulse Resp B/P Pulse Ox O2 Delivery O2 Flow Rate FiO2 01/10/17 10:00 103 01/10/17 08:00 98.3 110 17 122/71 98 01/10/17 08:00 98 Non-Rebreather 15.00 01/10/17 08:00 103 01/10/17 06:00 100 01/10/17 04:00 85 01/10/17 04:00 98.0 85 11 110/64 96 01/10/17 02:00 96 01/10/17 00:00 97.7 96 17 110/64 96 01/10/17 00:00 96 01/09/17 23:20 29 01/09/17 22:00 105 01/09/17 21:15 95 Non-Rebreather 15.00 01/09/17 20:00 98.0 112 33 132/69 93 01/09/17 20:00 112 01/09/17 18:00 101 01/09/17 16:00 108 01/09/17 16:00 97.9 120 28 117/59 89 01/09/17 16:00 95 Non-Rebreather 15.00 01/09/17 14:00 112 01/09/17 01/09/17 01/10/17 15:00 23:00 07:00 Intake Total 600 ml 900 ml 120 ml Output Total 500 ml 575 ml 325 ml Balance 100 ml 325 ml -205 ml Intake Oral 600 ml 360 ml 120 ml IV Total 540 ml Output Urine Total 500 ml 575 ml 325 ml # Bowel Movements 0 0 0 . Laboratory Tests Test 01/09/17 04:05 White Blood Count 21.1 TH/MM3 Red Blood Count 3.12 MIL/MM3 Hemoglobin 8.2 GM/DL Hematocrit 25.8 % Mean Corpuscular Volume 82.7 FL Mean Corpuscular Hemoglobin 26.3 PG Mean Corpuscular Hemoglobin 31.8 % Concent Red Cell Distribution Width 18.0 % Platelet Count 424 TH/MM3 Mean Platelet Volume 7.2 FL Neutrophils (%) (Auto) 94.3 % Lymphocytes (%) (Auto) 2.4 % Monocytes (%) (Auto) 3.3 % Eosinophils (%) (Auto) 0.0 % Basophils (%) (Auto) 0.0 % Neutrophils # (Auto) 19.9 TH/MM3 Lymphocytes # (Auto) 0.5 TH/MM3 Monocytes # (Auto) 0.7 TH/MM3 Eosinophils # (Auto) 0.0 TH/MM3 Basophils # (Auto) 0.0 TH/MM3 CBC Comment DIFF FINAL Differential Comment Laboratory Tests Test 01/09/17 04:05 Sodium Level 140 MEQ/L Potassium Level 4.2 MEQ/L Chloride Level 102 MEQ/L Carbon Dioxide Level 31.6 MEQ/L Anion Gap 6 MEQ/L Blood Urea Nitrogen 17 MG/DL Creatinine 0.62 MG/DL Estimat Glomerular Filtration 94 ML/MIN Rate Random Glucose 135 MG/DL Calcium Level 7.7 MG/DL Magnesium Level 2.4 MG/DL Total Bilirubin 0.2 MG/DL Aspartate Amino Transf 17 U/L (AST/SGOT) Alanine Aminotransferase 21 U/L (ALT/SGPT) Alkaline Phosphatase 80 U/L Total Protein 6.2 GM/DL Albumin 2.2 GM/DL Microbiology Date/Time Procedure Status Source Growth 01/09/17 08:20 Urine Culture - Preliminary Resulted Urine Catheterized Urine NO GROWTH IN 24 HOURS. 01/10/17 11:40 Aerobic Blood Culture Received Blood Line Pending 01/10/17 11:40 Anaerobic Blood Culture Received Blood Line Pending 01/10/17 11:45 Aerobic Blood Culture Received Blood Peripheral Pending 01/10/17 11:45 Anaerobic Blood Culture Received Blood Peripheral Pending Imaging Last Impressions Chest X-Ray 01/06/17 1259 Signed Impressions: Service Date/Time: Friday, January 06, 2017 13:23 - CONCLUSION: Coarse opacities remain in both lungs. Bishop Rivero MD Chest CT 01/06/17 0000 Signed Impressions: Service Date/Time: Friday, January 06, 2017 14:55 - CONCLUSION: 1. Interval worsening of coarse interstitial opacities in both lungs 2. Stable appearance of the cavitary lesion right upper lobe. Bishop Rivero MD Physical Exam GENERAL: Thin built, undernourished female patient, in mild respiratory distress. SKIN: No rashes, ecchymoses or lesions. HEAD: Atraumatic. Normocephalic. No temporal or scalp tenderness. EYES: Pupils equal round and reactive. Extraocular motions intact. No scleral icterus. No injection or drainage. ENT: Was on a BiPAP mask. NECK: Trachea midline.Supple, nontender, no meningeal signs. CARDIOVASCULAR: Heart sounds audible. No murmur appreciated. RESPIRATORY: Bilateral coarse crackles. Air entry decreased in the bases. GASTROINTESTINAL: Abdomen soft, non-tender, nondistended. MUSCULOSKELETAL: Extremities without clubbing, cyanosis, or edema. No joint tenderness, effusion, or edema noted. No calf tenderness. Negative Homans sign bilaterally. NEUROLOGICAL: Awake and alert. Grossly nonfocal. Psych cooperative IV line sites with no evidence of infection. Assessment & Plan Remarks Possible Sepsis present on admission (Immune compromised host: Fever 102 F at home, tachycardia, leucocytosis) Community acquired/HCAP associated pneumonia/CABP Mycobacterium fortuitum lung infection Acute COPD exacerbation: advanced Pulm fibrosis Acute resp failure on BiPAP Fever and Rash: ? Drug fever from Imipenem Recs Continue Moxifloxacin IV (ASP criteria for CABP/HCAP as well as Myco fortuitum infection Continue Zyvox oral (for MRSA pneumonia) Continue Amikacin IV (pharmacy consult: for Mycobacterium fortuitum IV) Mycobacterium fortuitum infection: Cefoxitin I, Azithro R, Imipenem S, Amikacin S, Bactrim S, Cipro S, Moxifloxacin S, Kanamycin S, Clofazimine S. Follow cultures. Follow clinically. d.w patient and spouse: Patients family approached me asking about hospice with home. I informed them that we can try and construct an oral regimen but that it will be an empiric regimen for HCAP and Mycobacterium fortuitum (as cultures are from Aug and there is possibility of other new strain). Patients family understands that she may deteriorate quickly and pass away sooner. They want to keep her comfortable at this point and surrounded by family. I reviewed imaging with family. I explained that to obtain cultures we would have to perform a bronchoscopy which could lead to intubation, trach and PEG. Patient and family would not like to pursue that route. They would like to take her home with home hospice and asked me to place a consult. They would like to continue current antibiotic regimen. Time spent in excess of 40 mins. Critical thinking, family discussions. Beatriz Dodson MD Jan 10, 2017 13:47
--- NOTE | 2017-01-10 14:23 | HHI.PR ---
Subjective Remarks ON O2 now 100 % woersening respiratory failue hospice care requested Objective Vital Signs Date Time Temp Pulse Resp B/P Pulse Ox O2 Delivery O2 Flow Rate FiO2 01/10/17 14:00 110 01/10/17 12:00 98.0 96 17 112/64 96 01/10/17 12:00 103 01/10/17 10:00 103 01/10/17 08:00 98.3 110 17 122/71 98 01/10/17 08:00 98 Non-Rebreather 15.00 01/10/17 08:00 103 01/10/17 06:00 100 01/10/17 04:00 85 01/10/17 04:00 98.0 85 11 110/64 96 01/10/17 02:00 96 01/10/17 00:00 97.7 96 17 110/64 96 01/10/17 00:00 96 01/09/17 23:20 29 01/09/17 22:00 105 01/09/17 21:15 95 Non-Rebreather 15.00 01/09/17 20:00 98.0 112 33 132/69 93 01/09/17 20:00 112 01/09/17 18:00 101 01/09/17 16:00 108 01/09/17 16:00 97.9 120 28 117/59 89 01/09/17 16:00 95 Non-Rebreather 15.00 I/O 01/09/17 01/09/17 01/09/17 01/10/17 01/10/17 01/10/17 07:00 15:00 23:00 07:00 15:00 23:00 Intake Total 875 ml 600 ml 900 ml 120 ml Output Total 275 ml 500 ml 575 ml 325 ml Balance 600 ml 100 ml 325 ml -205 ml Intake Oral 360 ml 600 ml 360 ml 120 ml IV Total 515 ml 540 ml Output Urine Total 275 ml 500 ml 575 ml 325 ml # Voids 2 # Bowel Movements 0 0 0 0 Result Diagram: 01/09/1740401/09/17404 Medications and IVs GENERAL: SKIN: Warm and dry. HEAD: Atraumatic. Normocephalic. EYES: Pupils equal and round. No scleral icterus. No injection or drainage. ENT: No nasal bleeding or discharge. Mucous membranes pink and moist. NECK: Trachea midline. No JVD. CARDIOVASCULAR: Regular rate and rhythm. RESPIRATORY: No accessory muscle use. Clear to auscultation. Breath sounds equal bilaterally. GASTROINTESTINAL: Abdomen soft, non-tender, nondistended. Hepatic and splenic margins not palpable. MUSCULOSKELETAL: Extremities without clubbing, cyanosis, or edema. No obvious deformities. NEUROLOGICAL: Awake and alert. No obvious cranial nerve deficits. Motor grossly within normal limits. Five out of 5 muscle strength in the arms and legs. Normal speech. PSYCHIATRIC: Appropriate mood and affect; insight and judgment normal. Assessment and Plan Assessment and Plan 1-COPD 2-PULM FIBROSIS 3-ATYPICAL TB PLAN O2 NEEDED BRONCHODILATOR THERAPY ANTIBIOTIC THERAPY INCREASE ACTIVITY START FEEDING PROGNOSIS , poor for hospice care Skip Valdivia MD Jan 10, 2017 14:22
[2017-01-10] MEDS: MORPHINE SULFATE 4 MG/ML INJ IV PUSH PRN ×2 (14:34→21:04)
[2017-01-10] MEDS: ENOXAPARIN SODIUM 40 MG/0.4 ML SYRINGE SQ SCH (16:00)
--- NOTE | 2017-01-10 16:47 | HHI.DS ---
Discharge Summary Admission Date Jan 06, 2017 at 14:30 Discharge Date: Jan 10, 2017 Admitting Diagnosis acute hypoxic respiratory failure (1) Acute respiratory failure with hypoxia ICD Code: J96.01 Diagnosis: Principal (2) Atypical mycobacterial infection of lung ICD Code: A31.0 Diagnosis: Principal (3) COPD exacerbation ICD Code: J44.1 Diagnosis: Principal (4) Pulmonary fibrosis ICD Code: J84.10 Diagnosis: Secondary (5) Dyspnea ICD Code: R06.00 Diagnosis: Secondary (6) Pneumonia ICD Code: J18.9 Diagnosis: Secondary (7) GERD (gastroesophageal reflux disease) ICD Code: K21.9 Diagnosis: Secondary Procedures none Brief History - From Admission The patient is a 76-year-old female with a past medical history of chronic interstitial lung disease, COPD on continuous oxygen at the nursing facility, recent mycobacterium fortuitum infection in the sputum from November 10 being treated with IV antibiotics Amikacin and Primaxin through a PICC line. The patient was transferred from a local nursing facility to [facility] Emergency Department with a one day history of worsening shortness of breath associated with a productive cough. In the emergency room she was placed on BiPAP 10/5 with FIO2 of 50% and an ABG showed a pH of 7.44, CO2 42, paO2 156, bicarbonate 28 and saturations of 95%. On arrival she was tachycardic and tachypneic. CBC/BMP: 01/09/17 0405 01/09/17 0405 Significant Findings Laboratory Tests Test 01/08/17 01/09/17 01/09/17 05:35 04:05 08:20 White Blood Count 20.4 TH/MM3 21.1 TH/MM3 (4.0-11.0) (4.0-11.0) Red Blood Count 3.02 MIL/MM3 3.12 MIL/MM3 (4.00-5.30) (4.00-5.30) Hemoglobin 8.1 GM/DL 8.2 GM/DL (11.6-15.3) (11.6-15.3) Hematocrit 24.9 % 25.8 % (35.0-46.0) (35.0-46.0) Mean Corpuscular Hemoglobin 26.7 PG 26.3 PG (27.0-34.0) (27.0-34.0) Red Cell Distribution Width 17.7 % 18.0 % (11.6-17.2) (11.6-17.2) Neutrophils (%) (Auto) 93.6 % 94.3 % (16.0-70.0) (16.0-70.0) Lymphocytes (%) (Auto) 3.6 % 2.4 % (9.0-44.0) (9.0-44.0) Neutrophils # (Auto) 19.1 TH/MM3 19.9 TH/MM3 (1.8-7.7) (1.8-7.7) Lymphocytes # (Auto) 0.7 TH/MM3 0.5 TH/MM3 (1.0-4.8) (1.0-4.8) Random Glucose 136 MG/DL 135 MG/DL (74-106) (74-106) Calcium Level 7.7 MG/DL 7.7 MG/DL (8.5-10.1) (8.5-10.1) Phosphorus Level 1.8 MG/DL (2.5-4.9) Mean Corpuscular Hemoglobin 31.8 % Concent (32.0-36.0) Total Protein 6.2 GM/DL (6.4-8.2) Albumin 2.2 GM/DL (3.4-5.0) Urine Turbidity HAZY (CLEAR) Urine Protein 30 mg/dL (NEG-TRACE) Urine Occult Blood TRACE (NEG) Urine RBC 5 /hpf (0-3) Urine Bacteria RARE /hpf (NONE) PE at Discharge GENERAL:ill looking with respiratory distress CARDIOVASCULAR: Regular rate and irregular rhythm without murmurs, gallops, or rubs. RESPIRATORY: bilateral air entry present GASTROINTESTINAL: Abdomen soft, non-tender, nondistended. Normal, active bowel sounds MUSCULOSKELETAL: Extremities without clubbing, cyanosis, or edema. NEURO: Alert & Oriented x4 to person, place, time, situation. Moves all ext x4 Transfer Summary The patient is a 76-year-old female with a past medical history of chronic interstitial lung disease, COPD on continuous oxygen at the nursing facility, recent mycobacterium fortuitum infection in the sputum from November 10 being treated with IV antibiotics Amikacin and Primaxin through a PICC line. The patient was transferred from a local nursing facility to [facility] Emergency Department with a one day history of worsening shortness of breath associated with a productive cough. In the emergency room she was placed on BiPAP 10/5 with FIO2 of 50% and an ABG showed a pH of 7.44, CO2 42, paO2 156 , bicarbonate 28 and saturations of 95%. On arrival she was tachycardic and tachypneic. The patient had a temperature of 99.2 and her WBC is 11.4. Initial chest x-ray showed coarse opacities bilaterally. The patient subsequently had a CT scan of the chest without contrast which showed interval worsening of coarse interstitial opacities in both lungs and stable appearance of the cavitary lesion measuring 2.4 x 1.8 cm in the right upper lobe. The patient is being followed by Dr. Lofton from pulmonary service. She denies any nausea or vomiting or abdominal pain. In the emergency room she was given Solu-Medrol 60 milligrams IV push, Zosyn and bronchodilator treatments. 01/07 No acute events overnight. On BIPAP 10/5 with 40% FIO2. Afebrile. 01/08: Patient staying off BiPAP, on 5L NC. Patient after discussion with Dr. Lofton decided to change code status to a DNR. Overall feels slightly improved Hospital Course 1. Acute hypoxemic respiratory failure due to Exacerbation of pulmonary fibrosis/COPD and history of chronic interstitial lung disease and Mycobacterium fortuitum infection of the lung. keep on oxygen to keep O2 sat > 90%- BiPaP as needed- continue IV steroids and neb treatment. xanax as needed. continue antibiotics per ID. pulmonary following. 2. leukocytosis due to infection/ steroids- will monitor 3. Anemia- stable H/H- will monitor DVT/GI prophylaxis with lovenox/ PPI. Pt Condition on Discharge: Deteriorating Discharge Disposition: Hospice/Med Facility Discharge Time: <= 30 minutes Discharge Instructions DIET: Follow Instructions for: Heart Healthy Diet Activities you can perform: Regular-No Restrictions Lorenzo Moreau MD Jan 10, 2017 16:47
[2017-01-10] MEDS ORDERED: PRED10 PO (16:54)
--- NOTE | 2017-01-10 16:55 | HHI.DCPOC ---
Discharge Care Plan Diagnosis: (1) Atypical mycobacterial infection of lung Your Health Problems Are: Difficulty with ADL Cough Shortness of Breath Goals to Promote Your Health * To prevent worsening of your condition and complications * To maintain your health at the optimal level Directions to Meet Your Goals Take your medications as prescribed Follow your dietary instruction Follow activity as directed Keep your appointments as scheduled Take your immunizations and boosters as scheduled If your symptoms worsen call your PCP, if no PCP go to Urgent Care Center or Emergency Room Smoking is Dangerous to Your Health. Avoid second hand smoke Call the 24-hour hour crisis hotline for domestic abuse at Lorenzo Moreau MD Jan 10, 2017 16:55
[2017-01-10] MEDS: AMIKACIN IV SCH (19:54)
[2017-01-10] MEDS: SODIUM CHLOR 0.9% IV SCH (19:54)
[2017-01-10] MEDS: MOXIFLOXACIN 400 MG PREMIX 250 ML IV SCH (19:55)
[2017-01-10] MEDS: CHLORPHENIR/HYDROCOD LIQUID 8 MG/10 MG/5 ML CUP PO PRN (21:03)
== END 2017-01-10 21:10 | disposition hospice, inpatient (51) | DRG 189 ==
LOC: NEPE 12:26 → NEDA 14:30 → NEDH 19:14 → HIMN 01-07 17:00
PROVIDERS: ADMIT Internal Medicine; ATTEND Internal Medicine
PROC: 5A09357 Assistance with Respiratory Ventilation, Less than 24 Consecutive Hours, Continuous Positive Airway Pressure (ICD-10-PCS; principal; 2017-01-06)
PROC: 0T9B70Z Drainage of Bladder with Drainage Device, Via Natural or Artificial Opening (ICD-10-PCS; 2017-01-08)
DX: J96.01 Acute respiratory failure with hypoxia (principal); J18.9 Pneumonia, unspecified organism; E46 Unspecified protein-calorie malnutrition; J44.1 Chronic obstructive pulmonary disease with (acute) exacerbation; A31.0 Pulmonary mycobacterial infection; J84.10 Pulmonary fibrosis, unspecified; Z99.81 Dependence on supplemental oxygen; L89.159 Pressure ulcer of sacral region, unspecified stage; D64.9 Anemia, unspecified; K21.9 Gastro-esophageal reflux disease without esophagitis; K44.9 Diaphragmatic hernia without obstruction or gangrene; M81.0 Age-related osteoporosis without current pathological fracture; Z87.891 Personal history of nicotine dependence; Z66 Do not resuscitate; R21 Rash and other nonspecific skin eruption; Z87.01 Personal history of pneumonia (recurrent); Y95 Nosocomial condition; Z51.5 Encounter for palliative care; F41.9 Anxiety disorder, unspecified; R50.2 Drug induced fever
CPT/HCPCS: 36600; 71010; 71250; 80048; 80053; 80150; 81001; 82805; 82948; 83735; 84100; 85025; 86403; 87040; 87077; 87086; 87186; 87205; 87449; 93005; 94002; 94003; 94640; 94664; C9113; J0278; J0743; J1650; J2270; J2280; J2543; J2920; J2930; J7030; J7050; J7614